=== PATIENT | female | born 1990 | race Caucasian/White ===

== ENCOUNTER 2023-01-07 08:09 | Emergency (ER) | payer OTHER ==
[2023-01-07 08:49] LABS: Absolute Lymphocytes (CBC) 0.6 K/uL (0.7-4.9); Hematocrit 43.6 % (36.0-45.0); Lymphocytes % 19.6 % (15.3-44.8); MCV 89.4 fL (80-100); MPV 10.5 fL (7.6-11.3); RBC Red Blood Cell Count 4.87 M/uL (3.86-4.86)
[2023-01-07 08:51] LABS: Specific Gravity 1.014 (1.005-1.030)
[2023-01-07] MEDS ORDERED: NA CHLORIDE 0.9% 1,000 ML ONE (08:53)
[2023-01-07 08:55] LABS: Specific Gravity 1.014 (1.005-1.030); Urine Bacteria None Seen /HPF (<20); Urine Bilirubin NEGATIVE (Negative); Urine Blood 1+ (Negative); Urine Clarity Clear (Clear); Urine Color Colorless (Yellow); Urine Glucose NEGATIVE (Negative); Urine Mucus Slight /HPF (None Seen); Urine Protein NEGATIVE (Negative); Urine Urobilinogen Normal (Normal)
--- OUTSIDE RECORDS SUMMARY | 2023-01-07 08:58 | XMS REPORT | Continuity of Care Document ---
:1990 Author Organization [facility] t Address [address] [facility] [address] [place] [address] Care Team Providers Name Role Phone JASWINDER MURILLO Primary Care Physician Unavailable [id number] Attending Clinician Unavailable Best Mcfarland MD Attending Clinician Gloria Daly MD Attending Clinician [phone] Wellington Bazan MA Attending Clinician Unavailable Shama Newton MA Attending Clinician Unavailable BROOKE HAWTHORNE Attending Clinician Unavailable Brooke Hawthorne MD Attending Clinician Riccardo Arita NP Attending Clinician [phone] Ephraim Hill MA Attending Clinician Unavailable Josh Lewis MA Attending Clinician Unavailable Radha Lerma MD Attending Clinician FLAVIO ERNST Attending Clinician Unavailable Flavio Ernst MD Attending Clinician Belinda Johnson MD Attending Clinician Neda GREENWOOD, Ronen Attending Clinician Andi Moses MD Attending Clinician Alberto Cordero MD Attending Clinician Johnathan GREENWOOD, Wes Yost Attending Clinician Shaneka GREENWOOD, Tim Coleman Attending Clinician [phone] Kota Salmon Attending Clinician Unavailable JOSHUA JASMINE III Attending Clinician Unavailable King MENDY MD, James C Attending Clinician Unknown, Attending Attending Clinician Unavailable SAM MARTINEZ Attending Clinician Unavailable Dori AHN, Raquel Attending Clinician Unavailable Almita ALCOCER, Tamra Marcelo Attending Clinician James GREENWOOD, Mackenzie Chisholm Attending Clinician [phone] Betina Walton CRNA Attending Clinician Randi LOVELLCSahra Attending Clinician Esperanza Silva MA Attending Clinician Unavailable Mahogany Jacobsen RN Attending Clinician Unavailable Gianni Mendez Attending Clinician Unavailable Izabella GREENWOOD, Not In System Attending Clinician Unavailable Provider , Not In System Attending Clinician Unavailable GISSELLE MONCADA Attending Clinician Unavailable Gisselle Ewing Attending Clinician Renee Gilliam MA Attending Clinician Unavailable Prachi Green RN Attending Clinician Unavailable Eugenie Gilliam RN Attending Clinician Unavailable Walter Lizarraga DO Attending Clinician UNKNOWN, ATTENDING Attending Clinician Unavailable Glenn Multani MD Attending Clinician [phone] John Elizabeth NP, Sonali Attending Clinician Chance King MA Attending Clinician Unavailable Cadence Bassett APRN Attending Clinician Cesilia Scott LVN Attending Clinician Izabella GREENWOOD, Jose Attending Clinician Kylee Silva MA Attending Clinician Unavailable Linda Sales MA Attending Clinician Unavailable Provider, Unknown Attending Clinician Unavailable ARLETH NERI Attending Clinician Unavailable Arleth Fajardo A Attending Clinician Doctor Unassigned, [place] Attending Clinician Unavailable KERRIE CARMONA Attending Clinician Unavailable TERESA SEWELL Attending Clinician Unavailable YUE GARNER Attending Clinician Unavailable YUE GARNER Attending Clinician Unavailable AMAIRANI THOMAS Attending Clinician Unavailable ANTOINE WEBER Attending Clinician Unavailable MD KERRIE CARMONA Attending Clinician Unavailable SAM MALDONADO Attending Clinician Unavailable BARBARA SIFUENTES Attending Clinician Unavailable Sachin Potts Attending Clinician Unavailable Sachin Potts Attending Clinician Unavailable [id number] Admitting Clinician Unavailable Physician, No Primary or Family Admitting Clinician UnavailBROOKE Baker Admitting Clinician Unavailable BELINDA JOHNSON Admitting Clinician Unavailable Belinda Johnson MD Admitting Clinician ANDI MOSES Admitting Clinician Unavailable GLORIA DALY Admitting Clinician Unavailable BEST MCFARLAND Admitting Clinician Unavailable YUE GARNER Admitting Clinician Unavailable AMAIRANI THOMAS Admitting Clinician Unavailable KERRIE CARMONA Admitting Clinician Unavailable CARLYN NEWSOME Admitting Clinician Unavailable SAM MALDONADO Admitting Clinician Unavailable Sachin Potts Admitting Clinician Unavailable Payers Payer Name Policy Type Policy Number Effective Date Expiration Date Harper weems [employer] [id number] 2022 OUT OF NETWORK 00:00:00 CIGNA II [id number] 2021 00:00:00 Problems Condition Condition Condition Status Onset Resolution Last Treating Co mments Source Name Details Category Date Date Treatment Clinician Date Weakness Weakness Disease Active Unive rs -31 ity of 00:00: [address] Stroke-lik Stroke-lik Disease Active M ethodi e symptoms e symptoms - st 00:00: Hospita 00 l Shortness Shortness Disease Active Met hodi of breath of breath 03-12 00:00: Hospita 00 l 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 2020 Planning to go for R knee arthrosco py Right knee Right knee Disease Active 2020-07 Overview : Univers pain pain 1-10 Formattin ity of 00:00: g of this [place] 00 note Medical might be Branch different from the original. Formattin g of this note might be different from the original. 2020 Planning to go for R knee arthrosco py RT KNEE RT KNEE Diagnosis Active 2020-072021-06-15 Memoria S/P S/P Active 17:17:00 l 05/04/2021 12:00: Edwin n [facility] 00 Amy TLA CA M25.561 - M25.561 - Diagnosis Active 2021-04-05 Memoria PAIN IN PAIN IN -15 11:16:00 l RIGHT KNEE RIGHT KNEE 00:01: He ann Active 00 03/29/2021 [facility] Palpitatio Palpitatio Disease Active Overview : Methodi n n 8-[address] 00:00: g of this Hospita 00 note l might be different from the original. DR Salmon Cardiolog y 2020 Evaluated in ED for fast heart rate associate d with SOB At rest and exercise Labs normal W/u negative as per pt Started on tenormin 25 mg By cardiolog y / albutrol for SOB / galv. For GERD Irritable Irritable Disease Active Overview: Methodi bowel bowel 5-[address] syndrome syndrome 00:00: g of this Hos aris with with 00 note l constipati constipati might be on on different from the original. Evaluated by Dr Sewell 2020 [address] no active disease constipat ion trt with fiber / miralex lactose free dairy product Generalize Generalize Disease Active Overview : Methodi d anxiety d anxiety 5-12 Formattin s t disorder disorder 00:00: g of this Hos aris with panic with panic 00 note l attacks attacks might be different from the original. - H/O Anxiety + Depressio n since age 21 treated with Zoloft 200 than Lexapro but felt angry-Dec lined SSRI ( did not use my prescript ions ) or any other trt due to bad prior experienc es with prescribe d med : anger feeling :Referred to psychiatr y / therapist - Mood fluctuati ng ,not intereste d in any medicatio n for anxiety , finding a therapist and doing her own antianxie ty exercise : family supports her decision DECONITION DECONITIO Diagnosis Active 2021-03-09 Memoria N Active 11-07 15:28:00 l 11/07/2020 00:00: Edwin rojo 00 [place] Arnold-Chi Disease Active Overview : Methodi kashmir kashmir 11-[address] syndrome syndrome 00:00: g of this Hos aris without without 00 note l spina spina might be bifida or bifida or different hydrocepha hydrocepha from the ganga schuler original. NAFLD NAFLD Disease Active Overview: Method i (nonalcoho (nonalcoho 2-[address] lic fatty lic fatty 00:00: g of this H ospita liver liver 00 note l disease) disease) might be different from the original. 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 Discuss benefit of weight loss ; portion control , quality of food cylinder block mechanic risk reviewed Morbid Morbid Disease Active Overview: Method i obesity obesity 2-[address] with BMI with BMI 00:00: g of this Hos aris of of 00 note l 45.0-49.9, 45.0-49.9, might be adult adult different from the original. She improved her eating habit - lost about 17 lbs as of her scale - eating better and exercisin g [place]IA INDIA Disease Active Overview: Method i (obstructi (obstructi 08-[address] ve sleep ve sleep 00:00: g of this Hos aris apnea) apnea) 00 note l might be different from the original. Evaluated By Dr Pedroza fh of [place] : father passed from NC/ CHF aware of risk of untreated [place] ; snoring , gasping for air at night Sleep study :moderate , positiona l obstructi ve sleep apnea (INDIA).Wea ring CPAP : advised to follow up Gastroesop Gastroesop Disease Active Overview : Methodi hageal hageal 08-[address] reflux reflux 00:00: g of this Hospita disease disease 00 note is l without without different esophagiti esophagiti from the s s original. Evaluated by Dr Sewell : EGD postpone until cardiac w/u is complete 08/16/2020: chronic in nature worse recently -Check H pylori Negative Plan Omeprazol e Improve eating habit 1. Gastroeso phageal reflux disease without esophagit is- worsening symptoms- eat smaller snack close to bedtime, eat dinner earlier, sleep on left side or will head elevated- Reich Capsule-e xternal- Esophagea l Manometry -external - dexlansop razole (DEXILANT ) 30 mg capsule; Take 1 capsule (30 mg total) by mouth 2 (two) times a day. Dispense: 180 capsule; Refill: 3- based on the above results will refer to dr Mcfarland for surgical managemen t of reflux. To follow up in 2 months Generalize Generalize Disease Active Overview : Methodi d d 08-[address] abdominal abdominal 00:00: g of this H ospita pain IBS + pain IBS + 00 note l constipati constipati might be on on different from the original. Evaluated by GI Dr Ulloa Bloating / gas/tende rness / heartburn / constiapt ion / spasm : chronic in nature H pylori Negative - EGD; GERD : omeprazol e CTabd pelvis no acute concerns : except ovarian cyst -Treat constipat ion with colace / fiber / miralex for now : better diet more fibers- stop all dairy product : use lactaid if needed Cyst of Cyst of Disease Active Overview: Meth domonique left ovary left ovary 08-[address] 00:00: g of this Hospita 00 note l might be different from the original. 2020 Evaluated by OBGYN H/O ovarian cyst rupture with severe abdominal pain.-abd pelvis Ct scan : .Incomple tely evaluated complex appearing left ovarian cyst, pelvic ultrasoun d may be obtained for further evaluatio n if indicated .-US vaginal and transabdo flor ordered Chronic Chronic Disease Active Overview: Meth domonique idiopathic idiopathic [address] constipati constipati 00:00: g of this Hospita on on note l might be different from the original. GI [place] Introduce more vegetable -hydrate well -start colace / fibers/ miralex Migraines Migraines Disease Active Met hodi 08-11 st 00:00: Hospita 00 l Obesity Obesity Disease Active Univers (BMI (BMI 3-20 ity of 30-39.9) 30-39.9) 00:00: [address] HEAD ACHE HEAD ACHE Diagnosis Active 2015-072016-04-18 Memoria Active 0 06:06:00 l 04/18/2016 00:00: Edwin [facility] 00 [place] LABOR LABOR Diagnosis Active 2015-11-10 Mem oria Active 10-17 14:58:00 l 10/18/2015 00:00: Edwin rojo 00 [facility] VAGINAL VAGINAL Diagnosis Active 2015-10-18 Memoria BLEEDING BLEEDING 10-17 10:34:00 l Active 00:00: Tor 10/18/2015 [facility] BACK PAIN BACK PAIN Diagnosis Active 2015-10-04 Memoria Active 10-03 22:42:00 l 10/04/2015 22:22: Edwin rojo 00 [facility] ABDOMINAL ABDOMINAL Diagnosis Active 2015-09-22 Memoria PAIN PAIN 09-21 07:19:00 l Active 00:00: Tor 09/22/2015 00 [facility] ENCOUNTER ENCOUNTER Diagnosis Active 2015-11-10 Memoria FOR FOR 14:58:00 l FULL-TERM FULL-TERM Herm kun UNCOMPLICA UNCOMPLICA VARGAS DE VARGAS DE Active [facility] Chiari Chiari Problem Resolve 2021-06-10 Me moria malformati malformati d 23:22:35 l on type I on type I Herm kun (disorder) (disorder) Resolved Problem 06/10/2021 [id number],M H [facility] Amy A [facility] Concussion Concussio Problem Resolve 2021-06-10 Memoria injury of n injury d 23:22:35 l body of body [place] structure structure (disorder) (disorder) Resolved Problem 06/10/2021 [id number],[facility] Headache Headache Problem Resolve 2021-06-10 Memoria (finding) (finding) d 23:22:35 l Resolved Tor Problem 06/10/2021 [id number],M H [facility] Amy A [facility] Morbid Morbid Problem Active 2021-06-10 Kendell rhett obesity obesity 23:22:35 l (disorder) (disorder) He rmann Active Problem 06/10/2021 [id number] 615.134,[facility] Patient Patient Problem Resolve 2021-06-10 2021-06-10 Memoria currently currently d 3-10 23:22:35 23:22:35 l 00:00: Edwin n (finding) (finding) 00 Resolved 09/22/2015 Problem 06/10/2021 ROSY Davis,2 .[id number]. [id number] 15.134,[facility], [facility] Depression Depressio Problem Resolve 2021-06-10 2021-06-10 Memoria - motion n - motion d - 23:22:35 23:22:35 l (qualifier (qualifier 00:00: He rmann value) value) 00 Resolved 07/15/2011 Problem 06/10/2021 ROSY Davis,2 .[id number]. [id number] 15.134,[facility], [facility] History of Past Illness Condition Condition Condition Status Onset Resolution Last Treating Co mments Source Name Details Category Date Date Treatment Clinician Date Discharge Discharge Problem 2015-072016-04-21 2016-04-21 Memoria Diagnosis: Diagnosis: 0-05 03:23:42 03:23:42 l Acute neck Acute neck 05:00: He rmann pain pain 00 04/18/2016 04/21/2016 [facility] Discharge Discharge Problem 2015-072016-04-21 2016-04-21 Memoria Diagnosis: Diagnosis: 0-05 03:23:42 03:23:42 l Acute Acute 05:00: [place] headache headache 00 04/18/2016 04/21/2016 [facility] Discharge Discharge Problem 2015-10-07 2015-10-07 Memoria Diagnosis: Diagnosis: 10-03 04:50:47 04:50:47 l Clear Clear 05:00: [place] vaginal vaginal 00 discharge discharge 10/04/2015 10/07/2015 [facility] Discharge Discharge Problem 2015-10-07 2015-10-07 Memoria Diagnosis: Diagnosis: 10-03 04:50:47 04:50:47 l Normal Normal 05:00: [place] 00 10/04/2015 10/07/2015 [facility] Discharge Discharge Problem 2015-09-25 2015-09-25 Memoria Diagnosis: Diagnosis: 3- 05:26:32 05:26:32 l Low back Low back 06:00: Edwin n pain pain 00 09/22/2015 09/25/2015 [facility] Discharge Discharge Problem 2015-09-25 2015-09-25 Memoria Diagnosis: Diagnosis: 3- 05:26:32 05:26:32 l Pelvic Pelvic 06:00: [place] pain pain 00 affecting affecting in third in third trimester, trimester, antepartum antepartum 09/22/2015 6 [facility] Allergies, Adverse Reactions, Alerts Allergy Allergy Status Severity Reaction(s) Onset Inactive Treating Comm ents Source Name Type Date Date Clinician NSAIDS Drug Active Unknown-Cmnt Univ ers (NON-AMOL Class 4-06 ity of ROIDAL 00:00: [place] ANTI-INF 00 Medical LAMMATOR Branch Y DRUG) Nsaids Propensi Active Unknown - Gastric Univ ers (Non-Amol ty to See comments 4-06 bypass it y of roidal adverse 00:00: doctor [place] Anti-Inf reaction 00 told her Medi jhon lammator s she can't Branc h y Drug) never have again because it'll cause bleeding Aspirin Propensi Active GI Per PT: Metho di ty to Intolerance 03-14 "I had st adverse 00:00: gastric Hospita reaction 00 bypass l s to surgery drug and was told by my surgeon I could never have aspirin or NSAID's ever again due to it thinning the lining inside my stomach and can cause bleeding. " Nsaids Propensi Active GI Per PT: Method i (Non-Amol ty to Intolerance 03-14 "I had st roidal adverse 00:00: gastric Hospita Anti-Inf reaction 00 bypass l lammator s to surgery y Drug) drug and was told by my surgeon I could never have aspirin or NSAID's ever again due to it thinning the lining inside my stomach and can cause bleeding. " Sulfa Propensi Active GI Methodi (Sulfona ty to Intolerance 02-07 st mide adverse 00:00: Hospita Antibiot reaction 00 l ics) s to drug Scopolam Propensi Active Other (See Blurry Me thodi ine ty to Comments) 10-[address] adverse 00:00: rry Hospita reaction 00 vision l s to drug SCOPOLAM DRUG Active Other-Cmnt Univ ers INE INGREDI 10-03 ity of 00:00: [place] 00 Medical Branch Scopolam Propensi Active Other - See Blurry U nivers ine ty to comments - vision ity of adverse 00:00: [place] reaction 00 Medical s Branch Valacycl Propensi Active Itching Metho di ovir ty to 09-05 st adverse 00:00: Hospita reaction 00 l s to drug VALACYCL DRUG Active High Hives Univers OVIR INGREDI 09-05 ity of 00:00: [place] 00 Medical Branch Valacycl Propensi Active Shortness of Univers ovir ty to Breath 09-05 ity of adverse 00:00: [place] reaction 00 Medical s Branch Milk Propensi Active Other (See 2020-07 Meth domonique ty to Comments) 2 st adverse 00:00: Hospita reaction 00 l s to drug LATEX DRUG Active Rash Univers INGREDI 8 ity of 00:00: [place] 00 Medical Branch Latex Propensi Active Rash Univers ty to 8-01 ity of adverse 00:00: [place] reaction 00 Medical s Branch Latex Propensi Active Rash Methodi ty to 2-24 st adverse 00:00: Hospita reaction 00 l s to drug Ciproflo Propensi Active Shortness Of Methodi xacin ty to Breath 1-27 st adverse 00:00: Hospita reaction 00 l s to drug ciproflo DA Active U [facility] xacin 3-15 Clear 00:00: [place] 00 [facility] ciproflo DA Active U UNKNOWN [facility] xacin 3-15 Clear 00:00: [place] [facility] CIPROFLO DRUG Active Other-Cmnt Univ ers XACIN 5-08 ity of (BULK) 00:00: [place] 00 Medical Branch Ciproflo Propensi Active Other - See Numbness Univers xacin ty to comments 5-08 and ity of (Bulk) adverse 00:00: tingling [place] reaction 00 in lips Medical s Branch No Known DA Active U [facility] Allergie 8-13 Clear s 00:00: [place] 00 [facility] Cipro Drug Active [facility] Cipro Drug Active [facility] Cipro Drug Active [facility] Cipro Drug Active [facility] Latex Latex Active [facility] Family History Family Member Diagnosis Comments Start Date Stop Date Source Natural father Diabetes Voodoo [facility] Natural father Heart attack Methodis t [facility] Natural father Obesity Voodoo [facility] Natural father Sleep apnea Voodoo [facility] Maternal Voodoo grandfather [facility] Maternal Miscarriages / Voodoo grandmother Stillbirths [facility] Natural mother Liver disease Methodi st [facility] Natural mother Skin cancer Voodoo [facility] Paternal Lung disease Voodoo grandfather [facility] Paternal Breast cancer [facility] Natural sister Ovarian cancer [facility] Social History Social Habit Start Date Stop Date Quantity Comments Source Gender identity 2021-10-11 Identifies as Method ist 00:14:51 female gender Hospital (finding) Sexual orientation Method ist Hospital History SDOH Social Unive rsity of Connections [facility] Branch History SDOH Social Unive rsity of Connections [facility] Branch History SDOH Social Unive rsity of Connections [place] [facility] Members[facility] Branch History SDPA Social Unive rsity of Connections [place] [facility] Meetings Branch Alcohol intake 2022-11-16 2022-11-16 Ex-drinker [facility] 00:00:00 00:00:00 (finding) Hospital History of Social 2022-11-16 2022-11-[address] function 00:00:00 00:00:00 Hospital Exposure to 2022-10-08 2022-10-18 Not sure University of SARS-CoV-2 (event) 00:00:00 19:51:00 [place] [facility] History SDOH 2022-08-14 2022-08-14 1 University o f Alcohol Frequency 00:00:00 00:00:00 [place] M edical Branch History SDOH 2022-08-14 2022-08-14 0 University o f Alcohol Std Drinks 00:00:00 00:00:00 [place] [facility] History SDOH 2022-08-14 2022-08-14 1 University o f Alcohol Binge 00:00:00 00:00:00 [place] Medic al Branch History SDPA Social 2022-08-14 2022-08-14 5 Unive rsity of Connections Phone 00:00:00 00:00:00 [place] M edical Branch History SDPA Social 2022-08-14 2022-08-14 8 Unive rsity of Connections Living 00:00:00 00:00:00 [place] [facility] History SDOH 2022-08-14 2022-08-14 0 University o f Physical Activity 00:00:00 00:00:00 [place] [facility] edical DPW Branch History SDPA 2022-08-14 2022-08-14 0 University o f Physical Activity 00:00:00 00:00:00 [place] M edical MPS Branch History SDPA 2022-08-14 2022-08-14 5 University o f Financial 00:00:00 00:00:00 [place] [facility] History SDOH Food 2022-08-14 2022-08-14 1 Univers ity of Worry 00:00:00 00:00:00 [place] [facility] History SDOH Food 2022-08-14 2022-08-14 1 Univers ity of Scarcity 00:00:00 00:00:00 [place] [facility] History SDOH 2022-08-14 2022-08-14 2 University o f Transport Med 00:00:00 00:00:00 [place] [facility] al Branch History SDOH 2022-08-14 2022-08-14 2 [place] o f Transport Non-Med 00:00:00 00:00:00 [facility] edical Branch Education 2022-08-14 2022-08-14 11 [facility] 00:00:00 00:00:00 [facility] [place] Cigarettes smoked 2021-10-03 2021-10-[address] current (pack per 00:00:00 00:00:00 Hospita l day) - Reported Cigarette 2021-10-03 2021-10-03 [facility] pack-years 00:00:00 00:00:00 Hospital Tobacco use and 2021-10-03 2021-10-03 Smokeless tobacco Me thodist exposure 00:00:00 00:00:00 non-user Hospital Alcohol Comment 2020-10-31 2020-10-31 not weekly [facility] 00:00:00 00:00:00 Hospital History of tobacco 2015-05-15 2018-09-12 Cigarette Smoker [facility] use 00:00:00 00:00:00 Hospital Social History 2015-10-05 2015-10-05 [facility] 03:41:03 03:41:03 Sex [birth year] At [birth year] F [facility] 00:00:00 00:00:00 Hospital Smoking Status Start Date Stop Date Source Unknown if ever smoked Universit y [facility] Never smoked tobacco [facility] Ex-smoker 2021-10-03 00:00:00 2021-10-03 00:00:00 [facility] Hospital Medications Ordered Filled Start Stop Current Ordering Indication Dosage Frequency Signature Comments Components Source Medication Medication Date Date Medication? Clinician (SIG) Name Name multivitami Yes 1{tbl} QD Take 1 Me thodi n tablet 5-[address] 09:30: mouth Hospita 44 daily. l calcium Yes 1{tbl} Q.5D Take 1 Method i citrate-vit 5-[address] vasquez D3 09:30: mouth 2 Hospita (CITRACAL+D 44 (two) l ) 315 mg-5 times a mcg (200 day. unit) per tablet VITAMIN A Yes Take by Metho di ORAL 5-[address] 09:30: Hospita 44 l acyclovir Yes 800mg Take 1 Metho di (ZOVIRAX) 5-[address] 800 MG 09:30: (800 mg Hospita tablet 44 total) by l mouth. omeprazole 2022- No 40mg QD Take 1 Meth domonique (PriLOSEC) 5-05 06-[address] 40 MG 00:00: 04:59 (40 mg Hospita capsule 00 :00 total) by l mouth daily for 30 days. iopamidol 2022- No [id number] 100mL 100 mL, Univers (ISOVUE 10-19 Intravenou ity o f 370-500 mL) 02:45: 02:33 s, ONCE, 1 [place] injection 00 :00 dose, On Medica l 100 mL [facility] 10/18/22 Branch at 2145, Routine metoclopram 2022- No 10mg 10 mg, Uni vers fernando HCl 10-19 Slow IV ity of (REGLAN) 02:15: 02:09 Push, [place] injection 00 :00 ONCE, 1 Medical 10 mg dose, On Branch [facility] 10/18/22 at 2115, [place] FENTanyl PF 2022- No 75ug 75 mcg, Un hannah (SUBLIMAZE 10-19 Slow IV ity o f (PF)) 02:00: 01:03 Push, [place] injection 00 :00 ONCE, 1 Medical 75 mcg dose, On Branch [facility] 10/18/22 at 2100, STAT ondansetron 2022- No 4mg 4 mg, Slow Univers (ZOFRAN 10-19 IV Push, ity of (PF)) 02:00: 01:03 ONCE, 1 [place] injection 4 00 :00 dose, On Medi jhon mg [facility] 10/18/22 Branch at 2100, [place] NaCl 0.9% 2022- No 1000mL at 999 Uni vers (NS) bolus 10-19 mL/hr, ity of infusion 02:00: 02:30 1,000 mL, [place] as 1,000 mL 00 :00 IV Medical Infusion, Branch ONCE, 1 dose, On [facility] 10/18/22 at 2100, STAT traMADoL 50 2023-0 Yes [id number] 50mg Take 1 Univ ers mg tablet -06 tablet by ity o f 00:00: mouth [place] 00 every 6 Medical (six) Branch hours as needed for Pain (scale 4-6). Indication s: acute pain omeprazole 2022- No 40mg QD Take 1 Meth domonique (PriLOSEC) 10-16 05-[address] 40 MG 00:00: 04:59 (40 mg Hospita capsule 00 :00 total) by l mouth daily for 30 days. acyclovir 2022- No 800mg Q.5D Take 2 Meth domonique (ZOVIRAX) 10-02 03-[address] 400 MG 00:00: 04:59 (800 mg Hospita tablet 00 :00 total) by l mouth 2 (two) times a day for 5 days. calcium 2022- No 1500mg QD Take 1,500 M ethodi citrate/vit 3-16 03-[address] vasquez D3 09:24: 00:00 mouth Hospita (CALCIUM 58 :00 daily. l CITRATE + ORAL) acyclovir 2022- No 800mg Q.5D Take 1 Meth domonique (ZOVIRAX) 16 03-[address] 800 MG 00:00: 04:59 (800 mg Hospita tablet 00 :00 total) by l mouth 2 (two) times a day for 5 days. acyclovir 2022- No 800mg Q.5D Take 1 Meth domonique (ZOVIRAX) 16 03-[address] 800 MG 00:00: 00:00 (800 mg Hospita tablet 00 :00 total) by l mouth 2 (two) times a day for 5 days. metFORMIN 2022- No [id number] 500mg QD Take 1 M ethodi XR 2-17 05-[address] (GLUCOPHAGE 00:00: 00:00 (500 mg Ho spita -XR) 500 mg 00 :00 total) by l 24 hr mouth tablet daily with breakfast. midodrine Yes 5mg 5 mg, Univers (PROAMATINE 2-01 Oral, TID, it y of ) tablet 5 20:00: First dose [place] mg 00 (after Medical last Branch modificati on) on 2/1/23 at 1400, Until Discontinu ed, Routine CALCIUM Yes 1500mg Take 1,500 Un hannah CITRATE 2-01 mg by ity of ORAL 15:28: mouth [place] [address] daily. [facility] Branch VITAMIN A Yes Take by Unive rs ORAL 2-01 mouth. ity of 15:28: [address] CALCIUM Yes 1500mg Take 1,500 Un h[place] CITRATE 2-01 mg by ity of ORAL 15:28: mouth [place] [address] daily. [facility] Branch VITAMIN A Yes Take by Unive rs ORAL 2-01 mouth. ity of 15:28: [address] midodrine 2022- No 2.5mg Take 2.5 Un hannah 2.5 mg 2 02- mg by ity of tablet 15:28: 00:00 mouth in [place] 43 :00 the [facility] and 2.5 mg at noon and 2.5 mg in the evening. butalbital- Yes 1{tbl} 1 tablet, Univers acetaminoph 08-15 Oral, ity of en-caff 15:23: Q4HPRN, [place] (ESGIC) 48 Starting Medical 50-325-40 on Sat mg tablet 1 08/15/22 at tablet 0923, Until Discontinu ed, Routine, Pain (scale 7-10) midodrine 5 2022- No [id number] 5mg Take 1 Univers mg tablet 08-15 03-04 tablet by ity of 00:00: 05:59 mouth in [place] 00 :00 the [facility] and 1 tablet at noon and 1 tablet in the evening. Do all this for 30 days. enoxaparin Yes 40mg 40 mg, Unive rs (LOVENOX) 08-14 Subcutaneo ity of injection 23:00: [place], DAILY, [place] 40 mg 00 First dose Medical on Sat [place] 08/14/22 at 1700, Until Discontinu ed, Routine midodrine 2022- No 2.5mg 2.5 mg, Uni vers (PROAMATINE 08-14 Oral, TID, i ty of ) tablet 14:00: 17:08 [place] 2.5 mg 00 :10 on [facility] 08/14/22 at Branch 0800, Until Discontinu ed, Routine Sliding 2022-0 Yes Subcutaneo Univ ers Scale 31 us, Q6H, ity of Insulin-Reg 12:00: First dose [place] ular + Fsbg 00 on Sat Medica l Testing 08/14/22 at Branch 0600, Until Discontinu ed, Routine NaCl 0.9% 0 Yes 1000mL at 125 Univ ers (NS) IV 1-31 mL/hr, IV ity of infusion 10:45: Infusion, [place] 1,000 mL 00 CONTINUOUS Medic al , Starting Branch on Sat08/14/22 at 0445, Until Discontinu ed, Routine glucagon Yes 1mg 1 mg, Univers (GLUCAGEN 08-14 Intramuscu ity of DIAGNOSTIC 10:39: lar, PRN, [place] KIT) 51 Starting Medical injection 1 on [facility] mg 08/14/22 at 0439, Until Discontinu ed, [place], Blood Glucose < or = 70 mg/dL and patient is NPO, unable to swallow or has mental changes. dextrose 50 0 Yes 25mL 25 mL, Univ ers % in water 08-14 Slow IV ity of (D50W) 10:39: Push, PRN, [place] injection 51 Starting Medica l 25 mL on [facility] Branch 08/14/22 at 0439, Until Discontinu ed, [place], Blood Glucose < or = 70 mg/dL and patient is NPO, unable to swallow or has mental status changes. ondansetron 0 Yes 4mg 4 mg, Slow Univers (ZOFRAN 08-14 IV Push, ity of (PF)) 10:33: Q6HPRN, [place] injection 4 38 Starting Medi jhon mg on [facility] Branch 08/14/22 at 0433, Until Discontinu ed, Routine, Nausea and Vomiting (N/V) traMADoL 2022-0 2022- No 50mg 50 mg, Univer s (ULTRAM) 08-14 02-02 Oral, ity of tablet 50 10:33: 10:32 Q8HPRN, [place] mg 32 :32 Starting Medical on [facility] Branch 08/14/22 at 0433, Until [place] 08/16/22 at 0432, Routine, Pain (scale 4-6) acetaminoph Yes 650mg 650 mg, Un hannah en 08-14 Oral, ity of (TYLENOL) 10:33: Q6HPRN, [place] tablet 650 27 Starting Medic al mg on Sat Branch 08/14/22 at 0433, Until Discontinu ed, Routine, Pain (scale 1-3) NaCl 0.9% 2022-0 2022- No 500mL at 999 Univ ers (NS) bolus 08-14 mL/hr, 500 it y of infusion 08:15: 10:13 mL, IV [place] 500 mL 00 :00 Infusion, Medical ONCE, 1 Branch dose, On Sat08/14/22 at 0215, STAT NaCl 0.9% 0 2022- No 500mL at 999 Univ ers (NS) bolus 08-14 mL/hr, 500 it y of infusion 08:15: 10:13 mL, IV [place] 500 mL 00 :00 Infusion, Medical ONCE, 1 Branch dose, On Sat08/14/22 at 0215, STAT NaCl 0.9% 2022- No 1000mL at 999 Uni vers (NS) bolus 08-14 mL/hr, ity of infusion 06:30: 08:08 1,000 mL, [place] as 1,000 mL 00 :00 IV Medical Infusion, Branch ONCE, 1 dose, On Sat08/14/22 at 0030, [place] albuterol 2022- No Inhale as Me thodi (PROAIR 20 -[address] HFA) 90 12:49: 00:00 Hospita mcg/actuati 45 :00 l on inhaler benzonatate 2021-07 Yes [id number] 100mg Take 1 Univers 100 mg 2-22 capsule by ity of capsule 00:00: mouth [place] 00 every 8 Medical (eight) Branch hours as needed for Cough. benzonatate 2021-07 Yes [id number] 100mg Take 1 Univers 100 mg 2-22 capsule by ity of capsule 00:00: mouth [place] 00 every 8 Medical (eight) Branch hours as needed for Cough. benzonatate 2021-07- No [id number] 100mg Take 1 Univers 100 mg 2-22 08-14 capsule by ity of capsule 00:00: 00:00 mouth [place] 00 :00 every 8 Medical (eight) Branch hours as needed for Cough. azithromyci 2021-07 Yes Univer s n 250 mg 2-20 ity of tablet 00:00: Medical Branch azithromyci 2021-07 Yes Univer s n 250 mg 2-20 ity of tablet 00:00: Medical Branch azithromyci 2021-07- No Unive rs n 250 mg 2-20 -31 ity of tablet 00:00: 00:00 [place] 00 :00 Medical Branch albuterol Yes Inhale as Met hodi (PROAIR [address] HFA) 90 08:48: Hospita mcg/actuati 59 l on inhaler multivitami Yes 1{tbl} QD Take 1 Me thodi n tablet [address] 08:48: mouth Hospita 59 daily. l calcium Yes 1{tbl} Q.5D Take 1 Method i citrate-vit 03-[address] vasquez D3 08:48: mouth 2 Hospita (CITRACAL+D 59 (two) l ) 315 mg-5 times a mcg (200 day. unit) per tablet VITAMIN A Yes Take by Metho di ORAL [address] 08:48: Hospita 59 l traMADoL 2021- No [id number] 50mg Q6H Take 1 Metho di (ULTRAM) 50 - 09-04 tablet (50 s t mg tablet 00:00: 04:59 mg total) Ho spita 00 :00 by mouth l every 6 (six) hours as needed for moderate pain for up to 3 days .acute pain. traMADoL 2021- No [id number] 50mg Q6H Take 1 Metho di (ULTRAM) 50 8- 09-04 tablet (50 s t mg tablet 00:00: 04:59 mg total) Ho spita 00 :00 by mouth l every 6 (six) hours as needed for moderate pain for up to 3 days .acute pain. norethindro Yes Method i ne 8-12 st (MICRONOR) 00:00: Hospita 0.35 mg 00 l tablet norethindro 2022- No Metho di ne 8-12 01-20 st (MICRONOR) 00:00: 00:00 Hospit a 0.35 mg 00 :00 l tablet omeprazole 2022- No 40mg QD Take 1 Meth domonique (PriLOSEC) 02-21- capsule st 40 MG 00:00: 04:59 (40 mg Hospita capsule 00 :00 total) by l mouth daily. omeprazole 2022- No 40mg QD Take 1 Meth domonique (PriLOSEC) 02-[address] 40 MG 00:00: 00:00 (40 mg Hospita capsule 00 :00 total) by l mouth daily. flash Yes [id number] 1{devic Q14D 1 Device Methodi glucose 7-15 e} every 14 st sensor 00:00: (fourteen) Hospi ta (FreeStyle 00 days. l Jonathan 2 Sensor) kit flash 2022- No [id number] 1{devic Q14D 1 Device Methodi glucose 7-15 02-17 e} every 14 st sensor 00:00: 00:00 (fourteen) Hosp kevon (FreeStyle 00 :00 days. l Jonathan 2 Sensor) kit mupirocin 2 Yes [id number] Apply to Univers % ointment 12-21 area(s) 3 ity of 00:00: (three) [place] 00 times Medical daily. Branch mupirocin 2 Yes [id number] Apply to Univers % ointment 12-21 area(s) 3 ity of 00:00: (three) [place] 00 times Medical daily. Branch mupirocin 2 Yes [id number] Apply to Univers % ointment 12-21 area(s) 3 ity of 00:00: (three) [place] 00 times Medical daily. Branch mupirocin 2 2022- No [id number] Apply to Univers % ointment 12-21 area(s) 3 ity of 00:00: 00:00 (three) [place] 00 :00 times Medical daily. Branch sulfamethox 2021- No [id number] 1{tbl} Take 1 Univers azole-trime 12-21 tablet by it y of thoprim 00:00: 04:59 mouth 2 [place] (BACTRIM 00 :00 (two) Medical DS) 800-160 times Branch mg per daily for tablet 10 days. norethindro 2021-0 2021- No .35mg QD Take 1 Me fernandoodi ne 6-03 08-[address] (MICRONOR) 00:00: 00:00 (0.35 mg Ho spita 0.35 mg 00 :00 total) by l tablet mouth daily. norethindro 2021-0 2021- No .35mg QD Take 1 Me fernandoodi ne 6-03 08-[address] (MICRONOR) 00:00: 00:00 (0.35 mg Ho spita 0.35 mg 00 :00 total) by l tablet mouth daily. ondansetron 2021-2021- No 4mg Q8H Take 1 Met hodi (Zofran) 4 5-18 08-10 tablet (4 st MG tablet 00:00: 00:00 mg total) Ho spita 00 :00 by mouth l every 8 (eight) hours as needed for nausea or vomiting. ondansetron 2021-0 2021- No 4mg Q8H Take 1 Met hodi (Zofran) 4 5-18 08-10 tablet (4 st MG tablet 00:00: 00:00 mg total) Ho spita 00 :00 by mouth l every 8 (eight) hours as needed for nausea or vomiting. aluminum-ma 2021- No 5mL Q6H Take 5 mL Methodi gnesium 11-17 06-[address] hydroxide 00:00: 04:59 every 6 Hosp kevon (MAALOX) 00 :00 (six) l 200-200 hours as mg/5 mL needed for suspension heartburn for up to 30 days. amoxicillin 2021- No 800mg Q.5D Take 16 mL Methodi -pot 11-14-14 ([address] clavulanate 00:00: 04:59 total) by Hospita (Augmentin) 00 :00 mouth 2 l 250-62.5 (two) mg/5 mL times a suspension day for 10 days. neomycin-ba 2021-2021- No QD Apply Meth domonique citracin-po 11-14-[address] lymyxin B 00:00: 04:59 daily for Ho spita (Triple 00 :00 10 days. l Antibiotic) ointment promethazin 2021- No [id number] 25mg Q6H Take 1 Methodi e 5-03 05-09 tablet (25 st (PHENERGAN) 00:00: 04:59 mg total) Hospita 25 MG 00 :00 by mouth l tablet every 6 (six) hours as needed for nausea or vomiting for up to 5 days. lidocaine/m 2021- No 30mL Q6H Take 30 mL Methodi aalox/taina 11-[address] gurdeep (GI 00:00: 04:59 every 6 Hospit a COCKTAIL) 00 :00 (six) l 1:1:1 hours as suspension needed suspension (epigastri c pain from possible marginal ulcers) for up to 7 days. omeprazole 2021- No [id number] 40mg Q.5D Take 1 Methodi (PriLOSEC) 11-[address] 40 MG 00:00: 04:59 (40 mg Hospita capsule 00 :00 total) by l mouth 2 (two) times a day for 30 days. Take one (1) capsule the night before surgery. Continue daily for (6) six months sucralfate 2021- No [id number] 1g Q.25D Take 10 mL Methodi (CARAFATE) 11-09 ([address] 100 mg/mL 00:00: 04:59 total) by Ho spita suspension 00 :00 mouth 4 l (four) times a day before meals and nightly for 30 days. cyclobenzap 2021- No 5mg Q8H Take 1 Met hodi rine 11-09- tablet (5 st (FLEXERIL) 00:00: 04:59 mg total) H ospita 5 mg tablet 00 :00 by mouth l every 8 (eight) hours for 30 days. metoclopram 2021- No 5mg Q.25D Take 1 Me thodi fernando 11-09- tablet (5 st (Reglan) 5 00:00: 04:59 mg total) H ospita MG tablet 00 :00 by mouth 4 l (four) times a day before meals and nightly for 30 days. lidocaine/m 2021- No 35mL Q6H Take 35 mL Methodi aalox (GI 11-09 05-[address] COCKTAIL) 00:00: 04:59 every 6 Hosp kevon 35 mL 00 :00 (six) l suspension hours as suspension needed (abdominal pain with swallowing ) for up to 14 days. HYDROcodone 2021- No [id number] 20mL Q6H Take 20 mL Methodi -acetaminop 11-09-[address] hen (HYCET) 00:00: 04:59 every 6 Ho spita 2.5-108.3 00 :00 (six) l mg/5 mL hours as solution needed for moderate pain for up to 5 days .acute pain. Max Daily Amount: 80 mL lidocaine/m 2021- No 30mL Q6H Take 30 mL Methodi aalox/taina 11-[address] gurdeep (GI 00:00: 00:00 every 6 Hospit a COCKTAIL) 00 :00 (six) l 1:1:1 hours as suspension needed suspension (epigastri c pain from possible marginal ulcers) for up to 7 days. lidocaine/m 2021- No 30mL Q6H Take 30 mL Methodi aalox/taina 11-07- by mouth st gurdeep (GI 00:00: 00:00 every 6 Hospit a COCKTAIL) 00 :00 (six) l 1:1:1 hours as suspension needed suspension (epigastri c pain from possible marginal ulcers) for up to 4 days. sucralfate 2021- No TAKE 1 Meth domonique (CARAFATE) 11-02-28 TABLET(1 st 1 gram 00:00: 00:00 GRAM) BY Hospit a tablet 00 :00 MOUTH FOUR l TIMES DAILY fluconazole 2021- No 339mg QD Take 33.9 Methodi (Diflucan) 11-01-28 mL ([address] 10 mg/mL 00:00: 00:00 total) by Hos aris suspension 00 :00 mouth l daily for 7 days. sucralfate 2021- No 1g Q.25D Take 1 Met hodi (Carafate) 11-01- tablet (1 st 1 gram 00:00: 00:00 g total) Hospit a tablet 00 :00 by mouth 4 l (four) times a day for 30 days. HYDROcodone No 15mL Q6H Take 15 mL Methodi -acetaminop 4-18 -[address] hen (HYCET) 00:00: 04:59 every 6 Ho spita 2.5-108.3 00 :00 (six) l mg/5 mL hours as solution needed for severe pain for up to 3 days .acute pain. Max Daily Amount: 60 mL HYDROcodone No 15mL Q6H Take 15 mL Methodi -acetaminop 4-18 -[address] hen (HYCET) 00:00: 00:00 every 6 Ho spita 2.5-108.3 00 :00 (six) l mg/5 mL hours as solution needed for severe pain for up to 3 days .acute pain. Max Daily Amount: 60 mL acetaminoph 2021- No 2{tbl} Take 2 M ethodi en (TYLENOL 16 -15 tablets by s t ARTHRITIS 10:59: 00:00 mouth as Hos aris ORAL) 04 :00 needed. l diphenhydra 2021- No 1{tbl} Take 1 M ethodi mine HCl 10-28-15 tablet by (BENADRYL 10:59: 00:00 mouth as Hos aris ALLERGY 04 :00 needed. l ORAL) multivitami 2021- No 1{tbl} QD Take 1 M ethodi n tablet 10-[address] 10:59: 00:00 mouth Hospita 25 :00 daily. l calcium 2021- No 1{tbl} QD Take 1 Metho di citrate-vit -15 -15 tablet by vasquez D3 500 10:59: 00:00 mouth Hosp kevon mg-12.5 mcg 25 :00 daily. l /5 gram powder acidophilus 2021- No 1{capsu QD Take 1 Methodi -pectin, 4-15 -15 le} capsule by st citrus 100 10:59: 00:00 mouth Hospi ta million 25 :00 daily. l cell-10 mg capsule lidocaine 4 2021- No Place 1 Me thodi % adhesive 10-26-[address] patch,medic 00:00: 00:00 the skin H ospita ated 00 :00 daily. l Remove and discard patch within 12 hours or as directed by physician. lidocaine 4 2021- No Place 1 Me thodi % adhesive 10-26-[address] patch,medic 00:00: 00:00 the skin H ospita ated 00 :00 daily. l Remove and discard patch within 12 hours or as directed by physician. HYDROcodone 2021- No [id number] 15mL Q6H Take 15 mL Methodi -acetaminop 4-14 -[address] hen (HYCET) 00:00: 00:00 every 6 Ho spita 2.5-108.3 00 :00 (six) l mg/5 mL hours as solution needed for moderate pain for up to 3 days .acute pain. Max Daily Amount: 60 [place] [id number] 15mL Q6H Take 15 mL Methodi -acetaminop 4-26 10-[address] hen (HYCET) 00:00: 04:59 every 6 Ho spita 2.5-108.3 00 :00 (six) l mg/5 mL hours as solution needed for moderate pain for up to 3 days .acute pain. Max Daily Amount: 60 mL ursodioL 2021- No [id number] 300mg Q.5D Take 1 Methodi (ActigalL) 10-18-[address] 300 mg 00:00: 00:00 (300 mg Hospita capsule 00 :00 total) by l mouth 2 (two) times a day for 180 days. ondansetron 2021- No [id number] 4mg Q8H Take 1 Methodi ODT 10-18 08-10 tablet (4 st (ZOFRAN-ODT 00:00: 00:00 mg total) Hospita ) 4 MG 00 :00 by mouth l disintegrat every 8 ing tablet (eight) hours as needed for nausea or vomiting. ursodioL 2021- No [id number] 300mg Q.5D Take 1 Methodi (ActigalL) 4-06 08-[address] 300 mg 00:00: 00:00 (300 mg Hospita capsule 00 :00 total) by l mouth 2 (two) times a day for 180 days. ondansetron 2021- No [id number] 4mg Q8H Take 1 Methodi ODT 10-1810 tablet (4 st (ZOFRAN-ODT 00:00: 00:00 mg total) Hospita ) 4 MG 00 :00 by mouth l disintegrat every 8 ing tablet (eight) hours as needed for nausea or vomiting. gabapentin 2021- No 300mg Q.[id number] Take 1 Methodi (NEURONTIN) 10-[id number] 300 mg 00:00: 00:00 3D (300 mg Hospita capsule 00 :00 total) by l mouth 3 (three) times a day. gabapentin 2021-2021- No 300mg Q.[id number] Take 1 Methodi (NEURONTIN) 10-[id number] 300 mg 00:00: 00:00 3D (300 mg Hospita capsule 00 :00 total) by l mouth 3 (three) times a day. methocarbam 2021- No 500mg Q.25D Take 1 M ethodi oL 10-[address] (Robaxin) 00:00: 04:59 (500 mg Hosp kevon 500 MG 00 :00 total) by l tablet mouth 4 (four) times a day for 30 days. promethazin 2021- No [id number] 25mg Q6H Take 1 Methodi e 10-18 tablet (25 st (PHENERGAN) 00:00: 00:00 mg total) Hospita 25 MG 00 :00 by mouth l tablet every 6 (six) hours as needed for nausea or vomiting for up to 30 days. omeprazole 2021- No [id number] 40mg QD Take 1 Methodi (PriLOSEC) 10-[address] 40 MG 00:00: 00:00 (40 mg Hospita capsule 00 :00 total) by l mouth daily for 30 days. Take one (1) capsule the night before surgery. Continue daily for (6) six months enoxaparin 2021- [place] [id number] 40mg QD Inject 0.4 Methodi (Lovenox) 10-18-21 mL ([address] 40 mg/0.4 00:00: 04:59 total) Hospi ta mL syringe 00 :00 under the l skin daily for 14 days .deep vein thrombosis prevention in abdominal surgery. Please start at home after surgery traMADoL 2021- [place] [id number] 50mg Q6H Take 1 Metho di (Ultram) 50 10-18 04-10 tablet (50 s t mg tablet 00:00: 04:59 mg total) Ho spita 00 :00 by mouth l every 6 (six) hours as needed for moderate pain for up to 3 days .acute pain. acyclovir 2021- No 400mg Q.[id number] Take 1 Methodi (ZOVIRAX) 09-08 [id number] tablet s t 400 MG 00:00: 05:59 3D (400 mg Hospita tablet 00 :00 total) by l mouth 3 (three) times a day for 5 days. amoxicillin No 500mg Take 500 Methodi (AMOXIL) 09-06 04-[address] 500 MG 00:00: 00:00 mouth. Hospita capsule 00 :00 Ordered [address], to take 1 hour prior to surgery valACYclovi No 1000mg QD Take 2 M ethodi r (Valtrex) 09-[address] 500 MG 00:00: 00:00 (1,000 mg Hospi ta tablet 00 :00 total) by l mouth daily for 5 days. ketorolac 2021- No [id number] 30mg Univ ers (TORADOL) 08-27 ity of injection 02:15: 01:12 [place] 30 mg 00 :00 Medical Branch ketorolac 2021- No [id number] 30mg 30 mg, Un hannah (TORADOL) 08-27 Intramuscu ity of injection 02:15: 01:12 lar, ONCE, [place] 30 mg 00 :00 1 dose, On Medical Sat Branch 08/26/21 at 2015, Routine acetaminoph 2021- No 2{tbl} Take 2 U nivers en-codeine 08-26 tablets by it y of (TYLENOL-CO 19:10: 00:00 mouth [place] DEINE #3) 38 :00 every 6 Medical 300-30 mg (six) Branch tablet hours as needed. acetaminoph 2021- No [id number] 1{tbl} Take 1 U nivers en-codeine 08-26- tablet by ity of (TYLENOL-CO 00:00: 05:59 mouth [place] DEINE #3) 00 :00 every 4 Medical 300-30 mg (four) Branch tablet hours as needed for Pain (scale 7-10) for up to 7 days. Indication s: acute pain nebivoloL 5 Yes Univer s mg tablet -10 ity of 00:00: [place] 00 Medical Branch nebivoloL 2021- No 5mg QD Take 5 mg Me thodi (BYSTOLIC) 08-24-[address] 5 MG tablet 00:00: 00:00 daily. In Hospita 00 :00 the l morning nebivoloL 2021- No 5mg QD Take 5 mg Me thodi (BYSTOLIC) 08-24-[address] 5 MG tablet 00:00: 00:00 daily. In Hospita 00 :00 the l morning nebivoloL 5 2021- No Unive rs mg tablet 08-24- ity of 00:00: 00:00 [place] 00 :00 Medical Branch nebivoloL Yes 5mg QD Take 5 mg Met hodi (BYSTOLIC) 08-[address] 2.5 MG 00:00: nightly. Hospita tablet 00 l nebivoloL 2022- No 5mg QD Take 5 mg Me thodi (BYSTOLIC) 08-23- by mouth st 2.5 MG 00:00: 00:00 nightly. Hospit a tablet 00 :00 l albuterol Yes 2{puff} Take 2 Met hodi (PROAIR 1-[address] HFA) 90 00:00: mouth. Hospita mcg/actuati 00 l on inhaler albuterol Yes INHALE 2 Univ ers 90 1-24 PUFFS BY ity of mcg/actuati 00:00: MOUTH [place] on inhaler 00 EVERY 6 Medica l HOURS Branch albuterol 0 Yes INHALE 2 Univ ers 90 1-24 PUFFS BY ity of mcg/actuati 00:00: MOUTH [place] on inhaler 00 EVERY 6 Medica l HOURS Branch albuterol 0 Yes INHALE 2 Univ ers 90 1-24 PUFFS BY ity of mcg/actuati 00:00: MOUTH [place] on inhaler 00 EVERY 6 Medica l HOURS Branch albuterol 0 Yes INHALE 2 Univ ers 90 1-24 PUFFS BY ity of mcg/actuati 00:00: MOUTH [place] on inhaler 00 EVERY 6 Medica l HOURS Branch albuterol 0 Yes INHALE 2 Univ ers 90 1-24 PUFFS BY ity of mcg/actuati 00:00: MOUTH [place] on inhaler 00 EVERY 6 Medica l HOURS Branch albuterol 0 Yes INHALE 2 Univ ers 90 1-24 PUFFS BY ity of mcg/actuati 00:00: MOUTH on inhaler 00 EVERY 6 Medica l HOURS Branch atenoloL 25 2020-07 Yes 25mg Take 25 mg Univers mg tablet 08-25 by mouth ity of 00:00: daily. [place] [facility] atenoloL 25 2020-07- No 25mg Take 25 mg Univers mg tablet 08-25 by mouth ity o f 00:00: 00:00 daily. [place] 00 :00 [facility] pantoprazol 2020-07- No [id number] 40mg Q.5D Take 1 Methodi e 08-20 04-15 tablet (40 st (PROTONIX) 00:00: 00:00 mg total) H ospita 40 MG EC 00 :00 by mouth 2 l tablet (two) times a day. ondansetron 2020-07- No 4mg 4 mg, Slow Univers (ZOFRAN 07-26 IV Push, ity of (PF)) 07:15: 06:15 ONCE, 1 [place] injection 4 00 :00 dose, On Medi jhon mg Fri Branch 05/26/21 at 0115, [place] pantoprazol 2020-07- No 40mg 40 mg, Uni vers e 07-26 Oral, ity of (PROTONIX) 07:15: 06:15 ONCE, 1 [place] as EC tablet 00 :00 dose, On Medica l 40 mg Fri Branch 05/26/21 at 0115, [place] ketorolac 2020-07- No 15mg 15 mg, Unive rs (TORADOL) 07-26 Slow IV ity of injection 07:15: 06:16 Push, [place] 15 mg 00 :00 ONCE, 1 Medical dose, On Branch 05/26/21 at 0115, [place]
Fa culty member approving Restricted medication : GARNER, YUE sodium 2020-07 Yes 5mL 5 mL, Univers chloride 07-26 Intravenou ity o f (NS) 05:20: s, PRN, [place] injection 5 07 Starting Medi jhon mL on Tori Branch 05/25/21 at 2320, Until Discontinu ed, Routine, IV line flushing famotidine 2020-07- No [id number] 40mg QD Take 1 Methodi (PEPCID) 40 0-07 04-15 tablet (40 s t MG tablet 00:00: 00:00 mg total) Ho spita 00 :00 by mouth l nightly as needed for indigestio n or heartburn. atenoloL 2021- No 25mg QD Take 25 mg Me thodi (TENORMIN) 04-[address] 25 MG 00:00: 00:00 daily. Hospita tablet 00 :00 l methocarbam 2021- No 500mg Q8H Take 1 Me thodi oL 01-[address] (ROBAXIN) 00:00: 00:00 (500 mg Hosp kevon 500 MG 00 :00 total) by l tablet mouth every 8 (eight) hours as needed for muscle spasms. doxycycline 2019-07 Yes [id number] 100mg Take 1 Univers hyclate 100 08-11 [id number] capsule by ity of mg capsule 00:00: mouth 2 [place] 00 (two) Medical times Branch daily. naproxen 2019-07 Yes [id number] 500mg Take 1 [facility] 500 mg - [id number] tablet by [facility] tablet 00:00: mouth 2 [place] 00 (two) [facility] times [facility] daily with meals as needed for Pain (scale 4-6). doxycycline 2019-07 Yes [id number] 100mg Take 1 [facility] 100 - [id number] capsule by [facility] capsule 00:00: mouth 2 [place] (two[place] [facility] times [facility] daily. naproxen 2019-07 Yes [id number] 500mg Take 1 [facility] 500 mg - [id number] tablet by [facility] of tablet 00:00: mouth 2 [place] 00 (two) [facility] times [facility] daily with meals as needed for Pain (scale 4-6). doxycycline 2019-07 Yes [id number] 100mg Take 1 [facility] 100 - [id number] capsule by [facility] mg capsule 00:00: mouth [place] (two) [facility] times [facility] daily. naproxen 2019-07 Yes [id number] 500mg Take 1 [facility] 500 mg - [id number] tablet by [facility] of tablet 00:00: mouth 2 [place] 00 (two) Medical times [facility] daily with meals as needed for Pain (scale 4-6). doxycycline 2019-07- No [id number] 100mg Take 1 Univers hyclate 100 -09 01-09 [id number] capsule by ity of mg capsule 00:00: 00:00 mouth 2 [place] as 00 :00 (two) Medical times Branch daily. naproxen 2019-07- No [id number] 500mg Take 1 Univers 500 mg -28 06-09 [id number] tablet by ity o f tablet 00:00: 00:00 mouth 2 [place] 00 :00 (two) Medical times Branch daily with meals as needed for Pain (scale 4-6). acetaminoph Yes 2{tbl} Take 2 Un hannah en-codeine 5-08 tablets by ity of (TYLENOL-CO 22:53: mouth [place] DEINE #3) 07 every 6 Medical 300-30 mg (six) Branch tablet hours as needed. acetaminoph Yes 2{tbl} Take 2 Un hannah en-codeine 5-08 tablets by ity of (TYLENOL-CO 22:53: mouth [place] DEINE #3) 07 every 6 Medical 300-30 mg (six) Branch tablet hours as needed. Acetaminoph 2015-07 No 1 - 2 tab, Memoria en 300 MG / 0-05 PO, Q4H, l Codeine 12:42: PRN Pain, Carol nn Phosphate 00 X 2 day, # 15 MG Oral 20 tab, 0 Tablet Refill(s) Sodium 2015-07 No 1,000 mL, Memori a Chloride 0-05 1,000 l 0.154 10:00: ml/hr, Orient MEQ/ML 00 Infuse Injectable Over: 1 Solution hr, Route: IV, 1,000, Drug form: INJ, ONCE, Priority: STAT, Dosing Weight 97.273 kg, Start date: 04/18/16 5:00:00 CDT, Duration: 1 doses or times, Stop date: 04/18/16 5:00:00 CDT Saline 2015-07 No Notes: Memoria Flush 0.9% 0-05 (Same as: l 10:00: BD Posiflush) Ketorolac 2015-07 No 4 days Memor ia 0-05 l 10:00: MEDICATION WASTE Product Size: 30 mg Product Wasted: ___ mg Benadryl 2015-07 No Notes: Memoria 0-05 (Same as: l 10:00: Benadryl) Reglan 2015-07 No 10 mg, Memoria 0-05 Route: l 10:00: IVP, Drug form: INJ, ONCE, Dosing Weight 97.273, kg, Priority: STAT, Start date: 04/18/16 5:00:00 CDT, Stop date: 04/18/16 5:00:00 CDT Haldol 2015-07 No 2 mg, Memoria 0-05 Route: IV, l 10:00: ONCE, Dosing Weight 97.273, kg, Priority: STAT, Start date: 04/18/16 5:00:00 CDT, Stop date: 04/18/16 5:00:00 CDT ibuprofen Yes 600 mg = 1 Me moria 600 mg oral 4-07 tab, PO, l tablet 16:58: Q6H, PRN Pain Score 4-6, # 30 tab, 0 Refill(s) No 1 tab, Memoria Multivitami 06 Route: PO, l ns oral 14:00: Drug Form: Herm kun tablet 00 TAB, Dosing Weight 95.091, kg, Daily, Start date: 10/19/15 9:00:00, Duration: 30 day, Stop date: 11/17/15 9:00:00 Ibuprofen No Notes: Memori a 10-18 (Same as: l 03:22: Motrin) Tor "Do Not Crush" Take with food. Acetaminoph No Notes: Kendell rhett en 325 MG / 10-18 (Same as: l Hydrocodone 03:22: [place] Carol nn Bitartrate 00 325/5) Do 5 MG Oral not exceed Tablet 4gm/day of acetaminop hen. Acetaminoph No Notes: Do M emoria en - not exceed l 03:22: 4 gm/day. Orient (Same as: Tylenol) Bisacodyl No Notes: Memori a 10-18 (Same As: l 03:22: Dulcolax, Tor 00 Correctol) (Do Not Crush) "Do Not Crush" zolpidem No Notes: Memoria 10-18 (Same As: l 03:22: Ambien) Orient Benzocaine No Notes: Memor ia 200 MG/ML 10-18 (Same As: l Topical 03:22: Dermoplast Herm kun [place] ) WASTE: [Dermoplast Aerosol - ] Return to Pharmacy FOR EXTERNAL USE ONLY lanolin No 1 appl, Memoria topical 10-18 Route: l 03:22: TOP, PRN, Tor Drug form: CRM, PRN Other -See Comment, Start date: 10/18/15 22:22:00, Duration: 30 day, Stop date: 11/17/15 22:21:00 Docusate No Notes: Memoria 10-18 (Same as: l 03:22: Colace) Orient (Do Not Crush) Oxytocin No Notes: Memoria 0.06 UNT/ML 10-18 (Same as: l Injectable 03:22: OXYTOCIN-D H ermann Solution 00 5LR) Lactated No 1,000 mL, Kendell rhett Ringers IV 10-18 Rate: 100 l 1,000 mL 03:22: ml/hr, Orient 00 Infuse over: 10 hr, Route: IV, Dosing Weight 95.091 kg, Total Volume: 1,000, Start date: 10/18/15 22:22:00, Duration: 30 day, Stop date: 11/17/15 22:21:00 Methylergon No Notes: Kendell rhett ovine 4-06 (Same l 03:22: as:Metherg Tor 00 ine) Ondansetron No Notes: Kendell rhett 4-06 (Same as: l 03:22: Zofran) Tor 00 MEDICATION WASTE Product Size: 4 mg Product Wasted: ___ mg Oxytocin No Notes: Memoria 0.06 UNT/ML 4-05 (Same as: l Injectable 17:48: OXYTOCIN-D H ermann Solution 00 5LR) Famotidine No Notes: Memor ia 4-05 (Same as: l 17:00: Pepcid) Orient 00 Can be dilute in 5-10cc NS IVP: Slow IV push over at least 2 minutes. Misoprostol No Notes: Kendell rhett 4-05 (Same l 17:00: as:Cytotec Tor 00 ) Take with food Methylergon No Notes: Kendell rhett ovine 4-05 (Same l 17:00: as:Metherg Tor 00 ine) Carboprost No Notes: Memor ia 4-05 (Same As: l 17:00: Hemabate) Tor 00 Citric Acid No Notes: Kendell rhett / sodium 4-05 (Same As: l citrate 17:00: Bicitra) Edwin n 00 Lidocaine No Notes: Memori a Hydrochlori 4-05 (Same as: l de 10 MG/ML 16:07: Xylocaine) Tor Injectable 00 Solution Ondansetron No Notes: Kendell rhett 4-05 (Same as: l 16:07: Zofran) Tor 00 MEDICATION WASTE Product Size: 4 mg Product Wasted: ___ mg Terbutaline No Notes: Kendell rhett 4-05 DO NOT l 16:07: USE IN Orient 00 STORES DESPATCH HAND AREA (Same As: Brethine) Butorphanol No Notes: Kendell rhett 4-05 (Same As: l 16:07: Stadol) Orient 00 Calcium No 1,000 mL, Memor ia Chloride -05 1,000 l 0.0014 16:07: ml/hr, [place] MEQ/ML / 00 Infuse Potassium Over: 1 Chloride hr, Route: 0.004 IV, 1,000, MEQ/ML / Drug form: Sodium INJ, ONCE, Chloride Dosing 0.103 Weight MEQ/ML / 95.091 kg, Sodium Start Lactate date: 0.028 10/18/15 MEQ/ML 11:07:00, Injectable Stop date: Solution 10/18/15 11:07:00, Bolus for regional anesthesia per unit protocol Lactated No 1,000 mL, Kendell rhett Ringers IV 10-17 Rate: 125 l 1,000 mL 16:07: ml/hr, Tor 00 Infuse over: 8 hr, Route: IV, Dosing Weight 95.091 kg, Total Volume: 1,000, Start date: 10/18/15 11:07:00, Duration: 30 day, Stop date: 11/17/15 11:06:00 Oxytocin No Notes: Memoria 0.06 UNT/ML 10-17 (Same as: l Injectable 16:07: OXYTOCIN-D H ermann Solution 00 5LR) Tums Yes 500 mg, Memoria 3-10 CHEW, TID, l 13:11: 0 Orient 00 Refill(s) PNV-Total Yes 1 cap, PO, Me moria oral 3-10 Daily, 0 l capsule 13:11: Refill(s) Carol nn 00 Nitrofurant Yes 100 mg = 1 Memoria oin 100 MG 3-10 cap, PO, l Oral 13:09: BID, # 14 [place] Capsule 00 cap, 0 [Macrobid] Refill(s) Immunizations Ordered Immunization Filled Immunization Date Status Commen ts Source Name Name measles/mumps/rubell 2015-10-20 Completed Kendell Lnetz a virus vaccine 16:11:00 diphtheria/pertussis 2015-10-20 Completed Kendell Lentz , acel/tetanus adult 16:11:00 Tdap 2015-10-20 Completed [facility] 00:[facility]:00 Hospital MMR 2015-10-20 Completed [facility] 00:00:00 Hospital Tdap 2015-10-20 Completed [facility] 00:00:00 Hospital MMR 2015-10-20 Completed [facility] 00:00:00 Hospital Vital Signs Vital Name Observation Time Observation Value Comments Source Systolic blood 2022-10-19 03:00:00 98 mm[Hg] Univer sity of pressure [place] [facility] Diastolic blood 2022-10-19 03:00:00 65 mm[Hg] Unive rsity of pressure [facility] [place] Heart rate 2022-10-19 03:00:00 61 /min [facility] [place] [facility] Respiratory rate 2022-10-19 03:00:00 14 /min Univ ersity of [place] [facility] Oxygen saturation in 2022-10-19 03:00:00 96 /min University of Arterial blood by [place] [employer] Pulse oximetry Branch Body temperature 2022-10-19 00:42:00 36.78 Abby Univ ers[facility] [place] [facility] [place] Body height 2022-10-19 00:42:00 160 cm [facility] [place] [facility] Body weight 2022-10-19 00:42:00 73.483 kg [facility] [place] [facility] BMI 2022-10-19 00:42:00 28.70 kg/m2 [facility] [place] [facility] Systolic blood 2022-08-15 17:16:00 99 mm[Hg] Univer sity of pressure [facility] Diastolic blood 2022-08-15 17:16:00 65 mm[Hg] Unive [facility]ity of pressure [place] [facility] [place] Heart rate 2022-08-15 17:16:00 72 /min [facility] [place] [facility] Body temperature 2022-08-15 17:16:00 36.67 Abby Univ ers[facility] [place] [facility] Respiratory rate 2022-08-15 17:16:00 16 /min Univ ers[facility] [place] [facility] Oxygen saturation in 2022-08-15 17:16:00 99 /min University of Arterial blood by [employer] Pulse oximetry Branch Body height 2022-08-14 11:40:00 160 cm [facility] [place] [facility] Body weight 2022-08-14 11:40:00 73.71 kg [facility] [place] [facility] BMI 2022-08-14 11:40:00 28.79 kg/m2 [facility] [place] [facility] Systolic blood 2022-07-05 17:02:00 107 mm[Hg] Univer sity of pressure [facility] Diastolic blood 2022-07-05 17:02:00 75 mm[Hg] Unive rsity of pressure [facility] Heart rate 2022-07-05 17:02:00 83 /min [facility] [place] [facility] Body temperature 2022-07-05 17:02:00 36.67 Abby Univ ers[facility] [place] [facility] Respiratory rate 2022-07-05 17:02:00 18 /min Univ ers[facility] [place] [facility] Body height 2022-07-05 17:02:00 160 cm [facility] [place] [facility] Oxygen saturation in 2022-07-05 17:02:00 96 /min University of Arterial blood by [place] [employer] Pulse oximetry Branch Systolic blood 2021-12-22 00:40:00 127 mm[Hg] Univer sity of pressure [place] [facility] Diastolic blood 2021-12-22 00:40:00 85 mm[Hg] Unive rsity of pressure [facility] Heart rate 2021-12-22 00:40:00 75 /min [facility] [place] [facility] Body temperature 2021-12-22 00:40:00 36.22 Abby Univ [facility] [place] [facility] Respiratory rate 2021-12-22 00:40:00 17 /min Univ [facility] [place] [facility] Body height 2021-12-22 00:40:00 160 cm [facility] [place] [facility] Body weight 2021-12-22 00:40:00 101.878 kg [facility] [place] [facility] BMI 2021-12-22 00:40:00 39.79 kg/m2 [facility] [place] [facility] Oxygen saturation in 2021-12-22 00:40:00 99 /min University of Arterial blood by [place] [employer] Pulse oximetry Branch Systolic blood 2021-08-27 00:50:00 100 mm[Hg] Univer sity of pressure [facility] Diastolic blood 2021-08-27 00:50:00 68 mm[Hg] Unive rsity of pressure [place] [facility] Heart rate 2021-08-27 00:50:00 68 /min [facility] [place] [facility] Body temperature 2021-08-27 00:50:00 36.61 Abby Univ [facility] [place] [facility] Respiratory rate 2021-08-27 00:50:00 18 /min Univ [facility] [place] [facility] Body height 2021-08-27 00:50:00 160 cm Universi ty [facility] Body weight 2021-08-27 00:50:00 117.436 kg Universi ty [facility] BMI 2021-08-27 00:50:00 45.86 kg/m2 [facility] Oxygen saturation in 2021-08-27 00:50:00 98 /min University of Arterial blood by [facility] Pulse oximetry Branch Systolic blood 2021-05-26 09:00:00 115 mm[Hg] Univer sity of pressure [facility] [place] Diastolic blood 2021-05-26 09:00:00 80 mm[Hg] Unive rsity of pressure [facility] [place] Heart rate 2021-05-26 09:00:00 77 /min [facility] Body temperature 2021-05-26 09:00:00 36.56 [facility]by [facility] 2021-05-26 09:00:00 18 /min [facility] Oxygen saturation in 2021-05-26 09:00:00 98 /min University of Arterial blood by [facility] Pulse oximetry Branch Body height 2021-05-26 05:01:00 160 cm Universi ty [facility] Body weight 2021-05-26 05:01:00 110.224 kg [facility] BMI 2021-05-26 05:01:00 43.05 kg/m2 [facility] Systolic blood 2022-11-16 14:26:00 106 mm[Hg] Method ist [facility] pressure Diastolic blood 2022-11-16 14:26:00 70 mm[Hg] [facility] pressure Heart rate 2022-11-16 14:26:00 60 /min [facility] Body height 2022-11-16 14:26:00 160 [facility] Body weight 2022-11-16 14:26:00 66.679 kg [facility] BMI 2022-11-16 14:26:00 26.04 kg/m2 [facility] Oxygen saturation in 2022-09-28 16:49:00 100 /min [facility] Arterial blood by Pulse oximetry Body temperature 2022-08-03 14:10:[address] [facility] Respiratory rate 2022-08-03 14:10:42 18 /min [facility] Systolic blood 2022-03-22 13:45:00 99 mm[Hg] [facility] pressure Diastolic blood 2022-03-22 13:45:00 74 mm[Hg] [facility] pressure Heart rate 2022-03-22 13:45:00 69 /min [facility] Body height 2022-03-22 13:45:00 160 cm [facility] Body weight 2022-03-22 13:45:00 87.998 kg [facility] BMI 2022-03-22 13:45:00 34.37 kg/m2 [facility] Respiratory rate 2022-03-09 20:00:00 19 /min [facility] Oxygen saturation in 2022-03-09 20:00:00 98 /min [facility] Arterial blood by Pulse oximetry Body temperature 2022-03-09 17:55:[address] [facility] Respitory Rate 2016-04-18 12:45:00 Memori al [place] Systolic (mm Hg) 2016-04-18 12:45:00 Kendell rial [place] Diastolic (mm Hg) 2016-04-18 12:45:00 Mem orial [place] Temperature Oral (F) 2016-04-18 12:45:00 97.8 F [facility] Respitory Rate 2016-04-18 12:25:00 Memori al [place] Temperature Oral (F) 2016-04-18 11:34:00 [facility] 2016-04-18 11:34:00 Memori al Tor Systolic (mm Hg) 2016-04-18 11:34:00 Kendell rial Tor Diastolic (mm Hg) 2016-04-18 11:34:00 Mem orial [place] BMI Calculated 2016-04-18 09:31:00 Memori al Tor Height 2016-04-18 09:31:00 160.02 cm [facility] Weight 2016-04-18 09:31:00 [facility] [place] Heart Rate 2016-04-18 09:31:00 [facility] Systolic (mm Hg) 2016-04-18 09:31:00 Kendell rial [place] Diastolic (mm Hg) 2016-04-18 09:31:00 Mem orial [place] Temperature Oral (F) 2016-04-18 09:31:00 97.6 F [facility] Respitory Rate 2015-10-20 12:53:00 Memori al [place] Heart Rate 2015-10-20 12:53:00 [facility] [place] Temperature Oral (F) 2015-10-20 12:53:00 98.0 F [facility] Systolic (mm Hg) 2015-10-20 12:53:00 Kendell rial Tor Diastolic (mm Hg) 2015-10-20 12:53:00 Mem orial Tor Systolic (mm Hg) 2015-10-20 09:47:00 Kendell rial [place] Diastolic (mm Hg) 2015-10-20 09:47:00 Mem orial Tor Respitory Rate 2015-10-20 09:47:00 Memori al Tor Heart Rate 2015-10-20 09:47:00 [facility] Temperature Oral (F) 2015-10-20 09:47:00 97.4 F [facility] Respitory Rate 2015-10-20 04:00:00 Memori al Tor Systolic (mm Hg) 2015-10-20 04:00:00 Kendell rial [place] Diastolic (mm Hg) 2015-10-20 04:00:00 Mem orial [place] Heart Rate 2015-10-20 04:00:00 [facility] [place] Temperature Oral (F) 2015-10-20 04:00:00 98.1 F [facility] [place] Height 2015-10-18 15:47:00 160.02 cm [facility] BMI Calculated 2015-10-18 15:47:00 Memori al Tor Weight 2015-10-18 15:47:00 [facility] Weight 2015-10-05 03:34:00 [facility] Height 2015-10-05 03:34:00 160.02 cm [facility] BMI Calculated 2015-10-05 03:34:00 Memori al Tor Heart Rate 2015-10-05 03:34:00 [facility] Respitory Rate 2015-10-05 03:34:00 Memori al Tor Temperature Oral (F) 2015-10-05 03:34:00 97.7 F [facility] Systolic (mm Hg) 2015-10-05 03:34:00 Kendell rial Tor Diastolic (mm Hg) 2015-10-05 03:34:00 Mem orial Tor Respitory Rate 2015-09-22 14:05:00 Memori al [place] Systolic (mm Hg) 2015-09-22 14:05:00 Kendell rial [place] Diastolic (mm Hg) 2015-09-22 14:05:00 Mem orial [place] Systolic (mm Hg) 2015-09-22 13:35:00 Kendell rial Tor Diastolic (mm Hg) 2015-09-22 13:35:00 Mem orial [place] Weight 2015-09-22 12:44:00 [facility] [place] Systolic (mm Hg) 2015-09-22 12:44:00 Kendell rial [place] Diastolic (mm Hg) 2015-09-22 12:44:00 Mem orial [place] Temperature Oral (F) 2015-09-22 12:44:00 97.8 F [facility] [place] Respitory Rate 2015-09-22 12:44:00 Memori al [place] Heart Rate 2015-09-22 12:44:00 [facility] Tor BMI Calculated 2015-09-22 12:44:00 Memori al [place] Height 2015-09-22 12:44:00 160.02 cm [facility] Procedures Procedure Date / Time Performing Clinician Source Performed US TRANSVAGINAL 2022-11-[address] [facility] 14:17:59 Earlene US OVARY TORSION 2022-10-19 Brooke Hawthorne of 04:07:00 [facility] [place] CT ABDOMEN PELVIS W CONTRAST 2022-10-19 Brooke Hawthorne [facility] versity of 01:46:13 [facility] [place] LACTIC ACID WHOLE BLOOD 2022-10-19 Brooke Hawthorne ty of 01:02:00 [facility] [place] LIPASE 2022-10-19 Brooke Hawthorne of 01:01:00 [facility] [place] COMP. METABOLIC PANEL 2022-10-19 Brooke Hawthorne of ([id number]) 01:01:00 [facility] [place] CBC WITH DIFF 2022-10-19 Brooke Hawthorne of 01:01:00 [facility] [place] URINALYSIS 2022-10-19 Brooke Hawthorne of 01:01:00 [facility] [place] POCT TEST 2022-10-19 Brooke Hawthorne o f 01:00:00 [facility] [place] NOTICE OF PRIVACY PRACTICES 2022-10-19 Doctor Unassigned, N o University of 00:24:58 Name [facility] [place] CONSENT/REFUSAL FOR 2022-10-19 Doctor Unassigned, No Univer sity of DIAGNOSIS AND TREATMENT 00:24:14 Name [facility] T3 2022-10-03 Guin [facility] ospital 14:28:00 ZINC LEVEL, SERUM 2022-10-03 [facility] 14:28:00 VITAMIN B1 (THIAMINE) 2022-10-03 [facility] 14:28:00 FERRITIN LEVEL 2022-10-03 [facility] ospital 14:28:00 FOLATE LEVEL 2022-10-03 [facility] ospital 14:28:00 COPPER LEVEL, SERUM 2022-10-[address] [facility] 14:28:00 VITAMIN D 25 HYDROXY LEVEL 2022-10-03 [facility] 14:28:00 VITAMIN B12 LEVEL 2022-10-03 [facility] 14:28:00 VITAMIN A LEVEL, PLASMA OR 2022-10-03 [facility] SERUM 14:28:00 CBC WITH PLATELET AND 2022-10-03 [facility] DIFFERENTIAL 14:28:00 PARATHYROID HORMONE 2022-10-[address] [facility] 14:28:00 HEMOGLOBIN A1C 2022-10-03 [facility] ospital 14:28:00 THYROID STIMULATING HORMONE 2022-10-03 [facility] 14:28:00 T4, FREE 2022-10-03 [facility] ospital 14:28:00 TOTAL IRON BINDING CAPACITY 2022-10-03 [facility] 14:28:00 ALBUMIN LEVEL 2022-10-03 [facility] ospital 14:28:00 LIPID PANEL 2022-10-03 Mcfarland, Best Josh [facility] 14:28:00 COMPREHENSIVE METABOLIC 2022-10-03 Best Mcfarland [facility] PANEL 13:57:00 ESTIMATED GFR 2022-10-03 Best Mcfarland [facility] 13:57:00 SURESWAB(R), HSV TYPE 1/2 2022-09-[address] [facility] DNA, REAL TIME PCR 15:17:00 Earlene PAP W/AGE BASED SCREENING 2022-09-[address] [facility] PROTOCOLS 14:46:00 Earlene POCT GLUCOSE (AUTOMATED) 2022-08-15 Flavio Ernst ity of 18:18:00 [facility] [place] MAGNESIUM 2022-08-15 [facility] 10:04:00 [facility] BASIC METABOLIC PANEL (NA, 2022-08-15 [facility] rsity of K, CL, CO2, GLUCOSE, BUN, 10:04:00 [facility] CREATININE, CA) Branch CBC WITH DIFF 2022-08-15 [facility] of 10:04:00 [facility] POCT GLUCOSE (AUTOMATED) 2022-08-15 Flavio jennings [facility] ity of 06:07:00 [facility] [place] URINE DRUG (IMMUNOASSAY) - 2022-08-14 [facility] rsity of COMPREHENSIVE DRUG SCREEN 22:47:00 [facility] [place] VITAMIN B12, LEVEL 2022-08-14 [facility]Aniceto [facility] of 22:46:00 [facility] LIPID PANEL ([id number])(TOTAL 2022-08-14 [facility] ersity of CHOLESTEROL, TRIGLYCERIDES, 22:45:00 [facility] HDL) Branch D-DIMER 2022-08-14 [facility] of 22:45:00 [facility] VITAMIN D, 25-OH 2022-08-14 [facility] of 22:45:00 [facility] POCT GLUCOSE (AUTOMATED) 2022-08-14 Flavio Ernst ity of 22:44:00 [facility] MR BRAIN WO CONTRAST 2022-08-14 Og Davison [facility] 20:13:35 [facility] POCT GLUCOSE (AUTOMATED) 2022-08-14 Flavio jennings [facility] ity of 18:06:00 [facility] XR KUB 2022-08-14 [facility] of 15:36:52 [facility] CORTISOL AM 2022-08-14 [facility] of 12:17:00 [facility] POCT GLUCOSE (AUTOMATED) 2022-08-14 BobbyFlavio jennings [facility] ity of 11:58:[address] [facility] [place] [address] HEAD WO CONTRAST 2022-08-14 Brooke Hawthorne [place] o f 08:39:09 [facility] [place] POCT TEST 2022-08-14 Brooke Hawthorne [place] o f 06:14:00 [facility] URINALYSIS 2022-08-14 Brooke Hawthorne [place] of 06:11:00 [facility] [place] URINE DRUG (IMMUNOASSAY) - 2022-08-14 Brooke Hawthorne [facility] rsity of COMPREHENSIVE DRUG SCREEN 06:11:00 [facility] W/O REFLEX [place] TROPONIN I 2022-08-14 Brooke Hawthorne [place] of 05:57:00 [facility] [place] THYROID STIMULATING HORMONE 2022-08-14 [facility] ersity of 05:57:00 [facility] COMP. METABOLIC PANEL 2022-08-14 Brooke Hawthorne [place] of ([id number]) 05:57:00 [facility] ETHANOL 2022-08-14 Brooke Hawthorne [place] of 05:57:00 [facility] CBC WITH DIFF 2022-08-14 Brooke Hawthorne [place] of 05:57:00 [facility] N-TERMINAL PRO-BNP 2022-08-14 [facility] 05:57:00 [facility] HB ECG ROUTINE & RHYTHM 2022-08-14 Brooke Hawthorne [facility] ty of STRIP 05:41:21 [facility] COMPREHENSIVE METABOLIC 2022-08-08 Best Mcfarland Met [facility] [place] PANEL 14:34:00 ESTIMATED GFR 2022-08-08 Best Mcfarland [facility] 14:34:00 EEG AWAKE/ASLEEP LESS THAN 2022-08-02 Andrew Jones Met [facility] [place] 41 MIN 14:36:28 Sb TTE COMPLETE, WO CONTRAST, W 2022-08-02 [facility] AGIT[facility] SALINE ([id number]) 12:30:00 Imarelanwe MRI LUMBAR SPINE WO CONTRAST 2022-08-02 [facility] 08:08:00 MRI THORACIC SPINE WO 2022-08-02 [facility] CONTRAST 07:38:00 MRI CERVICAL SPINE WO 2022-08-02 [facility] CONTRAST 07:28:00 TROPONIN T 2022-08-02 Ronen Red [facility] 05:59:00 URINE CULTURE 2022-08-02 [facility] 02:59:00 COVID-19 QUALITATIVE RT-PCR 2022-08-02 [facility] 02:27:00 Ololade URINE DRUGS OF ABUSE SCREEN 2022-08-02 [facility] 02:27:00 Sb URINALYSIS SCREEN AND 2022-08-02 [facility] MICROSCOPY, WITH REFLEX TO 02:27:00 Sb CULTURE TROPONIN T 2022-08-02 [facility]eda [facility] 02:27:00 ECG 12-LEAD 2022-08-02 [facility] 02:[facility]10 POC GLUCOSE 2022-08-02 [facility] 01[facility]58:00 [place] [facility]LL/INJURED 2022-08-02 [facility] PATIENT INIT 30-74 MIN 01:46:01 Ololade ECG ED PRELIMINARY 2022-08-02 [facility] Hos pital INTERPRETATION 01:46:01 Ololade MRI IAC W WO CONTRAST 2022-08-02 [facility] ANGIOGRAM NECK W WO 2022-08-01 [facility] 21:33:53 Sb CBC WITH PLATELET AND 2022-08-01 [facility] DIFFERENTIAL 21:33:00 PARTIAL THROMBOPLASTIN TIME 2022-08-01 [facility] (PTT) 21:33:00 PROTHROMBIN TIME WITH INR 2022-08-01 Neda, [facility] 21:33:00 COMPREHENSIVE METABOLIC 2022-08-01 Red, [facility] PANEL 21:33:00 TROPONIN T 2022-08-01 Red, [facility] Hospit al 21:33:00 HCG QUALITATIVE, SERUM 2022-08-01 [facility] 21:33:00 HEMOGLOBIN A1C 2022-08-01 Karen, [facility] Hosp ital 21:33:00 Sb LIPID PANEL 2022-08-01 Elizani, [facility]osp ital 21:33:00 Sb HOMOCYSTINE, PLASMA 2022-08-01 Grayani, [facility] [place] 21:33:00 Sb FOLATE LEVEL 2022-08-01 Elizani, [facility] Hosp ital 21:33:00 Sb VITAMIN B12 LEVEL 2022-08-01 Karen, [facility] spital 21:33:00 Sb THYROID STIMULATING HORMONE 2022-08-01 Karen, [facility] 21:33:00 Sb T4, FREE 2022-08-01 Karen, [facility] Hosp ital 21:33:00 Sb SEDIMENTATION RATE 2022-08-01 Karen, [facility] ospital 21:33:00 Sb C-REACTIVE PROTEIN 2022-08-01 Elizani, [facility] ospital 21:33:00 Sb HIV 1/2 ANTIGEN/ANTIBODY, 2022-08-01 Karen, [facility] FOURTH GENERATION, WITH 21:33:00 Sb REFLEXES SYPHILIS TREPONEMA SCREEN 2022-08-01 Karen, [facility] WITH RPR CONFIRMATION 21:33:00 Sb (REVERSE ALGORITHM) ESTIMATED GFR 2022-08-01 Red, [facility] Hospit al 21:33:00 CT ANGIOGRAM HEAD W WO 2022-08-01 Karen, [facility] CONTRAST 21:30:[address] STROKE BRAIN WO CONTRAST 2022-08-01 [facility] 21:23:12 POCT MOLECULAR FLU 2022-07-05 Unknown, Attending University 17:12:00 [facility] CT ANGIOGRAM CHEST ABDOMEN 2022-03-15 [facility] PELVIS W AND OR WITHOUT 16:17:00 CONTRAST SURGICAL PATHOLOGY REQUEST 2022-03-09 [facility] 17:42:00 [place] AN ELECTIVE SUPRAGLOTTIC 2022-03-[address] [facility] AIRWAY 17:22:00 Kathrine LEEP CONIZATION, CERVIX 2022-03-09 [facility] 17:17:00 Earlene HCG QUALITATIVE, URINE 2022-03-09 [facility] SCREEN 15:51:00 Earlene HEMOGLOBIN A1C 2022-02-13 [facility] ospital 13:55:00 Kyle PARTIAL THROMBOPLASTIN TIME 2022-02-13 [facility] (PTT) 13:55:00 Kyle PROTHROMBIN TIME WITH INR 2022-02-13 [facility] 13:55:00 Kyle CBC WITH PLATELET AND 2022-02-13 [facility] DIFFERENTIAL 13:55:00 HCG QUALITATIVE, URINE 2022-02-13 Kassandra Gilman [facility] SCREEN 13:55:00 SMEAR REVIEW 2022-02-13 [facility] 13:55:00 FERRITIN LEVEL 2022-02-10 [facility] ospital 13:05:00 COMPREHENSIVE METABOLIC 2022-02-10 [facility] PANEL 13:05:00 LIPID PANEL 2022-02-10 [facility] ospital 13:05:00 HCG QUALITATIVE, SERUM 2022-02-10 [facility] SCREEN 13:05:00 TOTAL IRON BINDING CAPACITY 2022-02-10 [facility] 13:05:00 T4, FREE 2022-02-10 [facility] ospital 13:05:00 THYROID STIMULATING HORMONE 2022-02-10 [facility] 13:05:00 HEMOGLOBIN A1C 2022-02-10 [facility] ospital 13:05:00 PARATHYROID HORMONE 2022-02-[address] [facility] 13:05:00 CBC WITH PLATELET AND 2022-02-10 [facility] DIFFERENTIAL 13:05:00 PROTHROMBIN TIME WITH INR 2022-02-10 [facility] 13:05:00 PARTIAL THROMBOPLASTIN TIME 2022-02-10 [facility] (PTT) 13:05:00 VITAMIN A LEVEL, PLASMA OR 2022-02-10 [facility] SERUM 13:05:00 VITAMIN B12 LEVEL 2022-02-10 [facility] 13:05:00 VITAMIN D 25 HYDROXY LEVEL 2022-02-10 [facility] 13:05:00 COPPER LEVEL, SERUM 2022-02-[address] [facility] 13:05:00 FOLATE LEVEL 2022-02-10 [facility] ospital 13:05:00 VITAMIN B1 LEVEL, WHOLE 2022-02-10 [facility] BLOOD 13:05:00 ZINC LEVEL, SERUM 2022-02-10 [facility] 13:05:00 T3 2022-02-10 [facility] ospital 13:05:00 INSULIN, RANDOM 2022-02-10 [facility] ospital 13:05:00 C-REACTIVE PROTEIN 2022-02-10 [facility] 13:05:00 CORTISOL LEVEL, AM 2022-02-10 [facility] 13:01:00 THYROID STIMULATING HORMONE 2022-02-09 [facility] 14:28:00 T4, FREE 2022-02-09 [facility] 14:28:00 ADRENOCORTICOTROPIC HORMONE 2022-02-09 [facility] 14:28:00 COMPREHENSIVE METABOLIC 2022-02-09 [facility] PANEL 14:28:00 BETA HYDROXYBUTYRATE 2022-02-09 [facility] 14:28:00 C-PEPTIDE 2022-02-09 [facility] 14:28:00 PROINSULIN LEVEL 2022-02-09 [facility] 14:28:00 INSULIN, RANDOM 2022-02-09 [facility] 14:28:00 INSULIN-LIKE GROWTH FACTOR I 2022-02-09 [facility] L[facility] (IGF-1) 14:28:00 INSULIN-LIKE GROWTH FACTOR 2022-02-09 [facility] Olsen [facility] II LEVEL (IGF-2) 14:28:00 HYPOGLYCEMIC PANEL, 2022-02-09 [facility] SERUM/PLASMA 14:28:00 IP CONSULT TO CARDIOLOGY 2022-01-19 Provider, Not In [facility] 00:00:00 System SURGICAL PATHOLOGY REQUEST 2022-01-18 [facility] 16:53:00 Earlene POC , URINE 2022-01-18 [facility] 16:49:00 Earlene POC , URINE 2021-12-15 [facility] 14:57:00 Earlene PAP W/AGE BASED SCREENING 2021-12-[address] [facility] PLUS CT/NG 14:40:00 Earlene IP CONSULT TO CARDIOLOGY 2021-12-04 Provider, Not In [facility] 00:00:00 System FL UGI W OR WO KUB 2021-11-09 Preet Yoon [facility] 16:21:14 CBC HEMOGRAM 2021-11-09 [facility]rianaco [facility] 13:12:00 Mayers BASIC METABOLIC PANEL 2021-11-09 [facility] 13:12:00 Mayers MAGNESIUM LEVEL 2021-11-09 [facility] 13:12:00 Mayers PHOSPHORUS LEVEL 2021-11-09 Reji Soto [facility] 13:12:00 Mayers ESTIMATED GFR 2021-11-09 Best Mcfarland Josh [facility] ospital 13:12:00 ECG ED PRELIMINARY 2021-11-09 [facility] INTERPRETATION 04:21:46 CT ABDOMEN PELVIS W CONTRAST 2021-11-09 Josh Noble [facility] 03:16:55 ECG 12-LEAD 2021-11-09 [facility] 01:12:02 Jeferson URINE CULTURE 2021-11-09 [facility] gurdeep 01:03:00 Jeferson URINALYSIS SCREEN AND 2021-11-09 [facility] MICROSCOPY, WITH REFLEX TO 01:03:00 Jeferson CULTURE HCG QUALITATIVE, URINE 2021-11-09 [facility] SCREEN 01:03:00 Jeferson LIPASE LEVEL 2021-11-08 [facility] spital 23:57:00 LACTIC ACID LEVEL 2021-11-08 [facility] 23:57:00 CBC WITH PLATELET AND 2021-11-08 [facility] DIFFERENTIAL 21:18:00 Jeferson COMPREHENSIVE METABOLIC 2021-11-08 [facility] PANEL 21:18:00 Jeferson ESTIMATED GFR 2021-11-08 [facility] 21:18:00 Jeferson US DUPLEX VENOUS UPPER 2021-10-26 J Carlos Burr [facility] EXTREMITY LEFT 23:00:00 Quitlong URINE CULTURE 2021-10-26 Mcfarland, [facility] ospital 11:21:00 ZZCOVID-19 ANTI-SPIKE IGG 2021-10-26 [facility] ANTIBODY TITER 09:20:00 Ap URINALYSIS SCREEN AND 2021-10-26 Bset Mcfarland [facility] MICROSCOPY, WITH REFLEX TO 09:20:00 CULTURE ZZCOVID-19 SEROLOGY PATIENT 2021-10-26 [facility] SURVEILLANCE 09:20:00 Ap CBC WITH PLATELET AND 2021-10-25 James [facility] DIFFERENTIAL 09:23:00 BASIC METABOLIC PANEL 2021-10-[address] [facility] 09:23:00 ESTIMATED GFR 2021-10-25 Mcfarland, [facility] ospital 09:23:00 CBC WITH PLATELET AND [facility]-10-[facility] 19:42:00 BASIC METABOLIC PANEL 2021-10-24 [facility] 19:42:00 ESTIMATED GFR 2021-10-24 Mcfarland, [facility] ospital 19:42:00 MANUAL DIFFERENTIAL 2021-10-[address] [facility] 19:42:00 ANESTHESIA INTUBATION 2021-10-24 [facility] 16:35:00 GASTROENTEROSTOMY, 2021-10-24 [facility] SHANTA-EN-Y, LAPAROSCOPIC, 16:25:00 WITH INTRAOPERATIVE ENDOSCOPY HC NERVE BLOCK TAP BLOCK 2021-10-24 [facility] BILAT INJECTION 16:17:53 HC NERVE BLOCK QUADRATUS 2021-10-24 [facility] LUMBORUM 16:16:27 COVID-19 QUALITATIVE RT-PCR 2021-10-19 [facility] 19:46:00 URINALYSIS, AUTOMATED WITH 2021-10-04 [facility] MICROSCOPY 17:37:00 TYPE AND SCREEN 2021-10-04 [facility] ospital 17:23:00 HCG QUALITATIVE, SERUM 2021-10-04 [facility] SCREEN 17:23:00 C-REACTIVE PROTEIN 2021-10-04 [facility] 17:23:00 INSULIN, RANDOM 2021-10-04 [facility] ospital 17:23:00 T3 2021-10-04 [facility] ospital 17:23:00 ZINC LEVEL, SERUM 2021-10-04 [facility] 17:23:00 VITAMIN B1 LEVEL, WHOLE 2021-10-04 [facility] BLOOD 17:23:00 FOLATE LEVEL 2021-10-04 [facility] ospital 17:23:00 COPPER LEVEL, SERUM 2021-10-[address] [facility] 17:23:00 VITAMIN D 25 HYDROXY LEVEL 2021-10-04 [facility] 17:23:00 VITAMIN B12 LEVEL 2021-10-04 [facility] 17:23:00 VITAMIN A LEVEL, PLASMA OR 2021-10-04 [facility] SERUM 17:23:00 PARTIAL THROMBOPLASTIN TIME 2021-10-04 [facility] (PTT) 17:23:00 PROTHROMBIN TIME WITH INR 2021-10-04 [facility] 17:23:00 CBC WITH PLATELET AND 2021-10-04 [facility] DIFFERENTIAL 17:23:00 PARATHYROID HORMONE 2021-10-[address] [facility] 17:23:00 HEMOGLOBIN A1C 2021-10-04 [facility] ospital 17:23:00 THYROID STIMULATING HORMONE 2021-10-04 [facility] 17:23:00 T4, FREE 2021-10-04 [facility] ospital 17:23:00 TOTAL IRON BINDING CAPACITY 2021-10-04 [facility] 17:23:00 LIPID PANEL 2021-10-04 [facility] ospital 17:23:00 COMPREHENSIVE METABOLIC 2021-10-04 [facility] PANEL 17:23:00 FERRITIN LEVEL 2021-10-04 [facility] ospital 17:23:00 ESTIMATED GFR 2021-10-04 Best Mcfarland ospital 17:23:00 ECG PRE/POST OP 2021-10-04 Sonali Kelly Ho spital 16:22:26 IP CONSULT TO CARDIOLOGY 2021-09-07 Provider, [facility] 00:00:00 ASSIGNMENT OF BENEFITS 2021-08-27 Doctor Unassigned, No Uni versity of 00:39:30 Name [facility] CONSENT/REFUSAL FOR 2021-08-27 Doctor Unassigned, No Univer sity of DIAGNOSIS AND TREATMENT 00:39:19 Name [facility] MRI BRAIN WO CONTRAST 2021-08-25 [facility] 18:05:00 MRI CERVICAL SPINE WO 2021-08-25 [facility] CONTRAST 17:45:00 IP CONSULT TO CARDIOLOGY 2021-08-17 Provider, [facility] 00:00:00 CT ABDOMEN PELVIS WO 2021-05-26 [facility] CONTRAST 06:11:00 [facility] LIPASE 2021-05-26 [facility] 05:38:00 [facility] COMP. METABOLIC PANEL 2021-05-26 [facility] of ([id number]) 05:38:00 [facility] CBC WITH DIFF 2021-05-26 [facility] 05:38:00 [facility] URINALYSIS 2021-05-26 [facility] 05:38:00 [facility] POCT TEST 2021-05-26 [facility] f 05:38:00 [facility] CONSENT/REFUSAL FOR 2021-05-26 Doctor Unassigned, No Univer sity of DIAGNOSIS AND TREATMENT 04:45:09 Name [facility] Adenoidectomy 2003-07-15 [facility] 00:00:00 Ankle joint operations 2003-07-15 [facility] 00:00:00 Tonsillectomy 2003-07-15 [facility] 00:00:00 Eustachian tuboplasty 2001-07-15 [facility] 00:00:00 Plan of Care Planned Activity Planned Date Details Comments Source Future Scheduled 2022-12-28 HEPATITIS B Julianna Smith ospital Test 19:47:06 VACCINES (1 of 3 - 3-dose series) [code = HEPATITIS B VACCINES (1 of 3 - 3-dose series)] Future Scheduled 2022-12-28 [facility] 19:47:06 (#1) [code = COVID-19 VACCINE (#1)] Future Scheduled 2022-12-28 INFLUENZA VACCINE Method [facility] Hospital Test 19:47:06 [code = INFLUENZA VACCINE] Future Scheduled 2022-12-28 [facility] Test 19:47:06 malignant neoplasm of cervix (procedure) [code = 072141975] Future Scheduled 2022-07-29 [facility] B [facility] 16:17:57 VACCINES (1 of 3 - 3-dose series) [code = HEPATITIS B VACCINES (1 of 3 - 3-dose series)] Future Scheduled 2022-07-29 [facility] 16:17:57 (#1) [code = COVID-19 VACCINE (#1)] Future Scheduled 2022-07-29 INFLUENZA VACCINE Method [facility] Test 16:17:57 [code = INFLUENZA VACCINE] Future Scheduled 2022-07-29 [facility] Test 16:17:57 malignant neoplasm of cervix (procedure) [code = 748661850] Encounters Start End Encounter Admission Attending Care Care Encounter Source Date/Time Date/Time Type Type Clinicians Facility Department ID 2021-08-10 Outpatient 3 [id number] [facility] RE[facility] [id number] [facility] 12:01:52 [facility] [place] [facility] 2021-08-10 Outpatient 3 [id number] [facility] REF [id number] [facility] 12:01:37 04[facility] [place] 2019-09-27 Inpatient HCACL CORNELL [id number] [facility] 16:02:00 60 [facility] 2022-11-21 2022-11-21 Refill Bruna, 1.2.840.1 [id number] Methodi 00:00:00 00:00:00 Best 43473.1.1 358 [facility] 3.430.2.7 Hospit a .3.652221 l .8 2022-11-16 2022-11-16 Office Giorgi, 1.2.840.1 [id number] Methodi 09:45:00 10:09:09 Visit Gloria 58322.1.[address] Earlene 3.430.2.7 Hospit a .3.048489 l .8 2022-11-16 2022-11-16 Ancillary Giorgi, 1.2.840.1 [id number] Methodi 09:00:00 09:31:35 Procedure Gloria 53952.1.[address] Earlene 3.430.2.7 Hospit a .3.627945 l .8 2022-11-16 2022-11-16 Orders Beni, 1.2.840.1 [id number] Methodi 00:00:00 00:00:00 Only [place] [address]76.1.[address] 3.430.2.7 Hospit a .3.921024 l .8 2022-11-16 2022-11-16 Travel 1.2.840.1 1.2.958.473 3646 [id number] Methodi 00:00:00 00:00:[address] 3.430.2.7 0.2.7.3.698 Ho spita .3.973037 084.8 l .8 2022-11-16 2022-11-16 Outpatient [facility] [id number] [place] 00:00:00 00:00:00 GLORIA [address] 2022-11-16 2022-11-16 Outpatient [facility] 2100 [id number] [place] 00:00:00 00:00:00 GLORIA [address] 2022-10-29 2022-10-29 Orders Newton, 1.2.840.1 [id number] 8211 Methodi 00:00:00 00:00:00 Only Shama 73918.1.[address] 3.430.2.7 Hospit a .3.945234 l .8 2022-10-18 2022-10-18 Emergency X SHANIQUA, [facility] ERT [id number] Univers 19:30:00 23:59:00 BROOKE grijalva [facility] 2022-10-18 2022-10-18 Emergency Clare, [facility] 1.2.381.516 [id number] Univers 19:30:00 23:59:00 Brooke SILVA 350.1.13.10 i ty of [facility] 4.2.7.2.686 [facility] [id number] [facility] 084 [place] 2022-10-18 2022-10-18 Refill Arita, 1.2.840.6 [id number] Methodi 00:00:00 00:00:[address] Lee 3.430.2.7 Hospit a .3.907538 l .8 2022-10-16 2022-10-16 Orders Arita, 1.2.840.1 [id number] Methodi 00:00:00 00:00:00 Only Orthodox 54186.1.[address] Lee 3.430.2.7 Hospit a .3.950206 l .8 2022-10-04 2022-10-04 Telephone Aman, 1.2.840.1 [id number] [id number] Methodi 00:00:00 00:00:[address] 3.430.2.7 Hospit a .3.250018 l .8 2022-10-03 2022-10-03 Lab Bruna, 1.2.840.1 [id number] 7451 Methodi 09:00:00 09:05:[address] Josh 3.430.2.7 Hospit a .3.617664 l .8 2022-10-03 2022-10-03 Telephone Sergio, 1.2.840.1 [id number] 2099 [id number] Methodi 00:00:00 00:00:[address] 3.430.2.7 Hospit a .3.993919 l .8 2022-10-03 2022-10-03 Orders Joshua, 1.2.840.1 [id number] Methodi 00:00:00 00:00:00 Only Josh 74457.1.[address] 3.430.2.7 Hospit a .3.283728 l .8 2022-10-03 2022-10-03 Outpatient BRUNA [facility] [id number] 595 [place] 00:00:00 00:00:[address] BEST [address] 2022-09-28 2022-09-28 Office Bruna, 1.2.840.1 [id number] 8743 Methodi 11:45:00 14:26:56 Visit Best 02413.1.[address] Josh 3.430.2.7 Hospit a .3.278964 l .8 2022-09-28 2022-09-28 Outpatient MCFARLAND, [facility] [id number] 177 [place] 00:00:00 00:00:00 BEST [address] 2022-09-27 2022-09-27 [facility] 1.[facility].1 [id number] Methodi 09:00:00 11:44:49 Visit Gloria 36177.1.[address] Earlene 3.430.2.7 Hospit a .3.351618 l .8 2022-09-27 2022-09-27 Travel 1.2.840.1 1.2.118.308 8203 [id number] Methodi 00:00:00 00:00:[address] 3.430.2.7 0.2.7.3.698 spita .3.647902 084.8 l .8 2022-09-27 2022-09-27 Outpatient [facility] [id number] [place] 00:00:00 00:00:[address] GLORIA [address] 2022-08-31 2022-08-31 Orders Saint 1.2.840.1 [id number] 1065 Methodi 00:00:00 00:00:00 Only Gaurav 03234.1.[address] Radha B. 3.430.2.7 Hospi ta .3.145569 l .8 2022-08-13 2022-08-15 Outpatient [facility] [id number] [address] [place] [address] 23:33:00 15:25:00 FLAVIO itshanae of [facility] 2022-08-13 2022-08-15 Emergency Brooke Hawthorne [facility] 1.2.840. 114 [id number] Univers 23:33:00 15:25:00 Flavio Ernst 350.1.13.10 [facility] Belinda Johnson 4.2.7.2.686 [facility] [id number] [place] [id number] [place] 2022-08-08 2022-08-08 Lab Mcfarland, 1.2.840.1 [id number] 8826 Methodi 08:35:00 08:40:[address] Josh 3.430.2.7 Hospit a .3.890789 l .8 2022-08-08 2022-08-08 Transcribe Bruna, 1.2.840.1 [id number] Methodi 00:00:00 00:00:00 Orders Best 77825.1.[address] Josh 3.430.2.7 Hospit a .3.163034 l .8 2022-08-08 2022-08-08 [facility] [id number] [address] [place] [address] 00:00:00 00:00:[address] BEST [address] 2022-08-06 2022-08-06 Telemedici Bruna, 1.2.840.8 [id number] 21 [id number] Methodi 11:30:00 11:46:45 ne Best 16087.1.[address] Josh 3.430.2.7 Hospit a .3.746164 l .8 2022-08-06 2022-08-06 Orders Beni, 1.2.840.1 [id number] 69835 Methodi 00:00:00 00:00:00 Only [place] 92061.1.[address] 3.430.2.7 Hospit a .3.232375 l .8 2022-08-06 2022-08-06 [facility] [id number] [place] 00:00:00 00:00:00 BEST [address] 2022-08-01 2022-08-03 Emergency Ronen Red 1.2.840.1 [id number] Methodi 14:58:00 12:49:00 Andi Moses 54420.1.[address] Alberto Cordero 3.430.2.7 Hospita .3.373827 l .8 2022-08-03 2022-08-03 Telephone Joshua, 1.2.840.5 [id number] Methodi 00:00:00 00:00:[address] 3.430.2.7 Hospit a .3.204826 l .8 2022-08-01 2022-08-03 [facility] [id number] 980 [place] 00:00:00 00:00:00 ALBERTO [address] 2022-08-01 2022-08-01 Office Wes Benton 1.2.840.1 [id number] Methodi 13:00:00 14:14:12 Visit Ritika 17980.1.[address] 3.430.2.7 Hospit a .3.735706 l .8 2022-08-01 2022-08-01 Travel 1.2.840.1 1.2.164.864 2982 [id number] Methodi 00:00:00 00:00:[address] 3.430.2.7 0.2.7.3.698 Ho spita .3.160387 084.8 l .8 2022-08-01 2022-08-01 Transcribe hSaneka, 1.2.840.1 [id number] Methodi 00:00:00 00:00:00 Orders Tim 22572.1.[address] Jared 3.430.2.7 Hospi ta .3.948947 l .8 2022-08-01 2022-08-01 Outpatient WES BENTON [facility] [id number] [place] 00:00:00 00:00:[address] 2022-07-29 2022-07-29 Emergency EM Kota Salmon [facility] AERS [id number] [facility] 15:27:00 18:34:00 78 [facility] 2022-07-05 2022-07-05 Outpatient R KING MENDY [facility] [id number] Univers 10:00:00 11:24:58 JOSHUA [facility] 2022-07-05 2022-07-05 Urgent Joshua Jasmine [facility] 1.2.840.114 [id number] Univers 10:00:00 11:24:58 Care Unknown, Attending HEALTH 350.1.13.10 ity [facility] 4.2.7.2.686 Tommie as OSWALDO?BLEA [phone] [address] MEDICAL OFFICE BUILDING 2022-07-05 2022-07-05 Letter Joshua Jasmine [facility] 1.2.840.114 [id number] Univers 00:00:00 00:00:00 (Out) [facility] 350.1.13.10 it y of [place] 4.2.7.2.686 Tommie as OSWALDO?BLEA [id number] [address] MEDICAL OFFICE BUILDING 2022-07-04 2022-07-04 Outpatient R MICHELLE [facility] [id number] Univers 14:00:00 14:00:00 SAM [facility] 2022-04-02 2022-04-02 Orders Dolphus, 1.2.840.1 [id number] Methodi 00:00:00 00:00:00 Only Raquel 72844.1.[address] 3.430.2.7 Hospit a .3.584960 l .8 2022-04-02 2022-04-02 Orders Dolphus, 1.2.840.1 [id number] 52952 Methodi 00:00:00 00:00:00 Only Raquel 24275.1.[address] 3.430.2.7 Hospit a .3.062532 l .8 2022-03-22 2022-03-22 Office Gloria Daly 1.2.840.1 [id number] Methodi 08:45:00 10:20:24 Visit Tamra Recio 36070.1.[address] 3.430.2.7 Hospit a .3.109306 l .8 2022-03-22 2022-03-22 Office Glroia Daly 1.2.840.1 [id number] Methodi 08:45:00 10:20:24 Visit Tamra Recio 99665.1.[address] 3.430.2.7 Hospit a .3.007007 l .8 2022-03-22 2022-03-22 Travel 1.2.840.1 1.2.786.000 7769 [id number] Methodi 00:00:00 00:00:[address] 3.430.2.7 0.2.7.3.698 Ho spita .3.846119 084.8 l .8 2022-03-22 2022-03-22 Travel 1.2.840.1 1.2.543.435 6689 [id number] Methodi 00:00:00 00:00:[address] 3.430.2.7 0.2.7.3.698 Ho spita .3.949414 084.8 l .8 2022-03-15 2022-03-15 [facility] [id number] [address] [place] 00:00:00 00:00:00 BEST [address] 2022-03-14 2022-03-14 Orders Langharperjoen, 1.2.840.1 [id number] Methodi 00:00:00 00:00:00 Only Gloria 88052.1.[address] [place] 3.430.2.7 Hospit a .3.096824 l .8 2022-03-14 2022-03-14 Orders Giorgi, 1.2.840.1 [id number] 858 [id number] Methodi 00:00:00 00:00:00 Only Gloria 52638.1.[address] [place] 3.430.2.7 Hospit a .3.607338 l .8 2022-03-12 2022-03-12 Telemedici Guin, 1.2.840.2 [id number] 21 [id number] Methodi 08:30:00 08:47:45 ne Best 50747.1.[address] Josh 3.430.2.7 Hospit a .3.022688 l .8 2022-03-12 2022-03-12 Telemedici Mcfarland, 1.2.840.4 [id number] 21 [id number] Methodi 08:30:00 08:47:45 ne Best 15236.1.[address] [place] 3.430.2.7 Hospit a .3.704616 l .8 2022-03-09 2022-03-09 [facility], 1.2.840.1 [id number] 21 [id number] Methodi 10:37:00 15:28:00 Encounter Gloria 52267.1.[address] [place] 3.430.2.7 Hospit a .3.044273 l .8 2022-03-09 2022-03-09 [facility], 1.2.840.1 [id number] 21 [id number] Methodi 10:37:00 15:28:00 Encounter Gloria [address]104.1.[address] [place] 3.430.2.7 Hospit a .3.563386 l .8 2022-03-09 2022-03-09 [place], 1.2.840.1 [id number] 736 [id number] Methodi 12:15:00 13:26:[address] [place] 3.430.2.7 Hospit a .3.934550 l .8 2022-03-09 2022-03-09 [place], 1.2.840.1 [id number] 879 [id number] Methodi 12:15:00 13:26:[address] [place] 3.430.2.7 Hospit a .3.688678 l .8 2022-03-092022-03-09 Anesthesia Mackenzie Ramirez 1.2.84 0.1 [id number] Methodi 12:19:00 12:55:00 Event Betina Walton 32723.1.[address] 3.430.2.7 Hospit a .3.419642 l .8 2022-03-09 2022-03-09 Anesthesia Mackenzie Ramirez 1.2.84 0.1 [id number] Methodi 12:19:00 12:55:00 Event Betina Walton 09005.1.[address] 3.430.2.7 Hospit a .3.980029 l .8 2022-03-09 2022-03-09 Travel 1.2.840.1 1.2.735.007 0699 908745 Methodi 00:00:00 00:00:[address] 3.430.2.7 0.2.7.3.698 Ho spita .3.015142 084.8 l .8 2022-03-09 2022-03-09 Travel 1.2.840.1 1.2.676.888 1743 190110 Methodi 00:00:00 00:00:[address] 3.430.2.7 0.2.7.3.698 Ho spita .3.935790 084.8 l .8 2022-03-05 2022-03-05 Anna Bazan, 1.2.840.0 [id number] Methodi 00:00:00 00:00:00 Only [place] 18551.1.[address] 3.430.2.7 Hospit a .3.996744 l .8 2022-03-05 2022-03-05 Anna Bazan, 1.2.840.8 [id number] Methodi 00:00:00 00:00:00 Only [place] [address]121.1.[address] 3.430.2.7 Hospit a .3.329425 l .8 2022-02-21 2022-02-21 Aurora Mcfarland 1.2.840.4 [id number] 88892 75126 Methodi 10:45:00 11:24:30 Visit Best 60188.1.[address] Josh 3.430.2.7 Hospit a .3.463391 l .8 2022-02-21 2022-02-21 Office Bruna, 1.2.840.3 [id number] 46036 13105 Methodi 10:45:00 11:24:30 Visit Best 20603.1.[address] Josh 3.430.2.7 Hospit a .3.745693 l .8 2022-02-19 2022-02-19 Telemedici Saint 1.2.840.1 [id number] 414 [id number] Methodi 11:40:00 11:54:03 ne Gaurav, 56061.1.[address] Radha B. 3.430.2.7 Hospi ta .3.719961 l .8 2022-02-19 2022-02-19 Telemedici Saint 1.2.840.1 [id number] 961 7833047 Methodi 11:40:00 11:54:03 ne Gaurav, 61313.1.[address] Radha B. 3.430.2.7 Hospi ta .3.365681 l .8 2022-02-14 2022-02-14 Sahra Da Silva 1.2.840.1 [id number] 21 [id number] Methodi 00:00:00 00:00:[address] 3.430.2.7 Hospit a .3.434876 l .8 2022-02-14 2022-02-14 Sahra Da Silva 1.2.840.1 [id number] 21 [id number] Methodi 00:00:00 00:00:[address] 3.430.2.7 Hospit a .3.741761 l .8 2022-02-13 2022-02-13 Pre-Admiss Giorgi, 1.2.840.1 403599714 [id number] Methodi 09:00:00 09:06:33 ion Gloria 46749.1.[address] Testing Earlene 3.430.2.7 Hospit a .3.663651 l .8 2022-02-13 2022-02-13 Pre-Admiss Giorgi, 1.2.840.1 [id number] Methodi 09:00:00 09:06:33 joaquin Galvin 12980.1.[address] Testing Earlene 3.430.2.7 Hospit a .3.947910 l .8 2022-02-09 2022-02-09 Telephone Ricardo, 1.2.840.1 [id number] 2099 196722 Methodi 00:00:00 00:00:00 Esperanza Gant 59689.1.1 681 s t 3.430.2.7 Hospit a .3.644742 l .8 2022-02-09 2022-02-09 Travel 1.2.840.1 1.2.257.868 9503 238540 Methodi 00:00:00 00:00:[address] 3.430.2.7 0.2.7.3.698 Ho spita .3.493294 084.8 l .8 2022-02-09 2022-02-09 Telephone Ricardo, 1.2.840.1 [id number] 2099 116941 Methodi 00:00:00 00:00:00 Esperanza Y 49481.1.1 681 s t 3.430.2.7 Hospit a .3.519064 l .8 2022-02-09 2022-02-09 Travel 1.2.840.1 1.2.774.455 1591 763077 Methodi 00:00:00 00:00:[address] 3.430.2.7 0.2.7.3.698 Ho spita .3.250266 084.8 l .8 2022-02-07 2022-02-07 Travel 1.2.840.1 1.2.687.562 8481 462094 Methodi 00:00:00 00:00:[address] 3.430.2.7 0.2.7.3.698 Ho spita .3.299812 084.8 l .8 2022-02-07 2022-02-07 Travel 1.2.840.1 1.2.332.918 9397 748799 Methodi 00:00:00 00:00:[address] 3.430.2.7 0.2.7.3.698 Ho spita .3.033232 084.8 l .8 2022-02-06 2022-02-06 Prep for Marullo, 1.2.840.1 [id number] 2099 723289 Methodi 00:00:00 00:00:00 Surgery Tamra 28193.1.[address] Fozia 3.430.2.7 Hospit a .3.335298 l .8 2022-02-06 2022-02-06 Prep for Marullo, 1.2.840.1 [id number] 2099 818911 Methodi 00:00:00 00:00:00 Surgery Tamra 60707.1.[address] Fozia 3.430.2.7 Hospit a .3.060335 l .8 2022-02-02 2022-02-02 Telephone Saint 1.2.840.1 [id number] 2099 303459 Methodi 00:00:00 00:00:00 Gaurav, 31183.1.[address] Radha B. 3.430.2.7 Hospi ta .3.575836 l .8 2022-02-02 2022-02-02 Telephone Saint 1.2.840.1 [id number] 2099 266973 Methodi 00:00:00 00:00:00 Gaurav, 80690.1.[address] Radha B. 3.430.2.7 Hospi ta .3.062519 l .8 2022-01-31 2022-01-31 Telephone Langsjoen, 1.2.840.1 [id number] 2 [id number] Methodi 00:00:00 00:00:[address] Earlene 3.430.2.7 Hospit a .3.665969 l .8 2022-01-31 2022-01-31 Telephone Giorgi, 1.2.840.1 [id number] 2 [id number] Methodi 00:00:00 00:00:[address] Earlene 3.430.2.7 Hospit a .3.616060 l .8 2022-01-30 2022-01-30 Telephone Giorgi, 1.2.840.1 [id number] 2 [id number] Methodi 00:00:00 00:00:[address] Earlene 3.430.2.7 Hospit a .3.782367 l .8 2022-01-30 2022-01-30 Telephone Giorgi, 1.2.840.1 945338509 2 [id number] Methodi 00:00:00 00:00:[address] Earlene 3.430.2.7 Hospit a .3.433597 l .8 2022-01-28 2022-01-28 Orders Delmar, 1.2.840.1 084180704 753744 6066 Methodi 00:00:00 00:00:00 Only Mahogany 05743.1.[address] 3.430.2.7 Hospit a .3.260514 l .8 2022-01-28 2022-01-28 Orders Delmar, 1.2.840.1 834044572 315112 1965 Methodi 00:00:00 00:00:00 Only [place]og[place] 53328.1.[address] 3.430.2.7 Hospit a .3.847433 l .8 2022-01-26 2022-01-26 Telemedici Saint 1.2.840.1 [id number] 463 [id number] Methodi 11:40:00 11:45:34 ne Gaurav, 31730.1.[address] Radha B. 3.430.2.7 Hospi ta .3.362683 l .8 2022-01-26 2022-01-26 Telemedici Saint 1.2.840.1 [id number] 829 7533164 Methodi 11:40:00 11:45:34 ne Gaurav, 28151.1.[address] Radha B. 3.430.2.7 Hospi ta .3.605123 l .8 2022-01-25 2022-01-25 Telephone Mcfarland, 1.2.840.1 [id number] 2099 969183 Methodi 00:00:00 00:00:[address] Josh 3.430.2.7 Hospit a .3.500597 l .8 2022-01-25 2022-01-25 Telephone Mcfarland, 1.2.840.1 [id number] 2099 413338 Methodi 00:00:00 00:00:[address] Josh 3.430.2.7 Hospit a .3.256475 l .8 2022-01-25 2022-01-25 Telephone Mcfarland, 1.2.840.1 [id number] 2099 088813 Methodi 00:00:00 00:00:[address] Josh 3.430.2.7 Hospit a .3.095900 l .8 2022-01-25 2022-01-25 Telephone Mcfarland, 1.2.840.1 [id number] 2099 865977 Methodi 00:00:00 00:00:[address] Josh 3.430.2.7 Hospit a .3.913899 l .8 2022-01-19 2022-01-20 Emergency EM Oyebadejo, HCACL AERS [id number] [id number] [facility] 22:21:00 00:50:00 Oluwadolapo 50 Cl [facility] 2022-01-19 2022-01-20 Emergency EM Oyebadejo, HCACL HCACL G5850 74-20 [facility] 22:21:00 00:50:00 Oluwadolapo 973059 Cl [facility] 2022-01-19 2022-01-19 Orders Provider, 1.2.840.1 [id number] 2100 316162 Methodi 00:00:00 00:00:00 Only [place] [address]99.1.[address] System 3.430.2.7 Hospit a .3.559315 l .8 2022-01-19 2022-01-19 Orders Provider, 1.2.840.1 802091079 2100 815700 Methodi 00:00:00 00:00:00 Only [place] 46251.1.[address] System 3.430.2.7 Hospit a .3.875509 l .8 2022-01-18 2022-01-18 Procedure Langsefraín, 1.2.840.1 069738397 2 [id number] Methodi 11:00:00 11:49:39 visit Gloria 08871.1.[address] Earlene 3.430.2.7 Hospit a .3.557098 l .8 2022-01-18 2022-01-18 Procedure Giorgi, 1.2.840.1 699426793 2 [id number] Methodi 11:00:00 11:49:39 visit Gloria 31017.1.[address] Earlene 3.430.2.7 Hospit a .3.730723 l .8 2021-12-25 2021-12-25 Telephone Lamineefraín, 1.2.840.1 [id number] 2 [id number] Methodi 00:00:00 00:00:[address] Earlene 3.430.2.7 Hospit a .3.633422 l .8 2021-12-21 2021-12-21 Outpatient Guadalupe MONCADA [facility] [id number] 535 Univers 20:00:00 20:35:01 GISSELLE grijalva of [facility] 2021-12-21 2021-12-21 Urgent Gisselle Moncada 1.2.840.11 4 [id number] Univers 20:00:00 20:15:00 Care Unknown, Attending PEDIATRIC 350.1.13. 10 [place] [phone] [address] 2021-12-15 2021-12-15 Office Giorgi, 1.2.840.1 [id number] 892 6340532 Methodi 09:30:00 11:07:51 Visit Gloria 93919.1.[address] Earlene 3.430.2.7 Hospit a .3.283367 l .8 2021-12-05 2021-12-05 Orders Mane, 1.2.840.1 [id number] 194 2505597 Methodi 00:00:00 00:00:00 Only Renee 05417.1.1 163 s t 3.430.2.7 Hospit a .3.965016 l .8 2021-12-04 2021-12-04 Orders Provider, 1.2.840.1 [id number] 2099 704681 Methodi 00:00:00 00:00:00 Only [place] 81645.1.[address] System 3.430.2.7 Hospit a .3.516913 l .8 2021-11-29 2021-11-29 Office Bruna, 1.2.840.5 8171423517 56076 59401 Methodi 10:45:00 16:17:40 Visit Best 50152.1.[address] Josh 3.430.2.7 Hospit a .3.766882 l .8 2021-11-29 2021-11-29 Travel 1.2.840.1 1.2.648.317 3359 828990 Methodi 00:00:00 00:00:[address] 3.430.2.7 0.2.7.3.698 Ho spita .3.940713 084.8 l .8 2021-11-17 2021-11-17 Telephone Bruna, 1.2.840.1 [id number] 2099 268120 Methodi 00:00:00 00:00:[address] Josh 3.430.2.7 Hospit a .3.803598 l .8 2021-11-17 2021-11-17 Telephone Bruna, 1.2.840.1 908009735 2099 889845 Methodi 00:00:00 00:00:[address] Josh 3.430.2.7 Hospit a .3.890935 l .8 2021-11-14 2021-11-14 Telephone Bruna, 1.2.840.6 6934192813 236 5424786 Methodi 00:00:00 00:00:[address] Josh 3.430.2.7 Hospit a .3.144002 l .8 2021-11-13 2021-11-13 Refill Mcfarland, 1.2.840.2 6571245479 52552 55037 Methodi 00:00:00 00:00:[address] Josh 3.430.2.7 Hospit a .3.565189 l .8 2021-11-11 2021-11-11 Patient West, 1.2.840.1 [id number] 662911 7556 Methodi 00:00:00 00:00:00 Outreach Prachi 54036.1.[address] 3.430.2.7 Hospit a .3.799665 l .8 2021-11-10 2021-11-10 Patient Mane, 1.2.840.1 [id number] 355 3192104 Methodi 00:00:00 00:00:00 Outreach Eugeine 79999.1.[address] 3.430.2.7 Hospit a .3.147610 l .8 2021-11-10 2021-11-10 Telephone Mcfarland, 1.2.840.2 [id number] 125 3447810 Methodi 00:00:00 00:00:[address] Josh 3.430.2.7 Hospit a .3.575008 l .8 2021-11-10 2021-11-10 Telephone Bruna, 1.2.840.5 [id number] 197 0533695 Methodi 00:00:00 00:00:[address] Josh 3.430.2.7 Hospit a .3.069092 l .8 2021-11-082021-11-09 Emergency Rehrer, Walter Hendrix 1.2.840.1 10 5026645 5669266424 Methodi 15:30:00 16:55:00 Bruna, Best Moreno 70250.1.[address] 3.430.2.7 Hospit a .3.087080 l .8 2021-11-08 2021-11-08 Travel 1.2.840.1 1.2.292.888 4007 836748 Methodi 00:00:00 00:00:[address] 3.430.2.7 0.2.7.3.698 Ho spita .3.927590 084.8 l .8 2021-11-08 2021-11-08 Telephone Delmar, 1.2.840.1 [id number] Methodi 00:00:00 00:00:[address] 3.430.2.7 Hospit a .3.875852 l .8 2021-11-08 2021-11-08 Telephone Mcfarland, 1.2.840.5 [id number] 742 1445868 Methodi 00:00:00 00:00:[address] Josh 3.430.2.7 Hospit a .3.759939 l .8 2021-11-07 2021-11-07 Telephone Mcfarland, 1.2.840.1 [id number] 2100 431049 Methodi 00:00:00 00:00:[address] Josh 3.430.2.7 Hospit a .3.821796 l .8 2021-11-04 2021-11-04 Telephone Mcfarland, 1.2.840.1 9491430072099724 Methodi 00:00:00 00:00:[address] Josh 3.430.2.7 Hospit a .3.872873 l .8 2021-11-02 2021-11-02 Refill Mcfarland, 1.2.840.2 [id number] 51 Methodi 00:00:00 00:00:[address] Josh 3.430.2.7 Hospit a .3.979180 l .8 2021-11-01 2021-11-01 Office Mcfarland, 1.2.840.0 [id number] 91158 85932 Methodi 10:45:00 13:32:15 Visit Best 21666.1.[address] Josh 3.430.2.7 Hospit a .3.238316 l .8 2021-10-31 2021-10-31 Outpatient R UNKNOWN, [facility] 103003 5937 Univers 20:30:00 20:30:00 ATTENDING ity [facility] 2021-10-30 2021-10-30 Telephone Bruna, 1.2.840.1 [id number] 2100 393239 Methodi 00:00:00 00:00:[address] Josh 3.430.2.7 Hospit a .3.664290 l .8 2021-10-30 2021-10-30 Telephone Delmar, 1.2.840.4 [id number] 451 0351952 Methodi 00:00:00 00:00:[address] 3.430.2.7 Hospit a .3.060524 l .8 2021-10-30 2021-10-30 Telephone Mcfarland, 1.2.840.1 [id number] 637 4821618 Methodi 00:00:00 00:00:[address] Josh 3.430.2.7 Hospit a .3.537752 l .8 2021-10-24 2021-10-27 Hospital Mcfarland, 1.2.840.1 [id number] 73443 94024 Methodi 09:05:00 10:59:00 Encounter Best 75319.1.[address] Josh 3.430.2.7 Hospit a .3.229650 l .8 2021-10-24 2021-10-24 Surgery Mcfarland, 1.2.840.1 [id number] 071151 1328 Methodi 11:00:00 14:35:[address] Josh 3.430.2.7 Hospit a .3.174102 l .8 2021-10-24 2021-10-24 Anesthesia Glenn Multani L. 1.2.840 .1 [id number] Methodi 11:25:00 14:29:00 Event John GlennSonali 12920.1.[address] 3.430.2.7 Hospit a .3.451040 l .8 2021-10-23 2021-10-23 Telephone King, 1.2.840.2 [id number] Methodi 00:00:00 00:00:[address] 3.430.2.7 Hospit a .3.851531 l .8 2021-10-23 2021-10-23 Telephone Bruna, 1.2.840.2 [id number] 518 [id number] Methodi 00:00:00 00:00:[address] Josh 3.430.2.7 Hospit a .3.618865 l .8 2021-10-19 2021-10-19 Outpatient BRUNA [facility] [id number] [address] [place] [address] 00:00:00 00:00:00 BEST [address] 2021-10-19 2021-10-19 Travel 1.2.840.1 1.2.557.495 2018 846939 Methodi 00:00:00 00:00:[address] 3.430.2.7 0.2.7.3.698 spita .3.805975 084.8 l .8 2021-10-19 2021-10-19 Telephone Mcfarland, 1.2.840.3 [id number] 919 0045282 Methodi 00:00:00 00:00:[address] Josh 3.430.2.7 Hospit a .3.795384 l .8 2021-10-182021-10-18 Office Bruna, 1.2.840.4 [id number] 68822 50351 Methodi 11:00:00 14:30:04 Visit Best 23243.1.[address] Josh 3.430.2.7 Hospit a .3.306688 l .8 2021-10-18 2021-10-18 Pre-Admiss Best Mcfarland 1.2.840.1 [id number] Methodi 13:00:00 14:00:00 joaquin Bassett Amsabrina Farias 75601.1.[address] Testing 3.430.2.7 Hospit a .3.476936 l .8 2021-10-18 2021-10-18 Travel 1.2.840.1 1.2.318.643 8010 987771 Methodi 00:00:00 00:00:[address] 3.430.2.7 0.2.7.3.698 Ho spita .3.146966 084.8 l .8 2021-10-18 2021-10-18 Cesilia Pack 1.2.840.1 [id number] 2 [id number] Methodi 00:00:00 00:00:[address] 3.430.2.7 Hospit a .3.202775 l .8 2021-10-04 2021-10-04 Lab Bruna, 1.2.840.1 [id number] 400082 1941 Methodi 12:20:00 12:25:[address] Josh 3.430.2.7 Hospit a .3.595210 l .8 2021-10-04 2021-10-04 Pre-Admiss Best Mcfarland 1.2.840.1 073155716 [id number] Methodi 11:20:00 12:20:00 Sonali Onofre 64426.1.[address] Testing 3.430.2.7 Hospit a .3.585568 l .8 2021-10-04 2021-10-04 Orders Sonia Cesilia 1.2.840.5 [id number] 2 [id number] Methodi 00:00:00 00:00:[address] 3.430.2.7 Hospit a .3.322443 l .8 2021-10-04 2021-10-04 Orders King, 1.2.840.6 5472937874 2 655483638 Methodi 00:00:00 00:00:00 Only Chimira 14195.1.[address] 3.430.2.7 Hospit a .3.783128 l .8 2021-10-04 2021-10-04 Travel 1.2.840.1 1.2.216.393 2860 485447 Methodi 00:00:00 00:00:[address] 3.430.2.7 0.2.7.3.698 Ho spita .3.203777 084.8 l .8 2021-09-08 2021-09-08 Office Laminemary, 1.2.840.1 [id number] 456 1035339 Methodi 08:45:00 12:10:45 Visit Gloria 55801.1.[address] Earlene 3.430.2.7 Hospit a .3.561348 l .8 2021-09-07 2021-09-07 Orders Provider, 1.2.840.1 [id number] 2099 454415 Methodi 00:00:00 00:00:00 Only Historical 64941.1.1 819 s t 3.430.2.7 Hospit a .3.844845 l .8 2021-09-05 2021-09-05 Telephone Ricardo, 1.2.840.1 [id number] 2099 142120 Methodi 00:00:00 00:00:[address] 3.430.2.7 Hospit a .3.952420 l .8 2021-08-30 2021-08-30 Telephone Henrry, 1.2.840.1 [id number] 2099 401721 Methodi 00:00:00 00:00:[address] 3.430.2.7 Hospit a .3.165769 l .8 2021-08-29 2021-08-29 Documentat Provider, 1.2.840.1 [id number] 2 [id number] Methodi 00:00:00 00:00:00 ion Unknown 14401.1.[address] 3.430.2.7 Hospit a .3.599448 l .8 2021-08-29 2021-08-29 Travel 1.2.840.1 1.2.655.000 1279 896559 Methodi 00:00:00 00:00:[address] 3.430.2.7 0.2.7.3.698 Ho spita .3.132136 084.8 l .8 2021-08-26 2021-08-26 Outpatient Guadalupe NERI [facility] [id number] 691 Univers 19:15:00 19:35:16 ARLETH ity of [facility] 2021-08-26 2021-08-26 Urgent Arleth Neri 1.2.840.114 [id number] Univers 19:15:00 19:35:16 Care Unknown, Attending PEDIATRIC 350.1.13. 10 [id number] [address] [facility] 2021-08-26 2021-08-26 Orders Doctor ELENI 1.2.840.114 [id number] [facility] 00:00:00 00:00:00 Only Unassigned, HIGINIO 350.1.13.10 ity of [place] [facility] 4.2.7.2.686 Tommie as [phone] [place] [address] [place] 2021-08-25 2021-08-25 Outpatient MATHEW KERRIE [facility] 48011 40541 [place] 00:00:00 00:00:[address] 2021-08-25 2021-08-25 Outpatient KERRIE CARMONA [facility] 84 [place] 00:00:00 00:00:[address] 2021-08-17 2021-08-17 Orders Provider, 1.2.840.1 [id number] 2100 912651 Methodi 00:00:00 00:00:00 Only Historical 38010.1.1 107 s t 3.430.2.7 Hospit a .3.431455 l .8 2021-08-16 2021-08-16 Orders Sahra Ospina 1.2.840.1 [id number] 21 [id number] Methodi 00:00:00 00:00:[address] 3.430.2.7 Hospit a .3.548309 l .8 2021-08-03 2021-08-03 Telephone Mcfarland, 1.2.840.0 [id number] 594 [id number] Methodi 00:00:00 00:00:[address] Josh 3.430.2.7 Hospit a .3.789045 l .8 2021-07-10 2021-07-10 Outpatient [facility] [id number] 066 [place] 00:00:00 00:00:00 472 Method i 2021-07-05 2021-07-05 Outpatient MCFARLAND, [facility] [id number] 066 [place] 00:00:00 00:00:00 BEST 372 Method i 2021-06-29 2021-06-29 Outpatient LANGSJOEN, [facility] 2100 [id number] [place] 00:00:00 00:00:00 GLORIA 973 Method i 2021-06-29 2021-06-29 Outpatient LANGSJOEN, [facility] 2100 221513 [place] 00:00:00 00:00:00 GLORIA 975 Method i 2021-06-21 2021-06-21 Outpatient MCFARLAND, [facility] [id number] 365 [place] 00:00:00 00:00:00 BEST 310 Method i 2021-06-19 2021-06-19 Outpatient [place], [facility] 00852 52435 [place] 00:00:00 00:00:00 NEEHARIKA 700 Meth domonique 2021-06-14 2021-06-14 Outpatient MCFARLAND, [facility] [id number] 755 [place] 00:00:00 00:00:00 BEST [address] 2021-05-10 2021-06-09 OP Therapy nullFlavo SMR Amy 739 [id number] Memoria 17:39:00 05:59:00 Patients r [facility] [place] 2021-05-29 2021-05-29 Outpatient MELODIE, [facility] 81784 81506 [place] 00:00:00 00:00:00 NEEHARIKA 795 Meth domonique 2021-05-25 2021-05-26 Emergency X YUE GARNER AKMB ERT 1 [id number] Univers 23:02:00 03:20:00 YUE GARNER shanae [facility] 2021-05-25 2021-05-26 Emergency Papo [facility] 1.2.335.863 3635 7090 Univers 23:02:00 03:20:00 Yue [facility] 350.1.13.10 it y of [place] 4.2.7.2.686 [facility] [phone] [address] ([facility]) 2021-05-23 2021-05-23 Outpatient ERGUN, [facility] [id number] 804 [place] 00:00:00 00:00:00 GULCHIN 100 Method i 2021-05-22 2021-05-22 Outpatient TIA [facility] [id number] 4457 [place] 00:00:00 00:00:00 ANTOINE 349 Method i 2021-04-27 2021-04-27 Outpatient MELODIE [facility] 62209 78208 [place] 00:00:00 00:00:00 NEEHARIKA 556 Meth domonique 2021-04-19 2021-04-19 Outpatient MELODIE, [facility] 80964 26360 [place] 00:00:00 00:00:00 NEEHARIKA 706 Meth domonique 2021-04-04 2021-04-05 Outpt Diag nullFlavo [facility] 70731 90843 Memoria 14:15:00 04:59:00 Services r Outpatient 00 l Imaging Tor Parsons 2021-02-21 2021-02-21 Outpatient TIA [facility] [id number] 3441 [place] 00:00:00 00:00:00 ANTOINE [address] 2021-02-21 2021-02-21 Outpatient TIA [facility] [id number] [place] 00:00:00 00:00:00 ANTOINE [address] 2021-02-12 2021-02-12 Emergency X [facility] ERT [id number] Univers 20:19:00 20:19:00 ity [facility] 2020-12-29 2020-12-29 Outpatient KERRIE CARMONA [facility] [id number] [place] 00:00:00 00:00:[address] 2020-12-08 2020-12-08 Outpatient SAHRA OSPINA [facility] [id number] [place] 00:00:00 00:00:[address] 2020-12-08 2020-12-08 Outpatient KERRIE CARMONA [facility] [id number] [place] 00:00:00 00:00:[address] 2020-11-23 2020-11-23 Outpatient TIA [facility] [id number] [place] 00:00:00 00:00:00 ANTOINE [address] 2020-11-03 2020-11-09 Inpatient KERRIE CARMONA [facility] [id number] [place] 00:00:00 00:00:[address] 2020-10-31 2020-10-31 Outpatient KERRIE CARMONA [facility] [id number] [place] 00:00:00 00:00:[address] 2020-10-31 2020-10-31 Outpatient KERRIE CARMONA [facility] [id number] [place] 00:00:00 00:00:[address] 2020-10-05 2020-10-05 Outpatient LANGSJOEN [facility] [id number] [place] 00:00:00 00:00:00 GLORIA [address] 2020-09-19 2020-09-19 Outpatient TIA [facility] [id number] [place] 00:00:00 00:00:00 ANTOINE [address] 2020-09-19 2020-09-19 Outpatient [facility] [id number] [place] 00:00:00 00:00:[address] 2020-09-14 2020-09-14 Outpatient KERRIE CARMONA [facility] [id number] [place] 00:00:00 00:00:[address] 2020-09-07 2020-09-07 Outpatient TIA [facility] [id number] [place] 00:00:00 00:00:00 ANTOINE [address] 2020-08-16 2020-08-16 Outpatient TIA [facility] [id number] [place] 00:00:00 00:00:00 ANTOINE [address] 2020-08-16 2020-08-16 Outpatient TIA [facility] [id number] [place] 00:00:00 00:00:00 ANTOINE [address] 2020-08-10 2020-08-11 Outpatient ERICA, [facility] 064 [id number] [place] 00:00:00 00:00:00 SAM [address] 2020-06-11 2020-06-11 Emergency X SIFUENTES, [facility] ERT [id number] Univers 16:28:00 16:28:00 BARBARA grijalva [facility] 2020-03-20 2020-03-20 Emergency 1 Sachin Potts [facility] [id number] 12:19:00 20:22:00 Sachin Potts [facility] 2016-11-13 2016-11-13 Outpatient MHIE MHIE [id number] [place] 10:00:00 10:00:00 01 luis Lentz 2016-10-19 2016-10-19 Outpatient MHIE MHIE [id number] [place] 10:30:00 10:30:00 00 luis RachelOrient 2016-04-18 2016-04-18 Emergency nullFlavo [facility] [id number] [place] 09:23:00 13:02:00 r Tor 03 [facility] 2015-10-18 2015-10-20 Inpatient nullFlavo [facility] [id number] [place] 15:30:00 19:44:00 r Tor 02 [facility] 2015-10-05 2015-10-05 EC nullFlavo [facility] [id number] [place] 03:22:00 03:50:00 Emergency r Tor 01 [facility] 2015-09-22 2015-09-22 EC nullFlavo [facility] [id number] [place] 12:31:00 15:15:00 Emergency r Orient 00 l [facility] Results Test Description Test Time Test Comments Results Result Comments Source POCT TEST 2022-10-19 01:00:00 Test Item Value Reference Range Interpretation Comme nts POCT PREG (test code = 1605) negative On board controls acceptable with C Line (test code = 3574) present POCT PREG LOT # (test code = 3575) [id number] POCT PREG TEST DATE (test code = 3576) Lab Interpretation (test code = 72421-6) [facility] TYPE 1/2 DNA, REAL TIME PCR 2022-10-04 11:32:00 Test Item Value Reference Range Interpretation Comments HSV 1 DNA (test code = NOT DETECTED NOT DETECTED 19560-9) HSV 2 DNA (test code = DETECTED NOT DETECTED A 65152-1) RAC (test code = RAC) Performing Organization Information: Site ID: [facility] Address: [address] [place] [id number] Director: Dr. Humberto Bautista Lab Interpretation (test Abnormal code = 36488-6) [facility] W/AGE BASED SCREEN[facility] [id number] 21:02:00 Test Item Value Reference Interpretation Comments Range Comment (test code This orde r for age-based = 8251-1) cervical cancer and STI screening follo ws ACOG guidelines(PB 1 68, 140,WIH159). Se e individual assa for performing site location. Clinical S/P LEEP 2 information (test code = 11040-6) Date of last NONE GIVEN menstrual period (test code = 8665-2) Prev. pap: (test ASCUS,HPV+ code = 99971-2) Prev. bx: (test CIN2 code = 52309-7) Source (test code = ECVX ) Statement of Satisfactory fo r adequacy (test code evaluati on.Endocervical/tr = 06569-4) ansformation zo ne componentpresen t.Age and/or menstrua l status not provided General A EPITHELIAL CELL categorization ABNORMALITY (test code = 53053-0) Interpretation/resu A Atypical Squamous Cells of lt: (test code = Undetermine dSignificance 63438-3) (ASC-US)Rare at ypical squamous cells Comment (test code This Pap test has been = ) evaluated with [employer] d technology.Sugg est clinical correl ation and follow-up ascli nically appropriate Postmaster YL, CT(ASCP )CT screening (test code = location: [facility] ) [facility] [place], [place] Pathologist (test Josefina Currie M.D. code = ) Board Certif ied in Anatomic Pathology,Clini jhon Pathology and Hematopathology (electronic sig nature) Comment (test code EXPLANATO RY NOTE: The Pap = 5340797) is a screening test for cervical cancer . It is not a diagnostic te st and is subject to fals e negative and false posit jarred results. It is most reliable when a satisfactory sa mple, regularly obtai devin, is submitted with relevant clinical findin gs and history, and wh en the Pap result is evalu ated along with historic a nd current clinical inform ation. HPV mRNA e6/e7 Not Detected Not Methodology: (test code = Detected General Lot Attendant-M ediated 54436-0) Amplification T his assay detects E6/E7 v iral messenger RNA ( mRNA) from 14high-risk HPV types (16,18,31,33,35 ,39,45,51,5 2,56,58,59,66,6 8). Cervical source s are required for HP V testing.If a va ginal source from a p atient who has had atotal hysterectomy wi th removal of cervix was s ubmitted, please contact the testing laboratoryfor a lternative testing options . For additional info rmation, please refer [email or web address] (This link if p rovided for information/edu cational purposes only.) RAC (test code = Performing RAC) Organization Information: Site ID: [id number] Name: [facility] Address: [address] [place] [id number] Director: Dr. Humberto Bautista Site ID: [id number] Name: [facility] Address: [address] [place] [address], [address] [place] [address] Director: Damian Ahuja Lab Interpretation Abnormal (test code = 05228-0) [facility] GLUCOSE (AUTOMATED)2022-08-15 18:21:41 Test Item Value Reference Range Interpretation Comments POCT GLU (test code = 1829496251) 112 mg/dL 70-110 H Lab Interpretation (test code = Abnormal 25860-2) [facility], [id number] 09:11:07 Test Item Value Reference Range Interpretation Comments VIT D 25OH (test code = 34 ng/mL 25-80 36564-7) ZACKARY (test code = ZACKARY) Deficiency: <20 ng/mLInsufficiency : 20-24 ng/mLOptimal: 25-80 ng/mL Lab Interpretation (test Normal code = 26450-9) [facility] GLUCOSE (AUTOMATED)2022-08-15 06:09:51 Test Item Value Reference Range Interpretation Comments POCT GLU (test code = 4858984348) 95 mg/dL 70-110 Lab Interpretation (test code = Normal 40846-5) [facility] GLUCOSE (AUTOMATED)2022-08-14 22:49:30 Test Item Value Reference Range Interpretation Comments POCT GLU (test code = 4444143181) 79 mg/dL 70-110 Lab Interpretation (test code = Normal 72910-2) [facility] GLUCOSE (AUTOMATED)2022-08-14 18:08:19 Test Item Value Reference Range Interpretation Comments POCT GLU (test code = 5037869847) 87 mg/dL 70-110 Lab Interpretation (test code = Normal 00480-6) [facility] HospitalTHYROID STIMULATING [id number] 13:45:51 Test Item Value Reference Range Interpretation Comments TSH (test code = 3.34 See_Comment [Automated message] 1689777206) The system [employer] generated this result transmitted ref erence range: 0.45 - 4 .70 mIU/L. The refe rence range was not u sed to interpret this result as normal/abnor mal. Lab Interpretation (test Normal code = 73394-0) [facility] GLUCOSE (AUTOMATED)2022-08-14 12:00:53 Test Item Value Reference Range Interpretation Comments POCT GLU (test code = 3568490465) 89 mg/dL 70-110 Lab Interpretation (test code = Normal 65897-5) [facility] HospitalTROPONIN [id number] 07:04:18 Test Item Value Reference Interpretation Comments Range TROPONIN I (test 0.003 ng/mL See_Comment [Automated code = 8196536523) message] The system which generated this result transmitted reference range : <=0.034. The reference range was not used to interpret this result as normal/abnormal . ZACKARY (test code = Reference (Normal) ZACKAYR) Range (defined by the 99th percentile reference limit): <= 0.034 ng/mL Note: Cardiac troponin begins to rise 3-4 hours after the onset of ischemia. Repeat in 4-6 hours if the sample was drawn within 3-4 hours of the onset of the symptom and found normal. Diagnosis of myocardial injury is made with acute changes in cTn concentrations with at least one serial sample above the 99th percentile upper reference limit (URL), taken together with the patient's clinical presentation. Biotin has been reported to cause a negative bias, interpret results relative to patient's use of biotin. Lab Interpretation Normal (test code = 84652-3) [facility] HospitalN-TERMINAL [id number] 07:01:16 Test Item Value Reference Range Interpretation Comments NT-proBNP (test code 101 pg/mL See_Comment [Autom ated = 6416618360) message] The system which generated this result transmitted reference range : <=125. The reference range was not used to interpret this result as normal/abnormal . ZACKARY (test code = ZACKARY) Biotin has been reported to cause a negative bias, interpret results relative to patient's use of biotin. Lab Interpretation Normal (test code = 71225-0) [facility] HospitalETHANOL2023-01-31 06:53:54 ALCOHOL<10mg/dL08/14/2022 12:53 AM [facility]<10 Qxkrolvv79-520 Toxic>100 Depression of LEASE ADMINISTRATION SUPERVISOR>400 Fatalities ReportedUnThe [facility] CampusCOMP. METABOLIC PANEL (44328) 2022-08-14 06:52:18 Test Item Value Reference Range Interpretation Comments NA (test code = 138 mmol/L 135-145 3838961423) K (test code = 4.0 mmol/L 3.5-5.0 5421553486) CL (test code = 105 mmol/L 98-108 2265771887) CO2 TOTAL (test code 27 mmol/L 23-31 = 3175093712) AGAP (test code = 6 2-16 9334774622) BUN (test code = 14 mg/dL 7-23 6625800654) GLUCOSE (test code = 97 mg/dL 70-110 2055866757) CREATININE (test code 0.75 mg/dL 0.50-1.04 = 4901036030) TOTAL BILI (test code 0.4 mg/dL 0.1-1.1 = 1839623162) CALCIUM (test code = 8.6 mg/dL 8.6-10.6 7814284830) T PROTEIN (test code 6.8 g/dL 6.3-8.2 = 1896597749) ALBUMIN (test code = 4.0 g/dL 3.5-5.0 8644099647) ALK PHOS (test code = 71 U/L 34-122 8471251790) ALTv (test code = 22 U/L 5-35 1742-6) AST(SGOT) (test code 28 U/L 13-40 = 1513801079) eGFR (test code = 88.5 mL/min/1.73m2 3023339655) ZACKARY (test code = ZACKARY) Association of Glomerular Filtration Rate (GFR) and Staging of Kidney Disease* + + +- +| GFR (mL/min/1.73 m2) ?| With Kidney Damage ?| ?Without Kidney Damage+ ------+ ----+ ------+| ?>90 ?| ?Stage one ?| ? Normal ?+ -+ + -+| ?60-89 ?| ?Stage two ?| ? Decreased GFR ? + + +- +| ?30-59 ?| ?Stage three ?| ? Stage three ? + + +- +| ?15-29 ?| ?Stage four ? | ? Stage four ?+ -+ + -+| ?<15 (or dialysis) ? ?| ?Stage five ? | ? Stage five ?+ -+ + -+ *Each stage assumes the associated GFR level has been in effect for at least three months. ?Stages 1 to 5, with or without kidney disease, indicate chronic kidney disease. Notes: Determination of stages one and two (with eGFR >59mL/min/1.73 m2) requires estimation of kidney damage for at least three months as defined by structural or functional abnormalities of the kidney, manifested by either:Pathological abnormalities or Markers of kidney damage (including abnormalities in the composition of the blood or urine or abnormalities in imaging tests). [facility] WITH [id number] 06:21:34 Test Item Value Reference Range Interpretation Comments WBC (test code = 9.89 See_Comment [Automated 6594-2) message] The sy stem which generated this result transmitted reference range : 4.30 - 11.10 10*3/?L. The reference range was not used to interpret this result as normal/abnormal . RBC (test code = 4.97 See_Comment [Automated 755-8) message] The sy stem which generated this result transmitted reference range : 3.93 - 5.25 10*6/?L. The reference range was not used to interpret this result as normal/abnormal . HGB (test code = 14.2 g/dL 11.6-15.0 718-7) HCT (test code = 43.4 % 35.7-45.2 4544-3) MCV (test code = 87.3 fL 80.6-95.5 787-2) MCH (test code = 28.6 pg 25.9-32.8 785-6) MCHC (test code = 32.7 g/dL 31.6-35.1 786-4) RDW-SD (test code = 47.4 fL 39.0-49.9 28633-0) RDW-CV (test code = 14.7 % 12.0-15.5 788-0) PLT (test code = 253 See_Comment [Automated 747-3) message] The sy stem which generated this result transmitted reference range : 166 - 358 10*3/ ?L. The reference r jaya was not used to interpret this result as normal/abnormal . MPV (test code = 12.9 fL 9.5-12.9 99232-6) NRBC/100 WBC (test 0.0 See_Comment [Automat ed code = 7440518210) message] The system which generated this result transmitted reference range : 0.0 - 10.0 /100 WBCs. The refer ence range was not u sed to interpret th is result as normal/abnormal . NRBC x10^3 (test code See_Comment [Auto mated = 5385654296) message] The s ystem which generated this result transmitted reference range : 10*3/?L. The reference range was not used to interpret this result as normal/abnormal . GRAN MAT (NEUT) % 57.0 % (test code = 770-8) IMM GRAN % (test code 0.30 % = 3576010679) LYMPH % (test code = 32.5 % 736-9) MONO % (test code = 8.3 % 5905-5) EOS % (test code = 1.1 % 713-8) BASO % (test code = 0.8 % 706-2) GRAN MAT x10^3(ANC) 5.64 10*3/uL 1.88-7.09 (test code = 4332102702) IMM GRAN x10^3 (test 0.03 10*3/uL 0.00-0.06 code = 7381762617) LYMPH x10^3 (test code 3.21 10*3/uL 1.32-3.29 = 731-0) MONO x10^3 (test code 0.82 10*3/uL 0.33-0.92 = 742-7) EOS x10^3 (test code = 0.11 10*3/uL 0.03-0.39 711-2) BASO x10^3 (test code 0.08 10*3/uL 0.01-0.07 H = 704-7) Lab Interpretation Abnormal (test code = 40978-9) [facility] [id number] 06:14:00 Test Item Value Reference Range Interpretation Comments POCT PREG (test code = 1605) Negative On board controls acceptable with Positive C Line (test code = 3574) POCT PREG LOT # (test code = 3575) [id number] POCT PREG TEST DATE (test 10/13/2023 code = 3576) Lab Interpretation (test code = Normal 54243-3) [facility] HospitalUrine [id number] 11:16:00 Test Item Value Reference Interpretation Comments Range Urine culture Lactobacillus A Specimen isolate (test Susana Ortiz [facility] code = 78570-9) performance Source: Urin eSpecimen characteristics of Site: Giovani an catch this assay on this isolatewere validated by the Microbiology Laboratory at [facility]. This source has not been approved by the U.S. Food and Drug Administration. The results are not intended to be used as the sole means for clinical diagnosis or patient management. The Microbiology Laboratory is authorized under the clinical Laboratory Improvement Amendments of 1988 (CLIA-88) to perform high complexity testing. Lab Abnormal Interpretation (test code = 84046-6) [facility] 12 [id number] 04:18:57 Test Item Value Reference Range Interpretation Comments Ventricular rate (test 82 code = 253) Atrial rate (test code 82 = 255) [place] interval (test code 116 = 266) QRSD interval (test 74 code = 260) QT interval (test code 368 = 264) QTC interval (test code 429 = 265) P axis 1 (test code = 30 267) QRS axis 1 (test code = 45 268) T wave axis (test code 34 = 270) EKG impression (test Normal sinus code = 273) rhythm-Normal ECG-In automated comparison with ECG of 08-NOV-2021 20:12,-Nonspecific T wave abnormality has replaced inverted T waves in Anterior leads- [facility] [id number] 01:59:00 Test Item Value Reference Range Interpretation Comments POC glucose (test 95 mg/dL 65-99 Medical Receptionist N andreina: Feliberto code = 41873-9) Damaris ce ID: [id number] able: [facility] Notified RN Voodoo QtisyufjIHUT-MlZ-5 (COVID-19) RNA [Presence] in Respiratory specimen by RADHA with probe [id number] 00:11:33 Test Item Value Reference Range Interpretation Comments SARS-CoV-2 (COVID-19) RNA Not detected [Presence] in Respiratory specimen by RADHA with probe detection (test code = 92652-0) Whether patient is employed in a Unknown healthcare setting (test code = 76701-3) Whether the patient has symptoms Unknown related to condition of interest (test code = 38965-7) Whether the patient was Unknown hospitalized for condition of interest (test code = 30486-2) Whether the patient was admitted Unknown to intensive care unit (ICU) for condition of interest (test code = 65974-9) Whether patient resides in a Unknown congregate care setting (test code = 23148-8) status (test code = Unknown 01290-3) Date and time of symptom onset Unknown (test code = 20213-6) [facility] HCG TRIAGE (ER ONLY)2022-07-30 05:54:00 Test Item Value Reference Range Interpretation Comments URINE HCG TRIAGE (ER ONLY) (test NEGATIVE Negative code = HCGTRIAGE) Urine Test Result: NEGATIVEAre internal controls (presence of a control line & clear background) OK? YesLot # of HCG Test Kit: [id number] Date of Kit: 09/12/23Test Performed by:CADENCE Pond Perfomed on: 07/29/22COMMENTS: NEGATIVE TESTCBC W/AUTO DIFF 2022-07-29 22:28:00 Test Item Value Reference Range Interpretation Comments WHITE BLOOD CELL (test code = WBC) 7.4 K/uL 3.5-11.0 N RED BLOOD CELL (test code = RBC) 4.87 M/uL 3.54-5.02 N HEMOGLOBIN (test code = HGB) 14.3 GM/DL 11.0-15.0 N HEMATOCRIT (test code = HCT) 41.7 % 37.0-47.0 N MEAN CELL VOLUME (test code = MCV) 85.6 fL 81.0-99.0 N MEAN CELL HGB (test code = MCH) 29.4 pg 27.0-31.0 N MEAN CELL HGB CONCETRATION (test 34.3 GM/DL 33.0-37.0 N code = MCHC) RED CELL DISTRIBUTION WIDTH CV 16.0 % 11.5-14.5 H (test code = RDW) PLATELET COUNT (test code = PLT) 209 K/mm3 150-400 N MEAN PLATELET VOLUME (test code = 14.1 FL 8.8-13.1 H MPV) NEUTROPHIL % (test code = NT%) 66.7 % 40.0-76.0 N LYMPHOCYTE % (test code = LY%) 28.2 % 15.0-40.0 N MIXED % (test code = MX%) 5.1 % 3.0-15.0 N NEUTROPHIL # (test code = NT#) 4.9 K/uL 1.8-7.6 N LYMPHOCYTE # (test code = LY#) 2.1 K/uL 1.0-3.8 N MIXED # (test code = MX#) 0.4 k/mm3 0.1-0.8 N UA DIPSTICK [id number] 16:30:00 Test Item Value Reference Range Interpretation Comments UA GLUCOSE DIPSTIC POC NEGATIVE NEGATIVE (test code = GLUUP) UA BILIRUBIN DIPSTICK NEGATIVE NEGATIVE (test code = BILU) UA KETONE DIPSTICK POC 2+ NEGATIVE A (test code = KETUP) UA SPECIFIC GRAVITY (test 1.015 1.005-1.030 N code = SGU) UA BLOOD DIPSTIC POC NEGATIVE NEGATIVE Perform ed by (test code = BLUP) certified service station operator at [facility] UA PH DIPSTIC POC (test 7 5.0-7.0 N code = PHUP) UA PROTEIN DIPSTICK POC NEGATIVE NEGATIVE (test code = DPROUP) UA UROBILINIOGEN QUAL NORMAL 0.2-1.0 (test code = UROQL) UA NITRITE DIPSTICK POC NEGATIVE Negative (test code = NITUP) UA LEUKOCYTE ESTERASE W Negative NEGATIVE REFLEX (test code = LEUUR) BASIC METABOLIC [id number] 16:25:00 Test Item Value Reference Range Interpretation Comments SODIUM (test code = NA/ABG) 139 mmol/L 134-147 N POTASSIUM (test code = K/ABG) 4.1 mmol/L 3.4-5.0 N CHLORIDE (test code = CL/ABG) 103 mmol/L 100-108 N CREATININE ABG (test code = 0.6 mg/dL 0.6-1.0 N CREAABG) POC IONIZED CALCIUM (test code = 1.17 MMOL/L 1.12-1.32 N POCCA) POC GLUCOSE (test code = POCGLU) 86 MG/DL 70-110 N - CT C-SPINE [id number] 00:00:00 [facility] : 1990 Sex: F Name: ISMA KELSEY FSED : 1990 Age/S: 31 / F [address] [facility] Unit #: [id number] Loc: [place] [address] Phys: Kota Salmon MD Acct: [id number] Dis Date: Status: REG ER PHONE #: Exam Date: 07/29/2022 1659 FAX #: Reason: thoracolumbar pain, bilateral leg weak/numb, hx EXAMS: CPT CODE: [id number] CT C- SPINE W/CONTRAST [address]109 PROCEDURE INFORMATION: Exam: CT Cervical Spine With Contrast Exam date and time: 07/29/2022 4:26 PM Age: 31 years old Clinical indication: Weakness and other: Thoracolumbar pain, bilateral leg weak/numb, HX [id number] TECHNIQUE: Imaging protocol: Computed tomography of the cervical spine with contrast. 3D rendering (Not supervised by radiologist): MIP and/or 3D reconstructed images were created by the technologist. Radiation optimization: All CT scans at this facility use at least one of these dose optimization techniques: automated exposure control; mA and/or kV adjustment per patient size (includes targeted exams where dose is matched to clinical indication); or iter ative reconstruction. Contrast material: 300; Contrast volume: 100 ml; Contrast route: INTRAVENOUS (IV); COMPARISON: CT C-SPINE W/O CONT 04/05/2016 7:12 PM FINDINGS: Bones/joints: Previous suboccipital craniectomy. Previous resection of posterior arch of C1. No acute fracture. Alignment is preserved. No significant spinal canal stenosis at any cervical level. Lungs: Lung apices are normal. Soft tissues: Unremarkable. PROCEDURE INFORMATION: Exam: CT Thoracic Spine With Contrast Exam date and time: 07/29/2022 4:26 PM Age: 31 years old Clinical indication: Weakness and other: Thoracolumbar pain, bilateral leg weak/numb, HX [id number] TECHNIQUE: Imaging protocol: Computed tomography of the thoracic spine with contrast. 3D rendering (Not supervised by radiologist): MIP and/or 3D reconstructed images were created by the technologist. Radiation optimization: All CT scans at [facility] use at least one of these dose optimization techniques: automated exposure control; mA and/or kV adjustment per patient size (includes targeted exams where dose is matched to clinical indication); or iterative reconstruction. Contrast material: 300; Contrast volume: 100 ml; Contrast route: INTRAVENOUS (IV); PAGE 1 Signed Report (CONTINUED) Name: ISMA KELSEY FSED : 1990 Age/S: 31 / F [address] [facility] Unit #: [id number] Loc: [place] [address] Phys: Kota Salmon MD Acct: [id number] Dis Date: Status: REG ER PHONE #: Exam Date: 07/29/2022 1650 FAX #: Reason: thoracolumbar pain, bilateral leg weak/numb, hx EXAMS: CPT CODE: [id number] CT C-SPINE W/CONTRAST 30879 (Continued) COMPARISON: CT C-SPINE W/O CONT 04/05/2016 7:12 PM FINDINGS: Bones/joints: No acute fracture. Normal ali gnment. No significant disc protrusion. No significant spinal canal stenosis. Soft tissues: Unremarkable. No abnormal enhancement. PROCEDURE INFORMATION: Exam: CT Lumbar SpineWith Contrast Exam date and time: 07/29/2022 4:26 PM Age: 31 years old Clinical indication: Weakness and other: Thoracolumbar pain, bilateral leg weak/numb, HX [id number] TECHNIQUE: Imaging protocol: Computed tomography of the lumbar spine with contrast. 3D rendering (Not supervised by radiologist): MIPand/or 3D reconstructed images were created by the technologist. Radiation optimization: All CT scans at this facility use at least one of these dose optimization techniques: automated exposure control; mA and/or kV adjustment per patient size (includes targeted exams where dose is matched to clinicalindication); or iterative reconstruction. Contrast material: 300; Contrast volume: 100 ml; Contrastroute: INTRAVENOUS (IV); COMPARISON: No relevant prior studies available. FINDINGS: Bones/joints: Noacute fracture. Normal alignment. No significant disc protrusion. No significant spinal canal stenosis. Soft tissues: Unremarkable. IMPRESSION: CT Cervical Spine With Contrast1. Previous suboccipital craniectomy and C1 posterior arch resection. 2. No fracture or malalignmentinvolving cervical spine. 3. No abnormal enhancement. CT Thoracic Spine With Contrast 1. No spinal canal stenosis or neural foraminal narrowing at any thoracic level. 2. No fracture or malalignment. 3.No abnormal enhancement. CT Lumbar Spine With Contrast PAGE 2 Signed Report (CONTINUED) Name: ISMA KELSEY FSED : 1990 Age/S: 31 / F [address] [facility] Unit #: [id number] Loc: Am[place] [address] Phys: Kota Salmon MD Acct: [id number] Dis Date: Status: REG ER PHONE #: Exam Date: 07/29/2022 1650 FAX #: Reason: thoracolumbar pain, bilateral leg weak/numb, hx EXAMS: CPT CODE: [id number] CT C-SPINE W/CONTRAST 31938 (Continued) 1. No acute fracture or malalignment. 2. No abnormal enhancement. 3. No spinal canal stenosis or neural foraminal narrowing at any lumbar level. ElectronicallySigned by Vladimir Beth on 07/29/2022 at 8556 Reported and signed by: Kota Beth M.D. CC: Kota Salmon MD Technologist:Romy Morris, RT(R)(CT) CTDI: DLP: Trnscb Date/Time: 07/29/2022 (174) [email or web address] Orig Print D/T: S: 07/29/2022 (174) PAGE 3 Signed Report- CT T-SPINE [id number] 00:00:00 [facility] [place] : 1990 Sex: F Name: ISMA KELSEY FSED : 1990 Age/S: 31 / F [address] [facility] Unit #: [id number] Loc: Am[place] [address] Phys: Kota Salmon MD Acct: [id number] Dis Date: Status: REG ER PHONE #: Exam Date:07/29/2022 1640 FAX #: Reason: thoracolumbar pain, bilateral leg weak/numb, hx EXAMS: CPT CODE: [id number] CT T- SPINE W/CONTRAST 08773 PROCEDURE INFORMATION: Exam: CT Cervical Spine With Contrast Examdate and time: 07/29/2022 4:26 PM Age: 31 years old Clinical indication: Weakness and other: Thoracolumbar pain, bilateral leg weak/numb, HX [id number] TECHNIQUE: Imaging protocol: Computed tomography ofthe cervical spine with contrast. 3D rendering (Not supervised by radiologist): MIP and/or 3D reconstructed images were created by the technologist. Radiation optimization: All CT scans at this facility use at least one of these dose optimization techniques: automated exposure control; mA and/or kV adjustment per patient size (includes targeted exams where dose is matched to clinical indication); or i terative reconstruction. Contrast material: 300; Contrast volume: 100 ml; Contrast route: INTRAVENOUS (IV); COMPARISON: CT C-SPINE W/O CONT 04/05/2016 7:12 PM FINDINGS: Bones/joints: Previous suboccipital craniectomy. Previous resection of posterior arch of C1. No acute fracture. Alignment is preserved. No significant spinal canal stenosis at any cervical level. Lungs: Lung apices are normal. Soft tissues: Unremarkable. PROCEDURE INFORMATION: Exam: CT Thoracic Spine With Contrast Exam date and time: 07/29/2022 4:26 PM Age: 31 years old Clinical indication: Weakness and other: Thoracolumbar pain, bilateral leg weak/numb, HX [id number] TECHNIQUE: Imaging protocol: Computed tomography of the thoracic spine with contrast. 3D rendering (Not supervised by radiologist): MIP and/or 3D reconstructed images were created by the technologist. Radiation optimization: All CT scans at this facility use at least one of these dose optimization techniques: automated exposure control; mA and/or kV adjustment per patient size (includes targeted exams where dose is matched to clinical indication); or iterative reconstruction. Contrast material: 300; Contrast volume: 100 ml; Contrast route: INTRAVENOUS (IV); PAGE 1 Signed Report (CONTINUED) Name: ISMA KELSEY FSED : 1990 Age/S: 31 / F [address] [facility] Unit #: [id number] Loc: Am[place] [address] Phys: Kota Salmon MD Acct: [id number] Dis Date: Status: REG ER PHONE #: Exam Date: 07/29/2022 1640 FAX #: Reason: thoracolumbar pain, bilateral leg weak/numb, hx EXAMS: CPT CODE: [id number] CT T-SPINE W/CONTRAST 40845 (Continued) COMPARISON: CT C-SPINE W/O CONT 04/05/2016 7:12 PM FINDINGS: Bones/joints: No acute fracture. Normalalignment. No significant disc protrusion. No significant spinal canal stenosis. Soft tissues: Unremarkable. No abnormal enhancement. PROCEDURE INFORMATION: Exam: CT Lumbar Spine With Contrast Exam date and time: 07/29/2022 4:26 PM Age: 31 years old Clinical indication: Weakness and other: Thoracolumbar pain, bilateral leg weak/numb, HX [id number] TECHNIQUE: Imaging protocol: Computed tomography of the lumbar spine with contrast. 3D rendering (Not supervised by radiologist): MIP and/or 3D reconstructed images were created by the technologist. Radiation optimization: All CT scans at this facility use at least one of these dose optimization techniques: automated exposure control; mA and/or kV adjustment per patient size (includes targeted exams where dose is matched to clinical indication); or iterative reconstruction. Contrast material: 300; Contrast volume: 100 ml; Contrast route: INTRAVENOUS (IV); COMPARISON: No relevant prior studies available. FINDINGS: Bones/joints: No acute fracture. Normal alignment. No significant disc protrusion. No significant spinal canal stenosis. Soft tissues: Unremarkable. IMPRESSION: CT Cervical Spine With Contrast 1. Previous suboccipital craniectomy and C1 posterior arch resection. 2. No fracture or malalignment involving cervical spine. 3. No abnormal enhancement. CT Thoracic Spine With Contrast 1. No spinal canal stenosis or neural foraminal narrowing at any thoracic level. 2. No fracture or malalignment. 3. No abnormal enhancement. CT Lumbar Spine With Contrast PAGE 2 Signed Report (CONTINUED) Name: ISMA KELSEY FSED : 1990 Age/S: 31 / F [address] [facility] Unit #: [id number] Loc:Amaris [place]aw[place] [address] Phys: Kota Salmon MD Acct: [id number] Dis Date: Status: REG ER PHONE #: Exam Date: 1640 FAX #: Reason: thoracolumbar pain, bilateral leg weak/numb, hx EXAMS: CPT CODE: [id number] CT T-SPINE W/CONTRAST 01101 (Continued) 1. No acute fracture or malalignment. 2. No abnormal enhancement. 3. No spinal canal stenosis or neural foraminal narrowing at any lumbar level. at 1746 Reported and signed by: Kota Beth M.D. CC: Kota Salmon MD Technologist:Romy Morris RT(R)(CT) CTDI: DLP: Trnscb Date/Time: 07/29/2022 (174) [email or web address] Orig Print D/T: S: 07/29/2022 (7557) PAGE 3 Signed Report- CT L-SPINE W/[id number] 00:00:00[facility]: IS[facility] : 1990 Sex: F Name: ISMA KELSEY FSED : 1990 Age/S: 31 / F [address] [facility] Unit #: [id number] Loc: Amaris [place]ward [address] Phys: Kota Salmon MD Acct: [id number] Dis Date: Status: REG ER PHONE #: Exam Date:07/29/2022 0962 FAX #: Reason: thoracolumbar pain, bilateral leg weak/numb, hx EXAMS: CPT CODE: [id number] CT L-SPINE W/CONTRAST 37549 PROCEDURE INFORMATION: Exam: CT Cervical Spine With Contrast Exam date and time: 07/29/2022 4:26 PM Age: 31 years old Clinical indication: Weakness and other: Thoracolumbar pain, bilateral leg weak/numb, HX [id number] TECHNIQUE: Imaging protocol: Computed tomography ofthe cervical spine with contrast. 3D rendering (Not supervised by radiologist): MIP and/or 3D reconstructed images were created by the technologist. Radiation optimization: All CT scans at this facility use at least one of these dose optimization techniques: automated exposure control; mA and/or kV adjustment per patient size (includes targeted exams where dose is matched to clinical indication); or iterative reconstruction. Contrast material: 300; Contrast volume: 100 ml; Contrast route: INTRAVENOUS (IV); COMPARISON: CT C-SPINE W/O CONT 04/05/2016 7:12 PM FINDINGS: Bones/joints: Previous suboccipital craniectomy. Previous resection of posterior arch of C1. No acute fracture. Alignment is preserved. No significant spinal canal stenosis at any cervical level. Lungs: Lung apices are normal. Soft tissues: Unremarkable. PROCEDURE INFORMATION: Exam: CT Thoracic Spine With Contrast Exam date and time: 07/29/2022 4:26 PM Age: 31 years old Clinical indication: Weakness and other: Thoracolumbar pain, bilateral leg weak/numb, HX [id number] TECHNIQUE: Imaging protocol: Computed tomography of the thoracic spine with contrast. 3D rendering (Not supervised by radiologist): MIP and/or 3D reconstructed images were created by the technologist. Radiation optimization: All CT scans at this facility use at least one of these dose optimization techniques: automated exposure control; mAand/or kV adjustment per patient size (includes targeted exams where dose is matched to clinical indication); or iterative reconstruction. Contrast material: 300; Contrast volume: 100 ml; Contrast route: INTRAVENOUS (IV); PAGE 1 Signed Report (CONTINUED) Name: ISMA KELSEY FSED : 1990Age/S: 31 / [address] [facility] Unit #: [id number] Loc: Amaris Hyaward [address] Phys: Kota Salmon MD Acct:[id number] Dis Date: Status: REG ER PHONE #: Exam Date: 07/29/2022 1645 FAX #: Reason: thoracolumbar pain, bilateral leg weak/numb, hx EXAMS: CPT CODE: [id number] CT L-SPINE W/CONTRAST 28114 (Continued) COMPARISON: CT C-SPINE W/O CONT 04/05/2016 7:12 PM FINDINGS: Bones/joints: No acute fracture. Normal alignment. No significant disc protrusion. No significant spinal canal stenosis. Soft tissues: Unremarkable. No abnormal enhancement. PROCEDURE INFORMATION: Exam: CT LumbarSpine With Contrast Exam date and time: 07/29/2022 4:26 PM Age: 31 years old Clinical indication: Weakness and other: Thoracolumbar pain, bilateral leg weak/numb, HX [id number] TECHNIQUE: Imaging protocol: Computed tomography of the lumbar spine with contrast. 3D rendering (Not supervised by radiologist): MIP and/or 3D reconstructed images were created by the technologist. Radiation optimization: All CT scans at this facility use at least one of these dose optimization techniques: automated exposure control; mA and/or kV adjustment per patient size (includes targeted exams where dose is matched to clinical indication); or iterative reconstruction. Contrast material: 300; Contrast volume: 100 ml; Contrast route: INTRAVENOUS (IV); COMPARISON: No relevant prior studies available. FINDINGS: Bones/joints: No acute fracture. Normal alignment. No significant disc protrusion. No significant spinal canal s tenosis. Soft tissues: Unremarkable. IMPRESSION: CT Cervical Spine With Contrast 1. Previous suboccipital craniectomy and C1 posterior arch resection. 2. No fracture or malalignment involving cervical spine. 3. No abnormal enhancement. CT Thoracic Spine With Contrast 1. No spinal canal stenosis or neural foraminal narrowing at any thoracic level. 2. No fracture or malalignment. 3. No abnormal enhancement. CT Lumbar Spine With Contrast PAGE 2 Signed Report (CONTINUED) Name: ISMA KELSEY FSED : 1990 Age/S: 31 / F [address] [facility] Unit #: [id number] Loc: Amaris [place]ward [address] Phys: Kota Salmon MD Acct: [id number] Dis Date: Status: REG ER PHONE #: Exam Date: 07/29/2022 1645 FAX #: Reason: thoracolumbar pain, bilateral leg weak/numb, hx EXAMS: CPT CODE: [id number] CT L-SPINE W/CONTRAST 06147 (Continued) 1. No acute fracture or malalignment. 2. No abnormal enhancement. 3. No spinal canal stenosis or neural foraminal narrowing at any lumbar level. Electronica lly Signed by Vladimir Beth on 07/29/2022 at 1746 Reported and signed by: Kota Beth M.D. CC: Kota Salmon MD Technologist:Romy Morris, RT(R)(CT) CTDI: DLP: Trnscb Date/Time: 07/29/2022 (174) [email or web address] Orig Print D/T: S: 07/29/2022 (174) PAGE 3 Signed ReportPOCT MOLECULAR [id number] 17:16:29 Test Item Value Reference Range Interpretation Comments POCT Molecular FluA (test code = Positive Negative A 64651-4) Lab Interpretation (test code = Abnormal 94759-0) [facility] [id number] 21:36:15 Test Item Value Reference Range Interpretation Comments Case number (test code = [id number]) Surgical pathology See link below for report (test code = PDF Lab Report 2255) Result status (test code This is Final Report = [id number]) for [id number] [facility] [id number] 21:36:15 Test Item Value Reference Range Interpretation Comments Case number (test code = [id number]) Surgical pathology See link below for report (test code = PDF Lab Report 2255) Result status (test code This is Final Report = [id number]) for [id number] [facility] [id number] 18:42:00 Test Item Value Reference Interpretation Comments Range Adrenocorticotropic 25 pg/mL 6-50 Referen ce range hormone (test code = applies only to the 2141-0) specimens collectedbetwee n 7am-10am. ZACKARY (test code = ZACKARY) FASTING:YESCOLLE CTION REQUIREMENTS NOT MET. PATIENT ADVISED TO RETURN. FASTING: YES RAC (test code = RAC) Performing Organization Information: Site ID: EZ Name: [facility], Address: [address] [place] [address] Director: Nicky Heck MD,PhD,JAI [facility] HendersonRertqaliZ-iretewg3722-86-10 18:42:00 Test Item Value Reference Range Interpretation Comments C-peptide (test 1.38 ng/mL 0.80-3.85 code = 1985-) ZACKARY (test code = FASTING:YESCOLLECTION ZACKARY) REQUIREMENTS NOT MET. PATIENT ADVISED TO RETURN. FASTING: YES RAC (test code = Performing Organization RAC) Information: Site ID: RGA [facility] Address: [address] [place] [address] Director: Humberto Bautista [facility] HospitalProinsulin [id number] 18:42:00 Test Item Value Reference Interpretation Comments Range Proinsulin 4.6 pmol/L See_Comment This test was performed (test code = using a laborat ory developed 64604-3) ELISAmethod. Va lues obtained from different assay methods cannotbe used interchangeably . Proinsulin levels, regardl ess ofvalue, should not be i nterpreted as absolute eviden ce of thepresence or absence of disease. This t est was developed and i ts analytical performancechar acteristics have been deter mined by [facility]. It has not beencleared or approved by FDA. This as say has been validatedpursua nt to the CLIA regulations and is used for clinicalpurpose s. [Automated message] The sy stem which generated this result transmitted ref erence range: < OR = 18.8. Th e reference range was not u sed to interpret this result as normal/abnormal . ZACKARY (test code FASTING:YESCOLL = ZACKARY) ECTION REQUIREMENTS NOT MET. PATIENT ADVISED TO RETURN. FASTING: YES RAC (test code Performing = RAC) Organization Information: Site ID: EZ Name: [employer], Address: [address] [place], [place] [address] Director: Nicky Heck MD,PhD,JAI [facility] HospitalBeta [id number] 18:42:00 Test Item Value Reference Range Interpretation Comments Beta hydroxybutyrate 1.49 mmol/L H Refere nce (test code = 6873-4) Range: ADULT: 0.28 OR LESS ZACKARY (test code = ZACKARY) FASTING:YESCOLLECT ION REQUIREMENTS NOT MET. PATIENT ADVISED TO RETURN. FASTING: YES RAC (test code = RAC) Performing Organization Information: Site ID: EZ Name: [employer], Address: [address] [place] [address] Director: Nicky Heck MD,PhD,JAI Lab Interpretation Abnormal (test code = 95982-5) [facility] HospitalInsulin-like growth factor I level (IGF-1)2022-02-21 18:42:00 Test Item Value Reference Interpretation Comments Range IGF-1 72 ng/mL 53-331 (test code = 2484-4) Z score See_Comment This test was developed and (female) its analytical (test code performancechar acteristics = 04567-3) have been deter mined by [facility]. It has not beencleared or approved by FDA. This assay has been validatedpursua nt to the CLIA regulations and is used for clinicalpurpose s. [Automated message] The sy stem which generated this result transmitted ref erence range: -2.0 - 2.0 SD. The reference range was not u sed to interpret this result as normal/abnormal . ZACKARY (test FASTING:YESCOLLEC code = TION REQUIREMENTS ZACKARY) NOT MET. PATIENT ADVISED TO RETURN. FASTING: YES RAC (test Performing code = Organization RAC) Information: Site ID: EZ Name: [employer], Address: [address] [place] [address] Director: Nicky Heck MD,PhD,JAISur[facility] Specialty Hospitals Of AmericaInsulin-like growth factor II level (IGF-2)2022-02-21 18:42:00 Test Item Value Reference Interpretation Comments Range IGF-2 546 ng/mL 267-616 This test was developed and (test its analytical code = performancechar acteristics 2485-1) have been deter mined by [facility]. It has not beencleared or approved by FDA. This assay has been validatedpursua nt to the CLIA regulations and is used for clinicalpurpose s. ZACKARY (test FASTING:YESCOLLEC code = TION REQUIREMENTS ZACKARY) NOT MET. PATIENT ADVISED TO RETURN. FASTING: YES RAC (test Performing code = Organization RAC) Information: Site ID: EZ Name: [facility], Address: [address] [place] [address] Director: Nicky Heck MD,PhD,JAISurgery Specialty Hospitals Of AmericaHypoglycemic Panel, Serum/[id number] 18:42:00 Test Item Value Reference Interpretation Comments Range Rosiglitazone (test None Detected ng/mL Reporti ng Limit: 40 code = 3910) ng/mL Synonym(s ): Avandia(R); Avandaryl(R); Avandamet(R)Pea k plasma concentr ations of approximatel y 70-430 ng/mL an d 240-830 ng/mL w ere achieved1 hour after administration of 4 mg and 8 mgdaily d oses, respectively.An alysis by High Perform ance Liquid Chromato graphy/ Tandem Mass Spectrometry (LC-MS/MS) Chlorpropamide None Detected mcg/mL Reporting Li amelie: 0.10 (test code = mcg/mL Synonym( s): 3474-4) Diabinese(R)Pea k plasma concentr ations of approximatel y75-360 mcg/mL were ach ieved 2 hours following chronic daily doses of 250-1000 mg.The blood to plasma ratio of Chlorpropamidei s not known.Analysis by High Performance Liq uid Chromatography/ Tandem Mass Spectromet ry (LC-MS/MS) Tolbutamide (test None Detected mcg/mL Reporting Limit: 0.10 code = 4061-8) mcg/mL Synony m(s): Orinase(R)Peak plasma concentrations of wahsuelgnpxhn90 -100 mcg/mL were ach ieved 35 hours follow ing chronic daily doses.Analysis by High Performance Liq uid Chromatography/ Tandem Mass Spectromet ry (LC-MS/MS) Tolazamide (test None Detected mcg/mL Reporting Limit: 0.10 code = 9629-7) mcg/mL Synony m(s): Tolinase(R)No p lasma concentrations have beenreported in the literatureAnaly sis by High Performanc e Liquid Chromato graphy/ Tandem Mass Spectrometry (LC-MS/MS) Glipizide (test None Detected ng/mL Reporting L imit: 40 code = 02110-6) ng/mL Synony m(s): Glynase; Glucot rol(R); GlibenesePeak p lasma concentrations of wzypcxomkntsf85 0-610 ng/mL were achi eved after administr ation of a single 5 m g dose of both immedia te and extendedrelease formulations. M aximum concentrations werereached in approximately 1 .5-4.5 and 3.5-7 hours after immediate and e xtended release dosing,respecti vely.Th e blood to plas ma ratio of Glipiz fernando is not known.Mirna sis by High Performanc e Liquid Chromato graphy/ Tandem Mass Spectrometry (LC-MS/MS) Pioglitazone (test None Detected ng/mL Reportin g Limit: 40 code = 3911) ng/mL Synonym(s ): Duetact(R); Act oPlus Met(R); Actos(R ); Oseni(R)Peak pl asma concentrations of ahipnclooilqt23 0-2600 ng/mL were achi eved 1-4 hour after administration of 45 mg of pioglitazone.An alysis by High Perform ance Liquid Chromato graphy/ Tandem Mass Spectrometry (LC-MS/MS) Glyburide (test None Detected ng/mL Reporting L imit: 40 code = 14332-3) ng/mL Synony m(s): PresTab(R); Micronase(R); Glibenclamide; Glynase(R)Peak plasma concentrations of wmfxmbbeecgta23 0-200 ng/mL following a single 5 mg dos e have been reported. A group of ten diabetic patients givend aily oral 2.5 mg dos es for 6 weeks attaine d peak plasma glyburid e concentrations averaging 140 n g/mL at 3 hours after t he first dose and 240 ng/mL at 2.4 ho urs after the last dose.Analysis b y High Performance Liq uid Chromatography/ Tandem Mass Spectromet ry (LC-MS/MS) Glimepiride (test None Detected ng/mL Reporting Limit: 25 code = 20270-0) ng/mL Synony m(s): Duetact(R); Avandaryl(R); Amaryl(R)Peak p lasma concentrations of acxyoodkixwds76 -340 ng/mL were achi eved 2-3 hoursafter administration of 4 mg of glimepiride. The blood to plasma ratio of Glimepiridei s not known.Analysis by High Performance Liq uid Chromatography/ Tandem Mass Spectromet ry (LC-MS/MS) Nateglinide (test None Detected mcg/mL Reporting Limit: 0.10 code = 35936-7) mcg/mL Synon ym(s): Starlix(R)Peak plasma concentrations of approximately1. 3-7.5 mcg/mL were ach ieved 0.5 hours follo wing a single 60 mg dose.Analysis b y High Performance DiscGenicsq uid Chromatography/ Tandem Mass Spectromet ry (LC-MS/MS) Repaglinide (test None Detected ng/mL Reporting Limit: 10 code = 86438-6) ng/mL Synony m(s): Prandin(R); PrandiMet(R)Pea k plasma concentr ations of approximatel y <10-180 ng/mL w ere achieved 1 hour after administration of 4 mg of repaglinide.Yohana lysis by High Perform ance Liquid Chromato graphy/ Tandem Mass Spectrometry (LC-MS/MS)This test was developed a nd its performance characteristics determined by [facility]. It has no t been cleared or appr stiven by the [place] Food and Drug Administration. ZACKARY (test code = FASTING:YESCOLLE ZACKARY) CTION REQUIREMENTS NOT MET. PATIENT ADVISED TO RETURN. FASTING: YES RAC (test code = Performing RAC) Organization Information: Site ID: [id number] Name: [facility] Address: [address] [place] [address] KIARA Mora [address] Director: Humberto Art PH.D, [facility] HospitalAdrenocorticotropic [id number] 18:42:00 Test Item Value Reference Interpretation Comments Range Adrenocorticotropic 25 pg/mL 6-50 Referen ce range hormone (test code = applies only to the 2141-0) specimens collectedbetwee n 7am-10am. ZACKARY (test code = ZACKARY) FASTING:YESCOLLE CTION REQUIREMENTS NOT MET. PATIENT ADVISED TO RETURN. FASTING: YES RAC (test code = RAC) Performing Organization Information: Site ID: EZ Name: [employer], Address: [address] [place] [address] Director: Nicky Heck MD,PhD,JAI [facility] HendersonTrrhtqtqH-rwatdyn4362-77-10 18:42:00 Test Item Value Reference Range Interpretation Comments C-peptide (test 1.38 ng/mL 0.80-3.85 code = 1985-) ZACKARY (test code = FASTING:YESCOLLECTION ZACKARY) REQUIREMENTS NOT MET. PATIENT ADVISED TO RETURN. FASTING: YES RAC (test code = Performing Organization RAC) Information: Site ID: RGA [facility]: [facility] Address: [address] [place] [address] Director: Humberto Bautista [facility] HospitalProinsulin [id number] 18:42:00 Test Item Value Reference Interpretation Comments Range Proinsulin 4.6 pmol/L See_Comment This test was performed (test code = using a laborat ory developed 10769-9) ELISAmethod. Va lues obtained from different assay methods cannotbe used interchangeably . Proinsulin levels, regardl ess ofvalue, should not be i nterpreted as absolute eviden ce of thepresence or absence of disease. This t est was developed and i ts analytical performancechar acteristics have been deter mined by [facility]. It has not beencleared or approved by FDA. This as say has been validatedpursua nt to the CLIA regulations and is used for clinicalpurpose s. [Automated message] The sy stem which generated this result transmitted ref erence range: < OR = 18.8. Th e reference range was not u sed to interpret this result as normal/abnormal . ZACKARY (test code FASTING:YESCOLL = ZACKARY) ECTION REQUIREMENTS NOT MET. PATIENT ADVISED TO RETURN. FASTING: YES RAC (test code Performing = RAC) Organization Information: Site ID: EZ Name: [facility], Address: [address] [place] [address] Director: Nicky Heck MD,PhD,JAI [facility] HospitalBeta [id number] 18:42:00 Test Item Value Reference Range Interpretation Comments Beta hydroxybutyrate 1.49 mmol/L H Refere nce (test code = 6873-4) Range: ADULT: 0.28 OR LESS ZACKARY (test code = ZACKARY) FASTING:YESCOLLECT ION REQUIREMENTS NOT MET. PATIENT ADVISED TO RETURN. FASTING: YES RAC (test code = RAC) Performing Organization Information: Site ID: EZ Name: [facility], Address: [address] [place] [address] Director: Nicky Heck MD,PhD,JAI Lab Interpretation Abnormal (test code = 30661-1) [facility] HospitalInsulin-like growth factor I level (IGF-1)2022-02-21 18:42:00 Test Item Value Reference Interpretation Comments Range IGF-1 72 ng/mL 53-331 (test code = 2484-4) Z score -1.4 See_Comment This test was developed and (female) its analytical (test code performancechar acteristics = 93713-1) have been deter mined by [facility]. It has not beencleared or approved by FDA. This assay has been validatedpursua nt to the CLIA regulations and is used for clinicalpurpose s. [Automated message] The sy stem which generated this result transmitted ref erence range: -2.0 - 2.0 SD. The reference range was not u sed to interpret this result as normal/abnormal . ZACKARY (test FASTING:YESCOLLEC code = TION REQUIREMENTS ZACKARY) NOT MET. PATIENT ADVISED TO RETURN. FASTING: YES RAC (test Performing code = Organization RAC) Information: Site ID: EZ Name: [facility], Address: [address] [place] [address] Director: Nicky Heck MD,PhD,JAI [facility] HospitalInsulin-like growth factor II level (IGF-2)2022-02-21 18:42:00 Test Item Value Reference Interpretation Comments Range IGF-2 546 ng/mL 267-616 This test was developed and (test its analytical code = performancechar acteristics 2485-1) have been deter mined by [facility]. It has not beencleared or approved by FDA. This assay has been validatedpursua nt to the CLIA regulations and is used for clinicalpurpose s. ZACKARY (test FASTING:YESCOLLEC code = TION REQUIREMENTS ZACKARY) NOT MET. PATIENT ADVISED TO RETURN. FASTING: YES RAC (test Performing code = Organization RAC) Information: Site ID: EZ Name: [facility], Address: [address] [place] [address] Director: Nicky Heck MD,PhD,JAI [facility] [place] [facility]glycemic [facility], Serum/[id number] 18:42:00 Test Item Value Reference Interpretation Comments Range Rosiglitazone (test None Detected ng/mL Reporti ng Limit: 40 code = 3910) ng/mL Synonym(s ): Avandia(R); Avandaryl(R); Avandamet(R)Pea k plasma concentr ations of approximatel y 70-430 ng/mL an d 240-830 ng/mL w ere achieved1 hour after administration of 4 mg and 8 mgdaily d oses, respectively.An alysis by High Perform ance Liquid Chromato graphy/ Tandem Mass Spectrometry (LC-MS/MS) Chlorpropamide None Detected mcg/mL Reporting Li amelie: 0.10 (test code = mcg/mL Synonym( s): 3474-4) Diabinese(R)Pea k plasma concentr ations of approximatel y75-360 mcg/mL were ach ieved 2 hours following chronic daily doses of 250-1000 mg.The blood to plasma ratio of Chlorpropamidei s not known.Analysis by High Performance Liq uid Chromatography/ Tandem Mass Spectromet ry (LC-MS/MS) Tolbutamide (test None Detected mcg/mL Reporting Limit: 0.10 code = 4061-8) mcg/mL Synony m(s): Orinase(R)Peak plasma concentrations of gvydwgochvbjw20 -100 mcg/mL were ach ieved 35 hours follow ing chronic daily doses.Analysis by High Performance Liq uid Chromatography/ Tandem Mass Spectromet ry (LC-MS/MS) Tolazamide (test None Detected mcg/mL Reporting Limit: 0.10 code = 9629-7) mcg/mL Synony m(s): Tolinase(R)No p lasma concentrations have beenreported in the literatureAnaly sis by High Performanc e Liquid Chromato graphy/ Tandem Mass Spectrometry (LC-MS/MS) Glipizide (test None Detected ng/mL Reporting L imit: 40 code = 06699-9) ng/mL Synony m(s): Glynase; Glucot rol(R); GlibenesePeak p lasma concentrations of pqrxvjganmlnn11 0-610 ng/mL were achi eved after administr ation of a single 5 m g dose of both immedia te and extendedrelease formulations. M aximum concentrations werereached in approximately 1 .5-4.5 and 3.5-7 hours after immediate and e xtended release dosing,respecti vely.Th e blood to plas ma ratio of Glipiz fernando is not known.Mirna sis by High Performanc e Liquid Chromato graphy/ Tandem Mass Spectrometry (LC-MS/MS) Pioglitazone (test None Detected ng/mL Reportin g Limit: 40 code = 3911) ng/mL Synonym(s ): Duetact(R); Act oPlus Met(R); Actos(R ); Oseni(R)Peak pl asma concentrations of vqjgmcfstknpi76 0-2600 ng/mL were achi eved 1-4 hour after administration of 45 mg of pioglitazone.An alysis by High Perform ance Liquid Chromato graphy/ Tandem Mass Spectrometry (LC-MS/MS) Glyburide (test None Detected ng/mL Reporting L imit: 40 code = 80648-6) ng/mL Synony m(s): PresTab(R); Micronase(R); Glibenclamide; Glynase(R)Peak plasma concentrations of dymcequfuvhmp74 0-200 ng/mL following a single 5 mg dos e have been reported. A group of ten diabetic patients givend aily oral 2.5 mg dos es for 6 weeks attaine d peak plasma glyburid e concentrations averaging 140 n g/mL at 3 hours after t he first dose and 240 ng/mL at 2.4 ho urs after the last dose.Analysis b y High Performance Liq uid Chromatography/ Tandem Mass Spectromet ry (LC-MS/MS) Glimepiride (test None Detected ng/mL Reporting Limit: 25 code = 88849-6) ng/mL Synony m(s): Duetact(R); Avandaryl(R); Amaryl(R)Peak p lasma concentrations of ismzbsrgebcik78 -340 ng/mL were achi eved 2-3 hoursafter administration of 4 mg of glimepiride. The blood to plasma ratio of Glimepiridei s not known.Analysis by High Performance Liq uid Chromatography/ Tandem Mass Spectromet ry (LC-MS/MS) Nateglinide (test None Detected mcg/mL Reporting Limit: 0.10 code = 45860-2) mcg/mL Synon ym(s): Starlix(R)Peak plasma concentrations of approximately1. 3-7.5 mcg/mL were ach ieved 0.5 hours follo wing a single 60 mg dose.Analysis b y High Performance DiscGenicsq uid Chromatography/ Tandem Mass Spectromet ry (LC-MS/MS) Repaglinide (test None Detected ng/mL Reporting Limit: 10 code = 73292-9) ng/mL Synony m(s): Prandin(R); PrandiMet(R)Pea k plasma concentr ations of approximatel y <10-180 ng/mL w ere achieved 1 hour after administration of 4 mg of repaglinide.Yohana lysis by High Perform ance Liquid Chromato graphy/ Tandem Mass Spectrometry (LC-MS/MS)This test was developed a nd its performance characteristics determined by [facility]. It has no t been cleared or appr stiven by the [place] Food and Drug Administration. ZACKARY (test code = FASTING:YESCOLLE ZACKARY) CTION REQUIREMENTS NOT MET. PATIENT ADVISED TO RETURN. FASTING: YES RAC (test code = Performing RAC) Organization Information: Site ID: [id number] Name: [facility] Address: [address] [place] [address] [place] [address] Director: Humberto Art PH.D, [facility] HospitalCortisol level, [id number] 11:42:00 Test Item Value Reference Range Interpretation Comments Cortisol, AM mcg/dL Reference Range 8 (test code = a.m. (7-9 a.m.) 9813-7) Specimen: 4.0-2 2.0 ZACKARY (test code SPLIT 02/09/2022 FROM = ZACKARY) [id number] RAC (test code Performing = RAC) Organization Information: Site ID: RGA [facility] Address: [address] [place] [address] Director: Humberto FitzgeraldJersey Shore University Medical CenterCortisol level, [id number] 11:42:00 Test Item Value Reference Range Interpretation Comments Cortisol, AM 13.7 mcg/dL Reference Range 8 (test code = a.m. (7-9 a.m.) 9813-7) Specimen: 4.0-2 2.0 ZACKARY (test code SPLIT 02/09/2022 FROM = ZACKARY) [id number] RAC (test code Performing = RAC) Organization Information: Site ID: PARISH Name[facility] Address: [address] [place] [address] Director: Humberto Bautista [facility] W/AUTO [id number] 00:08:00 Test Item Value Reference Range Interpretation Comments WHITE BLOOD CELL (test code = WBC) 10.9 K/uL 3.5-11.0 N RED BLOOD CELL (test code = RBC) 5.30 M/uL 3.54-5.02 H HEMOGLOBIN (test code = HGB) 15.1 GM/DL 11.0-15.0 H HEMATOCRIT (test code = HCT) 43.7 % 37.0-47.0 N MEAN CELL VOLUME (test code = MCV) 82.5 fL 81.0-99.0 N MEAN CELL HGB (test code = MCH) 28.5 pg 27.0-31.0 N MEAN CELL HGB CONCETRATION (test 34.6 GM/DL 33.0-37.0 N code = MCHC) RED CELL DISTRIBUTION WIDTH CV 17.0 % 11.5-14.5 H (test code = RDW) PLATELET COUNT (test code = PLT) 233 K/mm3 150-400 N MEAN PLATELET VOLUME (test code = 13.8 FL 8.8-13.1 H MPV) NEUTROPHIL % (test code = NT%) 62.6 % 40.0-76.0 N LYMPHOCYTE % (test code = LY%) 30.2 % 15.0-40.0 N MIXED % (test code = MX%) 7.2 % 3.0-15.0 N NEUTROPHIL # (test code = NT#) 6.8 K/uL 1.8-7.6 N LYMPHOCYTE # (test code = LY#) 3.3 K/uL 1.0-3.8 N MIXED # (test code = MX#) 0.8 k/mm3 0.1-0.8 N BASIC METABOLIC [id number] 22:41:00 Test Item Value Reference Range Interpretation Comments SODIUM (test code = NA/ABG) 139 MEQ/L 134-147 N POTASSIUM (test code = K/ABG) 3.9 MEQ/L 3.4-5.0 N CHLORIDE (test code = CL/ABG) 104 MEQ/L 100-108 N CREATININE ABG (test code = 0.7 mg/dL 0.6-1.0 N CREAABG) POC IONIZED CALCIUM (test code = 1.17 MMOL/L 1.12-1.32 N POCCA) POC GLUCOSE (test code = POCGLU) 109 MG/DL 70-110 N POC , [id number] 16:49:00 Test Item Value Reference Range Interpretation Comments test urine, POC (test Negative code = 5849962) Internal QC (test code = 257) QC acceptable [facility] , [id number] 16:49:00 Test Item Value Reference Range Interpretation Comments test urine, POC (test Negative code = 0659225) Internal QC (test code = 257) QC acceptable [facility] PLUS [id number] 21:58:00 Test Item Value Reference Interpretation Comments Range Comment (test code This orde r for age-based = 8251-1) cervical cancer and STI screening follo ws ACOG guidelines(PB 1 68, 140,KXZ536). Se e individual assa kwasi for performing site location. Clinical None given information (test code = 37033-6) Date of last NONE GIVEN menstrual period (test code = 8665-2) Prev. pap: (test NONE GIVEN code = 93999-5) Prev. bx: (test NONE GIVEN code = 79472-9) Source (test code = None giv en ) Statement of Satisfactory fo r adequacy (test code evaluati on.Endocervical/tr = ) ansformation zo ne componentpresen t.Age and/or menstrua l status not provided General A EPITHELIAL CELL categorization ABNORMALITY (test code = ) Interpretation/resu A Atypical Squamous Cells of lt: (test code = Undetermine dSignificance 95238-5) (ASC-US) Comment (test code This Pap test has been = ) evaluated with Greent[employer] Mediaassiste d technology.Sugg est clinical correl ation and follow-up ascli nically appropriate Postmaster DJL, CT ( CP)CT screening (test code = location: [facility] ) [address], [facility] [address] Pathologist (test Mady graves MD, Board code = 43657-4) Certified in Clinical andAnatomic Pat ramon. [phone](electroni c signature) Comment (test code EXPLANATO RY NOTE: The Pap = 6966388) is a screening test for cervical cancer . It is not a diagnostic te st and is subject to fals e negative and false posit jarred results. It is most reliable when a satisfactory sa mple, regularly obtai devin, is submitted with relevant clinical findin gs and history, and wh en the Pap result is evalu ated along with historic a nd current clinical inform ation. HPV mRNA e6/e7 Detected Not A Methodology: (test code = Detected General Lot Attendant-M ediated 19445-7) Amplification T his assay detects E6/E7 v iral messenger RNA ( mRNA) from 14high-risk HPV types (16,18,31,33,35 ,39,45,51,5 2,56,58,59,66,6 8). Cervical source s are required for HP V testing.If a va ginal source from a p atient who has had atotal hysterectomy wi th removal of cervix was s ubmitted, please contact the testing laboratoryfor a lternative testing options . For additional info rmation, please refer [email or web address] [email or web address]/f aq/NBC645s8 (This link if p rovided for information/edu cational purposes only.) Chlamydia NOT DETECTED NOT trachomatis, TMA DETECTED result (test code = 43598-2) Neisseria NOT DETECTED NOT gonorrhoeae, TMA DETECTED result (test code = 81648-4) (Always message) The analyti jhon performance (test code = 2647) character istics of thisassay, when used to test SurePath(T M) specimens have beendetermined by [facility]. Th e modifications h avenot been cleared or appr stiven by the FDA. This assay hasbeen validated pursu ant to the CLIA regulation s and isused for clin ical purposes. For a dditional information, pl ease refer tohttps://educa tion.[employer]/ faq/LFM126( This link is be ing provided for information/edu cational purposes only.) RAC (test code = Performing RAC) Organization Information: Site ID: IG Name: [facility] Address: [address] [place] [address] Director: Dr. Humberto Bautista Site ID: RGA Name: [facility] Address: [address] [place] [address] Director: Humberto Bautista Lab Interpretation Abnormal (test code = 11727-5) [facility] 12 [id number] 11:35:15 Test Item Value Reference Range Interpretation Comments Ventricular rate (test code = 253) Atrial rate (test code = 255) [place] interval (test code = 266) QRSD interval (test code = 260) QT interval (test code = 264) QTC interval (test code = 265) P axis 1 (test code = 267) QRS axis 1 (test code = 268) T wave axis (test code = 270) EKG impression (test Normal sinus rhythm-T code = 273) wave abnormality, consider anterior ischemia-Electronical ly Signed By Cristian Bravo MD ([id number]) on 11/09/2021 6:35:11 AM [facility] RNA [Presence] in Respiratory specimen by RADHA with probe [id number] 01:33:17 Test Item Value Reference Range Interpretation Comments SARS-CoV-2 (COVID-19) RNA Not detected [Presence] in Respiratory specimen by RADHA with probe detection (test code = 82004-3) Whether patient is employed in a Unknown healthcare setting (test code = 59557-9) Whether the patient has symptoms Unknown related to condition of interest (test code = 11273-4) Whether the patient was Unknown hospitalized for condition of interest (test code = 11174-8) Whether the patient was admitted Unknown to intensive care unit (ICU) for condition of interest (test code = 80091-8) Whether patient resides in a Unknown congregate care setting (test code = 71323-8) status (test code = Unknown 48988-6) Date and time of symptom onset Unknown (test code = 39553-2) [facility] [id number] 03:21:33 Test Item Value Reference Range Interpretation Comments Ventricular rate (test code = 253) Atrial rate (test code = 255) [place] interval (test code = 266) QRSD interval (test code = 260) QT interval (test code = 264) QTC interval (test code = 265) P axis 1 (test code = 267) QRS axis 1 (test code = 268) T wave axis (test code = 270) EKG impression (test Normal sinus code = 273) rhythm-Normal ECG-In automated comparison with ECG of 08-NOV-2020 07:33,-No significant change was found- [facility]inal[facility], automated with [id number] 18:57:00 Test Item Value Reference Range Interpretation Comments Color, UA (test code = Straw 5778-6) Appearance, UA (test Hazy code = 5767-9) Specific gravity, UA 1.001-1.035 (test code = 5811-5) pH, UA (test code = 5.0-8.5 5803-2) Protein, UA (test code Negative Negative = 78019-1) Glucose, UA (test code Negative Negative = 96771-1) Ketones, UA (test code Negative Negative = 2514-8) Bilirubin, UA (test Negative Negative code = 5770-3) Blood, UA (test code = Negative Negative 5794-3) Nitrite, UA (test code Negative Negative = 5802-4) Urobilinogen, UA (test <2.0 See_Comment [Aut omated message] code = 19185-0) The system [facility] generated this result transmitted ref erence range: <=2.0. T he reference range was not used to int erpret this result as normal/abnormal . Leukocyte esterase, UA Negative Negative (test code = 5799-2) Epithelial cells, UA See_Comment [Autom ated message] (test code = 5787-7) The f [facility] tem which generated this result transmitted ref erence range: /HPF. Th e reference range was not used to int erpret this result as normal/abnormal . WBC, UA (test code = See_Comment [Autom ated message] 5821-4) The system [employer] generated this result transmitted ref erence range: 0 - 4 /H PF. The reference range was not used to int erpret this result as normal/abnormal . RBC, UA (test code = See_Comment [Autom ated message] 19728-5) The system [employer] generated this result transmitted ref erence range: 0 - 5 /H PF. The reference range was not used to int erpret this result as normal/abnormal . Bacteria, UA (test None seen None seen code = 65181-8) Yeast, UA (test code = None seen 99027-0) Yeast with None seen pseudohyphae, UA (test code = 88360-3) [facility] Metabolic [id number] 06:06:44 Test Item Value Reference Range Interpretation Comments NA (test code = 137 mmol/L 135-145 6199602485) K (test code = 4.0 mmol/L 3.5-5.0 8489907885) CL (test code = 107 mmol/L 98-108 5856688269) CO2 TOTAL (test code = 22 mmol/L 23-31 L 5735308002) AGAP (test code = 2-16 8203442233) BUN (test code = 13 mg/dL 7-23 6080096742) GLUCOSE (test code = 111 mg/dL 70-110 H 9404584023) CREATININE (test code = 0.62 mg/dL 0.50-1.04 7017780196) TOTAL BILI (test code = 0.3 mg/dL 0.1-1.8 9498349941) CALCIUM (test code = 8.9 mg/dL 8.6-10.6 1789545087) T PROTEIN (test code = 7.2 g/dL 6.3-8.2 6010639280) ALBUMIN (test code = 3.7 g/dL 3.5-5.0 9229888234) ALK PHOS (test code = 78 U/L 34-122 5852269237) ALTv (test code = 18 U/L 5-35 1742-6) AST(SGOT) (test code = 26 U/L 13-40 2356507805) eGFR (test code = mL/min/1.73m2 6616745804) ZACKARY (test code = ZACKARY) Association of Glomerular Filtration Rate (GFR) and Staging of Kidney Disease* + --+ --+ ------+| GFR (mL/min/1.73 m2) ?| With Kidney Damage ?| ?Without Kidney Damage+ --------+ --------+ +| ?>90 ?| ?Stage one ?| ? Normal ?+ ---+ ---+ -------+| ?60-89 ?| ?Stage two ?| ? Decreased GFR ? + --+ --+ ------+| ?30-59 ?| ?Stage three ?| ? Stage three ? + --+ --+ ------+| ?15-29 ?| ?Stage four ? | ? Stage four ?+ ---+ ---+ -------+| ?<15 (or dialysis) ? ?| ?Stage five ? | ? Stage five ?+ ---+ ---+ -------+ *Each stage assumes the associated GFR level has been in effect for at least three months. ?Stages 1 to 5, with or without kidney disease, indicate chronic kidney disease. Notes: Determination of stages one and two (with eGFR >59mL/min/1.73 m2) requires estimation of kidney damage for at least three months as defined by structural or functional abnormalities of the kidney, manifested by either:Pathological abnormalities or Markers of kidney damage (including abnormalities in the composition of the blood or urine or abnormalities in imaging tests). Lab Interpretation Abnormal (test code = 38938-6) [facility] Hospital[facility], [id number] 06:06:44 Test Item Value Reference Range Interpretation Comments LIPASE (test code = 2282757174) 62 U/L 0-220 Lab Interpretation (test code = Normal 72707-2) [facility] HospitalCB with Xaavmvkcdxjm1988 05:46:03 Test Item Value Reference Range Interpretation Comments WBC (test code = See_Comment H [Automated 0839-2) message] The sy stem which generated this result transmitted reference range : 4.30 - 11.10 10*3/?L. The reference range was not used to interpret this result as normal/abnormal . RBC (test code = See_Comment [Automated 949-8) message] The sy stem which generated this result transmitted reference range : 3.93 - 5.25 10*6/?L. The reference range was not used to interpret this result as normal/abnormal . HGB (test code = 12.5 g/dL 11.6-15.0 718-7) HCT (test code = 39.1 % 35.7-45.2 4544-3) MCV (test code = 83.4 fL 80.6-95.5 787-2) MCH (test code = 26.7 pg 25.9-32.8 785-6) MCHC (test code = 32.0 g/dL 31.6-35.1 786-4) RDW-SD (test code = 45.8 fL 39.0-49.9 67014-2) RDW-CV (test code = 15.1 % 12.0-15.5 788-0) PLT (test code = See_Comment [Automated 777-3) message] The sy stem which generated this result transmitted reference range : 166 - 358 10*3/ ?L. The reference r jaya was not used to interpret this result as normal/abnormal . MPV (test code = 11.9 fL 9.5-12.9 80257-4) NRBC/100 WBC (test See_Comment [Automat ed code = 0195967759) message] The system which generated this result transmitted reference range : 0.0 - 10.0 /100 WBCs. The refer ence range was not u sed to interpret th is result as normal/abnormal . NRBC x10^3 (test code <0.01 See_Comment [Auto mated = 6312681513) message] The s ystem which generated this result transmitted reference range : 10*3/?L. The reference range was not used to interpret this result as normal/abnormal . GRAN MAT (NEUT) % 58.7 % (test code = 770-8) IMM GRAN % (test code 0.10 % = 0193659820) LYMPH % (test code = 32.7 % 736-9) MONO % (test code = 6.6 % 5905-5) EOS % (test code = 1.3 % 713-8) BASO % (test code = 0.6 % 706-2) GRAN MAT x10^3(ANC) 6.73 10*3/uL 1.88-7.09 (test code = 3290485631) IMM GRAN x10^3 (test <0.03 0.00-0.06 code = 0347282671) LYMPH x10^3 (test code 3.74 10*3/uL 1.32-3.29 H = 731-0) MONO x10^3 (test code 0.75 10*3/uL 0.33-0.92 = 742-7) EOS x10^3 (test code = 0.15 10*3/uL 0.03-0.39 711-2) BASO x10^3 (test code 0.07 10*3/uL 0.01-0.07 = 704-7) Lab Interpretation Abnormal (test code = 78564-1) [facility] HospitalPOKY [id number] 05:38:00 Test Item Value Reference Range Interpretation Comments POCT PREG (test code = 1605) neg On board controls acceptable with pos C Line (test code = 3574) POCT PREG LOT # (test code = 3575) [id number] POCT PREG TEST DATE (test 08/14/2022 code = 3576) Lab Interpretation (test code = Normal 74291-8) [facility] HospitalS[facility] ([facility]OVID-19) RNA [Presence] in Respiratory specimen by RADHA with probe [id number] 19:14:58 Test Item Value Reference Range Interpretation Comments SARS-CoV-2 (COVID-19) RNA Not detected Not-Detected [Presence] in Respiratory specimen by RADHA with probe detection (test code = 47220-1) [facility] Spine Cervical w/o [id number] 15:51:34Patient: ISMA KELSEY Date/Time03/20/2020 15:11 CDTReason for ExamRadiculopathyReportExam: CT of the Cervical spine without contrastLocation code: D30XBTKPHJ: , Radiculopathy,COMPARISON: None availableTECHNIQUE: Axial images of the cervical spine were obtained without contrast. Images were reformatted to create coronal and sagittal reconstructions. One or more of the following dose reduction techniques were used: Automated exposure control, adjustment of the mA and/or kV according to patient size, and/or utilization of iterative reconstruction technique.FINDINGS:There is straightening of normal cervical lordosis.There is no acute fracture or dislocation.Vertebral body hei ghts are maintained. Intervertebral disc spaces are preserved. Facet joints are aligned normally. The cerebellar tonsils protrude is measures 9 mm below the foramen magnum, better characterized on CT of the head, to the level of the posterior C1 arch with crowding of structures at the craniovertebral junction. Paraspinal soft tissues and visualized fascial planes of the neck are within normal limits.Occiput-C1: IntactC1-C2: Atlantoaxial joint is maintained. There is no canal stenosis.C2-C3 through T1-T2: The discs are normal in configuration. There is no significant canal or foraminal stenosis.IMPRESSION:1. No acute osseous abnormality.2. Mild straightening of normal cervical lordosis which may beresult of patient's positioning or may indicate underlying muscle spasm..3. Cerebellar tonsils protruding as much as 9 mm low the foramen magnum extending to the posterior C1 arch with crowding of structures at the craniovertebral junction. Final Dictated by: MD Grover Alan FDictated DT/TM: 0 03/20/2020 3:49 pmSigned by: MD Grover Alan FSigned (Electronic Signature): 03/20/2020 3:51 pmCT Brain/Head w/o [id number] 15:49:10Patient: ISMA KELSEY Date/Time03/20/2020 15:11 CDTReason for Examhx chiari malformation w/ SALAS;Other (please specify)ReportEXAM: CT Head without contrastLocation code: C69PKIDRPE: Other (please specify);hx chiari malformation w/ HACOMPARISON: None available.TECHNIQUE: Multiple transaxial images of the brain were obtained without intravenous contrast using 5mm slices.One or more of the following dose reduction techniques were used: Automated exposure control, adjustment of the mA and/or kV according to patient size, and/or utilization of iterative reconstruction technique.DLP: 1266 mGy-cmFINDINGS:There is no acute intracranial hemorrhage.Cerebellar tonsils protruding as much as 9 mm below the foramen magnum with crowding of structures and cranial vertebral junction. There is no ventriculomegaly. There is dural based ossification overlying the left frontal convexity. Nofurther mass is seen. There is no mass effect, midline shift or extra-axial fluid collection.Ventricular caliber is normal.The escobar- white differentiation is normal. There is no major vessel infarct.Paranasal sinuses, mastoid air cells and visualized intraorbital contents are within normal limits. Theosseous structures are normal.IMPRESSION:1. No acute intracranial abnormality. No acute hemorrhage, mass lesion or infarct.2. Cerebellar tonsils protruding is measures 9 mm below the foramen magnum with crowding of structures at the craniovertebral junction. No hydrocephalus. Final Dictated by: MD Grover Alan FDictated DT/TM: 03/20/2020 3:47 pmSigned by: MD Grover Alan FSigned (Electronic Signature): 03/20/2020 3:49 pmUrinalysis [id number] 15:04:44 Test Item Value Reference Range Interpretation Comments UA WBC (test code = UA WBC) 0-5 0-5 UA RBC (test code = UA RBC) None Seen 0-5 UA Bacteria (test code = UA None Seen Bacteria) UA Squam Epithelial (test code = UA 0-5 Squam Epithelial) Urinalysis with Culture, if [id number] 14:50:09 Test Item Value Reference Range Interpretation Comments UA Color (test code = UA Color) YELLO Yellow UA Appear (test code = UA Appear) CLEAR Clear UA pH (test code = UA pH) 5.5 N UA Spec Grav (test code = UA Spec 1.025 1.001-1.035 Grav) UA Glucose (test code = UA Glucose) NEG Negative UA Bili (test code = UA Bili) NEG Negative UA Ketones (test code = UA Ketones) NEG Negative UA Blood (test code = UA Blood) TR Negative A UA Protein (test code = UA Protein) NEG Negative UA Urobilinogen (test code = UA .2 mg/dL >0.2 Urobilinogen) UA Nitrite (test code = UA Nitrite) NEG Negative UA Leuk Est (test code = UA Leuk NEG Negative Est) UA Micro Ind? (test code = UA Micro Indicated Not Indicated A Ind?) Comprehensive Metabolic [id number] 14:16:53 Test Item Value Reference Range Interpretation Comments Sodium Level (test code = Sodium 142.0 mmol/L 136.0-145.0 Level) Potassium Level (test code = 4.40 mmol/L 3.50-5.10 Potassium Level) Chloride Level (test code = 110.0 mmol/L 98.0-107.0 H Chloride Level) CO2 (test code = CO2) 26 mmol/L 20-31 Anion Gap (test code = Anion 6.2 mmol/L 5.0-15.0 Gap) BUN (test code = BUN) 12 mg/dL 9-23 Creatinine Level (test code = 0.67 mg/dL 0.55-1.02 Creatinine Level) BUN/Creat Ratio (test code = 17.9 ratio 10.0-20.0 BUN/Creat Ratio) Glucose Level (test code = 100 mg/dL 74-106 Glucose Level) Calcium Level (test code = 8.9 mg/dL 8.3-10.6 Calcium Level) Alk Phos (test code = Alk Phos) 72 U/L 46-116 Bilirubin Total (test code = 0.2 mg/dL 0.2-1.1 Bilirubin Total) Albumin Level (test code = 4.6 g/dL 3.2-4.8 Albumin Level) Protein Total (test code = 7.4 g/dL 5.7-8.2 Protein Total) ALT (test code = ALT) 23 U/L 10-49 AST (test code = AST) 25 U/L <=34 Globulin (test code = Globulin) 2.8 g/dL 2.3-3.5 A/G Ratio (test code = A/G 1.6 g/dL 0.8-2.0 Ratio) Hemolysis (test code = 0 g/dL 1-2 Hemolysis) Icterus (test code = Icterus) 0 g/dL 1-2 Lipemia (test code = Lipemia) 0 g/dL 1-2 Comprehensive Metabolic [id number] 14:16:53 Test Item Value Reference Range Interpretation Comments Sodium Level (test 142.0 mmol/L 136.0-145.0 code = Sodium Level) Potassium Level 4.40 mmol/L 3.50-5.10 (test code = Potassium Level) Chloride Level (test 110.0 mmol/L 98.0-107.0 H code = Chloride Level) CO2 (test code = 26 mmol/L 20-31 CO2) Anion Gap (test code 6.2 mmol/L 5.0-15.0 = Anion Gap) BUN (test code = 12 mg/dL 9-23 BUN) Creatinine Level 0.67 mg/dL 0.55-1.02 (test code = Creatinine Level) BUN/Creat Ratio 17.9 ratio 10.0-20.0 (test code = BUN/Creat Ratio) Glucose Level (test 100 mg/dL 74-106 code = Glucose Level) Calcium Level (test 8.9 mg/dL 8.3-10.6 code = Calcium Level) Alk Phos (test code 72 U/L 46-116 = Alk Phos) Bilirubin Total 0.2 mg/dL 0.2-1.1 (test code = Bilirubin Total) Albumin Level (test 4.6 g/dL 3.2-4.8 code = Albumin Level) Protein Total (test 7.4 g/dL 5.7-8.2 code = Protein Total) ALT (test code = 23 U/L 10-49 ALT) AST (test code = 25 U/L <=34 AST) Globulin (test code 2.8 g/dL 2.3-3.5 = Globulin) A/G Ratio (test code 1.6 g/dL 0.8-2.0 = A/G Ratio) eGFR AA (test code = >60 >=60 eGFR (e stimated eGFR AA) mL/min/1.73 m2 Glomerular Filtration Rate ) is an estimated va lue, calculated from the patient's serum creatinine usin g the MDRD equation. It is NOT the patient 's actual GFR. The eGFR provides a more clinically usef ul measure of kidn ey disease than se rum creatinine alone.This calculation amari es sex and race in to account, if the information is provided. If th e race is not provided, and t he patient is -Sandra n, multiply by 1.2 12. If sex is not provided, and t he patient is fema le, multiply by 0.7 42. Results for pat ients <18 years of ag e have not been validated by th e MDRD study and should be interpreted wit h caution. eGFR R esult Interpretation: eGFR > or = 60 is in the Normal RangeeGF R < 60 may mean kid cheryl diseaseeGFR < 1 5 may mean kidney failure Rang es recommended by the National Kidney Foundation, http://nkdep.ni h.gov Hemolysis (test code 0 g/dL 1-2 = Hemolysis) Icterus (test code = 0 g/dL 1-2 Icterus) Lipemia (test code = 0 g/dL 1-2 Lipemia) HCG Qualitative [id number] 14:16:53 Test Item Value Reference Range Interpretation Comments HCG, Serum Qual (test code = HCG, Negative Negative Serum Qual) Comprehensive Metabolic [id number] 14:16:53 Test Item Value Reference Range Interpretation Comments Sodium Level (test 142.0 mmol/L 136.0-145.0 code = Sodium Level) Potassium Level 4.40 mmol/L 3.50-5.10 (test code = Potassium Level) Chloride Level (test 110.0 mmol/L 98.0-107.0 H code = Chloride Level) CO2 (test code = 26 mmol/L 20-31 CO2) Anion Gap (test code 6.2 mmol/L 5.0-15.0 = Anion Gap) BUN (test code = 12 mg/dL 9-23 BUN) Creatinine Level 0.67 mg/dL 0.55-1.02 (test code = Creatinine Level) BUN/Creat Ratio 17.9 ratio 10.0-20.0 (test code = BUN/Creat Ratio) Glucose Level (test 100 mg/dL 74-106 code = Glucose Level) Calcium Level (test 8.9 mg/dL 8.3-10.6 code = Calcium Level) Alk Phos (test code 72 U/L 46-116 = Alk Phos) Bilirubin Total 0.2 mg/dL 0.2-1.1 (test code = Bilirubin Total) Albumin Level (test 4.6 g/dL 3.2-4.8 code = Albumin Level) Protein Total (test 7.4 g/dL 5.7-8.2 code = Protein Total) ALT (test code = 23 U/L 10-49 ALT) AST (test code = 25 U/L <=34 AST) Globulin (test code 2.8 g/dL 2.3-3.5 = Globulin) A/G Ratio (test code 1.6 g/dL 0.8-2.0 = A/G Ratio) eGFR AA (test code = >60 >=60 eGFR (e stimated eGFR AA) mL/min/1.73 m2 Glomerular Filtration Rate ) is an estimated va lue, calculated from the patient's serum creatinine usin g the MDRD equation. It is NOT the patient 's actual GFR. The eGFR provides a more clinically usef ul measure of kidn ey disease than se rum creatinine alone.This calculation amari es sex and race in to account, if the information is provided. If th e race is not provided, and t he patient is -Sandra n, multiply by 1.2 12. If sex is not provided, and t he patient is fema le, multiply by 0.7 42. Results for pat ients <18 years of ag e have not been validated by [facility] MDRD study and should be interpreted wit h caution. eGFR R esult Interpretation: eGFR > or = 60 is in the Normal RangeeGF R < 60 may mean kid cheryl diseaseeGFR < 1 5 may mean kidney failure Rang es recommended by the National Kidney Foundation, http://nkdep.ni h.gov eGFR Non-AA (test >60.00 >=60.00 eGFR (edith mated code = eGFR Non-AA) mL/min/1.73 m2 Glomer ular Filtration Rate ) is an estimated va lue, calculated from the patient's serum creatinine usin g the MDRD equation. It is NOT the patient 's actual GFR. The eGFR provides a more clinically usef ul measure of kidn ey disease than se rum creatinine alone.This calculation amari es sex and race in to account, if the information is provided. If th e race is not provided, and t he patient is -Sandra n, multiply by 1.2 12. If sex is not provided, and t he patient is fema le, multiply by 0.7 42. Results for pat ients <18 years of ag e have not been validated by [facility] MDRD study and should be interpreted wit h caution. eGFR R esult Interpretation: eGFR > or = 60 is in the Normal RangeeGF R < 60 may mean kid cheryl diseaseeGFR < 1 5 may mean kidney failure Rang es recommended by the National Kidney Foundation, http://nkdep.ni h.gov Hemolysis (test code 0 g/dL 1-2 = Hemolysis) Icterus (test code = 0 g/dL 1-2 Icterus) Lipemia (test code = 0 g/dL 1-2 Lipemia) Complete Blood Count with [id number] 13:42:33 Test Item Value Reference Range Interpretation Comments WBC (test code = WBC) 7.8 x10 4.4-10.5 RBC (test code = RBC) 4.93 x10 3.75-5.20 Hgb (test code = Hgb) 14.8 g/dL 12.2-14.8 MCV (test code = MCV) 91.70 fL 80.00-100.00 Hct (test code = Hct) 45.2 % 36.5-44.4 H MCHC (test code = 32.70 g/dL 32.00-37.50 MCHC) RDW CV (test code = 14.4 % 11.5-14.5 RDW CV) MCH (test code = MCH) 30.0 pg 27.0-32.5 Platelets (test code = 239.0 x10 140.0-440.0 Platelets) MPV (test code = MPV) 12.4 fL N Slide Review (test Auto Auto Result cr eated by code = Slide Review) GL_SJM_ SLIDE_REV_AUTO nRBC (test code = 0 N nRBC) NRBC Abs (test code = 0.00 x10 N NRBC Abs) Automated [id number] 13:42:33 Test Item Value Reference Range Interpretation Comments Neutro Auto (test code = Neutro 72.2 % 36.0-70.0 H Auto) Lymph Auto (test code = Lymph Auto) 21.2 % 12.0-44.0 [place] Auto (test code = [place] Auto) 4.9 % 0.0-11.0 Eos, Auto (test code = Eos, Auto) 0.8 % 0.0-7.0 Basophil Auto (test code = Basophil 0.6 % 0.0-2.0 Auto) Neutro Absolute (test code = Neutro 5.6 x10 1.6-7.4 Absolute) Lymph Absolute (test code = Lymph 1.65 x10 .50-4.60 Absolute) [place] Absolute (test code = [place] .38 x10 .00-1.20 Absolute) Eos Absolute (test code = Eos 0.06 x10 0.00-0.74 Absolute) Baso Absolute (test code = Baso 0.05 x10 0.00-0.21 Absolute) IG [id number] 13:42:33 Test Item Value Reference Range Interpretation Comments IG (test code = IG) 0.3 % 0.0-5.0 IG Abs (test code = IG Abs) 0 x10 N BASIC METABOLIC [id number] 18:05:00 Test Item Value Reference Range Interpretation Comments SODIUM (test code = NA) 140 mEq/L 134-147 N POTASSIUM (test code = 3.8 mEq/L 3.4-5.0 N K) CHLORIDE (test code = 109 mEq/L 100-108 H CL) CARBON DIOXIDE (test 28 mEq/L 21-33 N code = CO2) ANION GAP (test code = 7 0-20 N GAP) GLUCOSE (test code = 98 mg/dL 70-110 N GLU) BLOOD UREA NITROGEN 11 mg/dL 7-18 N (test code = BUN) GLOMERULAR FILTRATION 97.6 105-110 L Units of measure = RATE (test code = GFR) ml/mi n/1.73 m2 CREATININE (test code = 0.7 mg/dL 0.6-1.3 N CREAT) CALCIUM (test code = 7.9 mg/dL 8.0-10.5 L CA) HEPATIC FUNCTION [id number] 18:05:00 Test Item Value Reference Range Interpretation Comments TOTAL PROTEIN (test code = PROT) 6.5 g/dL 6.4-8.2 N ALBUMIN (test code = ALB) 3.00 g/dL 3.4-5.0 L BILIRUBIN TOTAL (test code = BILT) 0.3 MG/DL <1.5 N BILIRUBIN DIRECT (test code = 0.10 MG/DL 0.0-0.30 N BILD) BILIRUBIN INDIRECT (test code = 0.20 MG/DL BILIND) SGOT/AST (test code = AST) 18 IUnit/L 15-37 N SGPT/ALT (test code = ALT) 24 IUnit/L 15-65 N ALKALINE PHOSPHATASE TOTAL (test 59 IUnit/L 20-125 N code = ALKP) [id number] 18:05:00 Test Item Value Reference Range Interpretation Comments LIPASE (test code = LIP) 49 IUnit/L 73-393 L HCG SERUM [id number] 18:05:00 Test Item Value Reference Range Interpretation Comments HCG SERUM QUAL (test code = SERUM NEGATIVE NEGATIVE HCGQL) BASIC METABOLIC [id number] 18:04:00 Test Item Value Reference Range Interpretation Comments SODIUM (test code = NA) 140 mEq/L 134-147 N POTASSIUM (test code = 3.8 mEq/L 3.4-5.0 N K) CHLORIDE (test code = 109 mEq/L 100-108 H CL) CARBON DIOXIDE (test 28 mEq/L 21-33 N code = CO2) ANION GAP (test code = 7 0-20 N GAP) GLUCOSE (test code = 98 mg/dL 70-110 N GLU) BLOOD UREA NITROGEN 11 mg/dL 7-18 N (test code = BUN) GLOMERULAR FILTRATION 97.6 105-110 L Units of measure = RATE (test code = GFR) ml/mi n/1.73 m2 CREATININE (test code = 0.7 mg/dL 0.6-1.3 N CREAT) CALCIUM (test code = 7.9 mg/dL 8.0-10.5 L CA) HEPATIC FUNCTION [id number] 18:04:00 Test Item Value Reference Range Interpretation Comments TOTAL PROTEIN (test code = PROT) 6.5 g/dL 6.4-8.2 N ALBUMIN (test code = ALB) 3.00 g/dL 3.4-5.0 L BILIRUBIN TOTAL (test code = BILT) 0.3 MG/DL <1.5 N BILIRUBIN DIRECT (test code = 0.10 MG/DL 0.0-0.30 N BILD) BILIRUBIN INDIRECT (test code = 0.20 MG/DL BILIND) SGOT/AST (test code = AST) 18 IUnit/L 15-37 N SGPT/ALT (test code = ALT) 24 IUnit/L 15-65 N ALKALINE PHOSPHATASE TOTAL (test 59 IUnit/L 20-125 N code = ALKP) [id number] 18:04:00 Test Item Value Reference Range Interpretation Comments LIPASE (test code = LIP) 49 IUnit/L 73-393 L HCG SERUM [id number] 18:04:00 Test Item Value Reference Range Interpretation Comments HCG SERUM QUAL (test code = HCGQL) NEGATIVE CBC W/AUTO [id number] 18:00:00 Test Item Value Reference Range Interpretation Comments WHITE BLOOD CELL (test code = 8.72 x10 3/uL 4.5-11.0 N WBC) RED BLOOD CELL (test code = 4.36 x10 6/uL 3.54-5.02 N RBC) HEMOGLOBIN (test code = HGB) 12.7 g/dL 11.0-15.0 N HEMATOCRIT (test code = HCT) 39.8 % 33.0-45.0 N MEAN CELL VOLUME (test code = 91.3 fL 81.0-99.0 N MCV) MEAN CELL HGB (test code = MCH) 29.1 pg 27.0-33.0 N MEAN CELL HGB CONCETRATION 31.9 g/dL 33.0-37.0 L (test code = MCHC) RED CELL DISTRIBUTION WIDTH CV 14.4 % 11.5-14.5 N (test code = RDW) RED CELL DISTRIBUTION WIDTH SD 48.3 fL 37.0-54.0 N (test code = RDW-SD) PLATELET COUNT (test code = 213 x10 3/uL 150-400 N PLT) MEAN PLATELET VOLUME (test code 11.9 fL 7.0-9.0 H = MPV) NEUTROPHIL % (test code = NT%) 68.1 % 56.0-77.0 N IMMATURE GRANULOCYTE % (test 0.2 % 0.0-2.0 N code = IG%) LYMPHOCYTE % (test code = LY%) 21.6 % 14.0-32.0 N MONOCYTE % (test code = MO%) 8.0 % 4.8-9.0 N EOSINOPHIL % (test code = EO%) 1.6 % 0.3-3.7 N BASOPHIL % (test code = BA%) 0.5 % 0.0-2.0 N NUCLEATED RBC % (test code = 0.0 % 0-0 N NRBC%) NEUTROPHIL # (test code = NT#) 5.94 x10 3/uL 2.0-7.6 N IMMATURE GRANULOCYTE # (test 0.02 x10 3/uL 0.00-0.03 N code = IG#) LYMPHOCYTE # (test code = LY#) 1.88 x10 3/uL 1.0-3.8 N MONOCYTE # (test code = MO#) 0.70 x10 3/uL 0.1-0.8 N EOSINOPHIL # (test code = EO#) 0.14 x10 3/uL 0.0-0.2 N BASOPHIL # (test code = BA#) 0.04 x10 3/uL 0.0-0.2 N NUCLEATED RBC # (test code = 0.00 x10 3/uL 0.0-0.1 N NRBC#) MANUAL DIFF REQUIRED (test code NO = MDIFF) BASIC METABOLIC [id number] 17:59:00 Test Item Value Reference Range Interpretation Comments SODIUM (test code = NA) 140 mEq/L 134-147 N POTASSIUM (test code = K) 3.8 mEq/L 3.4-5.0 N CHLORIDE (test code = CL) 109 mEq/L 100-108 H CARBON DIOXIDE (test code = CO2) 28 mEq/L 21-33 N ANION GAP (test code = GAP) 7 0-20 N GLUCOSE (test code = GLU) 98 mg/dL 70-110 N BLOOD UREA NITROGEN (test code = 11 mg/dL 7-18 N BUN) GLOMERULAR FILTRATION RATE (test 105-110 code = GFR) CREATININE (test code = CREAT) mg/dL 0.6-1.3 CALCIUM (test code = CA) 7.9 mg/dL 8.0-10.5 L HEPATIC FUNCTION [id number] 17:59:00 Test Item Value Reference Range Interpretation Comments TOTAL PROTEIN (test code = PROT) g/dL 6.4-8.2 ALBUMIN (test code = ALB) g/dL 3.4-5.0 BILIRUBIN TOTAL (test code = BILT) MG/DL <1.5 BILIRUBIN DIRECT (test code = BILD) MG/DL 0.0-0.30 SGOT/AST (test code = AST) IUnit/L 15-37 SGPT/ALT (test code = ALT) IUnit/L 15-65 ALKALINE PHOSPHATASE TOTAL (test IUnit/L 20-125 code = ALKP) [id number] 17:59:00 Test Item Value Reference Range Interpretation Comments LIPASE (test code = LIP) IUnit/L 73-393 HCG SERUM [id number] 17:59:00 Test Item Value Reference Range Interpretation Comments HCG SERUM QUAL (test code = HCGQL) NEGATIVE - CT ABD PELVIS [id number] 17:45:00 Name: ISMA KELSEY [facility] [place] : 1990 Age/S: 29 / F [address] [place] [address] Bl Unit #: [id number] Loc: [place] [address] Phys: Parish Magana MD Acct: [id number] Dis Date: Status: REG ER PHONE #: [phone] Exam Date: 09/27/2019 1722 FAX #: [phone] Reason: RLQ pain EXAMS: CPT CODE: [id number] CT ABD PELVIS W/CONT 34873 CT abdomen and pelvis with contrast dated 09/27/2019 INDICATION: Acute right lower quadrant abdominal pain. COMPARISON: Pelvic ultrasound dated 09/27/2019. TECHNIQUE: A CT of the abdomen pelvis was performed using helical images from the thoracic outlet through the pubic symphysis with subsequent sagittal and coronal reconstruction. IV CONTRAST: 100 cc of Isovue-300 GI CONTRAST: 500 mL of dilute Omnipaque [address] imaging performed at this location utilizes radiation dose optimization techniques which include one or more of the followin) Automated exposure control; 2) Adjustment of mA and/or kV; 3) Use of iterative reconstructive technique. CT radiation dose DLP (mGy-cm): 834. FINDINGS: SOLID ORGANS: No acute CT abnormalities of the liver, spleen,pancreas, adrenal glands or kidneys are detected. There is no CT evidence of acute renal collecting system obstruction or calcified renal collecting system stone. BILIARY: The gallbladder is normally distended. No significant biliary ductal dilatation is identified. BOWEL: No abnormalities of the stomach or duodenum are identified. No small bowel dilatation is present to suggest obstruction. The appendix is identified and is not acutely inflamed. There is no evidence of diverticular disease or inflammatory colonic wall thickening. PERITONEUM: There is no evidence of free intraperitoneal air. Radiodense fluid, likely representing hemorrhage, is identified in the pelvis. RETROPERITONEUM: The abdominal aorta is normal in caliber. There is no evidence of retroperitoneal mass or adenopathy. PELVIS: The right ovary appears to contain a partially collapsed cystic structure with a diameter of 3 cm. No abnormalities of the left ovary/adnexa are identified. The bladder has an unremarkable PAGE 1 Signed Re port (CONTINUED) Name: ISMA KELSEY : 1990 Age/S: 29 / F [address] [facility] Unit #: [id number] Loc: [place] [address] Phys: Parish Magana MD Acct: [id number] Dis Date:Status: REG ER PHONE #: [phone] Exam Date: 09/27/2019 1722 FAX #: [phone] Reason: RLQ pain EXAMS: CPT CODE: [id number] CT ABD PELVIS W/CONT 07709 (Continued) appearance. LOWER CHEST: The lungbases appear clear of acute disease. ADDITIONAL FINDINGS: None. IMPRESSION: 1. No CT evidence of acute appendicitis. 2. Radiodense fluid, likely representing hemorrhage, is identified in the pelvis. Given no history of trauma and assuming a negative test, the most likely origin is recent rupture of the partially collapsed right ovarian cyst. No contrast extravasation is identified to indicate active bleeding at the time of CT image acquisition. SL: 131 at 1745 Reported and signed by: Rashel Buchanan M.D. CC: Parish Magana MD Technologist:Mahogany Valentino, RT(R)(CT) CTDI: DLP: Trnscb Date/Time: 09/27/2019 (174) Tena Orig Print D/T: S: 09/27/2019 (1748) PAGE 2 Signed Report- DUP AB/PEL/SC/[id number] 17:24:00 Name: ISMA KELSEY : 1990 Age/S: 29 / F [address] [facility] Unit #: [id number] Loc: [place] [address] Phys: Parish Magana MD Acct: [id number] Dis Date: Status: REG ER PHONE #: [phone] Exam Date: 09/27/2019 1700 FAX #: [phone] Reason: see US Pelvic Non OB Complete EXAMS: CPT CODE: [id number] DUP AB/PEL/SC/LTD 44736 Procedure: Pelvic Ultrasound. Clinical Indication: Pelvic pain for one day. Comparison: None. PROCEDURE: PELVIC ULTRASOUND TRANSABDOMINAL SCAN: The uterus measures 9.9 x 4.3 x 4.7. The visualized adnexa are maintained. TRANSVAGINAL SCAN: An endovaginal ultrasound was performed to try to better visualize the endometrial stripe and adnexal regions. There is an 8 mm endometrial stripe. The right ovary measures 3.6 x 2.7 x 3.5 cm and demonstrates a 2.9 cm simple appearing cyst. The left ovary measures 2.3 x 1.7 x 1.5 cm and is unremarkable. Blood flow is observed within the ovaries. There is minimal free fluid in the cul-de-sac. IMPRESSION: 1.Right ovarian simple cyst. 2. Minimal free fluid in the cul-de-sac. SL: OCO-H at 1724 Reported and signed by: Nino Tee M.D. CC: Parish Magana MD Technologist: Alicia Yost RDMS(AB)(OB) Trnscb Date/Time: 09/27/2019 (172) [email or web address] Orig Print D/T: S: 09/27/2019 (4578) Probe: PAGE 1 Signed Report- US TRANSVAGINAL NON [id number] 17:24:00 Name: ISMA KELSEY [facility] : 1990 Age/S: 29 / F [address] [place] [address] Unit #: [id number] Loc: [place] [address] Phys: Parish Magana MD Acct: [id number] Dis Date: Status: REG ERPHONE #: [phone] Exam Date: 09/27/2019 1700 FAX #: [phone] Reason: see US Pelvic Non OB Complete EXAMS: CPT CODE: [id number] [place] [address] Procedure: Pelvic Ultrasound. ClinicalIndication: Pelvic pain for one day. Comparison: None. PROCEDURE: PELVIC ULTRASOUND TRANSABDOMINAL SCAN: The uterus measures 9.9 x 4.3 x 4.7. The visualized adnexa are maintained. TRANSVAGINAL SCAN: An endovaginal ultrasound was performed to try to better visualize the endometrial stripe and adnexal regions. There is an 8 mm endometrial stripe. The right ovary measures 3.6 x 2.7 x 3.5 cm and demonstrates a 2.9 cm simple appearing cyst. The left ovary measures 2.3 x 1.7 x 1.5 cm and is unremarkable. Blood flow is observed within the ovaries. There is minimal free fluid in the cul-de-sac. IMPRESSION: 1. Right ovarian simple cyst. 2. Minimal free fluid in the cul-de-sac. SL: OCO-H ElectronicallySigned by Vladimir Tee on 09/27/2019 at 1724 Reported and signed by: Nino Tee M.D. CC: Parish Magana MD Technologist: Alicia Yost RDMS(AB)(OB) Trnscb Date/Time: 09/27/2019(172) [email or web address] Orig Print D/T: S: 09/27/2019 (1727) Probe: [id number] PAGE 1 Signed Report- US PELVIS [id number] 17:24:00 Name: ISMA KELSEY [facility] : 1990 Age/S: 29 / F [address] [place] [address] Unit #: [id number] Loc: [place] [address] Phys: Parish Magana MD Acct: [id number] Dis Date: Status: REG ERPHONE #: [phone] Exam Date: 09/27/2019 1700 FAX #: [phone] Reason: Pelvic Pain EXAMS: CPT CODE: [id number] US PELVIS COMPLETE 31656 Procedure: Pelvic Ultrasound. Clinical Indication: Pelvic pain for one day. Comparison: None. PROCEDURE: PELVIC ULTRASOUND TRANSABDOMINAL SCAN: The uterus measures 9.9 x 4.3 x 4.7. The visualized adnexa are maintained. TRANSVAGINAL SCAN: An endovaginal ultrasound was performed to try to better visualize the endometrial stripe and adnexal regions. There is an 8 mm endometrial stripe. The right ovary measures 3.6 x 2.7 x 3.5 cm and demonstrates a 2.9 cm simple appearing cyst. The left ovary measures 2.3 x 1.7 x 1.5 cm and is unremarkable. Blood flow is observedwithin the ovaries. There is minimal free fluid in the cul-de-sac. IMPRESSION: 1. Right ovarian simple cyst. 2. Minimal free fluid in the cul-de-sac. SL: OCO-H at 1724 Reported and signed by: Nino Tee M.D. CC: Parish Magana MD Technologist: Alicia Yost RDMS(AB)(OB) Trnscb Date/Time: 09/27/2019 (1723) [email or web address] Orig Print D/T: S: 09/27/2019 (1727) Probe: PAGE 1 Signed ReportUA RFLX MICR CULT IF [id number] 16:48:00 Test Item Value Reference Range Interpretation Comments UA COLOR (test code = COLU) YELLOW YEL/STRAW UA APPEARANCE (test code = CLEAR CLEAR APPU) UA GLUCOSE DIPSTICK (test code NEGATIVE NEGATIVE = DGLUU) UA BILIRUBIN DIPSTICK (test NEGATIVE NEGATIVE code = BILU) UA KETONE DIPSTICK (test code NEGATIVE NEGATIVE = KETU) UA SPECIFIC GRAVITY (test code 1.016 1.005-1.030 N = SGU) UA BLOOD DIPSTICK (test code = NEGATIVE NEGATIVE JOE) UA PH DIPSTICK (test code = 8.0 5.0-7.0 H ESTEFANIA) UA PROTEIN DIPSTICK (test code NEGATIVE NEGATIVE = PROU) UA UROBILINIOGEN DIPSTICK 0.2 mg/dL 0.2-1.0 (test code = URO) UA NITRITE DIPSTICK (test code NEGATIVE NEGATIVE = ALEXANDRO) UA LEUKOCYTE ESTERASE DIPSTICK NEGATIVE NEGATIVE (test code = LEUU) UA WBC (test code = WBCU) 0-3 WBC/HPF 0-3 UA RBC (test code = RBCU) 4-10 RBC/HPF 0-3 UA WBC NO REFLEX (test code = 0-3 WBC/HPF 0-3 WBCUCL) UA BACTERIA (test code = BACU) NONE SEEN /HPF NONE SEEN UA SQUAMOUS CELLS (test code = 6-10 /HPF NONE SEEN A SQU) UA MUCUS (test code = MUCU) TRACE /LPF NONE SEEN Indication for culture: Flank PainSpecimen Description: CLEAN CATCHURINE AND [id number] 10:28:00 Test Item Value Reference Range Interpretation Comments UA RBC (test None Seen See_Comment [Automated mes perry] code = UA RBC) (04/18/16 5:28 The system w hich AM) generated this result transmitted ref erence range: <=2. The reference range was not used to int erpret this result as normal/abnormal . [facility] AND [id number] 10:28:00 Test Item Value Reference Range Interpretation Comments UA Urobilinogen (test code = UA 0.2 0.1-1.0 Urobilinogen) [facility] [id number] 10:28:00 Test Item Value Reference Range Interpretation Comments UA Bacteria (test code = UA Few /HPF Bacteria) [facility] [id number] 10:28:00 Test Item Value Reference Range Interpretation Comments UA WBC (test code = UA WBC) 3-5 /HPF [facility] [id number] 10:28:00 Test Item Value Reference Range Interpretation Comments UA Mucus (test code = UA Mucus) Few /LPF [facility] [id number] 10:28:00 Test Item Value Reference Range Interpretation Comments UA Sq Epi (test code = UA Sq Epi) Few /LPF [facility] [id number] 10:28:00 Test Item Value Reference Range Interpretation Comments UA Nitrite (test code Negative (04/18/16 5:28 = UA Nitrite) AM) [facility] AND [id number] 10:28:00 Test Item Value Reference Range Interpretation Comments UA Blood (test code = Negative (04/18/16 5:28 UA Blood) AM) [facility] AND [id number] 10:28:00 Test Item Value Reference Range Interpretation Comments UA Leuk Est (test Negative (04/18/16 5:28 code = UA Leuk Est) AM) [facility] AND [id number] 10:28:00 Test Item Value Reference Range Interpretation Comments UA Ketones (test code Negative *NA*(04/18/16 = UA Ketones) 5:28 AM) [facility] [id number] 10:28:00 Test Item Value Reference Range Interpretation Comments UA Protein (test code Negative (04/18/16 5:28 = UA Protein) AM) [facility] AND [id number] 10:28:00 Test Item Value Reference Range Interpretation Comments UA Bili (test code = Negative *NA*(04/18/16 UA Bili) 5:28 AM) [facility] AND [id number] 10:28:00 Test Item Value Reference Range Interpretation Comments UA Glucose (test code Negative (04/18/16 5:28 = UA Glucose) AM) [facility] AND [id number] 10:28:00 Test Item Value Reference Range Interpretation Comments UA pH (test code = UA pH) 6.0 1 5.0-8.0 [facility] AND [id number] 10:28:00 Test Item Value Reference Range Interpretation Comments UA Spec Grav (test >=1.030 *ABN*(04/18/16 code = UA Spec Grav) 5:28 AM) [facility] AND [id number] 10:28:00 Test Item Value Reference Range Interpretation Comments UA Color (test code = Yellow *NA*(04/18/16 UA Color) 5:28 AM) [facility] AND [id number] 10:28:00 Test Item Value Reference Range Interpretation Comments UA Turbidity (test code = Clear (04/18/16 5:28 UA Turbidity) AM) [facility]2016-10-05 10:09:00 Test Item Value Reference Range Interpretation Comments Glucose Lvl (test code = Glucose Lvl) 91 70-99 [facility]2016-10-05 10:09:00 Test Item Value Reference Range Interpretation Comments Alk Phos (test code = Alk Phos) 111 39-136 [facility]2016-10-05 10:09:00 Test Item Value Reference Range Interpretation Comments Creatinine Lvl (test code = Creatinine 0.71 0.50-1.40 Lvl) [facility]2016-10-05 10:09:00 Test Item Value Reference Range Interpretation Comments BUN (test code = BUN) 18 7-22 [facility]2016-10-05 10:09:00 Test Item Value Reference Range Interpretation Comments A/G Ratio (test code = A/G Ratio) 0.8 0.7-1.6 [facility]2016-10-05 10:09:00 Test Item Value Reference Range Interpretation Comments B/C Ratio (test code = B/C Ratio) 25 6-25 [facility]2016-10-05 10:09:00 Test Item Value Reference Range Interpretation Comments Globulin (test code = Globulin) 4.2 2.7-4.2 [facility]2016-10-05 10:09:00 Test Item Value Reference Range Interpretation Comments AGAP (test code = AGAP) 9.2 10.0-20.0 [facility]lineD[id number] 10:09:00 Test Item Value Reference Range Interpretation Comments S Preg (test code = S Negative *NA*(04/18/16 Preg) 5:09 AM) [id number] 10:09:00 Test Item Value Reference Range Interpretation Comments WBC X 10x3 (test code = WBC X 10x3) 9.9 3.7-10.4 [facility] CampusJklfsmaHIDLPZKCST8366-77-53 10:09:00 Test Item Value Reference Range Interpretation Comments RBC X 10x6 (test code = RBC X 10x6) 4.97 4.20-5.40 [facility] CampusRnerxsbSSJZQHQCSW4950-66-71 10:09:00 Test Item Value Reference Range Interpretation Comments Hgb (test code = Hgb) 14.2 12.0-16.0 [facility] CampusEybzihiUDFZBJKVJQ9820-97-81 10:09:00 Test Item Value Reference Range Interpretation Comments Hct (test code = Hct) 42.1 36.0-48.0 [facility] CampusWxekjhrSXTLDGFVAX1346-12-17 10:09:00 Test Item Value Reference Range Interpretation Comments MCV (test code = MCV) 84.7 80.0-98.0 [facility] CampusFnrqpjqRYLONDHSOC2992-04-80 10:09:00 Test Item Value Reference Range Interpretation Comments MCH (test code = MCH) 28.6 pg 27.0-31.0 [facility] CampusInmxfbyODWNRPRSWX2532-64-09 10:09:00 Test Item Value Reference Range Interpretation Comments MCHC (test code = MCHC) 33.8 32.0-36.0 [facility] CampusFwkoyeoHMQBSDSWEU9638-77-91 10:09:00 Test Item Value Reference Range Interpretation Comments RDW (test code = RDW) 13.2 11.5-14.5 [facility] CampusWwpeuyuXXAABIPIBA9622-07-47 10:09:00 Test Item Value Reference Range Interpretation Comments Platelet (test code = Platelet) 213 133-450 [facility] CampusGeszvcuGDPNIMFVJB3061-24-42 10:09:00 Test Item Value Reference Range Interpretation Comments MPV (test code = MPV) 10.3 7.4-10.4 [facility] CampusFczulbwDYKTJHFPAC9096-01-87 10:09:00 Test Item Value Reference Range Interpretation Comments Segs-Bands # (test code = Segs-Bands #) 5.7 1.5-8.1 [facility] CampusRypmecyCYYCJVAYED2930-03-89 10:09:00 Test Item Value Reference Range Interpretation Comments Lymphocytes # (test code = Lymphocytes 3.2 1.0-5.5 #) [facility] CampusEquygckZORFYCNNJD0776-06-32 10:09:00 Test Item Value Reference Range Interpretation Comments Monocytes # (test code 0.8 See_Comment [Aut omated message] The = Monocytes #) system which generated this result tra nsmitted reference range : <=0.8. The reference r jaya was not used to int erpret this result as normal/abnormal . [facility] CampusIysjpvgRTAYYACGXB8002-67-76 10:09:00 Test Item Value Reference Range Interpretation Comments Basophils (test code = 0.7 See_Comment [Aut omated message] The Basophils) system which ge nerated this result tra nsmitted reference range : <=1.0. The reference r jaya was not used to int erpret this result as normal/abnormal . [facility] CampusVmpnimqONYGPAXNYJ3269-73-29 10:09:00 Test Item Value Reference Range Interpretation Comments Eosinophils # (test code 0.2 See_Comment [A utomated message] The = Eosinophils #) system whic h generated this result tra nsmitted reference range : <=0.5. The reference r jaya was not used to int erpret this result as normal/abnormal . [facility] CampusGmsxdoyVBEXQETSLH2942-62-28 10:09:00 Test Item Value Reference Range Interpretation Comments Basophils # (test code 0.1 See_Comment [Aut omated message] The = Basophils #) system which generated this result tra nsmitted reference range : <=0.2. The reference r jaya was not used to int erpret this result as normal/abnormal . [facility] CampusVqoskyhDRDHWPIYCB8813-04-65 10:09:00 Test Item Value Reference Range Interpretation Comments Segs (test code = Segs) 57.3 45.0-75.0 [facility] CampusGpxwcksGGXUSQJXON8678-94-40 10:09:00 Test Item Value Reference Range Interpretation Comments Eosinophils (test code = 1.7 See_Comment [A utomated message] The Eosinophils) system which ge nerated this result tra nsmitted reference range : <=4.0. The reference r jaya was not used to int erpret this result as normal/abnormal . [facility] CampusUogvqzuDLPRIGTBHQ4742-64-26 10:09:00 Test Item Value Reference Range Interpretation Comments Lymphocytes (test code = Lymphocytes) 32.5 20.0-40.0 [facility] CampusRlaogfiWPZJUACGRI1034-20-88 10:09:00 Test Item Value Reference Range Interpretation Comments Monocytes (test code = Monocytes) 7.8 2.0-12.0 [facility]2016-10-05 10:09:00 Test Item Value Reference Range Interpretation Comments eGFR (test code = eGFR) 116 [facility]2016-10-05 10:09:00 Test Item Value Reference Range Interpretation Comments ALANINE AMINOTRANSFERASE 28 See_Comment [A utomated message] (test code = ALANINE The sys tem which AMINOTRANSFERASE) generated this result transmitted ref erence range: <=65. Th e reference range was not used to int erpret this result as normal/abnormal . [facility]2016-10-05 10:09:00 Test Item Value Reference Range Interpretation Comments Albumin Lvl (test code = Albumin Lvl) 3.3 3.5-5.0 [facility]2016-10-05 10:09:00 Test Item Value Reference Range Interpretation Comments ASPARTATE TRANSAMINASE 18 See_Comment [Aut omated message] (test code = ASPARTATE The s ystem which TRANSAMINASE) generated this result transmitted ref erence range: <=37. Th e reference range was not used to interpr et this result as normal/abnormal . [facility]2016-10-05 10:09:00 Test Item Value Reference Range Interpretation Comments Total Protein (test code = Total 7.5 6.4-8.4 Protein) [facility]2016-10-05 10:09:00 Test Item Value Reference Range Interpretation Comments CO2 (test code = CO2) 29 24-32 [facility]2016-10-05 10:09:00 Test Item Value Reference Range Interpretation Comments Chloride Lvl (test code = Chloride Lvl) 107 95-109 [facility]2016-10-05 10:09:00 Test Item Value Reference Range Interpretation Comments Bili Total (test code = Bili Total) 0.2 0.2-1.3 [facility]2016-10-05 10:09:00 Test Item Value Reference Range Interpretation Comments Calcium Lvl (test code = Calcium Lvl) 8.9 8.5-10.5 [facility]2016-10-05 10:09:00 Test Item Value Reference Range Interpretation Comments Potassium Lvl (test code = Potassium 4.2 3.5-5.1 Lvl) [facility]2016-10-05 10:09:00 Test Item Value Reference Range Interpretation Comments Sodium Lvl (test code = Sodium Lvl) 141 135-145 [facility] CampusFmqdeqkELUBIAVMTU7862-85-23 09:15:00 Test Item Value Reference Range Interpretation Comments Hct (test code = Hct) 36.9 36.0-48.0 [facility] CampusMhmdcdeMMLRSABPCZ8706-68-26 09:15:00 Test Item Value Reference Range Interpretation Comments Hgb (test code = Hgb) 11.9 12.0-16.0 [facility] [place] [id number] 16:18:00 Test Item Value Reference Range Interpretation Comments Rhig Reqd (test code = See Note 1(10/18/15 11:18 Rhig Reqd) AM) [facility] [place] [id number] 16:18:00 Test Item Value Reference Range Interpretation Comments ABO/Rh (test code = ABO/Rh) [facility] [employer] [place] [id number] 16:18:00 Test Item Value Reference Range Interpretation Comments Antibody Scrn (test Negative (10/18/15 11:18 code = Antibody Scrn) AM) [facility] CampusMtzrbpkZRHYETGWPB9153-66-17 16:18:00 Test Item Value Reference Range Interpretation Comments Segs-Bands # (test code = Segs-Bands #) 9.5 1.5-8.1 [facility] Camp[id number] 16:18:00 Test Item Value Reference Range Interpretation Comments Basophils (test code = 0.5 See_Comment [Aut omated message] The Basophils) system which ge nerated this result tra nsmitted reference range : <=1.0. The reference r jaya was not used to int erpret this result as normal/abnormal . [facility] CampusDucglshWJGDXETTCW7947-28-37 16:18:00 Test Item Value Reference Range Interpretation Comments Eosinophils (test code = 0.8 See_Comment [A utomated message] The Eosinophils) system which ge nerated this result tra nsmitted reference range : <=4.0. The reference r jaya was not used to int erpret this result as normal/abnormal . [facility] CampusQtjvxbqHCJCPQIKSB1236-86-84 16:18:00 Test Item Value Reference Range Interpretation Comments Monocytes (test code = Monocytes) 5.5 2.0-12.0 [facility] CampusAgnfpcbAFMOJGJWPZ0557-44-42 16:18:00 Test Item Value Reference Range Interpretation Comments Lymphocytes (test code = Lymphocytes) 13.4 20.0-40.0 [facility] CampusZmgfrrkVKZWDAQYYN3944-36-68 16:18:00 Test Item Value Reference Range Interpretation Comments Segs (test code = Segs) 79.8 45.0-75.0 [facility] CampusRmaksyeFXKHYLWCLG2058-40-37 16:18:00 Test Item Value Reference Range Interpretation Comments Eosinophils # (test code 0.1 See_Comment [A utomated message] The = Eosinophils #) system [facility] generated this result tra nsmitted reference range : <=0.5. The reference r jaya was not used to int erpret this result as normal/abnormal . [facility] CampusVireaznOTBHHNIFQO6079-52-50 16:18:00 Test Item Value Reference Range Interpretation Comments Basophils # (test code 0.1 See_Comment [Aut omated message] The = Basophils #) system which generated this result tra nsmitted reference range : <=0.2. The reference r jaya was not used to int erpret this result as normal/abnormal . [facility] CampusUivrbspNQCGCLFFSU9517-81-44 16:18:00 Test Item Value Reference Range Interpretation Comments Lymphocytes # (test code = Lymphocytes 1.6 1.0-5.5 #) [facility] CampusQjpdqusKHFIAFGNPC3335-92-69 16:18:00 Test Item Value Reference Range Interpretation Comments Monocytes # (test code 0.7 See_Comment [Aut omated message] The = Monocytes #) system which generated this result tra nsmitted reference range : <=0.8. The reference r jaya was not used to int erpret this result as normal/abnormal . [facility] CampusZzmwgmwQQQYGCAEAS1684-50-94 16:18:00 Test Item Value Reference Range Interpretation Comments Platelet (test code = Platelet) 155 133-450 [facility] CampusZvwbbxhGTUZXGYALQ0949-19-45 16:18:00 Test Item Value Reference Range Interpretation Comments RDW (test code = RDW) 14.8 11.5-14.5 [facility] CampusSdazfyuYJVYZWAHJM5632-47-71 16:18:00 Test Item Value Reference Range Interpretation Comments MPV (test code = MPV) 10.5 7.4-10.4 [facility] CampusOnmzqpxYKGUBAUGAF4742-22-94 16:18:00 Test Item Value Reference Range Interpretation Comments Hgb (test code = Hgb) 13.3 12.0-16.0 [facility] CampusVwteqwwABMBSDPDVE7648-10-46 16:18:00 Test Item Value Reference Range Interpretation Comments MCV (test code = MCV) 87.8 80.0-98.0 [facility] CampusFakyfeaESXFANXRNZ3553-56-03 16:18:00 Test Item Value Reference Range Interpretation Comments Hct (test code = Hct) 40.7 36.0-48.0 [facility] CampusDpmkjlgPAXJSCROZS6728-10-54 16:18:00 Test Item Value Reference Range Interpretation Comments MCH (test code = MCH) 28.7 pg 27.0-31.0 [facility] CampusVekpqjhKJFBVDULRW3741-38-65 16:18:00 Test Item Value Reference Range Interpretation Comments MCHC (test code = MCHC) 32.7 32.0-36.0 [facility] CampusGionsinKEAIOENKSR9066-27-96 16:18:00 Test Item Value Reference Range Interpretation Comments RBC (test code = RBC) 4.64 4.20-5.40 [facility] CampusSqodtksCUHUOFFVBT5227-96-43 16:18:00 Test Item Value Reference Range Interpretation Comments WBC (test code = WBC) 11.8 3.7-10.4 [facility]villeFfxmohhQPLXQHCAOV5534-34-61 16:18:00 Test Item Value Reference Range Interpretation Comments Hep Bs Ag (test code Negative *NA*(10/18/15 = Hep Bs Ag) 11:18 AM) [facility] [id number] 16:18:00 Test Item Value Reference Range Interpretation Comments HIV. (test code = Negative *NA*(10/18/15 HIV.) 11:18 AM) [facility] UhpedbpXQPCDLAERZ4879-94-50 16:18:00 Test Item Value Reference Range Interpretation Comments Treponemal Scr (test Non Reactive code = Treponemal Scr) *NA*(10/18/15 11:18 AM) [facility] [id number] 03:44:00 Test Item Value Reference Range Interpretation Comments Amnisure ROM (test code Negative 1(10/04/15 = Amnisure ROM) 10:44 PM) [facility] [id number] 13:22:00 Test Item Value Reference Range Interpretation Comments UA Urobilinogen (test code = UA <=1.0 mg/dL 0.1-1.0 Urobilinogen) [facility] [id number] 13:22:00 Test Item Value Reference Range Interpretation Comments UA Color (test code = UA Color) Ltyellow [facility] [id number] 13:22:00 Test Item Value Reference Range Interpretation Comments UA Blood (test code = Negative (09/22/15 7:22 UA Blood) AM) [facility] [id number] 13:22:00 Test Item Value Reference Range Interpretation Comments UA Bili (test code = Negative *NA*(09/22/15 UA Bili) 7:22 AM) [facility] [id number] 13:22:00 Test Item Value Reference Range Interpretation Comments UA Nitrite (test code Negative (09/22/15 7:22 = UA Nitrite) AM) [facility] [id number] 13:22:00 Test Item Value Reference Range Interpretation Comments UA Leuk Est (test code Large *ABN*(09/22/15 = UA Leuk Est) 7:22 AM) [facility] [id number] 13:22:00 Test Item Value Reference Range Interpretation Comments UA Ketones (test code = UA Negative mg/dL Ketones) [facility] AND [id number] 13:22:00 Test Item Value Reference Range Interpretation Comments UA Protein (test code = UA Negative mg/dL Protein) [facility] AND [id number] 13:22:00 Test Item Value Reference Range Interpretation Comments UA Glucose (test code = UA Negative mg/dL Glucose) [facility] AND [id number] 13:22:00 Test Item Value Reference Range Interpretation Comments UA pH (test code = UA pH) 6.0 5.0-8.0 [facility] AND [id number] 13:22:00 Test Item Value Reference Range Interpretation Comments UA Turbidity (test code Slight *ABN*(09/22/15 = UA Turbidity) 7:22 AM) [facility] AND [id number] 13:22:00 Test Item Value Reference Range Interpretation Comments UA Spec Grav (test code = UA Spec Grav) 1.011 [facility] AND [id number] 13:22:00 Test Item Value Reference Range Interpretation Comments UA RBC (test code = 1 See_Comment [Automa vargas message] The UA RBC) system which ge nerated this result transmit vargas reference range : <=2. The reference range was not used to interpr et this result as charlotte l/abnormal. [facility] AND [id number] 13:22:00 Test Item Value Reference Range Interpretation Comments UA Sq Epi (test code = UA Sq Epi) Many /LPF [facility] AND [id number] 13:22:00 Test Item Value Reference Range Interpretation Comments UA WBC (test code = 18 See_Comment [Automa vargas message] The UA WBC) system which ge nerated this result transmit vargas reference range : <=5. The reference range was not used to interpr et this result as charlotte l/abnormal. [facility] AND [id number] 13:22:00 Test Item Value Reference Range Interpretation Comments UA Mucus (test code = UA Mucus) Few /LPF [facility] AND [id number] 13:22:00 Test Item Value Reference Range Interpretation Comments UA Bacteria (test code = UA Occasional /HPF Bacteria) [facility] Notes Date/Time Note Provider Source 2022-07-29 18:12:00-00:00 [facility] EMERGENCY PROVIDER REPORT REPORT#:[id number] REPORT STATUS: Signed DATE:07/29/22 TIME: 1811 PATIENT: ISMA KELSEY UNIT #: [id number] ROOM/BED: AGE: 31 SEX: F PCP PHYS: No Primary or Family P hysician SERVICE AUTHOR: Kota Salmon MD * ALL edits or amendments must be made on the [employer]/computer document * HPI-General Illness Free Text HPI Notes Free Text HPI Notes Patient is 31 years old with past medical history of asthma, HTN, gastric bypass , prior craniectomy for Raj ri malformation presenting to the emergency room for 1 week of thoracolumbar back pain with associate d sensation of bilateral leg weakness and numbness during pain flares. Patien t notes she has also experienced numbness to the tip of the nose and the bilateral arms which have improved. 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 She de nies any bowel or bladder incontinence or retention or additional genitourinary complai nts. General Initial Greet Date/Time 07/29/22 1529 Presentation Chief Complaint __ (low back pain ) Review of Systems ROS Statements All systems rev neg except as marked. Free Text ROS Notes Free Text ROS Notes as per hpi Past Medical History - Adult Stated Complaint DIZZY, SHAKING, PRESSURE IN HEA D AND SPINE Allergies Coded Allergies: ciprofloxacin (From CIPRO) (UNKNOWN 09/27/19) Calculated Suicide Risk (nurs) No risk Past Medical History: Reports: Hypertension. Denies: Kidney disease/st ones. Additional Medical History Recurrent UTIs, chiari 1 malformation Past Surgical History: Reports: Tonsillectomy. Denies: Appendectomy, Ch olecystectomy, Hysterectomy. Additional Surgical History right ankle ORIF Additional Family History Twin sister w/ ovarian CA Smoking status for patients 13 years old or olde r: Former Smoker Other Social History Physical Exam Vital Signs Vital Signs First Documented: Result Date Time B/P 114/71 07/29 1530 B/P Mean 85 07/29 1530 O2 Delivery Room air 07/29 1530 Temp 36.4 07/29 1530 Pulse 86 07/29 1530 Resp 19 07/29 1530 Pulse Ox 98 07/29 1635 Last Documented: Result Date Time Pulse Ox 98 07/29 1635 O2 Delivery Room air 07/29 1635 B/P 114/71 07/29 1529 B/P Mean 85 07/29 1529 Temp 36.4 07/29 1529 Pulse 86 07/29 153 Resp 19 07/29 153 Review of Vital Signs Reviewed Basic Physical Exam Basic PE GEN: Well appearing /NAD, HEAD: Atraumatic/NC, EYES: PERRL, conj clear, ENT: Membranes moist, NECK: Supple, SKIN: No miles hes, warm/dry, NEURO: alert oriented, NEURO: gross movement NL, PSYCH: NL th ought content Free Text PE Notes Free Text PE Notes MSK exam reveals no cervical thoracic or lumbar spine tenderness or step-offs. Inspection of the back is normal. Neurologic exam reveals 5 ou t of 5 bilateral upper and lower extremity strength and preserved sensation, alt montse patient notes the sensation to the right lower leg feels diminished. Abdominal exam is soft and nontender Interpretation Diagnostics Lab Results Interpretation Results Laboratory Tests: 07/29 1622 Blood Gas Sodium (134 - 147 mmol/L) 139 Potassium (3.4 - 5.0 mmol/L) 4.1 Chloride (100 - 108 mmol/L) 103 Ionized Calcium (1.12 - 1.32 MMOL/L) 1.17 Chemistry POC Creatinine (0.6 - 1.0 mg/dL) 0.6 POC Glucose (mg/dL) (70 - 110 MG/DL) 86 Urines POC Urine pH (5.0 - 7.0) 7 Ur Specific Carmi (1.005 - 1.030) 1.015 POC Urine Protein (NEGATIVE) NEGATIVE POC Ur Glucose (UA) (NEGATIVE) NEGATIVE POC Urine Ketones (NEGATIVE) 2+ H POC Urine Blood (NEGATIVE) NEGATIVE POC Urine Nitrite (Negative) NEGATIVE Urine Bilirubin (NEGATIVE) NEGATIVE POC Urine Urobilinogen (0.2 - 1.0) NORMAL POC U Leukocyte Esteras (NEGATIVE) Negative Recent Impressions: CAT SCAN - CT C-SPINE W/CONTRAST 07/29 1624 Report Impression - Status: SIGNED Entered: 07/29/2022 4882 IMPRESSION: CT Cervical Spine With Contrast 1. Previous suboccipital craniectomy and C1 post erior arch resection. 2. No fracture or malalignment involving cervica l spine. 3. No abnormal enhancement. CT Thoracic Spine With Contrast 1. No spinal canal stenosis or neural foraminal narrowing at any thoracic level. 2. No fracture or malalignment. 3. No abnormal enhancement. CT Lumbar Spine With Contrast 1. No acute fracture or malalignment. 2. No abnormal enhancement. 3. No spinal canal stenosis or neural foraminal narrowing at any lumbar level. Impression By: Mikaela Nolasco CAT SCAN - CT L-SPINE W/CONTRAST 07/29 1624 Report Impression - Status: SIGNED Entered: 07/29/20221746 IMPRESSION: CT Cervical Spine With Contrast 1. Previous suboccipital craniectomy and C1 post erior arch resection. 2. No fracture or malalignment involving cervica l spine. 3. No abnormal enhancement. CT Thoracic Spine With Contrast 1. No spinal canal stenosis or neural foraminal narrowing at any thoracic level. 2. No fracture or malalignment. 3. No abnormal enhancement. CT Lumbar Spine With Contrast 1. No acute fracture or malalignment. 2. No abnormal enhancement. 3. No spinal canal stenosis or neural foraminal narrowing at any lumbar level. Impression By: Mikaela Nolasco CAT SCAN - CT T-SPINE W/CONTRAST 07/29 1624 Report Impression - Status: SIGNED Entered: 07/29/20221746 IMPRESSION: CT Cervical Spine With Contrast 1. Previous suboccipital craniectomy and C1 post erior arch resection. 2. No fracture or malalignment involving cervica l spine. 3. No abnormal enhancement. CT Thoracic Spine With Contrast 1. No spinal canal stenosis or neural foraminal narrowing at any thoracic level. 2. No fracture or malalignment. 3. No abnormal enhancement. CT Lumbar Spine With Contrast 1. No acute fracture or malalignment. 2. No abnormal enhancement. 3. No spinal canal stenosis or neural foraminal narrowing at any lumbar level. Impression By: Mikaela Nolasco Lab Imaging Statement Laboratory radiographic studies reviewed and con sidered in the medical decision-making. Point of Care Testing Pulse Oximetry Interpretation Interpreted by me, Pulse oximetr y normal Re-Evaluation MDM Free Text MDM Notes Free Text MDM Notes Differential diagnosis inclu mckay soft tissue injury, spinal fracture dislocation, acute cord compromise, pyelo nephritis, urolithiasis, abdominal aortic aneurysm, complication of gastric bypass surgery. Abdomina l CT considered, patient without any examination find ings to warrant abdominal CT at this time. CT scans of the cervical thoracic and lumbar spines were performed showing no acute findings. Advised patient that given her present ation we can transport her to the main hospital for MRI ev aluation of her spine. Patient declined stating she must return home to take care of her daughter, willem dougherty she has been in communication with her neurosurgery clin ic, and that she will return to the ER if her symptoms worsen. She appears clinically sober and decisional in choosing to decline further medical screening exam kal sorenson Patient has been precautioned to return anytime for further evalu ation for worsening pain, weakness, numbness, incontinence or any other co ncerns. ED Course Medication(s) Ordered Medication(s) Ordered: Central Nervous System Agents Sig/Jenni Start time Last Medication Dose Route Stop Time Status Admin Morphine Sulfate 4 MG X1ED STA 07/29 1542 DC IV 07/29 1543 1555 Diagnostic Agents Sig/Jenni Start time Last Medication Dose Route Stop Time Status Admin Iopamidol 100 ML .STK-MED ONE 07/29 1658 DC IV 07/29 1659 1658 Electrolytic, Caloric, And Jeffry Sig/Jenni Start time Last Medication Dose Route Stop Time Status Admin Sodium Chloride 1,000 ML X1ED STA 07/29 1541 DC 07/29 IV 07/29 1640 1555 Gastrointestinal Drugs Sig/Jenni Start time Last Medication Dose Route Stop Time Status Admin Ondansetron HCl 4 MG X1ED STA 07/29 1542 DC IV 07/29 1543 1554 Patient Discharge Departure Vital Signs/Condition Vital Signs First Documented: Result Date Time B/P 114/71 07/29 1530 B/P Mean 85 07/29 1530 O2 Delivery Room air 07/29 1530 Temp 36.4 07/29 1530 Pulse 86 07/29 1530 Resp 19 07/29 1530 Pulse Ox 98 07/29 1635 Last Documented: Result Date Time Pulse Ox 98 07/29 1635 O2 Delivery Room air 07/29 1635 B/P 114/71 07/29 1530 B/P Mean 85 07/29 1530 Temp 36.4 07/29 1530 Pulse 86 07/29 1530 Resp 19 07/29 1530 All vital signs available at the time of this en try have been reviewed. Clinical Impression Clinical Impression Primary Impression: Thoracolumbar back pain Disposition Decision Discharge )( Discharged to Home Yes )( Time 1821 )( Date 07/29/22 Discharge/Care Plan (Auto) Prescriptions Current Visit Scripts ACETAMINOPHEN ER (TYLENOL ARTHRITIS PAIN) 650 MG PO Q6H PRN PRN PAIN ACETAMINOPHEN ER (TYLENOL ARTHRITIS PAIN) 650 M G PO Q6H PRN PRN PAIN #50 TABS predniSONE 20 MG PO DAILY 5 Days #5 TABS Patient Instructions ED Back Pain (Acute or Recenterer cassius) Additional Instructions Please follow-up with your neurosurgery clinic w zaheer 24 hours. Return to ER immediately for worsening pain, weakness, numbne ss, incontinence or any other concerns. Referrals Provider Referral: Paulo Maloney MD Address: [address] [place] [address] [address] [place] [id number] Provider Referral: Areli Newby DO Address: [address] [place] [address] [address] [place] [address] Provider Referral: Irene Henao DO Address: [address] [place] [address] [facility] [address] [place] [address] Provider Referral: Hong Ayers MD Address: [address] [facility] [address] [place] [address] Departure Forms [facility] AM[facility] PCP LIST Discharge Note I have spoken with the patie nt and/or caregivers. I have explained the patient's condition, diagnoses and owen atment plan based on the information available to me at this time. I have answered the patient's and/ or caregiver's questions and addressed any concerns. The patient and/or careg hannah have as good an understanding of the patient 's diagnosis, condition and treatment plan as can be expected at this point. The vital signs have bee n stable. The patient's condition is stable and appr opriate for discharge from the emergency department. The patient will pursue further outpatient evalu ation with the primary care physician or other designated or consulting phys ician as outlined in the discharge instructions. The patient and/or caregivers are agreeable to this plan of care and follow-up instructions have been exp lained in detail. The patient and/or caregivers have received these instructio ns in written format and have expressed an understanding of the discharge inst ructions. The patient and/or caregivers are aware that any significant change in condition or worsening of symptoms should prompt an immediate return to [facility] or the closest emergency department or a call to 911. at 1823 RPT #:[id number] END OF REPORT 2022-01-19 23:26:00-00:00 [facility] ([facility]) EMERGENCY PROVIDER REPORT REPORT#:[id number] REPORT STATUS: Signed DATE:01/19/22 TIME: 2325 PATIENT: ISMA KELSEY UNIT #: [id number] ROOM/BED: AGE: 31 SEX: F PCP PHYS: No Primary or Family Ph ysician SERVICE AUTHOR: Analia Mendez MD * ALL edits or amendments must be made on the [employer]/computer document * HPI-Palpit/Arrhyth Free Text HPI Notes Free Text HPI Notes 31-year-old female history of asthma, HTN, gastr ic bypass presents with palpitations. Patient reports at 2129 she starte d feeling palpitations. She reports 20 minutes prior she took her bl ood pressure medication nebivolol. She also reports some associated lightheaded ness and shortness of breath, seems to inhaler without relief. She reports with some im provement in palpitations at this time. Of note patient reports she i nitially had to be taken off her blood pressure medication because of thought t hat it was dropping her blood pressure too low, but was restarted on the medication at a lower dose 3 days ago. Patient reports she is under going outpatient work-up for palpitations, including Holter monitor and negative stress test. She rep orts she starting a new medication for palpitations tomorrow. General Initial Greet Date/Time 01/19/222223 Presentation Chief Complaint Palpitations Risk-Palpit/Arrhyth Risk Stratification HEART for MACE HEART for MACE Response Value History Low index of suspicion 0 ECG Interpretation Normal ECG 0 Age Age under 45 0 Risk Factors for CAD 1-2 CAD risk factors 1 Troponin < or = to NL troponin 0 Total 1 HEART Score for MACE 0-3 (low risk 0.9%-1.7%) Review of Systems Focused Review of Systems Constitutional Denies: Fever. Respiratory Reports: Shortness of breath. Cardiovascular Reports: Chest pain. GI Denies: Nausea, Vomiting. Neurologic Reports: Lightheaded. Past Medical History - Adult Stated Complaint PALPITATIONS AFTER HTN MED VASQUEZ G Allergies Coded Allergies: ciprofloxacin (From CIPRO) (UNKNOWN 09/27/19) Calculated Suicide Risk (nurs) No risk Past Medical History: Reports: Hypertension. Denies: Kidney disease/st ones. Additional Medical History Recurrent UTIs, chiari 1 malformation Past Surgical History: Reports: Tonsillectomy. Denies: Appendectomy, Ch olecystectomy, Hysterectomy. Additional Surgical History right ankle ORIF Additional Family History Twin sister w/ ovarian CA Smoking status for patients 13 years old or olde r: Never Smoker Other Social History Physical Exam Vital Signs Vital Signs First Documented: Result Date Time Pulse Ox 99 01/19 2225 B/P 130/75 01/19 222 B/P Mean 93 01/19 2225 O2 Delivery Room air 01/19 2225 Temp 36.2 01/19 2225 Pulse 69 01/19 2225 Resp 18 01/19 2225 Last Documented: Result Date Time Pulse Ox 98 / 0050 B/P 111/60 / 0050 B/P Mean 77 / 0050 Temp 36.4 07/ 0050 Pulse 72 07/ 0050 Resp 16 / 0050 O2 Delivery Room air 01/19 2225 Review of Vital Signs Reviewed Focused PE General/Const General/Const Awake, Alert, No acute distress MS Head Head Atraumatic Eyes Eyes PERRL, EOMI Ears/Nose/Throat Ears/Nose/Throat Airway patent, Mucous membrane s moist, Pharynx NL Resp/Chest Respiratory/Chest Breath sounds NL, Breath soun ds = bilat, No respiratory distress Cardiovascular Cardiovascular Heart rate NL, Regular rhythm Abdomen/GI Abdomen/GI Soft, Non-tender, No guarding, No re bound MS Lower Extrem Lower Ext/Pelvis/MS No edema Neurologic Neurologic Oriented X3, Speech NL, No m otor deficits, No sensory deficits, CN II - XII intact, Cerebellar NL, Memory NL Text/Dict Notes Upon standing for ambulation, patient feels ligh theaded and unsteady. Interpretation Diagnostics Lab Results Interpretation Results Laboratory Tests 07/08/22 2225: [Embedded Image Not Available] Laboratory Tests: 01/19 2225 Blood Gas Sodium (134 - 147 MEQ/L) 139 Potassium (3.4 - 5.0 MEQ/L) 3.9 Chloride (100 - 108 MEQ/L) 104 Ionized Calcium (1.12 - 1.32 MMOL/L) 1.17 Chemistry POC Creatinine (0.6 - 1.0 mg/dL) 0.7 POC Glucose (mg/dL) (70 - 110 MG/DL) 109 Hematology WBC (3.5 - 11.0 K/uL) 10.9 RBC (3.54 - 5.02 M/uL) 5.30 H Hgb (11.0 - 15.0 GM/DL) 15.1 H Hct (37.0 - 47.0 %) 43.7 MCV (81.0 - 99.0 fL) 82.5 MCH (27.0 - 31.0 pg) 28.5 MCHC (33.0 - 37.0 GM/DL) 34.6 RDW (11.5 - 14.5 %) 17.0 H Plt Count (150 - 400 K/mm3) 233 MPV (8.8 - 13.1 FL) 13.8 H Neut % (Auto) (40.0 - 76.0 %) 62.6 Lymph % (Auto) (15.0 - 40.0 %) 30.2 Mixed Cells % (Auto) (3.0 - 15.0 %) 7.2 Neut # (Auto) (1.8 - 7.6 K/uL) 6.8 Lymph # (Auto) (1.0 - 3.8 K/uL) 3.3 Mixed Cells # (0.1 - 0.8 k/mm3) 0.8 ECG #1 Interpretation Date 01/19/22 Time 2218 Interpreted by and reviewed by me NL ECG Interpretation Normal rate, Normal sinus rhythm, No acute ischemic changes, No STEMI Rate 63 ECG Q-T-ST - NC Non-specific ST changes Re-Evaluation MDM Free Text MDM Notes Free Text MDM Notes 31-year-old female history of asthma, HTN, gastr ic bypass presents with palpitations. Consider arrhythmia, electrolyte a bnormality. Also consider secondary to blood pressure medication, such as orthostatic response. Lower suspicion for ACS. Will obtain EKG, troponin, ch est x-ray. We will also provide 1 L IV fluid. Re-Evaluation/Progress #1 Text/Dict Note Work-up unremarkable. Patient reports feeling be tter after IV fluids, repeat ambulation assessment, with steady gait unassisted. Discharged home with return precautions, PCP follow-up, recommendati on to call public health service officer the morning to discuss possible adjustment of blood pressure me dication. Re-Eval Status Improved ED Course Medication(s) Ordered Medication(s) Ordered: Electrolytic, Caloric, And Jeffry Sig/Jenni Start time Last Medication Dose Route Stop Time Status Admin Sodium Chloride 1,000 ML X1ED STA 01/19 2319 DC 01/19 IV 01/20 0018 2326 Patient Discharge Departure Vital Signs/Condition Vital Signs First Documented: Result Date Time Pulse Ox 99 01/19 2225 B/P 130/75 01/19 2225 B/P Mean 93 01/19 2225 O2 Delivery Room air 01/19 222 Temp 36.2 01/19 222 Pulse 69 / 2225 Resp 18 01/19 2225 Last Documented: Result Date Time Pulse Ox 98 07/ 0050 B/P 111/60 07/ 0050 B/P Mean 77 / 0050 Temp 36.4 07/09 0050 Pulse 72 07/ 0050 Resp 16 / 0050 O2 Delivery Room air 01/19 2225 All vital signs available at the time of this en try have been reviewed. Clinical Impression Clinical Impression Primary Impression: Palpitations Disposition Decision Discharge )( Discharged to Home Yes )( Time 0048 )( Date 01/20/22 Discharge/Care Plan Counseled Regarding Diagnosis, Lab resul ts, Need for follow-up, When to return to ED Patient Instructions ED Hypotension, Orthostatic , ED Palpitations Additional Instructions Please call your public health service officer in the morning to discuss your blood pressure medication. Referrals Provider Group: PRIMARY CARE Follow-Up: 2-3 Days Discharge Note I have spoken with the patie nt and/or caregivers. I have explained the patient's condition, diagnoses and owen atment plan based on the information available to me at this time. I have answered the patient's and/ or caregiver's questions and addressed any concerns. The patient and/or careg hannah have as good an understanding of the patient 's diagnosis, condition and treatment plan as can be expected at this point. The vital signs have bee n stable. The patient's condition is stable and appr opriate for discharge from the emergency department. The patient will pursue further outpatient evalu ation with the primary care physician or other designated or consulting phys rashaad as outlined in the discharge instructions. The patient and/or caregivers are agreeable to this plan of care and follow-up instructions have been exp lained in detail. The patient and/or caregivers have received these instructio ns in written format and have expressed an understanding of the discharge inst ructions. The patient and/or caregivers are aware that any significant change in condition or worsening of symptoms should prompt an immediate return to [facility] or the closest emergency department or a call to 911. at 0613 RPT #:[id number] END OF REPORT 2019-09-27 16:14:00-00:00 [facility] EMERGENCY PROVIDER REPORT REPORT#:[id number] REPORT STATUS: Signed DATE:09/27/19 TIME: 161 PATIENT: ISMA KELSEY UNIT #: [id number] ROOM/BED: AGE: 29 SEX: F PCP PHYS: No Primary or Family Ph ysician SERVICE AUTHOR: Parish Magana MD * ALL edits or amendments must be made on the [employer]/computer document * HPI-Abd Pain F Under 40 General Confirmed Patient Yes Initial Greet Date/Time 09/27/19 1607 PCP PCP - none Presentation Chief Complaint Abdominal pain (R) Hx Obtained From Patient Sudden in Onset? Yes Onset Occurred Yesterday (last night) Symptom Duration Since onset Free Text HPI Notes Free Text HPI Notes 29 y/o F w/ PMHx of recurrent UTIs prese nts to the ED w/ c/o sudden R abd pain onset last night. Pt reports decreased urination, constipation, and nausea. She denies dysuria, hematuria, abnl vaginal bleeding, vaginal discharge, F/C, V/D, or any other assoc sxs. Portions of this section were scribed by Beth Ospina on 09/27/19 at 1848 Risk-Abd Pain F Under 40 )( Ectopic Risk factors reviewed Portions of this section were scribed by Beth Ospina on 09/27/19 at 1640 Review of Systems ROS Statements All systems rev neg except as marked. Focused Review of Systems Constitutional Denies: Chills, Fever. GI Reports: Abdominal pain (R), Constipatio n, Nausea. Denies: Diarrhea, Vomiting. Female Reports: Urination decreased. Denies: Dysuria, H ematuria, Vaginal bleeding - abnl, Vaginal discharge. Portions of this section were scribed by Beth Ospina on 09/27/19 at 1640 Past Medical History - Adult Stated Complaint RLQ ABD PAIN Allergies Coded Allergies: ciprofloxacin (From CIPRO) (UNKNOWN 09/27/19) Past Medical History: Denies: Kidney disease/stones. Additional Medical History Recurrent UTIs, chiari 1 malformation Past Surgical History: Reports: Tonsillectomy. Denies: Appendectomy, Ch olecystectomy, Hysterectomy. Additional Surgical History right ankle ORIF Additional Family History Twin sister w/ ovarian CA Other Social History Portions of this section were scribed by Beth Ospina on 09/27/19 at 1837 Physical Exam Vital Signs Vital Signs First Documented: Result Date Time Pulse Ox 97 09/26 161 B/P 146/68 09/26 161 B/P Mean 94 09/26 1615 O2 Delivery Room air 09/26 161 Temp 37.3 09/26 161 Pulse 84 09/26 1615 Resp 16 09/26 1615 Last Documented: Result Date Time Pulse Ox 98 09/26 185 B/P 133/86 09/26 185 B/P Mean 101 09/26 185 O2 Delivery Room air 09/26 185 Temp 36.7 09/26 185 Pulse 77 09/26 185 Resp 17 09/26 185 Review of Vital Signs Reviewed Focused PE General/Const General/Const Awake, Alert, Well developed, Solderer Torch perative MS Head Head Atraumatic, Normocephalic Eyes Eyes EOMI, Conjunctiva NL Ears/Nose/Throat Ears/Nose/Throat Airway patent, Mucous membrane s moist Resp/Chest Respiratory/Chest Breath sounds NL, No respirat ory distress, No rales, No rhonchi, No wheezing Cardiovascular Cardiovascular Heart rate NL, Regular rhythm, H eart sounds NL Abdomen/GI Abdomen/GI Soft, No guarding, No rebound, No di stention Tenderness/Guarding/Rebound Tender RLQ. MS Back Back Inspection NL, No CVA tenderness Text/Dict Notes R flank tenderness Skin Skin No rash, Warm, Dry, Intact Neurologic Neurologic Oriented X3, Speech NL Text/Dict Notes CN II-XII grossly normal, 5/ 5 strength, moves all extremities, sensation grossly normal Additional PE MS Neck Neck Supple, Full range of motion MS Lower Extrem Lower Ext/Pelvis/MS No swelling, Non-tender Psychiatric Psychiatric Affect NL, Mood NL Portions of this section were scribed by Beth Ospina on 09/27/19 at 1848 Interpretation Diagnostics Lab Results Interpretation Results Laboratory Tests 09/27/191734: [Embedded Image Not Available] Laboratory Tests: 09/26 1625 Chemistry Sodium (134 - 147 mEq/L) 140 Potassium (3.4 - 5.0 mEq/L) 3.8 Chloride (100 - 108 mEq/L) 109 H Carbon Dioxide (21 - 33 mEq/L) 28 Anion Gap (0 - 20) 7 BUN (7 - 18 mg/dL) 11 Creatinine (0.6 - 1.3 mg/dL) 0.7 Glomerular Filtr Rate (105 - 110) 97.6 L Glucose (70 - 110 mg/dL) 98 Calcium (8.0 - 10.5 mg/dL) 7.9 L Total Bilirubin (<1.5 MG/DL) 0.3 Direct Bilirubin (0.0 - 0.30 MG/DL) 0.10 Indirect Bilirubin (MG/DL) 0.20 AST (15 - 37 IUnit/L) 18 ALT (15 - 65 IUnit/L) 24 Total Alk Phosphatase (20 - 125 IUnit/L) 59 Total Protein (6.4 - 8.2 g/dL) 6.5 Albumin (3.4 - 5.0 g/dL) 3.00 L Lipase (73 - 393 IUnit/L) 49 L Serum , Qual (NEGATIVE) SERUM NEGATIVE Hematology WBC (4.5 - 11.0 x10 3/uL) 8.72 RBC (3.54 - 5.02 x10 6/uL) 4.36 Hgb (11.0 - 15.0 g/dL) 12.7 Hct (33.0 - 45.0 %) 39.8 MCV (81.0 - 99.0 fL) 91.3 MCH (27.0 - 33.0 pg) 29.1 MCHC (33.0 - 37.0 g/dL) 31.9 L RDW (11.5 - 14.5 %) 14.4 Plt Count (150 - 400 x10 3/uL) 213 MPV (7.0 - 9.0 fL) 11.9 H Neut % (Auto) (56.0 - 77.0 %) 68.1 Lymph % (Auto) (14.0 - 32.0 %) 21.6 [place] % (Auto) (4.8 - 9.0 %) 8.0 Eos % (Auto) (0.3 - 3.7 %) 1.6 Baso % (Auto) (0.0 - 2.0 %) 0.5 Neut # (Auto) (2.0 - 7.6 x10 3/uL) 5.94 Lymph # (Auto) (1.0 - 3.8 x10 3/uL) 1.88 [place] # (Auto) (0.1 - 0.8 x10 3/uL) 0.70 Eos # (Auto) (0.0 - 0.2 x10 3/uL) 0.14 Baso # (Auto) (0.0 - 0.2 x10 3/uL) 0.04 Abs Immat Gran (auto) (0.00 - 0.03 x10 3/uL) 0 .02 Add Manual Diff NO Immature Gran % (0.0 - 2.0 %) 0.2 Nucleated RBC % (0 - 0 %) 0.0 Nucleated RBCs # (Man) (0.0 - 0.1 x10 3/uL) 0.0 0 Urines Urine Color (YEL/STRAW) YELLOW Urine Appearance (CLEAR) CLEAR Urine pH (5.0 - 7.0) 8.0 H Ur Specific Carmi (1.005 - 1.030) 1.016 Urine Protein (NEGATIVE) NEGATIVE Urine Glucose (UA) (NEGATIVE) NEGATIVE Urine Ketones (NEGATIVE) NEGATIVE Urine Blood (NEGATIVE) NEGATIVE Urine Nitrite (NEGATIVE) NEGATIVE Urine Bilirubin (NEGATIVE) NEGATIVE Urine Urobilinogen (0.2 - 1.0 mg/dL) 0.2 Ur Leukocyte Esterase (NEGATIVE) NEGATIVE Urine RBC (0 - 3 RBC/HPF) 4-10 Urine WBC (0 - 3 WBC/HPF) 0-3 Ur Squamous Epith Cells (NONE SEEN /HPF) 6-10 H Urine Bacteria (NONE SEEN /HPF) NONE SEEN Urine Mucus (NONE SEEN /LPF) TRACE Recent Impressions: ULTRASOUND - DUP AB/PEL/SC/LTD 09/27 1619 Report Impression - Status: SIGNED Entered: 09/27/20191727 IMPRESSION: 1. Right ovarian simple cyst. 2. Minimal free fluid in the cul-de-sac. SL: OCO-H Impression By: Yuly Banks ULTRASOUND - US TRANSVAGINAL NON OB 09/27 1619 Report Impression - Status: SIGNED Entered: 09/27/2019 172 IMPRESSION: 1. Right ovarian simple cyst. 2. Minimal free fluid in the cul-de-sac. SL: OCO-H Impression By: Yuly Banks ULTRASOUND - US PELVIS COMPLETE 09/27 1619 Report Impression - Status: SIGNED Entered: 09/27/2019 1728 IMPRESSION: 1. Right ovarian simple cyst. 2. Minimal free fluid in the cul-de-sac. SL: OCO-H Impression By: Yuly Banks CAT SCAN - CT ABD PELVIS W/CONT 09/26 1722 Report Impression - Status: SIGNED Entered: 09/27/2019 1748 IMPRESSION: 1. No CT evidence of acute appendicitis. 2. Radiodense fluid, likely representing hemorrh age, is identified in the pelvis. Given no history of trauma and assum ing a negative test, the most likely origin is recent rupture of the partially collapsed right ovarian cyst. No contr ast extravasation is identified to indicate active bleeding at the ti me of CT image acquisition. SL: 131 Impression By: Tena Buchanan M.D. Lab Imaging Statement Laboratory radiographic studies reviewed and con sidered in the medical decision-making. Point of Care Testing Pulse Oximetry Pulse Ox % 97 On: Room air Interpretation Interpreted by me, Pulse oximetr y normal Time 1617 ECG #1 Interpretation Text/Dict Note no T wave inversions, no ST elevations Date 09/27/19 Time 1608 Interpreted by ED physician NL ECG Interpretation Normal rate, Charlotte l sinus rhythm, No STEMI, Normal axis, Normal intervals Rate 85 Free Text I D Notes Free Text I D Notes ULTRASOUND - DUP AB/PEL/SC/LTD 09/27 1619 Interpreted by radiologist Reviewed by ED physician IMPRESSION: 1. Right ovarian simple cyst. 2. Minimal free fluid in the cul-de-sac. ULTRASOUND - US TRANSVAGINAL NON OB 09/27 1619 Interpreted by radiologist Reviewed by ED physician IMPRESSION: 1. Right ovarian simple cyst. 2. Minimal free fluid in the cul-de-sac. ULTRASOUND - US PELVIS COMPLETE 09/27 1619 Interpreted by radiologist Reviewed by ED physician IMPRESSION: 1. Right ovarian simple cyst. 2. Minimal free fluid in the cul-de-sac. CAT SCAN - CT ABD PELVIS W/CONT 09/26 1721 Interpreted by radiologist Reviewed by ED physician IMPRESSION: 1. No CT evidence of acute appendicitis. 2. Radiodense fluid, likely representing hemorrh age, is identified in the pelvis. Given no history of trauma and assum ing a negative test, the most likely origin is recent rupture of the partially collapsed right ovarian cyst. No contr ast extravasation is identified to indicate active bleeding at the ti me of CT image acquisition. Portions of this section were scribed by Beth Ospina on 09/27/19 at 1848 Re-Evaluation MDM Free Text MDM Notes Free Text MDM Notes VSS, NAD, afebrile. Labs, imaging, and EKG resul ts are unactionable. D/c home and instructed to f/u w/ PCP. Advised pt to take OTC meds. ED Course Medication(s) Ordered Medication(s) Ordered: Central Nervous System Agents Sig/Jenni Start time Last Medication Dose Route Stop Time Status Admin Morphine Sulfate 4 MG X1ED STA 09/26 1614 DC IV 09/26 1615 1740 Diagnostic Agents Sig/Jenni Start time Last Medication Dose Route Stop Time Status Admin Iohexol 500 ML .STK-MED ONE 09/26 1723 DC 09/12 5 PO 09/26 1724 1723 Iopamidol 100 ML .STK-MED ONE 09/26 1723 DC IV 09/26 1724 1723 Electrolytic, Caloric, And Jeffry Sig/Jenni Start time Last Medication Dose Route Stop Time Status Admin Sodium Chloride 0 ASDIR PRN 09/26 1615 AC IV 09/27 1514 Sodium Chloride 1,000 ML X1ED STA 09/26 1614 DC 09/26 IV 09/26 1713 1741 Gastrointestinal Drugs Sig/Jenni Start time Last Medication Dose Route Stop Time Status Admin Ondansetron HCl 4 MG ONCE PRN 09/26 1615 AC IV 10/26 1614 1741 Portions of this section were scribed by Beth Ospina on 09/27/19 at 1837 Patient Discharge Departure Vital Signs/Condition Vital Signs First Documented: Result Date Time Pulse Ox 97 09/26 1615 B/P 146/68 09/26 161 B/P Mean 94 09/26 161 O2 Delivery Room air 09/26 161 Temp 37.3 09/26 161 Pulse 84 09/26 161 Resp 16 09/26 1615 Last Documented: Result Date Time Pulse Ox 98 09/26 1853 B/P 133/86 09/26 1853 B/P Mean 101 09/26 1853 O2 Delivery Room air 09/26 185 Temp 36.7 09/26 185 Pulse 77 09/26 1853 Resp 17 09/26 1853 All vital signs available at the time of this en try have been reviewed. Condition Stable Clinical Impression Clinical Impression Primary Impression: Ruptured ovarian cyst Disposition Decision Discharge )( Discharged to Home Yes )( Time 1840 )( Date 09/27/19 Discharge/Care Plan Counseled Regarding Diagnosi s, Lab results, Imaging studies, Need for follow-up, When to return to ED Quality Measures Preg Test for Women w/Abd Pa in Female age 14-50, Complaint of abdominal pn, Any preg test ordered Supervising Physician Note Scribe Statement Beth Ospina, 09/27/19 1614, scribing f or and in the presence of Dr. Parish Magana. Signed By: Beth Ospina, 09/27/19 1614 Provider Scribed Statement I personally performed the s ervices described in this documentation and reviewed the documentation that was dictated to the scrib e(s) in my presence, and it accurately records my words and actions. Harper Magana, 09/30/19 Portions of this section were scribed by Beth Ospina on 09/27/19 at 1848 Electronically Signed by Parish Magana MD on at 0940 [facility] #:[id number] END OF REPORT
[2023-01-07 09:18] LABS: Albumin 3.6 g/dL (3.4-5.0); Bilirubin Total 0.2 mg/dL (0.2-1.0); Potassium 4.8 mEq/L (3.5-5.1); Protein, Total 7.6 g/dL (6.4-8.2)
[2023-01-07] MEDS ORDERED: NA CHLORIDE 0.9% 2,000 ML ONE (10:19)
--- NOTE | 2023-01-07 11:57 | RAD REPORT ---
EXAM DESCRIPTION: US - Extrem Venous W Compress Mehrdad - 01/07/2023 11:10 am CLINICAL HISTORY: Pain COMPARISON: None. TECHNIQUE: Real-time sonographic evaluation of the bilateral lower extremity deep venous systems was performed. FINDINGS: Normal compressibility, flow augmentation, phasic flow and spontaneous flow is identified in both the left and right lower extremity deep venous systems. No intraluminal filling defects seen. IMPRESSION: No evidence of DVT in either lower extremity.
--- NOTE | 2023-01-07 12:33 | ER ---
Nurse's Notes [facility] Name: Kelly Nava Age: 32 yrs Sex: Female : 1990 Arrival Date: 01/07/2023 Time: 08:09 Bed 7 Private MD: Diagnosis: Rhabdomyolysis Presentation: 01/07 08:21 Chief complaint: Patient states: Seen at urgent care yesterday for "asthma ss exacerbation." Pt was called this morning by physician who told her to come to a near ER because her CK levels were 10,000. Pt c/o bilateral leg weakness and pain. Coronavirus screen: Client denies travel out of the [place] in the last 14 days. Ebola Screen: Patient denies exposure to infectious person. Patient denies travel to an Ebola-affected area in the 21 days before illness onset. Initial Sepsis Screen: Does the patient meet any 2 criteria? No. Patient's initial sepsis screen is negative. Does the patient have a suspected source of infection? No. Patient's initial sepsis screen is negative. Risk Assessment: Do you want to hurt yourself or someone else? Patient reports no desire to harm self or others. Onset of symptoms was January 06, 2023. 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 - Social history:: Smoking status: Patient denies any tobacco usage or history of. Screenin:50 [facility] ED Fall Risk Assessment (Adult) History of falling in the last 3 months, ph including since admission No falls in past 3 months (0 pts) Confusion or Disorientation No (0 pts) Intoxicated or Sedated No (0 pts) Impaired Gait No (0 pts) Mobility Assist Device Used No (0 pt) Altered Elimination No (0 pt) Score/Fall Risk Level 0 - 2 = Low Risk Oriented to surroundings, Maintained a safe environment, Hourly rounding (assess needs \\T\\ fall precautionary measures) done. Abuse screen: Denies threats or abuse. Denies injuries from another. Nutritional screening: No deficits noted. Tuberculosis screening: No symptoms or risk factors identified. Assessment: 08:51 General: Appears in no apparent distress. comfortable, well groomed, Behavior is calm, ph cooperative, appropriate for age. Pain: Complains of pain in right leg and left leg. Neuro: Level of Consciousness is awake, alert, obeys commands, Oriented to person, place, time, situation. Cardiovascular: Capillary refill < 3 seconds in bilateral fingers Patient's skin is warm and dry. Respiratory: Airway is patent Respiratory effort is even, unlabored. GI: Patient currently denies abdominal pain, diarrhea, nausea, vomiting. Derm: Skin is pink, warm \\T\\ dry. Musculoskeletal: Circulation, motion, and sensation intact. Range of motion: intact in all extremities, Reports pain in right leg and left leg. 10:17 Reassessment: Patient appears in no apparent distress at this time. Patient and/or ph family updated on plan of care and expected duration. Pain level reassessed. Patient is alert, oriented x 3, equal unlabored respirations, skin warm/dry/pink. Vital Signs: 08:21 Resp 16; Weight 62.6 kg; Height 5 ft. 3 in. ; Pain 7/10; ss 08:48 BP 107 / 77; Pulse 49; Resp 18; Temp 97.8; Pulse Ox 100% on R/A; ph 10:17 BP 105 / 74; Pulse 53; Resp 18; Pulse Ox 98% on R/A; ph 11:57 BP 105 / 58; Pulse 83; Resp 15; Pulse Ox 100% ; jl7 12:46 BP 106 / 70; Pulse 54; Resp 18; Temp 98; Pulse Ox 99% on R/A; ph 08:21 Body Mass Index 24.45 (62.60 kg, 160.02 cm) ss 08:21 Pain Scale: Adult ss ED Course: 08:13 Patient arrived in ED. rg4 08:17 J Carlos Hill PA is PHCP. jmm 08:17 Simon Painter MD is Attending Physician. jmm 08:19 Richa Tellez, MG is Primary Nurse. ph 08:22 Triage completed. ss 08:22 Arm band placed on right wrist. ss 08:49 Patient has correct armband on for positive identification. Bed in low position. Call ph light in reach. Side rails up X 1. Pulse ox on. NIBP on. Door closed. Noise minimized. Warm blanket given. 08:50 Initial lab(s) drawn, by me, sent to lab. Inserted saline lock: 20 gauge in right ph antecubital area, using aseptic technique. Blood collected. 11:12 US Extremity Venous W Compression Mehrdad In Process Unspecified. EDMS 12:46 No provider procedures requiring assistance completed. IV discontinued, intact, ph bleeding controlled, No redness/swelling at site. Pressure dressing applied. Administered Medications: 08:53 Drug: NS 0.9% IV 1000 ml Route: IV; Rate: 1 bolus; Site: right antecubital; ph 10:16 Follow up: Response: No adverse reaction; IV Status: Completed infusion; IV Intake: ph 1000ml 10:16 Drug: NS 0.9% IV 1000 ml Route: IV; Rate: 1 bolus; Site: right antecubital; ph 11:15 Follow up: Response: No adverse reaction; IV Status: Completed infusion ph 11:15 Drug: NS 0.9% IV 1000 ml Route: IV; Rate: 1000 ml; Site: right antecubital; ph 12:30 Follow up: Response: No adverse reaction; IV Status: Completed infusion; IV Intake: ph 1000ml Medication: 08:49 VIS not applicable for this client. ph Intake: 10:16 IV: 1000ml; Total: 1000ml. ph 12:30 IV: 1000ml; Total: 2000ml. ph Outcome: 12:33 Discharge ordered by . [facility] 12:47 Discharged to home ambulatory, with significant other. ph 12:47 Condition: good 12:47 Discharge instructions given to patient, Instructed on discharge instructions, follow up and referral plans. Demonstrated understanding of instructions, follow-up care. 12:47 Patient left the ED. ph Signatures: Dispatcher [employer] EDMS J Carlos Hill PA PA jmm Blanchard, Shelby, RN RN Richa Tellez RN RN ph Garcia, Rubi rg4 Rd Cooper RN RN jl7
--- NOTE | 2023-01-07 12:33 | EDPHYS ---
Physician Documentation [facility] Name: Kelly Nava Age: 32 yrs Sex: Female : 1990 Arrival Date: 01/07/2023 Time: 08:09 Bed 7 Private MD: ED Physician Simon Painter HPI: 01/07 08:22 This 32 yrs old Female presents to ER via Ambulatory with complaints of Abnormal Lab jmm Results. 08:22 The patient presents with pain, that is acute. Onset: The symptoms/episode jmm began/occurred gradually, 1 week(s) ago. This is a 32 year old female with a history of asthma that presents to the ED with complaints of lower extremity pain, cramping beginning approx a week ago. 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 Was seen at urgent care in [place] whom notified her, that her CPK levels were elevated. CT of abd and chest were normal. Patient had also had some complaints of abdominal pain and shortness of breath yesterday. States those symptoms have improved but was advised to go to the ER for further evaluation. . 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 - Social history:: Smoking status: Patient denies any tobacco usage or history of. ROS: 10:22 Cardiovascular: Negative for chest pain, palpitations, and edema. jmm 10:22 Constitutional: Positive for body aches. 10:22 Respiratory: Positive for shortness of breath. 10:22 MS/extremity: Positive for pain. 10:22 All other systems are negative. Exam: 10:22 Constitutional: This is a well developed, well nourished patient who is awake, alert, jmm and in no acute distress. Head/Face: atraumatic. Eyes: EOMI, no conjunctival erythema appreciated ENT: Moist Mucus Membranes Neck: Trachea midline, Supple Chest/axilla: Normal chest wall appearance and motion. Cardiovascular: Regular rate and rhythm. No edema appreciated Respiratory: Normal respirations, no respiratory distress appreciated Abdomen/GI: Non distended Back: Normal ROM Skin: General appearance color normal MS/ Extremity: Moves all extremities, no obvious deformities appreciated, no edema noted to the lower extremities Neuro: Awake and alert Psych: Behavior is normal, Mood is normal, Patient is cooperative and pleasant Vital Signs: 08:21 Resp 16; Weight 62.6 kg; Height 5 ft. 3 in. ; Pain 7/10; ss 08:48 BP 107 / 77; Pulse 49; Resp 18; Temp 97.8; Pulse Ox 100% on R/A; ph 10:17 BP 105 / 74; Pulse 53; Resp 18; Pulse Ox 98% on R/A; ph 11:57 BP 105 / 58; Pulse 83; Resp 15; Pulse Ox 100% ; jl7 12:46 BP 106 / 70; Pulse 54; Resp 18; Temp 98; Pulse Ox 99% on R/A; ph 08:21 Body Mass Index 24.45 (62.60 kg, 160.02 cm) ss 08:21 Pain Scale: Adult ss MDM: 08:22 Patient medically screened. [facility] 15:00 Differential diagnosis: rhabdomyolosis. Data reviewed: vital signs, nurses notes, lab [facility] test result(s), radiologic studies, ultrasound. Consideration of Admission/Observation Escalation of care including admission/observation considered. Counseling: I had a detailed discussion with the patient and/or guardian regarding: the historical points, exam findings, and any diagnostic results supporting the discharge/admit diagnosis, lab results, radiology results, the need for further work-up and treatment in the hospital, to return to the emergency department if symptoms worsen or persist or if there are any questions or concerns that arise at home. Refusal of service: The patient/guardian displays adequate decision making capability and despite a detailed discussion of alternatives, benefits, risks, and consequences refuses: Admission to the hospital for further work-up and treatment. 01/07 08:24 Order name: CBC with Diff; Complete Time: 09: [facility] 01/07 08:24 Order name: CPK; Complete Time: : [facility] 01/07 08:24 Order name: CMP; Complete Time: : [facility] 01/07 08:24 Order name: Urinalysis w/ reflexes; Complete Time: : [facility] 01/07 08:24 Order name: PREGU; Complete Time: 09: [facility] 01/07 10:22 Order name: US Extremity Venous W Compression Mehrdad; Complete Time: 11:57 [facility] 01/07 08:24 Order name: Saline Lock; Complete Time: 08:53 [facility] Administered Medications: 08:53 Drug: NS 0.9% IV 1000 ml Route: IV; Rate: 1 bolus; Site: right antecubital; ph 10:16 Follow up: Response: No adverse reaction; IV Status: Completed infusion; IV Intake: ph 1000ml 10:16 Drug: NS 0.9% IV 1000 ml Route: IV; Rate: 1 bolus; Site: right antecubital; ph 11:15 Follow up: Response: No adverse reaction; IV Status: Completed infusion ph 11:15 Drug: NS 0.9% IV 1000 ml Route: IV; Rate: 1000 ml; Site: right antecubital; ph 12:30 Follow up: Response: No adverse reaction; IV Status: Completed infusion; IV Intake: ph 1000ml Disposition Summary: 01/07/23 12:33 Discharge Ordered Location: Home [facility] Condition: Stable [facility] Diagnosis - Rhabdomyolysis [facility] Followup: [facility] - With: Private Physician - When: 2 - 3 days - Reason: Recheck today's complaints, Continuance of care, Re-evaluation by your physician Discharge Instructions: - Discharge Summary Sheet [facility] - Rhabdomyolysis [facility] Forms: - Medication Reconciliation Form [facility] - Thank You Letter [facility] - Antibiotic Education [facility] - Prescription Opioid Use [facility] - [email or web address] [facility] Signatures: Dispatcher [employer] EDMS J Carlos Hill PA PA [facility] Lyndsey Hernandez, MG RN Richa Tellez RN RN ph Corrections: (The following items were deleted from the chart) 10: 08:22 This is a 32 year old female with a history of asthma that presents to the ED [facility] with complaints of lower extremity pain, cramping beginning. . [facility]
[2023-01-07 12:58] VITALS: BP 106/70; TEMP 98; O2SAT 99
== END 2023-01-07 12:47 | disposition home or self-care (01) ==
LOC: ER 08:09
DX: M62.82 Rhabdomyolysis (principal); Z88.3 Allergy status to other anti-infective agents
CPT/HCPCS: 85025; 81001; 36415; 82550; 81025; 80053; 93970; J7030 ×2

== ENCOUNTER 2023-01-11 20:04 | Emergency (ER) | payer OTHER ==
--- OUTSIDE RECORDS SUMMARY | 2023-01-11 20:22 | XMS REPORT | Continuity of Care Document ---
:1990 Author Organization [facility] t Address [address] [facility] [place] [address] Care Team Providers Name Role Phone JASWINDER MURILLO Primary Care Physician Unavailable [id number] Attending Clinician Unavailable Best Mcfarland MD Attending Clinician Gloria Daly MD Attending Clinician [phone] Wellington Bazan MA Attending Clinician Unavailable Shama Newton MA Attending Clinician Unavailable BROOKE HAWTHORNE Attending Clinician Unavailable Brooke Hawthorne MD Attending Clinician Juan J ALCOCER, Riccardo Lee Attending Clinician [phone] Ephraim Hill MA Attending Clinician Unavailable Josh Lewis MA Attending Clinician Unavailable Radha Lerma MD Attending Clinician FLAVIO ERNST Attending Clinician Unavailable Flavio Ernst MD Attending Clinician Belinda Johnson MD Attending Clinician Neda GREENWOOD, Ronen Attending Clinician Tl GREENWOOD, Andi Attending Clinician Consuelo GREENWOOD, Erica Attending Clinician Landry Mann MD Attending Clinician Shaneka GREENWOOD, Tim Coleman Attending Clinician [phone] Kota Salmon Attending Clinician Unavailable JOSHUA JASMINE III Attending Clinician Unavailable King MENDY MD, James C Attending Clinician Unknown, Attending Attending Clinician Unavailable SAM MARTINEZ Attending Clinician Unavailable Dori AHN, Raquel Attending Clinician Unavailable Almita ALCOCER, Tamra Marcelo Attending Clinician James GREENWOOD, Mackenzie Chisholm Attending Clinician [phone] Betina Walton CRNA Attending Clinician Randi ALCOCER-C, Sahra Attending Clinician Esperanza Silva MA Attending Clinician Unavailable Delmar HOLLIDAY, [place] Attending Clinician Unavailable Gianni Mendez Attending Clinician Unavailable Izabella GREENWOOD, Not In System Attending Clinician Unavailable GISSELLE MONCADA Attending Clinician Unavailable Coral CARPIO, Gisselle Attending Clinician Renee Gilliam MA Attending Clinician Unavailable Provider , Not In System Attending Clinician Unavailable Peter HOLLIDAY, Prachi Attending Clinician Unavailable Eugenie Gilliam RN Attending Clinician Unavailable Jaycereguadalupe QUINONES, Walter Hendrix Attending Clinician UNKNOWN, ATTENDING Attending Clinician Unavailable Glenn Multani MD Attending Clinician [phone] John Elizabeth NP, Sonali Attending Clinician Chance King MA Attending Clinician Unavailable Cadence Bassett APRN Attending Clinician Sonia RAINEYNCesilai Attending Clinician Jose Parekh MD Attending Clinician Kylee Silva MA Attending Clinician Unavailable Linda Sales MA Attending Clinician Unavailable Provider, Unknown Attending Clinician Unavailable ARLETH NERI A Attending Clinician Unavailable Arleth Fajardo A Attending Clinician Doctor Unassigned, [place] Attending Clinician Unavailable KERRIE CARMONA Attending Clinician Unavailable TERESA SEWELL Attending Clinician Unavailable YUE GARNER Attending Clinician Unavailable YUE GARNER Attending Clinician Unavailable AMAIRANI THOMAS Attending Clinician Unavailable ANTOINE WEBER Attending Clinician Unavailable MD KERRIE CARMONA Attending Clinician Unavailable SAM MALDONADO Attending Clinician Unavailable BARBARA SIFUENTES Attending Clinician Unavailable Sachin Potts Attending Clinician Unavailable Sachin Potts Attending Clinician Unavailable [id number] Admitting Clinician Unavailable Physician, No Primary or [...] Type Policy Number Effective Date Expiration Date Breezy weems [employer] [id number] 2022 OUT OF NETWORK 00:00:00 [employer] II [id number] 2021 00:00:00 Problems Condition Condition Condition Status Onset Resolution Last Treating Co mments Source Name Details Category Date Date Treatment Clinician Date Weakness Weakness Disease Active Unive rs 08-14 ity of 00:00: [address] Stroke-lik Stroke-lik Disease Active M ethodi e symptoms e symptoms 1- st 00:00: Hospita 00 l Shortness Shortness [...] S/P S/P Disease Active Methodi gastric gastric 4 st bypass bypass 00:00: Hospita 00 l [...] Formattin ity of 00:00: g of this [place] 00 note Medical might be Branch different from the original. Formattin g of this note might be different from the original. 2020 Planning to go for R knee arthrosco py RT KNEE RT KNEE Diagnosis Active 2020-072021-06-15 Memoria S/P S/P Active 17:17:00 l 05/04/2021 12:00: Edwin n [facility] 00 Amy TLA CA M25.561 - M25.561 - Diagnosis Active 2021-04-05 Memoria PAIN IN PAIN IN 9-15 11:16:00 l RIGHT KNEE RIGHT KNEE 00:01: [facility] Active 03/29/2021 [facility] Palpitatio Palpitatio Disease Active Overview : Methodi [...] product Generalize Generalize Disease Active Overview : Methodkar mena anxiety d anxiety 5-12 Formattin s t [...] her decision DECONITION DECONITIO Diagnosis Active 2021-03-09 Cat N Active 11-07 15:28:00 l 11/07/2020 00:00: Edwin rojo 00 [place] [facility] Arnold-Chi Disease Active Overview : Methodi kashmir kashmir - Formattin st syndrome syndrome 00:00: g of this Hos aris without without 00 note l spina spina might be bifida or bifida or different hydrocepha hydrocepha from the ganga ganga original. NAFLD NAFLD Disease Active Overview: Method i (nonalcoho (nonalcoho 2-[address] lic fatty lic fatty 00:00: g of this H ospita liver liver 00 note l disease) disease) might be different from the original. 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-11-10 Me moria Active 10-17 14:58:00 l 10/18/2015 00:00: Edwin rojo 00 [facility] VAGINAL VAGINAL Diagnosis Active 2015-10-18 Memoria BLEEDING BLEEDING 10-17 10:34:00 l Active 00:00: Tor 10/18/2015 00 [facility] BACK PAIN BACK PAIN Diagnosis Active 2015-10-04 Memoria Active 10-03 22:42:00 l 10/04/2015 22:22: Edwin rojo 00 [facility] ABDOMINAL ABDOMINAL Diagnosis Active 2015-09-22 Memoria PAIN PAIN 09-21 07:19:00 l Active 00:00: [place] 09/22/2015 00 [facility] ENCOUNTER ENCOUNTER Diagnosis Active 2015-11-10 Memoria FOR FOR 14:58:00 l FULL-TERM FULL-TERM Herm kun UNCOMPLICA UNCOMPLICA VARGAS DE VARGAS DE Active [facility] Chiari Chiari Problem Resolve 2021-06-10 Mem oria malformati malformati d 23:22:35 l on type I on type I Herm kun (disorder) (disorder) Resolved Problem 06/10/2021 [id number] [id number],[facility] Amy TLA [facility] Concussion Concussio Problem Resolve 2021-06-10 Memoria injury of n injury d 23:22:35 l body of body Tor structure structure (disorder) (disorder) Resolved Problem 06/10/2021 [id number] [id number] Headache Headache Problem Resolve 2021-06-10 Memoria (finding) (finding) d 23:22:35 l Resolved Tor Problem 06/10/2021 [id number],[facility] Morbid Morbid Problem Active 2021-06-10 Kendell rhett obesity obesity 23:22:35 l (disorder) (disorder) He rmann Active Problem 06/10/2021 [id number],[facility] Amy A [facility] Patient Patient Problem Resolve 2021-06-10 2021-06-10 Memoria currently currently d 3-10 23:22:35 23:22:35 l 00:00: Edwin n (finding) (finding) 00 Resolved 09/22/2015 Problem 06/10/2021 ROSY Davis,2 .[id number]. [id number] 15.134,[facility], [facility] Amy A [facility] Depression Depressio Problem Resolve 2021-06-10 2021-06-10 Memoria - motion n - motion d - 23:22:35 23:22:35 l (qualifier (qualifier 00:00: He rmann value) value) 00 Resolved 07/15/2011 Problem 06/10/2021 Susan,2 [id number]. [id number] 15.134,[facility], [facility] Amy TLA [facility] History of Past Illness Condition Condition Condition Status Onset Resolution Last Treating Co mments Source Name Details Category Date Date Treatment Clinician Date Discharge Problem 2015-072016-04-212016-042016-04-21 Memoria Diagnosis: Discharge 0-05 03:23:42 03:23:42 l Acute neck Diagnosis: 05:00: He rmann pain Acute neck 00 pain 04/18/2016 04/21/2016 [facility] Discharge Discharge Problem 2015-072016-04-21 2016-04-21 Memoria Diagnosis: Diagnosis: 0-05 03:23:42 03:23:42 l Acute Acute 05:00: [place] headache headache 00 04/18/2016 04/21/2016 [facility] Discharge Discharge Problem 2015-10-07 2015-10-07 Memoria Diagnosis: Diagnosis: 10-03 04:50:47 04:50:47 l Clear Clear 05:00: [place] vaginal vaginal 00 discharge discharge 10/04/2015 6 [facility] Discharge Discharge Problem 2015-10-07 2015-10-07 Memoria Diagnosis: Diagnosis: 10-03 04:50:47 04:50:47 l Normal Normal 05:00: [place] 00 10/04/2015 6 [facility] Discharge Discharge Problem 2015-09-25 2015-09-25 Memoria Diagnosis: Diagnosis: 3 05:26:32 05:26:32 l Low back Low back 06:00: Edwin n pain pain 00 09/22/2015 6 [facility] Discharge Discharge Problem 2015-09-25 2015-09-25 Memoria Diagnosis: Diagnosis: 3 05:26:32 05:26:32 l Pelvic Pelvic 06:00: [place] pain pain 00 affecting affecting in third in third trimester, trimester, antepartum antepartum 09/22/2015 09/25/2015 [facility] Allergies, Adverse Reactions, Alerts Allergy Allergy Status Severity Reaction(s) Onset Inactive Treating Comm ents Source Name Type Date Date Clinician NSAIDS Drug Active Unknown-Cmnt Univ ers (NON-AMOL Class 4-06 ity of ROIDAL 00:00: [place] ANTI-INF 00 Medical LAMMATOR Branch Y DRUG) Nsaids Propensi Active Unknown - Gastric Univ ers (Non-Amol ty to See comments 4-06 bypass it y of roidal adverse 00:00: doctor Girma Anti-Inf reaction 00 told her Medi jhon [...] Blurry U nivers ine ty to comments 10-03 vision ity of adverse 00:00: [place] reaction [...] [facility] xacin 3-15 Clear 00:00: [place] 00 [facility] ciproflo DA Active U UNKNOWN [facility] xacin 3-15 Clear 00:00: [place] [facility] CIPROFLO DRUG Active Other-Cmnt Univ ers XACIN 5-08 ity of (BULK) 00:00: [place] [facility] Ciproflo Propensi Active Other - See Numbness Univers xacin ty to comments 5-08 and ity of (Bulk) adverse 00:00: tingling [place] reaction 00 in lips Medical s Branch No Known DA Active U [facility] Allergie 8-13 Clear s 00:00: [place] 00 [facility] Cipro Drug Active [facility] Cipro Drug Active [facility] Cipro Drug Active [facility] Cipro Drug Active [facility] Latex Latex Active Cat Lentz Family History Family Member Diagnosis Comments Start Date Stop Date Source Natural father Diabetes [facility] Natural father [facility] Natural father Obesity [facility] Natural father Sleep apnea [facility] Maternal [facility] grandfather [facility] Maternal Miscarriages / [facility] grandmother Stillbirths [facility] Natural mother Liver disease Methodi st [facility] Natural mother Skin cancer [facility]aternal [facility] Paternal Lung [facility] Paternal Breast cancer [facility] Natural sister Ovarian cancer [facility] Social History Social Habit Start Date Stop Date Quantity Comments Source Gender identity 2021-10-11 Identifies as Method ist 00:14:51 female gender Hospital (finding) Sexual orientation [facility] History SDOH Social Unive rsity of Connections [facility] Branch History SDOH Social Unive rsity of Connections Denominational [place] [facility] History SDOH Social Unive rsity of Connections [place] [facility] Membership Branch History SDAZ Social Unive rsity of Connections [place] [facility] Meetings Branch Alcohol intake 2022-11-16 2022-11-16 Ex-drinker [facility] 00:00:00 00:00:00 (finding) Hospital History of Social [...] 00:00:00 00:00:00 [place] Medic al Branch History SDOH Social 2022-08-14 2022-08-14 5 Unive rsity of Connections Phone 00:00:00 00:00:00 [place] M edical Branch History SDOH Social 2022-08-14 2022-08-14 8 Unive rsity of Connections Living 00:00:00 00:00:00 [place] [facility] History SDOH 2022-08-14 2022-08-14 0 University o f Physical Activity 00:00:00 00:00:00 [place] M edical DPW Branch History SDOH 2022-08-14 2022-08-14 0 University o f Physical Activity 00:00:00 00:00:00 [place] M edical MPS Branch History SDOH 2022-08-14 2022-08-14 5 University o f Financial 00:00:00 00:00:00 [place] [facility] History SDOH Food 2022-08-14 2022-08-14 1 Univers ity of Worry 00:00:00 00:00:00 [place] [facility] History SDOH Food 2022-08-14 2022-08-14 1 Univers ity of Scarcity 00:00:00 00:00:00 [place] [facility] History SDOH 2022-08-14 2022-08-14 2 University o f Transport Med 00:00:00 00:00:00 [place] [facility] History SDOH 2022-08-14 2022-08-14 2 University o f Transport Non-Med 00:00:00 00:00:00 [place] M edical Branch Education 2022-08-14 2022-08-14 11 University 00:00:00 00:00:00 [facility] Tobacco use and 2021-10-03 2021-10-03 Smokeless tobacco Me thodist exposure 00:00:00 00:00:00 non-user Hospital Cigarettes smoked 2021-10-03 2021-10-[address] current (pack per 00:00:00 00:00:00 Hospita l day) - Reported Cigarette 2021-10-03 2021-10-03 [facility] pack-years 00:00:00 00:00:00 Hospital Alcohol Comment 2020-10-31 2020-10-31 not weekly [facility] 00:00:00 00:00:00 Hospital History of tobacco 2015-05-15 2018-09-12 Cigarette Smoker [facility] use 00:00:00 00:00:00 Hospital Social History 2015-10-05 2015-10-05 [facility] 03:41:03 03:41:03 Sex [birth year] At [birth year] F [facility] 00:00:00 00:00:00 Hospital Smoking Status Start Date Stop Date Source Unknown if ever smoked [facility] Never smoked tobacco [facility] Ex-smoker 2021-10-03 00:00:00 2021-10-03 00:00:00 Methodis t [...] (200 day. unit) per tablet VITAMIN A 2023-0 Yes Take by Metho di ORAL 5-[address] 09:30: Hospita 44 l acyclovir 2022-0 Yes 800mg Take 1 Metho di (ZOVIRAX) 5-[address] 800 MG 09:30: (800 mg Hospita tablet 44 total) by l mouth. multivitami 2022-0 Yes 1{tbl} QD Take 1 Me thodi n tablet 5-[address] 09:30: mouth Hospita 44 daily. l calcium 2022-0 Yes 1{tbl} Q.5D Take 1 Method i citrate-vit 5-[address] vasquez D3 09:30: mouth 2 Hospita (CITRACAL+D 44 (two) l ) 315 mg-5 times a mcg (200 day. unit) per tablet VITAMIN A Yes Take by Metho di ORAL 5-[address] 09:30: Hospita 44 l acyclovir 2022-0 Yes 800mg Take 1 Metho di (ZOVIRAX) 5-[address] 800 MG 09:30: (800 mg Hospita tablet 44 total) by l mouth. omeprazole 2022-0 2022- No 40mg QD Take 1 Meth domonique (PriLOSEC) 5-05 06-[address] 40 MG 00:00: 04:59 (40 mg Hospita capsule 00 :00 total) by l mouth daily for 30 days. omeprazole 2022-0 2022- No 40mg QD Take 1 Meth domonique (PriLOSEC) 5-05 06-[address] 40 MG 00:00: 04:59 (40 mg Hospita capsule 00 :00 total) by l mouth daily for 30 days. iopamidol 2022-2022- No [id number] 100mL 100 mL, Univers (ISOVUE 10-19 Intravenou ity o f 370-500 mL) 02:45: 02:33 s, ONCE, 1 [place] injection 00 :00 dose, On Medica l 100 mL [facility] 10/18/22 Branch at 2145, Routine metoclopram 2022-0 2022- No 10mg 10 mg, Uni vers fernando HCl 10-19 Slow IV ity of (REGLAN) 02:15: 02:09 Push, [place] injection 00 :00 ONCE, 1 Medical 10 mg dose, On Branch [facility] 10/18/22 at 2115, [place] FENTanyl PF 2022- No 75ug 75 mcg, Un hannah (SUBLIMAZE 10-19 Slow IV ity o f (PF)) 02:00: 01:03 Push, [place] injection 00 :00 ONCE, 1 Medical 75 mcg dose, On Branch Tori 10/18/22 at 2100, STAT ondansetron 2022- No 4mg 4 mg, Slow Univers (ZOFRAN 10-19 IV Push, ity of (PF)) 02:00: 01:03 ONCE, 1 [place] injection 4 00 :00 dose, On Medi jhon mg Tori 10/18/22 Branch at 2100, [place] NaCl 0.9% No 1000mL at 999 Uni vers (NS) bolus 10-19 mL/hr, ity of infusion 02:00: 02:30 1,000 mL, [place] as 1,000 mL 00 :00 IV Medical Infusion, Branch ONCE, 1 dose, On Tori 10/18/22 at 2100, STAT traMADoL 50 Yes [id number] 50mg Take 1 Univ ers mg tablet 10-18 tablet by ity o f 00:00: mouth 00 every 6 Medical (six) Branch hours as needed for Pain (scale 4-6). Indication s: acute pain omeprazole 2022-2022- No 40mg QD Take 1 Meth domonique (PriLOSEC) 10-[address] 40 MG 00:00: 04:59 (40 mg Hospita capsule 00 :00 total) by l mouth daily for 30 days. omeprazole 2022-2022- No 40mg QD Take 1 Meth domonique (PriLOSEC) 10-16-[address] 40 MG 00:00: 04:59 (40 mg Hospita capsule 00 :00 total) by l mouth daily for 30 days. acyclovir 2022-0 2022- No 800mg Q.5D Take 2 Meth odmonique (ZOVIRAX) 10-02-[address] 400 MG 00:00: 04:59 (800 mg Hospita tablet 00 :00 total) by l mouth 2 (two) times a day for 5 days. acyclovir 2022-0 2022- No 800mg Q.5D Take 2 Meth domonique (ZOVIRAX) 10-02- tablets st 400 MG 00:00: 04:59 (800 mg Hospita tablet 00 :00 total) by l mouth 2 (two) times a day for 5 days. calcium 2022-2022- No 1500mg QD Take 1,500 M ethodi citrate/vit 16 03-[address] vasquez D3 09:24: 00:00 mouth Hospita (CALCIUM 58 :00 daily. l CITRATE + ORAL) calcium 2022- No 1500mg QD Take 1,500 M ethodi citrate/vit 09-27 03-[address] vasquez D3 09:24: 00:00 mouth Hospita (CALCIUM 58 :00 daily. l CITRATE + ORAL) acyclovir 2022- No 800mg Q.5D Take 1 Meth domonique (ZOVIRAX) 09-[address] 800 MG 00:00: 04:59 (800 mg Hospita tablet 00 :00 total) by l mouth 2 (two) times a day for 5 days. acyclovir 2022- No 800mg Q.5D Take 1 Meth domonique (ZOVIRAX) 09-[address] 800 MG 00:00: 04:59 (800 mg Hospita tablet 00 :00 total) by l mouth 2 (two) times a day for 5 days. acyclovir 2022- No 800mg Q.5D Take 1 Meth domonique (ZOVIRAX) 09-[address] 800 MG 00:00: 00:00 (800 mg Hospita tablet 00 :00 total) by l mouth 2 (two) times a day for 5 days. acyclovir 2022- No 800mg Q.5D Take 1 Meth domonique (ZOVIRAX) 09-[address] 800 MG 00:00: 00:00 (800 mg Hospita tablet 00 :00 total) by l mouth 2 (two) times a day for 5 days. metFORMIN 2022- No [id number] 500mg QD Take 1 M ethodi XR 08-31 05-[address] (GLUCOPHAGE 00:00: 00:00 (500 mg Ho spita -XR) 500 mg 00 :00 total) by l 24 hr mouth tablet daily with breakfast. metFORMIN 2022- No [id number] 500mg QD Take 1 M ethodi XR 217 05-[address] (GLUCOPHAGE 00:00: 00:00 (500 mg Ho spita -XR) 500 mg 00 :00 total) by l 24 hr mouth tablet daily with breakfast. midodrine Yes 5mg 5 mg, Univers (PROAMATINE 2-01 Oral, TID, it y of ) tablet 5 20:00: First dose [place] mg 00 (after Medical last Branch modificati on) on Sat08/15/22 at 1400, Until Discontinu ed, Routine CALCIUM Yes 1500mg Take 1,500 Un hannah CITRATE 2-01 mg by ity of ORAL 15:28: mouth [place] [address] daily. Medical Branch VITAMIN A Yes Take by Seedf[employer] rs ORAL 2-01 mouth. ity of 15:28: [address] Branch CALCIUM Yes 1500mg Take 1,500 Un hannah CITRATE 2-01 mg by ity of ORAL 15:28: mouth [place] [address] daily. Medical Branch VITAMIN A Yes Take by Unive rs ORAL 2-01 mouth. ity of 15:28: [place] [address] Medical Branch midodrine 2022- No 2.5mg Take 2.5 Un hannah 2.5 mg 2 02-01 mg by ity of tablet 15:28: 00:00 mouth in [place] 43 :00 the Medical morning Branch and 2.5 mg at noon and 2.5 mg in the evening. butalbital- Yes 1{tbl} 1 tablet, Univers acetaminoph 2 Oral, ity of en-caff 15:23: Q4HPRN, [place] (ESGIC) 48 Starting Medical 50-325-40 on Sat Branch mg tablet 1 08/15/22 at tablet 0923, Until Discontinu ed, Routine, Pain (scale 7-10) midodrine 5 2022- No [id number] 5mg Take 1 Univers mg tablet 2 03-04 tablet by ity of 00:00: 05:59 mouth in [place] 00 :00 the Medical morning Branch and 1 tablet at noon and 1 tablet in the evening. Do all this for 30 days. enoxaparin Yes 40mg 40 mg, Unive rs (LOVENOX) 08-14 Subcutaneo ity of injection 23:00: [place], DAILY, [place] 40 mg 00 First dose Medical on Branch 08/14/22 at 1700, Until Discontinu ed, Routine midodrine 0 2022- No 2.5mg 2.5 mg, Uni vers (PROAMATINE 08-14 Oral, TID, i ty of ) tablet 14:00: 17:08 First dose [place] 2.5 mg 00 :10 on Medical 08/14/22 at Branch 0800, Until Discontinu ed, Routine Sliding 2022-0 Yes Subcutaneo Univ ers Scale 08-14 us, Q6H, ity of Insulin-Reg 12:00: First dose [place] ular + Fsbg 00 on Sat Medica l Testing 08/14/22 at Branch 0600, Until Discontinu ed, Routine NaCl 0.9% Yes 1000mL at 125 Univ ers (NS) IV 1-31 mL/hr, IV ity of infusion 10:45: Infusion, [place] 1,000 mL 00 CONTINUOUS Medic al , Starting Branch on Sat08/14/22 at 0445, Until Discontinu ed, Routine glucagon Yes 1mg 1 mg, Univers (GLUCAGEN 08-14 Intramuscu ity of DIAGNOSTIC 10:39: lar, PRN, [place] KIT) 51 Starting Medical injection 1 on Sat [place] mg 08/14/22 at 0439, Until Discontinu ed, [place], Blood Glucose < or = 70 mg/dL and patient is NPO, unable to swallow or has mental changes. dextrose 50 0 Yes 25mL 25 mL, Univ ers % in water 08-14 Slow IV ity of (D50W) 10:39: Push, PRN, [place] injection 51 Starting Medica l 25 mL on Sat Branch 08/14/22 at 0439, Until Discontinu ed, [place], Blood Glucose < or = 70 mg/dL and patient is NPO, unable to swallow or has mental status changes. ondansetron Yes 4mg 4 mg, Slow Univers (ZOFRAN 08-14 IV Push, ity of (PF)) 10:33: Q6HPRN, [place] injection 4 38 Starting Medi jhon mg on Sat Branch 08/14/22 at 0433, Until Discontinu ed, Routine, Nausea and Vomiting (N/V) traMADoL 2022- No 50mg 50 mg, Univer s (ULTRAM) 08-14 Oral, ity of tablet 50 10:33: 10:32 Q8HPRN, [place] mg 32 :32 Starting Medical on Sat08/14/22 at 0433, Until Tori 08/16/22 at 0432, Routine, Pain (scale 4-6) acetaminoph Yes 650mg 650 mg, Un hannah en 08-14 Oral, ity of (TYLENOL) 10:33: Q6HPRN, [place] tablet 650 27 Starting Medic al mg on Sat08/14/22 at 0433, Until Discontinu ed, Routine, Pain (scale 1-3) NaCl 0.9% 0 2022- No 500mL at 999 [facility] ers (NS) bolus 08-14 mL/hr, 500 it y of infusion 08:15: 10:13 mL, IV [place] 500 mL 00 :00 Infusion, Medical ONCE, 1 Branch dose, On Sat08/14/22 at 0215, STAT NaCl 0.9% 2022- No 500mL at 999 [facility] ers (NS) bolus 08-14 mL/hr, 500 it y of infusion 08:15: 10:13 mL, IV [place] 500 mL 00 :00 Infusion, Medical ONCE, 1 Branch dose, On Sat08/14/22 at 0215, STAT NaCl 0.9% 2022- No 1000mL at 999 [facility] vers (NS) bolus 08-14 mL/hr, ity of infusion 06:30: 08:08 1,000 mL, [place] as 1,000 mL 00 :00 IV Medical Infusion, Branch ONCE, 1 dose, On Sat08/14/22 at 0030, [place] albuterol 2022- No Inhale as Me thodi (PROAIR 08-[address] HFA) 90 12:49: 00:00 Hospita mcg/actuati 45 :00 l on inhaler albuterol 2022- No Inhale as Me thodi (PROAIR 1-20 01-20 needed. [facility]) 90 12:49: 00:00 Hospita mcg/actuati 45 :00 l on inhaler benzonatate 2021-07 Yes [id number] 100mg Take 1 [facility] 100 mg 2-22 capsule by ity of capsule 00:00: mouth [place] 00 every 8 Medical (eight) Branch hours as needed for Cough. benzonatate 2021-07 Yes [id number] 100mg Take 1 [facility] 100 mg 2-22 capsule by ity of capsule 00:00: mouth [place] 00 every 8 Medical (eight) Branch hours as needed for Cough. benzonatate 2021-07- No [id number] 100mg Take 1 [facility] 100 mg 2-22 - capsule by ity of capsule 00:00: 00:00 mouth [place] 00 :00 every 8 Medical (eight) Branch hours as needed for Cough. azithromyci 2021-07 Yes Univer s n 250 mg 2-20 ity of tablet 00:00: [place] 00 Medical Branch azithromyci 2021-07 Yes Univer s n 250 mg 2-20 ity of tablet 00:00: [place] 00 Medical Branch azithromyci 2021-07- No Unive rs n 250 mg 2-20 - ity of tablet 00:00: 00:00 [place] 00 :00 Medical Branch albuterol Yes Inhale as Met hodi (PROAIR 9-08 needed. [facility]) 90 08:48: Hospita mcg/actuati 59 l on [...] 08:48: Hospita 59 l traMADoL 2021- No [id number] 50mg Q6H Take 1 Metho di (ULTRAM) 50 8--04 tablet (50 s t mg tablet 00:00: 04:59 mg total) Ho spita 00 :00 by mouth l every 6 (six) hours as needed for moderate pain for up to 3 days .acute pain. traMADoL 2021- No [id number] 50mg Q6H Take 1 Metho di (ULTRAM) 50 03-14 tablet (50 s t mg tablet 00:00: 04:59 mg total) Ho spita 00 :00 by mouth l every 6 (six) hours as needed for moderate pain for up to 3 days .acute pain. traMADoL 2021-2021- [place] [id number] 50mg Q6H Take 1 Metho di (ULTRAM) 50 03-14 tablet (50 s t mg tablet 00:00: 04:59 mg total) Ho spita 00 :00 by mouth l every 6 (six) hours as needed for moderate pain for up to 3 days .acute pain. norethindro 2021-0 Yes Method i ne 02-23 st (MICRONOR) 00:00: Hospita 0.35 mg 00 l tablet norethindro 2021-0 2022- No Metho di ne 02-23 st (MICRONOR) 00:00: 00:00 Hospit a 0.35 mg 00 :00 l tablet norethindro 2021-0 2022- No Metho di ne 02-23 st (MICRONOR) 00:00: 00:00 Hospit a 0.35 mg 00 :00 l tablet omeprazole 2021-0 2022- No 40mg QD Take 1 Meth domonique (PriLOSEC) 02-[address] 40 MG 00:00: 04:59 (40 mg Hospita capsule 00 :00 total) by l mouth daily. omeprazole 2021-0 2022- No 40mg QD Take 1 Meth domonique (PriLOSEC) 02-[address] 40 MG 00:00: 00:00 (40 mg Hospita capsule 00 :00 total) by l mouth daily. omeprazole 2021-0 2022- No 40mg QD Take 1 Meth domonique (PriLOSEC) 02-[address] 40 MG 00:00: 00:00 (40 mg Hospita capsule 00 :00 total) by l mouth daily. flash Yes [id number] 1{devic Q14D 1 Device Methodi glucose 7-15 e} every 14 st sensor 00:00: (fourteen) Hospi ta (FreeStyle 00 days. l Jonathan 2 Sensor) kit flash 2022- No [id number] 1{devic Q14D 1 Device [facility] glucose 7-15 02-17 e} every 14 st sensor 00:00: 00:00 (fourteen) Hosp kevon (FreeStyle 00 :00 days. l Jonathan 2 Sensor) kit flash 2022- No [id number] 1{devic Q14D 1 Device Methodi glucose 7-15 02-17 e} every 14 st sensor 00:00: 00:00 (fourteen) Hosp kevon (FreeStyle 00 :00 days. l Jonathan 2 Sensor) kit mupirocin 2 Yes [id number] Apply to Univers % ointment 6-09 area(s) 3 ity of 00:00: (three) [place] 00 times Medical daily. Branch mupirocin 2 Yes [id number] Apply to Univers % ointment 6-09 area(s) 3 ity of 00:00: (three) [place] 00 times Medical daily. Branch mupirocin 2 Yes [id number] Apply to Univers % ointment 6-09 area(s) 3 ity of 00:00: (three) [place] 00 times Medical daily. Branch mupirocin 2 2022- No [id number] Apply to Univers % ointment 6-09 -31 area(s) 3 ity of 00:00: 00:00 (three) [place] 00 :00 times Medical daily. Branch sulfamethox 2021- No [id number] 1{tbl} Take 1 Univers azole-trime 12-21 06-20 tablet by it y of oprim 00:00: 04:59 mouth 2 [place] (BACTRIM 00 :00 (two) Medical DS) 800-160 times Branch mg per daily for tablet 10 days. norethindro 2021- No .35mg QD Take 1 Me thodi ne 12-15 08-[address] (MICRONOR) 00:00: 00:00 (0.35 mg Ho spita 0.35 mg 00 :00 total) by l tablet mouth daily. norethindro 2021-0 2021- No .35mg QD Take 1 Me lagos ne 6- 08-[address] (MICRONOR) 00:00: 00:00 (0.35 mg Ho spita 0.35 mg 00 :00 total) by l tablet mouth daily. norethindro 2021-0 2021- No .35mg QD Take 1 Me lagos ne 6- 08-[address] (MICRONOR) 00:00: 00:00 (0.35 [...] 800mg Q.5D Take 16 mL Methodi -pot - 05-14 ([address] clavulanate 00:00: 04:59 total) by Hospita (Augmentin) 00 :00 mouth 2 l 250-62.5 (two) mg/5 mL times a suspension day for 10 days. neomycin-ba 2021- No QD Apply Meth domonique citracin-po 11-14-[address] lymyxin B 00:00: 04:59 daily for Ho spita (Triple 00 :00 10 days. l Antibiotic) ointment promethazin 2021- No [id number] 25mg Q6H Take 1 Methodi e 11-14-09 tablet (25 st (PHENERGAN) 00:00: 04:59 mg total) Hospita 25 MG 00 :00 by mouth l tablet every 6 (six) hours as needed for nausea or vomiting for up to 5 days. lidocaine/m 2021- No 30mL Q6H Take 30 mL Methodi aalox/taina 11-[address] gurdeep (GI 00:00: 04:59 every 6 Hospit a COCKTAIL) 00 :00 (six) l 1:1:1 hours as suspension needed suspension (epigastri c pain from possible marginal ulcers) for up to 7 days. omeprazole 2021- No [id number] 40mg Q.5D Take 1 Methodi (PriLOSEC) 11-[address] 40 MG 00:00: 04:59 (40 mg Hospita capsule 00 :00 total) by l mouth 2 (two) times a day for 30 days. Take one (1) capsule the night before surgery. Continue daily for (6) six months sucralfate 2021- No [id number] 1g Q.25D Take 10 mL Methodi (CARAFATE) [...] 5mg Q.25D Take 1 Me thodi fernando 11-09 tablet (5 st (Reglan) 5 00:00: 04:59 [...] up to 14 days. [place]DROcod[place] 2021- [place] [id number] 20mL Q6H Take 20 mL Methodi -acetaminop 11-09- by mouth st hen (HYCET) 00:00: 04:59 every 6 Ho spita 2.5-108.3 00 :00 (six) l mg/5 mL hours as solution needed for moderate pain for up to 5 days .acute pain. Max Daily Amount: 80 mL lidocaine/m 2021- No 30mL Q6H Take 30 mL Methodi aalox/taina 11-[address] gurdeep (GI 00:00: 00:00 every 6 Hospit a COCKTAIL) 00 :00 (six) l 1:1:1 hours as suspension needed suspension (epigastri c pain from possible marginal ulcers) for up to 7 days. lidocaine/m 2021- No 30mL Q6H Take 30 mL Methodi aalox/taina 11-[address] gurdeep (GI 00:00: 00:00 every 6 Hospit a COCKTAIL) 00 :00 (six) l 1:1:1 hours as suspension needed suspension (epigastri c pain from possible marginal ulcers) for up to 4 days. sucralfate TAKE 1 Meth domonique (CARAFATE) 11-02 TABLET(1 st 1 gram 00:00: 00:00 GRAM) BY Hospit a tablet 00 :00 MOUTH FOUR l TIMES DAILY fluconazole 2021- 339mg QD Take 33.9 Methodi (Diflucan) 11-01-28 mL ([address] 10 mg/mL 00:00: 00:00 total) by Hos aris suspension 00 :00 mouth l daily for 7 days. sucralfate No 1g Q.25D Take 1 Met hodi (Carafate) 20 11-02 tablet (1 st 1 gram 00:00: 00:00 g total) Hospit a tablet 00 :00 by mouth 4 l (four) times a day for 30 days. HYDROcodone No 15mL Q6H Take 15 mL Methodi -acetaminop 4-[address] hen (HYCET) 00:00: 04:59 every 6 Ho spita 2.5-108.3 00 :00 (six) l mg/5 mL hours as solution needed for severe pain for up to 3 days .acute pain. Max Daily Amount: 60 mL HYDROcodone 15mL Q6H Take 15 mL Methodi -acetaminop 4-[address] hen (HYCET) 00:00: 00:00 every 6 Ho spita 2.5-108.3 00 :00 (six) l mg/5 mL hours as solution needed for severe pain for up to 3 days .acute pain. Max Daily Amount: 60 mL acetaminoph No 2{tbl} Take 2 M ethodi en (TYLENOL 16 -15 tablets by s t ARTHRITIS 10:59: 00:00 mouth as Hos aris ORAL) 04 :00 needed. l diphenhydra 2021- No 1{tbl} Take 1 M ethodi mine HCl -16 -[address] (BENADRYL 10:59: 00:00 mouth as Hos aris ALLERGY 04 :00 needed. l ORAL) multivitami 2021- No 1{tbl} QD Take 1 M ethodi n tablet 10-27-[address] 10:59: 00:00 mouth Hospita 25 :00 daily. l calcium 2021- No 1{tbl} QD Take 1 Metho di citrate-vit -15 -[address] vasquez D3 500 10:59: 00:00 mouth Hosp [...] hours or as directed by physician. HYDROcodone [id number] 15mL Q6H Take 15 mL Methodi -acetaminop 10-26-[address] hen (HYCET) 00:00: 00:00 every 6 Ho spita 2.5-108.3 00 :00 (six) l mg/5 mL hours as solution needed for moderate pain for up to 3 days .acute pain. Max Daily Amount: 60 mL HYDROcodone [id number] 15mL Q6H Take 15 mL Methodi -acetaminop 4-14 -[address] hen (HYCET) 00:00: 04:59 every 6 Ho spita 2.5-108.3 00 :00 (six) l mg/5 mL hours as solution needed for moderate pain for up to 3 days .acute pain. Max Daily Amount: 60 mL ursodioL [id number] 300mg Q.5D Take 1 Methodi (ActigalL) 10-18 08-[address] 300 mg 00:00: 00:00 (300 mg Hospita capsule 00 :00 total) by l mouth 2 (two) times a day for 180 days. ondansetron 2021-0 2021- No [id number] 4mg Q8H Take 1 Methodi ODT 10-18 08-10 tablet (4 st (ZOFRAN-ODT 00:00: 00:00 mg total) Hospita ) 4 MG 00 :00 by mouth l disintegrat every 8 ing tablet (eight) hours as needed for nausea or vomiting. ursodioL 2021-0 2021- No [id number] 300mg Q.5D Take 1 Methodi (ActigalL) 10-18-[address] 300 mg 00:00: 00:00 (300 mg Hospita capsule 00 :00 total) by l mouth 2 (two) times a day for 180 days. ondansetron 2021-2021- No [id number] 4mg Q8H Take 1 Methodi ODT 10-18-10 tablet (4 st (ZOFRAN-ODT 00:00: 00:00 mg total) Hospita ) 4 MG 00 :00 by mouth l disintegrat every 8 ing tablet (eight) hours as needed for nausea or vomiting. ursodioL 2021-2021- No [id number] 300mg Q.5D Take 1 Methodi (ActigalL) 10-18-[address] 300 mg 00:00: 00:00 (300 mg Hospita capsule 00 :00 total) by l mouth 2 (two) times a day for 180 days. ondansetron 2021-0 2- No [id number] 4mg Q8H Take 1 Methodi ODT 10-18-10 tablet (4 st (ZOFRAN-ODT 00:00: 00:00 mg total) Hospita ) 4 MG 00 :00 by mouth l disintegrat every 8 ing tablet (eight) hours as needed for nausea or vomiting. gabapentin 2021-0 2- No 300mg Q.[id number] Take 1 Methodi (NEURONTIN) 10-[id number] 300 mg 00:00: 00:00 3D (300 mg Hospita capsule 00 :00 total) by l mouth 3 (three) times a day. gabapentin 2021-0 2- No 300mg Q.[id number] Take 1 Methodi (NEURONTIN) 10-[id number] 300 mg 00:00: 00:00 3D (300 mg Hospita capsule 00 :00 total) by l mouth 3 (three) times a day. gabapentin 2021- No 300mg Q.[id number] Take 1 Methodi (NEURONTIN) 10-[id number] 300 mg 00:00: 00:00 3D (300 mg Hospita capsule 00 :00 total) by l mouth 3 (three) times a day. methocarbam 2021- No 500mg Q.25D Take 1 M ethodi oL 10-[address] (Robaxin) 00:00: 04:59 (500 mg Hosp kevon 500 MG 00 :00 total) by l tablet mouth 4 (four) times a day for 30 days. promethazin 2021- No [id number] 25mg Q6H Take 1 Methodi e 10-18 tablet (25 st (PHENERGAN) 00:00: 00:00 mg total) Hospita 25 MG 00 :00 by mouth l tablet every 6 (six) hours as needed for nausea or vomiting for up to 30 days. omeprazole [id number] 40mg QD Take 1 Methodi (PriLOSEC) 10-[address] 40 MG 00:00: 00:00 (40 mg Hospita capsule 00 :00 total) by l mouth daily for 30 days. Take one (1) capsule the night before surgery. Continue daily for (6) six months enoxaparin 2021- No [id number] 40mg QD Inject 0.4 Methodi (Lovenox) 10-18-21 mL ([address] 40 mg/0.4 00:00: 04:59 total) Hospi ta mL syringe 00 :00 under the l skin daily for 14 days .deep vein thrombosis prevention in abdominal surgery. Please start at home after surgery traMADoL 2021- No [id number] 50mg Q6H Take 1 Metho di (Ultram) 50 10-18-10 tablet (50 s t mg tablet 00:00: 04:59 mg total) Ho spita 00 :00 by mouth l every 6 (six) hours as needed for moderate pain for up to 3 days .acute pain. acyclovir 2021- No 400mg Q.[id number] Take 1 Methodi (ZOVIRAX) 09-08 03-03 [id number] tablet s t 400 MG 00:00: 05:59 3D (400 mg Hospita tablet 00 :00 total) by l mouth 3 (three) times a day for 5 days. amoxicillin 2021- No 500mg Take 500 Methodi (AMOXIL) 09-06 04-[address] 500 MG 00:00: 00:00 mouth. Hospita capsule 00 :00 Ordered by l cardiologi , to take 1 hour prior to surgery valACYclovi 2021- No 1000mg QD Take 2 M ethodi r (Valtrex) 09-[address] 500 MG 00:00: 00:00 (1,000 mg Hospi ta tablet 00 :00 total) by l mouth daily for 5 days. ketorolac 2021- No [id number] 30mg Univ ers (TORADOL) 08-27 ity of injection 02:15: 01:12 [place] 30 mg 00 :00 Medical Branch ketorolac 2021- No [id number] 30mg 30 mg, Un hannah (TORADOL) 08-27 [...] [id number] 1{tbl} Take 1 U nivers en-codeine 08-26 tablet by ity of (TYLENOL-CO 00:00: 05:59 [place] DEINE #3) 00 :00 every 4 Medical 300-30 mg (four) Branch tablet hours as needed for Pain (scale 7-10) for up to 7 days. Indication s: acute pain nebivoloL 5 2022-0 Yes Univer s mg tablet 2-10 ity of 00:00: [place] [address] Medical Branch nebivoloL 2021-0 2- No 5mg QD Take 5 mg Me thodi (BYSTOLIC) 08-24-[address] 5 MG tablet 00:00: 00:00 daily. In Hospita 00 :00 the l morning nebivoloL 2021-0 2022- No 5mg QD Take 5 mg Me thodi (BYSTOLIC) 2- by mouth st 5 MG tablet 00:00: 00:00 daily. In Hospita 00 :00 the l morning nebivoloL 2021-0 2022- No 5mg QD Take 5 mg Me thodi (BYSTOLIC) 2-[address] 5 MG tablet 00:00: 00:00 daily. In Hospita 00 :00 the l morning nebivoloL 5 2021-0 2021- No Unive rs mg tablet 08-24 ity of 00:00: 00:00 [place] 00 :00 [facility] Branch nebivoloL 2021-0 Yes 5mg QD Take 5 mg Met hodi (BYSTOLIC) 08-[address] 2.5 MG 00:00: nightly. Hospita tablet 00 l nebivoloL 2021-0 2022- No 5mg QD Take 5 mg Me thodi (BYSTOLIC) 08-23- by mouth st 2.5 MG 00:00: 00:00 nightly. Hospit a tablet 00 :00 l nebivoloL 2021-0 3- No 5mg QD Take 5 mg Me thodi (BYSTOLIC) 08-23- by mouth st 2.5 MG 00:00: 00:00 nightly. Hospit a tablet 00 :00 l albuterol 2021-0 Yes 2{puff} Take 2 Met hodi (PROAIR 1-[address] HFA) 90 00:00: mouth. Hospita mcg/actuati 00 l on inhaler albuterol 0 Yes 2{puff} Take 2 Met hodi (PROAIR 1-[address] HFA) 90 00:00: mouth. Hospita mcg/actuati 00 l on inhaler albuterol 0 Yes INHALE 2 Univ ers 90 1-24 PUFFS BY ity of mcg/actuati 00:00: MOUTH [place] on inhaler 00 EVERY 6 Medica l HOURS Branch albuterol Yes INHALE 2 Univ ers 90 [...] 08-25 by mouth ity of 00:00: daily. [place] [facility] atenoloL 25 2020-07- No 25mg Take 25 mg Univers mg tablet 08-25 by mouth ity o f 00:00: 00:00 daily. [place] 00 :00 [facility] pantoprazol 2020-07- No [id number] 40mg Q.5D Take 1 Methodi e 08-20-15 tablet (40 st (PROTONIX) 00:00: 00:00 mg [...] culty member approving Restricted medication : GARNER, UYE sodium 2020-07 Yes 5mL 5 mL, Univers chloride 07-26 Intravenou ity o f (NS) 05:20: s, PRN, [place] injection 5 07 Starting Medi jhon mL on [place] Branch 05/25/21 at 2320, Until Discontinu ed, Routine, IV line flushing famotidine 2020-07- No [id number] 40mg QD Take 1 Methodi (PEPCID) 40 [...] needed for muscle spasms. doxycycline 2019-07 Yes [id number] 100mg Take 1 Univers hyclate 100 08-11 [id number] capsule by ity of mg capsule 00:00: mouth [place] (two) Medical times Branch daily. naproxen 2019-07 Yes [id number] 500mg Take 1 Univers 500 mg 08-11 [id number] tablet by ity of tablet 00:00: mouth 2 [place] 00 (two) Medical times Branch daily with meals as needed for Pain (scale 4-6). doxycycline 2019-07 Yes [id number] 100mg Take 1 Univers hyclate 100 - [id number] capsule by ity of mg capsule 00:00: mouth 2 [place] 00 (two) Medical times Branch daily. naproxen 2019-07 Yes [id number] 500mg Take 1 Univers 500 mg - [id number] tablet by ity of tablet 00:00: mouth 2 [place] 00 (two) Medical times Branch daily with meals as needed for Pain (scale 4-6). doxycycline 2019-07 Yes [id number] 100mg Take 1 Univers hyclate 100 - [id number] capsule by ity of mg capsule 00:00: mouth 2 [place] 00 (two) Medical times Branch daily. naproxen 2019-07 Yes [id number] 500mg Take 1 Univers 500 mg - [id number] tablet by ity of tablet 00:00: mouth 2 [place] 00 (two) Medical times Branch daily with meals as needed for Pain (scale 4-6). doxycycline 2019-07- No [id number] 100mg Take 1 Univers hyclate 100 -09 01-09 [id number] capsule by ity of mg capsule 00:00: 00:00 mouth 2 [place] 00 :00 (two) Medical times Branch daily. naproxen 2019-07- No [id number] 500mg Take 1 Univers 500 mg -28 -09 [id number] tablet by ity o f tablet 00:00: [...] Chloride 0-05 1,000 l 0.154 10:00: ml/hr, [place] MEQ/ML 00 Infuse Injectable Over: 1 Solution [...] a 10-18 (Same as: l 03:22: Motrin) [place] "Do Not Crush" Take with food. Acetaminoph No Notes: Kendell rhett en 325 MG / 10-18 (Same as: l Hydrocodone 03:22: Portal Carol nn Bitartrate 00 325/5) Do 5 MG Oral not exceed Tablet 4gm/day of acetaminop hen. Acetaminoph No Notes: Do M emoria en 10-18 not exceed l 03:22: 4 gm/day. Tor (Same as: Tylenol) Bisacodyl No Notes: Memori a 10-18 (Same As: l 03:22: Dulcolax, [place] Correctol) (Do Not Crush) "Do Not Crush" zolpidem No Notes: Memoria 10-18 (Same As: l 03:22: Ambien) [place] Benzocaine No Notes: Memor ia 200 MG/ML 10-18 (Same As: l Topical 03:22: Dermoplast Herm kun [place] ) WASTE: [Dermoplast Aerosol - ] Return to Pharmacy FOR EXTERNAL USE ONLY lanolin No 1 appl, Memoria topical 10-18 Route: l 03:22: TOP, PRN, Tor Drug form: CRM, PRN Other -See Comment, Start date: 10/18/15 22:22:00, Duration: 30 day, Stop date: 11/17/15 22:21:00 Docusate No Notes: Memoria 10-18 (Same as: l 03:22: Colace) [place] (Do Not Crush) Oxytocin No Notes: Memoria 0.06 UNT/ML 10-18 (Same as: l Injectable 03:22: OXYTOCIN-D H ermann Solution 00 5LR) Lactated No 1,000 mL, Kendell rhett [place] IV 10-18 Rate: 100 l 1,000 mL 03:22: ml/hr, [place] 00 Infuse over: 10 hr, Route: IV, [...] ia 4-05 (Same as: l 17:00: Pepcid) [place] 00 Can be dilute in 5-10cc NS IVP: Slow IV push over at least 2 minutes. Misoprostol No Notes: Kendell rhett 4-05 (Same l 17:00: as:Cytotec [place] 00 ) Take with food Methylergon No Notes: Kendell rhett ovine 4-05 (Same l 17:00: as:Metherg [place] 00 ine) Carboprost No Notes: Memor ia 4-05 (Same As: l 17:00: Hemabate) [place] 00 Citric Acid No Notes: Kendell rhett / sodium 4-05 (Same As: l citrate 17:00: Bicitra) [place] n 00 Lidocaine No Notes: Memori a Hydrochlori 4-05 (Same as: l de 10 MG/ML 16:07: Xylocaine) Tor Injectable 00 Solution Ondansetron No Notes: Kendell rhett 4-05 (Same as: l 16:07: Zofran) [place] 00 MEDICATION WASTE Product Size: 4 mg Product Wasted: ___ mg Terbutaline No Notes: Kendell rhett 4-05 DO NOT l 16:07: USE IN Tor 00 CHROMIUM PLATER AREA (Same As: [place]) Butorphanol No Notes: Kendell rhett 4-05 (Same As: l 16:07: Stadol) [place] 00 Calcium No 1,000 mL, Memor ia Chloride -05 1,000 l 0.0014 16:07: ml/hr, [place] MEQ/ML / 00 Infuse Potassium Over: 1 [...] 11:06:00 Oxytocin No Notes: Memoria 0.06 UNT/ML -05 (Same as: l Injectable 16:07: OXYTOCIN-D H ermann Solution 00 5LR) Tums Yes 500 mg, Memoria 3-10 CHEW, TID, l 13:11: 0 [place] 00 Refill(s) PNV-Total Yes 1 cap, PO, Me moria oral 3-10 Daily, 0 l capsule 13:11: Refill(s) Carol nn 00 Nitrofurant Yes 100 mg = 1 Memoria oin 100 MG 3-10 cap, PO, l Oral 13:09: BID, # 14 Tor Capsule 00 cap, 0 [Macrobid] Refill(s) Immunizations Ordered Immunization Filled Immunization Date Status Commen ts Source Name Name measles/mumps/rubell 2015-10-20 Completed Kendell Lentz a virus vaccine 16:11:00 diphtheria/pertussis 2015-10-20 Completed Kendell Lentz , acel/tetanus adult 16:11:00 Tdap 2015-10-20 Completed [facility] MMR 2015-10-20 Completed [facility] Tdap 2015-10-20 Completed [facility] MMR 2015-10-20 Completed [facility] 00:[facility] Tdap 2015-10-20 Completed [facility] 00:00:00 [facility] MMR 2015-10-20 Completed [facility]:00 [facility] Vital Signs Vital Name Observation Time Observation Value Comments Source Systolic blood 2022-10-19 03:00:00 98 mm[Hg] Univer sity of pressure [place] [facility] Diastolic blood 2022-10-19 03:00:00 65 mm[Hg] Unive rsity of pressure [place] [facility] Heart rate 2022-10-19 03:00:00 61 /min [facility] [place] [facility] Respiratory rate 2022-10-19 03:00:00 14 /min Univ ersity [facility] [place] [facility] Oxygen saturation in 2022-10-19 03:00:00 96 /min University of Arterial blood by [place] [employer] Pulse oximetry Branch Body temperature 2022-10-19 00:42:00 36.78 Abby Univ ers[facility] [place] [facility] Body height 2022-10-19 00:42:00 160 cm [facility] [place] [facility] Body weight 2022-10-19 00:42:00 73.483 kg [facility] [place] [facility] BMI 2022-10-19 00:42:00 28.70 kg/m2 [facility] [place] [facility] Systolic blood 2022-08-15 17:16:00 99 mm[Hg] Univer sity of pressure [place] [facility] Diastolic blood 2022-08-15 17:16:00 65 mm[Hg] Unive rsity of pressure [place] [facility] Heart rate 2022-08-15 17:16:00 72 /min [facility] [place] [facility] Body temperature 2022-08-15 17:16:00 36.67 Abby Univ ers[facility] [place] [facility] Respiratory rate 2022-08-15 17:16:00 16 /min Univ ersity [facility] [place] [facility] Oxygen saturation in 2022-08-15 17:16:00 99 /min University of Arterial blood by [place] [employer] Pulse oximetry Branch Body height 2022-08-14 11:40:00 160 cm [facility] [place] [facility] Body weight 2022-08-14 11:40:00 73.71 kg [facility] [place] [facility] BMI 2022-08-14 11:40:00 28.79 kg/m2 [facility] [place] [facility] Systolic blood 2022-07-05 17:02:00 107 mm[Hg] Univer sity of pressure [place] [facility] Diastolic blood 2022-07-05 17:02:00 75 mm[Hg] Unive rsity of pressure [place] [facility] Heart rate 2022-07-05 17:02:00 83 /min [facility] [place] [facility] Body temperature 2022-07-05 17:02:00 36.67 Abby Univ [facility] [place] [facility] Respiratory rate 2022-07-05 17:02:00 18 /min Univ ers[facility] [place] [facility] Body height 2022-07-05 17:02:00 160 cm [facility] [place] [facility] Oxygen saturation in 2022-07-05 17:02:00 96 /min University of Arterial blood by [place] Pulse oximetry Branch Systolic blood 2021-12-22 00:40:00 127 mm[Hg] Univer sity of pressure [place] [facility] Diastolic blood 2021-12-22 00:40:00 85 mm[Hg] Unive rsity of pressure [place] [facility] Heart rate 2021-12-22 00:40:00 75 /min [facility] [place] [facility] Body temperature 2021-12-22 00:40:00 36.22 Abby [facility] [place] [facility] Respiratory rate 2021-12-22 00:40:00 17 /min [facility] ers[facility] [place] [facility] Body height 2021-12-22 00:40:00 160 cm [facility] [place] [facility] Body weight 2021-12-22 00:40:00 101.878 kg [facility] [place] [facility] BMI 2021-12-22 00:40:00 39.79 kg/m2 [facility] [place] [facility] Oxygen saturation in 2021-12-22 00:40:00 99 /min University of Arterial blood by [employer] jhon Pulse oximetry Branch Systolic blood 2021-08-27 00:50:00 100 mm[Hg] Univer sity of pressure [place] [facility] Diastolic blood 2021-08-27 00:50:00 68 mm[Hg] Unive rsity of pressure [place] [facility] Heart rate 2021-08-27 00:50:00 68 /min [facility] [place] [facility] Body temperature 2021-08-27 00:50:00 36.61 Abby [facility] ersity [facility] Respiratory rate 2021-08-27 00:50:00 18 /min Univ ersity [facility] Body height 2021-08-27 00:50:00 160 cm Universi ty [facility] Body weight 2021-08-27 00:50:00 117.436 kg Universi ty [facility] BMI 2021-08-27 00:50:00 45.86 kg/m2 Universi ty [facility] Oxygen saturation in 2021-08-27 00:50:00 98 /min University of Arterial blood by [facility] Pulse oximetry Branch Systolic blood 2021-05-26 09:00:00 115 mm[Hg] Univer sity of pressure [facility] Diastolic blood 2021-05-26 09:00:00 80 mm[Hg] Unive rsity of [facility] Heart rate 2021-05-26 09:00:00 77 /min Universi ty [facility] Body temperature 2021-05-26 09:00:00 36.56 Abby [facility] 2021-05-26 09:00:00 18 /min [facility] in 2021-05-26 09:00:00 98 /min University of Arterial blood by [facility] Pulse oximetry Branch Body height 2021-05-26 05:01:00 160 cm Universi ty [facility] Body weight 2021-05-26 05:01:00 110.224 kg Universi ty [facility] BMI 2021-05-26 05:01:00 43.05 kg/m2 [facility] Systolic blood 2022-11-16 14:26:00 106 mm[Hg] Method [facility] pressure Diastolic blood 2022-11-16 14:26:00 70 mm[Hg] [facility] pressure Heart rate 2022-11-16 14:26:00 60 /min [facility] Body height 2022-11-16 14:26:00 160 cm [facility] Body weight 2022-11-16 14:26:00 66.679 kg [facility] BMI 2022-11-16 14:26:00 26.04 kg/m2 [facility] Oxygen saturation in 2022-09-28 16:49:00 100 /min [facility] Arterial blood by Pulse oximetry Body temperature 2022-08-03 14:10:42 35.94 Abby [facility] Respiratory rate 2022-08-03 14:10:42 18 /min [facility] Systolic blood 2022-03-22 13:45:00 99 mm[Hg] [facility] pressure Diastolic blood 2022-03-22 13:45:00 74 mm[Hg] [facility] pressure Heart rate 2022-03-22 13:45:00 69 /min [facility] Body height 2022-03-22 13:45:00 160 cm [facility] Body weight 2022-03-22 13:45:00 87.998 kg [facility] BMI 2022-03-22 13:45:00 34.37 kg/m2 [facility] Respiratory rate 2022-03-09 20:00:00 19 /min [facility] Oxygen saturation in 2022-03-09 20:00:00 98 /min [facility] Arterial blood by Pulse oximetry Body temperature 2022-03-09 17:55:00 36.83 Abby [facility] Respitory Rate 2016-04-18 12:45:00 [facility] [place] Systolic (mm Hg) 2016-04-18 12:45:00 Kendell [facility] Diastolic (mm Hg) 2016-04-18 12:45:00 Mem orial [place] Temperature Oral (F) 2016-04-18 12:45:00 97.8 F [facility] Respitory Rate 2016-04-18 12:25:00 [facility] [place] Temperature Oral (F) 2016-04-18 11:34:00 97.7 F [facility] [place] Respitory Rate 2016-04-18 11:34:00 Mem[facility] Systolic (mm Hg) 2016-04-18 11:34:00 Kendell rial [place] Diastolic (mm Hg) 2016-04-18 11:34:00 Mem o[facility] [place] BMI Calculated 2016-04-18 09:31:00 [facility] [place] Height 2016-04-18 09:31:00 160.02 cm [facility] Weight 2016-04-18 09:31:00 [facility] Heart Rate 2016-04-18 09:31:00 [facility] Systolic (mm Hg) 2016-04-18 09:31:00 Kendell rial [place] Diastolic (mm Hg) 2016-04-18 09:31:00 Mem orial [facility] Temperature Oral (F) 2016-04-18 09:31:00 97.6 F [facility] [place] Respitory Rate 2015-10-20 12:53:00 [facility] [place] Heart Rate 2015-10-20 12:53:00 [facility] [place] Temperature Oral (F) 2015-10-20 12:53:00 98.0 F [facility] Systolic (mm Hg) 2015-10-20 12:53:00 Kendell [facility] Diastolic (mm Hg) 2015-10-20 12:53:00 Mem o[facility] Systolic (mm Hg) 2015-10-20 09:47:00 Kendell [facility] Diastolic (mm Hg) 2015-10-20 09:47:00 Mem orial [facility] Respitory Rate 2015-10-20 09:47:00 [facility] [place] Heart Rate 2015-10-20 09:47:00 [facility] Temperature Oral (F) 2015-10-20 09:47:00 97.4 F [facility] Respitory Rate 2015-10-20 04:00:00 [facility] [place] Systolic (mm Hg) 2015-10-20 04:00:00 Kendell [facility] Diastolic (mm Hg) 2015-10-20 04:00:00 Mem orial [place] Heart Rate 2015-10-20 04:00:00 [facility] [place] Temperature Oral (F) 2015-10-20 04:00:00 98.1 F [facility] Height 2015-10-18 15:47:00 160.02 cm [facility] BMI Calculated 2015-10-18 15:47:00 [facility] [place] Weight 2015-10-18 15:47:00 [facility] [place] Weight 2015-10-05 03:34:00 [facility] Height 2015-10-05 03:34:00 160.02 cm [facility] BMI Calculated 2015-10-05 03:34:00 Mem[facility] al [facility] Heart Rate 2015-10-05 03:34:00 [facility] [place] Respitory Rate 2015-10-05 03:34:00 Mem[facility] al [facility] Temperature Oral (F) 2015-10-05 03:34:00 97.7 F [facility] [place] Systolic (mm Hg) 2015-10-05 03:34:00 Kendell rial [place] Diastolic (mm Hg) 2015-10-05 03:34:00 Mem orial [place] Respitory Rate 2015-09-22 14:05:00 Memori al [facility] Systolic (mm Hg) 2015-09-22 14:05:00 Kendell rial [place] Diastolic (mm Hg) 2015-09-22 14:05:00 Mem orial [place] Systolic (mm Hg) 2015-09-22 13:35:00 Kendell rial [place] Diastolic (mm Hg) 2015-09-22 13:35:00 Mem orial [place] Weight 2015-09-22 12:44:00 [facility] Systolic (mm Hg) 2015-09-22 12:44:00 Kendell rial [facility] Diastolic (mm Hg) 2015-09-22 12:44:00 Mem orial [facility] Temperature Oral (F) 2015-09-22 12:44:00 97.8 F [facility] [place] Respitory Rate 2015-09-22 12:44:00 Mem[facility] Heart Rate 2015-09-22 12:44:00 [facility] BMI Calculated 2015-09-22 12:44:00 [facility] Height 2015-09-22 12:44:00 160.02 cm [facility] Procedures Procedure Date / Time Performing Clinician Source Performed US TRANSVAGINAL 2022-11-16 Gloria Daly [facility] 14:17:59 Earlene US OVARY TORSION 2022-10-19 Brooke Hawthorne of 04:07:[address] [facility] [address] ABDOMEN PELVIS W CONTRAST 2022-10-[address] [facility] versity of 01:46:13 [facility] LACTIC ACID WHOLE BLOOD 2022-10-19 Brooke Hawthornei ty of 01:02:00 [facility] LIPASE 2022-10-19 Brooke Hawthorne of 01:01:00 [facility] COMP. METABOLIC PANEL 2022-10-19 Brooke Hawthorne of ([id number]) 01:01:00 [facility] CBC WITH DIFF 2022-10-19 Brooke Hawthorne of 01:01:00 [facility] URINALYSIS 2022-10-19 Brooke Hawthorne of 01:01:00 [facility] POCT TEST 2022-10-19 Brooke Hawthorne o f 01:00:00 [facility] NOTICE OF PRIVACY PRACTICES 2022-10-19 Doctor Unassigned, N o University of 00:24:58 Name [facility] CONSENT/REFUSAL FOR 2022-10-19 Doctor Unassigned, No Univer sity of DIAGNOSIS AND TREATMENT 00:24:14 Name [facility] T3 2022-10-03 [facility] ospital 14:28:00 ZINC LEVEL, SERUM 2022-10-03 [facility] 14:28:00 VITAMIN B1 (THIAMINE) 2022-10-03 [facility] 14:28:00 FERRITIN LEVEL 2022-10-03 [facility] ospital 14:28:00 FOLATE LEVEL 2022-10-03 [facility] ospital 14:28:00 COPPER LEVEL, SERUM 2022-10-03 [facility] 14:28:00 VITAMIN D 25 HYDROXY LEVEL 2022-10-03 [facility] 14:28:00 VITAMIN B12 LEVEL 2022-10-03 [facility] 14:28:00 VITAMIN A LEVEL, PLASMA OR 2022-10-03 [facility] SERUM 14:28:00 CBC WITH PLATELET AND 2022-10-03 [facility] DIFFERENTIAL 14:28:00 PARATHYROID HORMONE 2022-10-03 [facility] 14:28:00 HEMOGLOBIN A1C 2022-10-03 [facility] ospital 14:28:00 THYROID STIMULATING HORMONE 2022-10-03 [facility] 14:28:00 T4, FREE 2022-10-03 [facility] ospital 14:28:00 TOTAL IRON BINDING CAPACITY 2022-10-03 [facility] 14:28:00 ALBUMIN LEVEL 2022-10-03 [facility] ospital 14:28:00 LIPID PANEL 2022-10-03 Bruna [facility] ospital 14:28:00 COMPREHENSIVE METABOLIC 2022-10-03 Best Mc[facility] PANEL 13:57:00 ESTIMATED GFR 2022-10-03 Bruna [facility] 13:57:00 SURESWAB(R), HSV TYPE 1/2 2022-09-27 [facility] DNA, REAL TIME PCR 15:17:00 Earlene PAP W/AGE BASED SCREENING 2022-09-27 [facility] PROTOCOLS 14:46:00 Earlene POCT GLUCOSE (AUTOMATED) 2022-08-15 Flavio Ernst [facility] ity of 18:18:00 [facility] MAGNESIUM 2022-08-15 nicolepao [facility] of 10:04:00 [facility] BASIC METABOLIC PANEL (NA, 2022-08-15 [facility] rsity of K, CL, CO2, GLUCOSE, BUN, 10:04:00 [facility] CREATININE, CA) Branch CBC WITH DIFF 2022-08-15 [facility] of 10:04:00 [facility] POCT GLUCOSE (AUTOMATED) 2022-08-15 [facility]io [facility] 06:07:00 [facility] URINE DRUG (IMMUNOASSAY) - 2022-08-14 [facility] rsity of COMPREHENSIVE DRUG SCREEN 22:47:00 [facility] VITAMIN B12, LEVEL 2022-08-14 [facility] of 22:46:00 [facility] LIPID PANEL ([id number])(TOTAL 2022-08-14 [facility] ersity of CHOLESTEROL, TRIGLYCERIDES, 22:45:00 [facility] HDL) Branch D-DIMER 2022-08-14 [facility] of 22:45:00 [facility] VITAMIN D, 25-OH 2022-08-14 [facility] of 22:45:00 [facility] POCT GLUCOSE (AUTOMATED) 2022-08-14 Flavio Ernst [facility] of 22:44:00 [facility] MR BRAIN WO CONTRAST 2022-08-14 Og Davison y of 20:13:35 [facility] POCT GLUCOSE (AUTOMATED) 2022-08-14 Flavio jennings [facility] ity of 18:06:00 [facility] XR KUB 2022-08-14 [facility] of 15:36:52 [facility] CORTISOL AM 2022-08-14 [facility] of 12:17:00 [facility] POCT GLUCOSE (AUTOMATED) 2022-08-14 Flavio Ernst [facility] ity of 11:58:[address] [facility] [address] HEAD WO CONTRAST 2022-08-14 Brooke Hawthorne [employer] o f 08:39:09 [facility] POCT TEST 2022-08-14 [facility] o f 06:14:00 [facility] URINALYSIS 2022-08-14 [facility] 06:11:00 [facility] URINE DRUG (IMMUNOASSAY) - 2022-08-14 [facility] of COMPREHENSIVE DRUG SCREEN 06:11:00 [facility] W/O REFLEX Branch TROPONIN I 2022-08-14 Brooke Hawthorne [employer] of 05:57:00 [facility] THYROID STIMULATING HORMONE 2022-08-14 [facility] ersity of 05:57:00 [facility] COMP. METABOLIC PANEL 2022-08-14 Brooke Hawthorne [employer] of ([id number]) 05:57:00 [facility] ETHANOL 2022-08-14 Brooke Hawthorne [employer] of 05:57:00 [facility] CBC WITH DIFF 2022-08-14 Brooke Hawthorne [employer] of 05:57:00 [facility] N-TERMINAL PRO-BNP 2022-08-14 [facility] of 05:57:00 [facility] HB ECG ROUTINE & RHYTHM 2022-08-14 Brooke Hawthorne [facility] ty of STRIP 05:41:21 [facility] COMPREHENSIVE METABOLIC 2022-08-08 Best [facility] Met [facility] PANEL 14:34:00 ESTIMATED GFR 2022-08-08 Bruna [facility] 14:34:00 EEG AWAKE/ASLEEP LESS THAN 2022-08-02 Gillani, Andrew [facility] 41 MIN 14:36:28 Sb TTE COMPLETE, WO CONTRAST, W 2022-08-02 [facility] AGITATED SALINE ([id number]) 12:30:00 Imarendenewe MRI LUMBAR SPINE WO CONTRAST 2022-08-02 [facility] 08:08:00 MRI THORACIC SPINE WO 2022-08-02 [facility] CONTRAST 07:38:00 MRI CERVICAL SPINE WO 2022-08-02 [facility] CONTRAST 07:28:00 TROPONIN T 2022-08-02 [facility] 05:59:00 URINE CULTURE 2022-08-02 Neema [facility] 02:59:00 COVID-19 QUALITATIVE RT-PCR 2022-08-02 [facility] 02:27:00 Ololade URINE DRUGS OF ABUSE SCREEN 2022-08-02 [facility] 02:27:00 Sb URINALYSIS SCREEN AND 2022-08-02 [facility], WITH REFLEX TO 02:27:00 Sb CULTURE TROPONIN T 2022-08-02 [facility]it [facility] 02:27:00 ECG 12-LEAD 2022-08-[address] [facility] 02:00:10 POC GLUCOSE 2022-08-[address] [facility] 01:58:00 CO CRITICAL CARE ILL/INJURED 2022-08-02 Wesly [facility] PATIENT INIT 30-74 MIN 01:46:01 Ololade ECG ED PRELIMINARY 2022-08-02 Wesly [facility]ital INTERPRETATION 01:46:01 Ololade MRI IAC W WO CONTRAST 2022-08-02 [facility] 01:01[facility] ANGIOGRAM NECK W WO 2022-08-01 Karen [facility] CONTRAST 21:33:53 Sb CBC WITH PLATELET AND 2022-08-01 [facility] DI[facility] 21:33:00 PARTIAL THROMBOPLASTIN TIME 2022-08-01 [facility] (PTT) 21:33:00 PROTHROMBIN TIME WITH INR 2022-08-[address] [facility] 21:33:00 COMPREHENSIVE METABOLIC 2022-08-01 [facility] PANEL 21:33:00 TROPONIN T 2022-08-01 [facility] 21:33:00 HCG QUALITATIVE, SERUM 2022-08-01 [facility] SCREEN 21:33:00 HEMOGLOBIN A1C 2022-08-01 Karen, [facility]osp ital 21:33:00 Sb LIPID PANEL 2022-08-01 Karen, [facility] ital 21:33:00 Sb HOMOCYSTINE, PLASMA 2022-08-01 Karen, [facility] 21:33:00 Sb FOLATE LEVEL 2022-08-01 Karen, [facility] ital 21:33:00 Sb VITAMIN B12 LEVEL 2022-08-01 Karen, [facility] 21:33:00 Sb THYROID STIMULATING HORMONE 2022-08-01 Karen, [facility] 21:33:00 Sb T4, FREE 2022-08-01 Karen, [facility] ital 21:33:00 Sb SEDIMENTATION RATE 2022-08-01 Karen, [facility] ospital 21:33:00 Sb C-REACTIVE PROTEIN 2022-08-01 Karen, [facility] ospital 21:33:00 Sb HIV 1/2 ANTIGEN/ANTIBODY, 2022-08-01 Karen, [facility] FOURTH GENERATION, WITH 21:33:00 Sb REFLEXES SYPHILIS TREPONEMA SCREEN 2022-08-01 [facility], [facility] WITH RPR CONFIRMATION 21:33:00 Sb (REVERSE ALGORITHM) ESTIMATED GFR 2022-08-[facility] 21[facility] CT ANGIOGRAM HEAD W WO 2022-08-01 Karen, [facility] CONTRAST 21:30:[address] STROKE BRAIN WO CONTRAST 2022-08-01 Red, Mudassir [facility] 21:23:12 POCT MOLECULAR FLU 2022-07-05 Unknown, Attending University of 17:12:[address] [facility] [address] ANGIOGRAM CHEST ABDOMEN 2022-03-15 [facility] PELVIS W AND OR WITHOUT 16:17:00 CONTRAST SURGICAL PATHOLOGY REQUEST 2022-03-09 [facility] 17:42:00 Earlene CO AN ELECTIVE SUPRAGLOTTIC 2022-03-09 Mackenzie Ramirez [facility] AIRWAY 17:22:00 Kathrine LEEP CONIZATION, CERVIX 2022-03-09 [facility] 17:17:00 Earlene HCG QUALITATIVE, URINE 2022-03-09 [facility] SCREEN 15:51:00 Earlene HEMOGLOBIN A1C 2022-02-13 [facility] 13:55:00 Kyle PARTIAL THROMBOPLASTIN TIME 2022-02-13 [facility] 13:55:00 Kyle PROTHROMBIN TIME WITH INR 2022-02-13 [facility] 13:55:00 Kyle CBC WITH PLATELET AND 2022-02-13 [facility] DIFFERENTIAL 13:55:00 HCG QUALITATIVE, URINE 2022-02-13 Kassandra Gilman [facility] SCREEN 13:55:00 SMEAR REVIEW 2022-02-13 [facility] 13:55:00 FERRITIN LEVEL 2022-02-10 [facility] ospital 13:05:00 COMPREHENSIVE METABOLIC 2022-02-10 [facility] PANEL 13:05:00 LIPID PANEL 2022-02-10 [facility] ospital 13:05:00 HCG QUALITATIVE, SERUM 2022-02-10 [facility] SCREEN 13:05:00 TOTAL IRON BINDING CAPACITY 2022-02-10 [facility] 13:05:00 T4, FREE 2022-02-10 [facility] ospital 13:05:00 THYROID STIMULATING HORMONE 2022-02-10 [facility] 13:05:00 HEMOGLOBIN A1C 2022-02-10 [facility] ospital 13:05:00 PARATHYROID HORMONE 2022-02-10 [facility] 13:05:00 CBC WITH PLATELET AND 2022-02-10 [facility] DIFFERENTIAL 13:05:00 PROTHROMBIN TIME WITH INR 2022-02-10 [facility] 13:05:00 PARTIAL THROMBOPLASTIN TIME 2022-02-10 [facility] (PTT) 13:05:00 VITAMIN A LEVEL, PLASMA OR 2022-02-10 [facility] SERUM 13:05:00 VITAMIN B12 LEVEL 2022-02-10 [facility] 13:05:00 VITAMIN D 25 HYDROXY LEVEL 2022-02-10 [facility] 13:05:00 COPPER LEVEL, SERUM 2022-02-10 [facility] 13:05:00 FOLATE LEVEL 2022-02-10 [facility] ospital 13:05:00 VITAMIN B1 (THIAMINE) 2022-02-10 [facility] 13:05:00 ZINC LEVEL, SERUM 2022-02-10 [facility] 13:05:00 T3 2022-02-10 [facility] ospital 13:05:00 INSULIN, RANDOM 2022-02-10 [facility] ospital 13:05:00 C-REACTIVE PROTEIN 2022-02-10 [facility] 13:05:00 CORTISOL LEVEL, AM 2022-02-10 [facility] 13:01:00 THYROID STIMULATING HORMONE 2022-02-09 [facility] 14:28:00 T4, FREE 2022-02-[address] [facility] [address] [address] [facility] 14:28:00 ADRENOCORTICOTROPIC HORMONE 2022-02-[address] [facility] [address] [facility] 14:28:00 COMPREHENSIVE METABOLIC 2022-02-09 [facility] PANEL 14:28:00 BETA HYDROXYBUTYRATE 2022-02-09 [facility] 14:28:00 C-PEPTIDE 2022-02-[address] [facility] [address] [facility] 14:28:00 PROINSULIN LEVEL 2022-02-[address] [facility] [address] [facility] 14:28:00 INSULIN, RANDOM 2022-02-09 [facility] Radha Olsen [facility] 14:28:00 INSULIN-LIKE GROWTH FACTOR I 2022-02-09 [facility] LEVEL (IGF-1) 14:28:00 INSULIN-LIKE GROWTH FACTOR 2022-02-09 [facility] Radha Olsen [facility] II LEVEL (IGF-2) 14:28:00 HYPOGLYCEMIC PANEL, 2022-02-09 [facility] SERUM/PLASMA 14:28:00 IP CONSULT TO CARDIOLOGY 2022-01-19 Provider, Not In [facility] 00:00:00 System SURGICAL PATHOLOGY REQUEST 2022-01-18 [facility] 16:53:00 Earlene POC , URINE 2022-01-18 [facility] 16:49:00 Earlene POC , URINE 2021-12-15 [facility] 14:57:00 Earlene PAP W/AGE BASED SCREENING 2021-12-15 [facility] PLUS CT/NG 14:40:00 Earlene IP CONSULT TO CARDIOLOGY 2021-12-04 Provider, Not In [facility] 00:00:00 System FL UGI W OR WO KUB 2021-11-[address] [facility] 16:21:14 CBC HEMOGRAM 2021-11-09 [facility] 13:12:00 Mayers BASIC METABOLIC PANEL 2021-11-09 [facility] 13:12:00 Mayers MAGNESIUM LEVEL 2021-11-09 [facility] Hospit al 13:12:00 Mayers PHOSPHORUS LEVEL 2021-11-[address] [facility] 13:12:00 Mayers ESTIMATED GFR 2021-11-09 [facility] ospital 13:12:00 ECG ED PRELIMINARY 2021-11-09 Alexandre [facility] INTERPRETATION 04:21:46 CT ABDOMEN PELVIS W CONTRAST 2021-11-09 Josh Noble [facility] 03:16:55 ECG 12-LEAD 2021-11-09 [facility] gurdeep 01:12:02 Jeferson URINE CULTURE 2021-11-09 [facility] gurdeep 01:03:00 Jeferson URINALYSIS SCREEN AND 2021-11-09 [facility] MICROSCOPY, WITH REFLEX TO 01:03:00 Jeferson CULTURE HCG QUALITATIVE, URINE 2021-11-09 [facility] SCREEN 01:03:00 Jeferson LIPASE LEVEL 2021-11-08 [facility] spital 23:57:00 LACTIC ACID LEVEL 2021-11-08 [facility] 23:57:00 CBC WITH PLATELET AND 2021-11-08 [facility] DIFFERENTIAL 21:18:00 Jeferson COMPREHENSIVE METABOLIC 2021-11-08 [facility] PANEL 21:18:00 Jeferson ESTIMATED GFR 2021-11-08 [facility] gurdeep 21:18:00 Jeferson US DUPLEX VENOUS UPPER 2021-10-26 J Carlos Burr [facility] EXTREMITY LEFT 23:00:00 [place] URINE CULTURE 2021-10-26 [facility] Mc[facility] ospital 11:21:00 ZZCOVID-19 ANTI-SPIKE IGG 2021-10-26 Calixto Barajas [facility] ANTIBODY TITER 09:20:00 Ap URINALYSIS SCREEN AND 2021-10-26 Best Mcfarland [facility] MICROSCOPY, WITH REFLEX TO 09:20:00 CULTURE ZZCOVID-19 SEROLOGY PATIENT 2021-10-26 Calixto Barajas [facility] SURVEILLANCE 09:20:00 Ap CBC WITH PLATELET AND 2021-10-25 [facility] DIFFERENTIAL 09:23:00 BASIC METABOLIC PANEL 2021-10-25 [facility] 09:23:00 ESTIMATED GFR 2021-10-25 [place], [facility] ospital 09:23:00 CBC WITH PLATELET AND 2021-10-24 [facility] DIFFERENTIAL 19:42:00 BASIC METABOLIC PANEL 2021-10-24 [facility] 19:42:00 ESTIMATED GFR 2021-10-24 [facility] ospital 19:42:00 MANUAL DIFFERENTIAL 2021-10-24 [facility] 19:42:00 ANESTHESIA INTUBATION 2021-10-24 Alfie [facility] 16:35:00 GASTROENTEROSTOMY, 2021-10-24 [facility] SHANTA-EN-Y, LAPAROSCOPIC, 16:25:00 WITH INTRAOPERATIVE ENDOSCOPY HC NERVE BLOCK TAP BLOCK 2021-10-24 [facility] BILAT INJECTION 16:17:53 HC NERVE BLOCK QUADRATUS 2021-10-24 [facility] LUMBORUM 16:16:27 COVID-19 QUALITATIVE RT-PCR 2021-10-19 [facility] 19:46:00 URINALYSIS, AUTOMATED WITH 2021-10-04 [facility] MICROSCOPY 17:37:00 TYPE AND SCREEN 2021-10-04 [facility] ospital 17:23:00 HCG QUALITATIVE, SERUM 2021-10-04 [facility] SCREEN 17:23:00 C-REACTIVE PROTEIN 2021-10-04 [facility] 17:23:00 INSULIN, RANDOM 2021-10-04 [facility] ospital 17:23:00 T3 2021-10-04 [facility] ospital 17:23:00 ZINC LEVEL, SERUM 2021-10-04 [facility] 17:23:00 VITAMIN B1 LEVEL, WHOLE 2021-10-04 [facility] BLOOD 17:23:00 FOLATE LEVEL 2021-10-04 [facility] ospital 17:23:00 COPPER LEVEL, SERUM 2021-10-04 [facility] 17:23:00 VITAMIN D 25 HYDROXY LEVEL 2021-10-04 [facility] 17:23:00 VITAMIN B12 LEVEL 2021-10-04 [facility] 17:23:00 VITAMIN A LEVEL, PLASMA OR 2021-10-04 [facility] SERUM 17:23:00 PARTIAL THROMBOPLASTIN TIME 2021-10-04 [facility] (PTT) 17:23:00 PROTHROMBIN TIME WITH INR 2021-10-04 [facility] 17:23:00 CBC WITH PLATELET AND 2021-10-04 [facility] DIFFERENTIAL 17:23:00 PARATHYROID HORMONE 2021-10-04 [facility] 17:23:00 HEMOGLOBIN A1C 2021-10-04 [facility] ospital 17:23:00 THYROID STIMULATING HORMONE 2021-10-04 [facility] 17:23:00 T4, FREE 2021-10-04 [facility] ospital 17:23:00 TOTAL IRON BINDING CAPACITY 2021-10-04 [facility] 17:23:00 LIPID PANEL 2021-10-04 [facility] ospital 17:23:00 COMPREHENSIVE METABOLIC 2021-10-04 [facility] PANEL 17:23:00 FERRITIN LEVEL 2021-10-04 [facility] 17:23:00 ESTIMATED GFR 2021-10-04 [facility] 17:23:00 ECG PRE/POST OP 2021-10-04 [facility] 16:22:26 IP CONSULT TO CARDIOLOGY 2021-09-07 Provider, Historical [facility] 00:00:00 ASSIGNMENT OF BENEFITS 2021-08-27 Doctor Unassigned, No Uni versity of 00:39:30 Name [facility] CONSENT/REFUSAL FOR 2021-08-27 Doctor Unassigned, No Univer sity of DIAGNOSIS AND TREATMENT 00:39:19 Name [facility] MRI BRAIN WO CONTRAST 2021-08-25 [facility] 18:05:00 MRI CERVICAL SPINE WO 2021-08-25 [facility] CONTRAST 17:45:00 IP CONSULT TO CARDIOLOGY 2021-08-17 Provider, Historical [facility] 00:00:00 CT ABDOMEN PELVIS WO 2021-05-[facility] CONTRAST 06:11:00 [facility] LIPASE 2021-05-26 [facility] of 05:38:00 [facility] COMP. METABOLIC PANEL 2021-05-26 [facility] ([id number]) 05:38:00 [facility] CBC WITH DIFF 2021-05-26 [facility] 05:38:00 [facility] URINALYSIS 2021-05-26 [facility] 05:38:00 [facility] POCT TEST 2021-05-26 [facility] o f 05:38:00 [facility] CONSENT/REFUSAL FOR 2021-05-26 Doctor Unassigned, No Univer sity of DIAGNOSIS AND TREATMENT 04:45:09 Name [facility] Adenoidectomy 2003-07-15 [facility] 00:00:00 Ankle joint operations 2003-07-15 [facility] 00:00:00 Tonsillectomy 2003-07-15 [facility] 00:00:00 Eustachian tuboplasty 2001-07-15 [facility] 00:00:00 Plan of Care Planned Activity Planned Date Details Comments Source Future Scheduled 2023-01-11 [facility] 14:40:34 VACCINES (1 of 3 - 3-dose series) [code = HEPATITIS B VACCINES (1 of 3 - 3-dose series)] Future Scheduled 2023-01-11 COVID-19 VACCINE [facility] Test 14:40:34 (#1) [code = COVID-19 VACCINE (#1)] Future Scheduled 2023-01-11 [facility] 14:40:34 [code = INFLUENZA VACCINE] Future Scheduled 2023-01-11 [facility] 14:40:34 malignant neoplasm of cervix (procedure) [code = 720168430] Future Scheduled 2022-12-28 [facility] 19:47:06 VACCINES (1 of 3 - 3-dose series) [code = HEPATITIS B VACCINES (1 of 3 - 3-dose series)] Future Scheduled 2022-12-28 COVID-19 VACCINE [facility] Test 19:47:06 (#1) [code = COVID-19 VACCINE (#1)] Future Scheduled 2022-12-28 [facility] 19:47:06 [code = INFLUENZA VACCINE] Future Scheduled 2022-12-28 [facility] Test 19:47:06 malignant neoplasm of cervix (procedure) [code = 982869363] Future Scheduled 2022-07-29 [facility] 16:17:57 VACCINES (1 of 3 - 3-dose series) [code = HEPATITIS B VACCINES (1 of 3 - 3-dose series)] Future Scheduled 2022-07-29 COVID-19 VACCINE [facility] Test 16:17:57 (#1) [code = COVID-19 VACCINE (#1)] Future Scheduled 2022-07-29 INFLUENZA VACCINE [facility] 16:17:57 [code = INFLUENZA VACCINE] Future Scheduled 2022-07-29 [facility] Test 16:17:57 malignant neoplasm of cervix (procedure) [code = 579433748] Encounters Start End Encounter Admission Attending Care Care Encounter Source Date/Time Date/Time Type Type Clinicians Facility Department ID 2021-08-10 Outpatient 3 [id number] [facility] REF [id number] [facility] 12:01:52 0428 [facility] 2021-08-10 Outpatient 3 [id number] ENCPL REF [id number] [facility] 12:01:37 0427 [facility] 2019-09-27 Inpatient HCACL CORNELL [id number] [facility] 16:02:00 60 [facility] 2022-11-21 2022-11-21 Refill Mcfarland, 1.2.840.1 [id number] 8160 Methodi 00:00:00 00:00:[address] Josh 3.430.2.7 Hospit a .3.452994 l .8 2022-11-21 2022-11-21 Refill Mcfarland, 1.2.840.1 [id number] 352712 2878 Methodi 00:00:00 00:00:[address] Josh 3.430.2.7 Hospit a .3.837098 l .8 2022-11-16 2022-11-16 Office Langsjoen, 1.2.840.1 [id number] 067 [id number] Methodi 09:45:00 10:09:09 Visit Gloria 79189.1.[address] Earlene 3.430.2.7 Hospit a .3.076622 l .8 2022-11-16 2022-11-16 Office Langsjoen, 1.2.840.1 [id number] 385 [id number] Methodi 09:45:00 10:09:09 Visit Gloria 73851.1.[address] Earlene 3.430.2.7 Hospit a .3.118532 l .8 2022-11-16 2022-11-16 Ancillary Langsjoen, 1.2.840.1 [id number] 2 [id number] Methodi 09:00:00 09:31:35 Procedure Gloria 83329.1.[address] Earlene 3.430.2.7 Hospit a .3.440044 l .8 2022-11-16 2022-11-16 Ancillary Mikeysefraín, 1.2.840.1 [id number] 2 [id number] Methodi 09:00:00 09:31:35 Procedure Gloria 64256.1.[address] Earlene 3.430.2.7 Hospit a .3.217632 l .8 2022-11-16 2022-11-16 Anna Bazan, 1.2.840.1 Methodi 00:00:00 00:00:00 Only [place] [address]16.1.[address] 3.430.2.7 Hospit a .3.755448 l .8 2022-11-16 2022-11-16 Travel 1.2.840.1 1.2.746.075 7903 549049 Methodi 00:00:00 00:00:[address] 3.430.2.7 0.2.7.3.698 Ho spita .3.443386 084.8 l .8 2022-11-16 2022-11-16 Anna Bazan 1.2.840.1 Methodi 00:00:00 00:00:00 Only [place] [address]36.1.[address] 3.430.2.7 Hospit a .3.826649 l .8 2022-11-16 2022-11-16 Travel 1.2.840.1 1.2.188.418 1283 856343 Methodi 00:00:00 00:00:[address] 3.430.2.7 0.2.7.3.698 Ho spita .3.981467 084.8 l .8 2022-10-29 2022-10-29 Anna Newton 1.2.840.1 [id number] 199457 7614 Methodi 00:00:00 00:00:00 Only Rodquel 56720.1.[address] 3.430.2.7 Hospit a .3.522102 l .8 2022-10-29 2022-10-29 Anna Newton 1.2.840.1 [id number] 5723 Methodi 00:00:00 00:00:00 Only Rodquel 40588.1.[address] 3.430.2.7 Hospit a .3.044217 l .8 2022-10-18 2022-10-18 Emergency [facility] [id number] Univers 19:30:00 23:59:00 BROOKE neshanae of [facility] 2022-10-18 2022-10-18 Emergency [facility] 1.2.730.128 6348 20932 Univers 19:30:00 23:59:00 Brooke WICKETT 350.1.13.10 i ty [facility] 4.2.7.2.686 [facility] [phone] [place] [address] [place] 2022-10-18 2022-10-18 Refill Arita, 1.2.840.7 [id number] 82929 52411 Methodi 00:00:00 00:00:[address] Lee 3.430.2.7 Hospit a .3.986772 l .8 2022-10-18 2022-10-18 Refill Arita, 1.2.840.5 [id number] 75162 27359 Methodi 00:00:00 00:00:[address] Lee 3.430.2.7 Hospit a .3.534428 l .8 2022-10-16 2022-10-16 Orders Arita, 1.2.840.4 [id number] 56508 20726 Methodi 00:00:00 00:00:00 Only Pentecostal 34065.1.[address] Lee 3.430.2.7 Hospit a .3.879431 l .8 2022-10-16 2022-10-16 Orders Arita, 1.2.840.9 [id number] 93826 61324 Methodi 00:00:00 00:00:00 Only Pentecostal 05999.1.[address] Lee 3.430.2.7 Hospit a .3.093033 l .8 2022-10-04 2022-10-04 Telephone Newton, 1.2.840.1 [id number] 2100 569895 Methodi 00:00:00 00:00:[address] 3.430.2.7 Hospit a .3.444594 l .8 2022-10-04 2022-10-04 Telephone Newton, 1.2.840.1 704265430 2100 029074 Methodi 00:00:00 00:00:[address] 3.430.2.7 Hospit a .3.777851 l .8 2022-10-03 2022-10-03 Lab Mcfarland, 1.2.840.1 [id number] 693674 7047 Methodi 09:00:00 09:05:[address] Josh 3.430.2.7 Hospit a .3.837899 l .8 2022-10-03 2022-10-03 Lab Mcfarland, 1.2.840.1 127622953 619328 5692 Methodi 09:00:00 09:05:[address] Josh 3.430.2.7 Hospit a .3.766719 l .8 2022-10-03 2022-10-03 Telephone Sergio, 1.2.840.1 [id number] 2099 963592 Methodi 00:00:00 00:00:[address] 3.430.2.7 Hospit a .3.623471 l .8 2022-10-03 2022-10-03 Orders Lewis, 1.2.840.4 [id number] 58933 23616 Methodi 00:00:00 00:00:00 Only Josh 57589.1.[address] 3.430.2.7 Hospit a .3.872370 l .8 2022-10-03 2022-10-03 Telephone Sergio, 1.2.840.1 040120427 2099 288663 Methodi 00:00:00 00:00:[address] 3.430.2.7 Hospit a .3.709184 l .8 2022-10-03 2022-10-03 Orders Lewis, 1.2.840.4 1793607866 35154 Methodi 00:00:00 00:00:00 Only Josh 01740.1.[address] 3.430.2.7 Hospit a .3.749681 l .8 2022-09-28 2022-09-28 Office Mcfarland, 1.2.840.1 613391883 333344 4502 Methodi 11:45:00 14:26:56 Visit Best 42587.1.[address] Josh 3.430.2.7 Hospit a .3.264457 l .8 2022-09-28 2022-09-28 Office Mcfarland, 1.2.840.1 [id number] 906450 2463 Methodi 11:45:00 14:26:56 Visit Best 41207.1.[address] Josh 3.430.2.7 Hospit a .3.215630 l .8 2022-09-27 2022-09-27 Office [facility], 1.2.840.1 [id number] 328 5870450 Methodi 09:00:00 11:44:49 Visit Gloria 76258.1.[address] Earlene 3.430.2.7 Hospit a .3.879542 l .8 2022-09-27 2022-09-27 Office [facility], 1.2.840.1 096932167 768 7474977 Methodi 09:00:00 11:44:49 Visit Gloria 16305.1.[address] Earlene 3.430.2.7 Hospit a .3.776728 l .8 2022-09-27 2022-09-27 Travel 1.2.840.1 1.2.271.573 4351 867640 Methodi 00:00:00 00:00:[address] 3.430.2.7 0.2.7.3.698 Ho spita .3.670182 084.8 l .8 2022-09-27 2022-09-27 Travel 1.2.840.1 1.2.383.327 5827 129457 Methodi 00:00:00 00:00:[address] 3.430.2.7 0.2.7.3.698 Ho spita .3.641528 084.8 l .8 2022-08-31 2022-08-31 Orders Saint 1.2.840.1 [id number] 752530 4679 Methodi 00:00:00 00:00:00 Only Gaurav 43577.1.[address] Radha B. 3.430.2.7 Hospi ta .3.611157 l .8 2022-08-31 2022-08-31 Orders Saint 1.2.840.1 [id number] 481057 2277 Methodi 00:00:00 00:00:00 Only Gaurav 92875.1.[address] Radha B. 3.430.2.7 Hospi ta .3.352719 l .8 2022-08-13 2022-08-15 Outpatient X [facility]RISTIE [facility] [id number] Univers 23:33:00 15:25:00 FLAVIO grijalva [facility] 2022-08-13 2022-08-15 Emergency Brooke Hawthorne [facility] 1.2.840. 114 [id number] Univers 23:33:00 15:25:00 Flavio Ernst 350.1.13.10 [facility] [place] TanyaBelinda 4.2.7.2.686 [facility] [phone] [address] 2022-08-08 2022-08-08 Lab Bruna, 1.2.840.1 [id number] 365998 7763 Methodi 08:35:00 08:40:[address] Josh 3.430.2.7 Hospit a .3.015342 l .8 2022-08-08 2022-08-08 Lab Bruna, 1.2.840.1 360001322 425300 8139 Methodi 08:35:00 08:40:[address] Josh 3.430.2.7 Hospit a .3.381662 l .8 2022-08-08 2022-08-08 Transcribe Mcfarland, 1.2.840.1 354680081 391 3301922 Methodi 00:00:00 00:00:00 Orders Best 69567.1.[address] Josh 3.430.2.7 Hospit a .3.280185 l .8 2022-08-08 2022-08-08 Transcribe Mcfarland, 1.2.840.1 493105088 555 2513030 Methodi 00:00:00 00:00:00 Orders Best 88636.1.[address] Josh 3.430.2.7 Hospit a .3.766500 l .8 2022-08-06 2022-08-06 Telemedici Mcfarland, 1.2.840.0 [id number] 21 [id number] Methodi 11:30:00 11:46:45 ne Best 66261.1.[address] Josh 3.430.2.7 Hospit a .3.446673 l .8 2022-08-06 2022-08-06 Telemedici Mcfarland, 1.2.840.8 [id number] 21 [id number] Methodi 11:30:00 11:46:45 ne Best 01564.1.[address] Josh 3.430.2.7 Hospit a .3.494789 l .8 2022-08-06 2022-08-06 Orders Beni, 1.2.840.1 371385829 29193 Methodi 00:00:00 00:00:00 Only [place] [address]251.1.[address] 3.430.2.7 Hospit a .3.175121 l .8 2022-08-06 2022-08-06 Orders Beni, 1.2.840.1 336348718 44972 Methodi 00:00:00 00:00:00 Only [place] [address]953.1.[address] 3.430.2.7 Hospit a .3.251797 l .8 2022-08-01 2022-08-03 Emergency Ronen Red 1.2.840.1 8164558 63 [id number] Methodi 14:58:00 12:49:00 Andi Moses 90361.1.[address] Posani, Erica 3.430.2.7 Hospita .3.073188 l .8 2022-08-01 2022-08-03 Emergency Ronen Red 1.2.840.1 5399305 63 [id number] Methodi 14:58:00 12:49:00 Andi Moses [address]990.1.[address] Posani, Erica 3.430.2.7 Hospita .3.817128 l .8 2022-08-03 2022-08-03 Telephone Lewis, 1.2.840.9 [id number] 085 2314588 Methodi 00:00:00 00:00:[address] 3.430.2.7 Hospit a .3.616049 l .8 2022-08-03 2022-08-03 Telephone Lewis, 1.2.840.8 6700312508 934 0663825 Methodi 00:00:00 00:00:[address] 3.430.2.7 Hospit a .3.846144 l .8 2022-08-01 2022-08-01 Office Landry Mann 1.2.840.1 [id number] 21 [id number] Methodi 13:00:00 14:14:12 Visit Ritika 69769.1.[address] 3.430.2.7 Hospit a .3.849749 l .8 2022-08-01 2022-08-01 Office Landry Mann 1.2.840.1 366884430 20174704 Methodi 13:00:00 14:14:12 Visit Ritika 79886.1.[address] 3.430.2.7 Hospit a .3.023028 l .8 2022-08-01 2022-08-01 Travel 1.2.840.1 1.2.032.090 6685 997789 Methodi 00:00:00 00:00:[address] 3.430.2.7 0.2.7.3.698 Ho spita .3.553901 084.8 l .8 2022-08-01 2022-08-01 Transcribe Sellin, 1.2.840.1 634468528 390 2813821 Methodi 00:00:00 00:00:00 Orders Tim 25199.1.[address] Jared 3.430.2.7 Hospi ta .3.664093 l .8 2022-08-01 2022-08-01 Travel 1.2.840.1 1.2.322.544 6273 776442 Methodi 00:00:00 00:00:[address] 3.430.2.7 0.2.7.3.698 Ho spita .3.169703 084.8 l .8 2022-08-01 2022-08-01 Transcribe Sellin, 1.2.840.1 462348961 433 4273120 Methodi 00:00:00 00:00:00 Orders Tim 50531.1.[address] Jared 3.430.2.7 Hospi ta .3.515096 l .8 2022-07-29 2022-07-29 Emergency EM Kota Salmon [facility] [id number] [facility] 15:27:00 18:34:00 78 [facility] 2022-07-05 2022-07-05 Outpatient R [facility] [id number] Univers 10:00:00 11:24:58 JOSHUA grijalva [facility] 2022-07-05 2022-07-05 Urgent Joshua Jasmine [facility] 1.2.840.114 [id number] Univers 10:00:00 11:24:58 Care Unknown, Attending HEALTH 350.1.13.10 ity of [place] 4.2.7.2.686 Tommie as OSWALDO?BLEA [phone] [address] MEDICAL OFFICE BUILDING 2022-07-05 2022-07-05 Letter Joshua Jasmine [facility] 1.2.840.114 99 [id number] Univers 00:00:00 00:00:00 (Out) HEALTH 350.1.13.10 it y [facility] 4.2.7.2.686 Tommie as OSWALDO?BLEA [phone] [facility] [address] MEDICAL OFFICE BUILDING 2022-07-04 2022-07-04 Outpatient Guadalupe MARTINEZ [facility] [id number] Univers 14:00:00 14:00:00 SAM rudi [facility] 2022-04-02 2022-04-02 Orders Dolphus, 1.2.840.1 [id number] 06084 29571 Methodi 00:00:00 00:00:00 Only Raquel 68036.1.[address] 3.430.2.7 Hospit a .3.761546 l .8 2022-04-02 2022-04-02 Orders Dolphus, 1.2.840.1 [id number] 53435 Methodi 00:00:00 00:00:00 Only Raquel 52658.1.[address] 3.430.2.7 Hospit a .3.536417 l .8 2022-03-22 2022-03-22 Office Gloria Daly 1.2.840.1 [id number] Methodi 08:45:00 10:20:24 Visit Tamra Recio 09995.1.[address] 3.430.2.7 Hospit a .3.913442 l .8 2022-03-22 2022-03-22 Office Gloria Daly 1.2.840.1 [id number] Methodi 08:45:00 10:20:24 Visit Tamra Recio 97387.1.[address] 3.430.2.7 Hospit a .3.242199 l .8 2022-03-22 2022-03-22 Travel 1.2.840.1 1.2.937.076 8046 499770 Methodi 00:00:00 00:00:[address] 3.430.2.7 0.2.7.3.698 Ho spita .3.360240 084.8 l .8 2022-03-22 2022-03-22 Travel 1.2.840.1 1.2.918.294 6086 880590 Methodi 00:00:00 00:00:[address] 3.430.2.7 0.2.7.3.698 Ho spita .3.646543 084.8 l .8 2022-03-15 2022-03-15 [facility] BRUNA, [facility] [id number] [address] [place] 00:00:00 00:00:[address] BEST [address] 2022-03-14 2022-03-14 [facility], 1.2.840.1 [id number] 212 [id number] Methodi 00:00:00 00:00:00 Only Gloria 92258.1.[address] Earlene 3.430.2.7 Hospit a .3.457825 l .8 2022-03-14 2022-03-14 [facility], 1.2.840.1 [id number] 024 7959063 Methodi 00:00:00 00:00:00 Only Gloria 24206.1.[address] Earlene 3.430.2.7 Hospit a .3.191364 l .8 2022-03-12 2022-03-12 Telemedici [place], 1.2.840.0 [id number] 21 [id number] Methodi 08:30:00 08:47:45 ne Best 26873.1.[address] Josh 3.430.2.7 Hospit a .3.098528 l .8 2022-03-12 2022-03-12 Telemedici [place], 1.2.840.9 [id number] 21 [id number] Methodi 08:30:00 08:47:45 ne Best 89569.1.[address] Josh 3.430.2.7 Hospit a .3.756277 l .8 2022-03-09 2022-03-09 [facility], 1.2.840.1 [id number] 21 [id number] Methodi 10:37:00 15:28:00 Encounter Gloria 60696.1.[address] Earlene 3.430.2.7 Hospit a .3.329317 l .8 2022-03-09 2022-03-09 [facility], 1.2.840.1 [id number] 21 [id number] Methodi 10:37:00 15:28:00 Encounter Gloria 45488.1.[address] Earlene 3.430.2.7 Hospit a .3.703723 l .8 2022-03-09 2022-03-09 Surgery [facility], 1.2.840.1 [id number] 373 [id number] Methodi 12:15:00 13:26:[address] [place]ene 3.430.2.7 Hospit a .3.919087 l .8 2022-03-09 2022-03-09 [facility], 1.2.840.1 [id number] 913 [id number] Methodi 12:15:00 13:26:[address] Earlene 3.430.2.7 Hospit a .3.667822 l .8 2022-03-09 2022-03-09 Anesthesia Mackenzie Ramirez 1.2.84 0.1 [id number] [id number] Methodi 12:19:00 12:55:00 Event Isabelle [place] 37315.1.[address] 3.430.2.7 Hospit a .3.682384 l .8 2022-03-09 2022-03-09 Anesthesia Mackenzie Ramirez 1.2.84 0.1 [id number] Methodi 12:19:00 12:55:00 Event Isabelle [place] [address]28.1.[address] 3.430.2.7 Hospit a .3.929147 l .8 2022-03-09 2022-03-09 Travel 1.2.840.1 1.2.393.215 7654 112762 Methodi 00:00:00 00:00:[address] 3.430.2.7 0.2.7.3.698 Ho spita .3.990362 084.8 l .8 2022-03-09 2022-03-09 Travel 1.2.840.1 1.2.288.471 2003 381434 Methodi 00:00:00 00:00:[address] 3.430.2.7 0.2.7.3.698 Ho spita .3.992240 084.8 l .8 2022-03-05 2022-03-05 Orders Beni, 1.2.840.3 [id number] 2099765 Methodi 00:00:00 00:00:00 Only [place] [address]30.1.[address] 3.430.2.7 Hospit a .3.541005 l .8 2022-03-05 2022-03-05 Orders Beni, 1.2.840.0 [id number] 2099765 Methodi 00:00:00 00:00:00 Only [place] [address].1.[address] 3.430.2.7 Hospit a .3.261042 l .8 2022-02-21 2022-02-21 Office Mcfarland, 1.2.840.6 [id number] 13 Methodi 10:45:00 11:24:30 Visit Best 50495.1.[address] Josh 3.430.2.7 Hospit a .3.927549 l .8 2022-02-21 2022-02-21 Office Mcfarland, 1.2.840.1 [id number] Methodi 10:45:00 11:24:30 Visit Best 46542.1.[address] Josh 3.430.2.7 Hospit a .3.906067 l .8 2022-02-19 2022-02-19 Telemedici Saint 1.2.840.1 [id number] 030 [id number] Methodi 11:40:00 11:54:03 yaya Gaurav, 20505.1.[address] Radha B. 3.430.2.7 Hospi ta .3.382047 l .8 2022-02-19 2022-02-19 Telemedici Saint 1.2.840.1 [id number] 529 [id number] Methodi 11:40:00 11:54:03 ne Gaurav, 36001.1.[address] Radha B. 3.430.2.7 Hospi ta .3.113663 l .8 2022-02-14 2022-02-14 Orders Sahra Ospina 1.2.840.1 [id number] 21 [id number] Methodi 00:00:00 00:00:[address] 3.430.2.7 Hospit a .3.064770 l .8 2022-02-14 2022-02-14 Orders Sahra Ospina 1.2.840.1 [id number] Methodi 00:00:00 00:00:[address] 3.430.2.7 Hospit a .3.876980 l .8 2022-02-13 2022-02-13 Pre-Admiss Giorgi, 1.2.840.1 [id number] Methodi 09:00:00 09:06:33 ion Gloria 20073.1.[address] Testing Earlene 3.430.2.7 Hospit a .3.536241 l .8 2022-02-13 2022-02-13 Pre-Admiss Giorgi, 1.2.840.1 [id number] Methodi 09:00:00 09:06:33 ion Gloria 00291.1.[address] Testing Earlene 3.430.2.7 Hospit a .3.984885 l .8 2022-02-09 2022-02-09 Dara Silva, 1.2.840.1 [id number] 2099 355574 Methodi 00:00:00 00:00:00 Esperanza Y 72966.1.1 681 s t 3.430.2.7 Hospit a .3.096772 l .8 2022-02-09 2022-02-09 Travel 1.2.840.1 1.2.900.255 4073 204526 Methodi 00:00:00 00:00:[address] 3.430.2.7 0.2.7.3.698 Ho spita .3.505619 084.8 l .8 2022-02-09 2022-02-09 Telephone Silva, 1.2.840.1 [id number] 2099 [id number] Methodi 00:00:00 00:00:00 Espearnza Y 64564.1.1 681 s t 3.430.2.7 Hospit a .3.495925 l .8 2022-02-09 2022-02-09 Travel 1.2.840.1 1.2.238.804 8763 060229 Methodi 00:00:00 00:00:[address] 3.430.2.7 0.2.7.3.698 Ho spita .3.486917 084.8 l .8 2022-02-07 2022-02-07 Travel 1.2.840.1 1.2.505.973 4486 768600 Methodi 00:00:00 00:00:[address] 3.430.2.7 0.2.7.3.698 Ho spita .3.592556 084.8 l .8 2022-02-07 2022-02-07 Travel 1.2.840.1 1.2.691.283 7807 802434 Methodi 00:00:00 00:00:[address] 3.430.2.7 0.2.7.3.698 Ho spita .3.325284 084.8 l .8 2022-02-06 2022-02-06 Prep for Marullo, 1.2.840.1 [id number] 2099 722740 Methodi 00:00:00 00:00:00 Surgery Tamra 19069.1.[address] [place] 3.430.2.7 Hospit a .3.363857 l .8 2022-02-06 2022-02-06 Prep for Marullo, 1.2.840.1 [id number] 2099 657642 Methodi 00:00:00 00:00:00 Surgery Tamra 32123.1.[address] [place] 3.430.2.7 Hospit a .3.566605 l .8 2022-02-02 2022-02-02 Telephone Saint 1.2.840.1 [id number] 2099 431865 Methodi 00:00:00 00:00:00 Gaurav, 33366.1.[address] Radha B. 3.430.2.7 Hospi ta .3.111480 l .8 2022-02-02 2022-02-02 Telephone Saint 1.2.840.1 [id number] 2099 124288 Methodi 00:00:00 00:00:00 Gaurav, 64602.1.[address] Radha B. 3.430.2.7 Hospi ta .3.798900 l .8 2022-01-31 2022-01-31 Telephone Langsjoen, 1.2.840.1 [id number] 2 [id number] Methodi 00:00:00 00:00:[address] Earlene 3.430.2.7 Hospit a .3.479180 l .8 2022-01-31 2022-01-31 Telephone Langsjo, 1.2.840.1 [id number] 2 [id number] Methodi 00:00:00 00:00:[address] Earlene 3.430.2.7 Hospit a .3.203581 l .8 2022-01-30 2022-01-30 Telephone Langsjo, 1.2.840.1 [id number] 2 [id number] Methodi 00:00:00 00:00:[address] Earlene 3.430.2.7 Hospit a .3.129422 l .8 2022-01-30 2022-01-30 Telephone Langsjoen, 1.2.840.1 [id number] 2 [id number] Methodi 00:00:00 00:00:[address] Earlene 3.430.2.7 Hospit a .3.652344 l .8 2022-01-28 2022-01-28 Orders Delmar, 1.2.840.1 [id number] Methodi 00:00:00 00:00:00 Only Mahogany 50710.1.[address] 3.430.2.7 Hospit a .3.309334 l .8 2022-01-28 2022-01-28 Orders Delmar, 1.2.840.1 [id number] Methodi 00:00:00 00:00:00 Only Mahogany 12622.1.[address] 3.430.2.7 Hospit a .3.185364 l .8 2022-01-26 2022-01-26 Telemedici Saint 1.2.840.1 [id number] 991 [id number] Methodi 11:40:00 11:45:34 ne Gaurav, 61041.1.[address] Radha B. 3.430.2.7 Hospi ta .3.304446 l .8 2022-01-26 2022-01-26 Telemedici Saint 1.2.840.1 [id number] 584 0713914 Methodi 11:40:00 11:45:34 ne Gaurav, 15341.1.[address] Radha B. 3.430.2.7 Hospi ta .3.137614 l .8 2022-01-25 2022-01-25 Telephone Bruna, 1.2.840.1 2099238 Methodi 00:00:00 00:00:[address] Josh 3.430.2.7 Hospit a .3.887872 l .8 2022-01-25 2022-01-25 Telephone Bruna, 1.2.840.1 2099237 Methodi 00:00:00 00:00:[address] Josh 3.430.2.7 Hospit a .3.653061 l .8 2022-01-25 2022-01-25 Telephone Bruna 1.2.840.1 2099 925915 Methodi 00:00:00 00:00:[address] Josh 3.430.2.7 Hospit a .3.733648 l .8 2022-01-25 2022-01-25 Telephone Mcfarland, 1.2.840.1 [id number] 2100 190218 Methodi 00:00:00 00:00:[address] Josh 3.430.2.7 Hospit a .3.662877 l .8 2022-01-19 2022-01-20 Emergency EM [facility], [facility] AERS [id number] 04104 [facility] 22:21:00 00:50:00 Oluwadolapo 50 [facility] 2022-01-19 2022-01-20 Emergency EM [facility], [facility] HCACL G5850 74-20 [facility] 22:21:00 00:50:00 Oluwadolapo 888128 [facility] 2022-01-19 2022-01-19 Orders Provider, 1.2.840.1 [id number] 2100 408762 Methodi 00:00:00 00:00:00 Only Not In 03901.1.[address] System 3.430.2.7 Hospit a .3.818236 l .8 2022-01-19 2022-01-19 Orders Provider, 1.2.840.1 [id number] 2099 419453 Methodi 00:00:00 00:00:00 Only Not In 11161.1.[address] System 3.430.2.7 Hospit a .3.886827 l .8 2022-01-18 2022-01-18 Procedure Langsveronikaen, 1.2.840.1 [id number] 2 [id number] Methodi 11:00:00 11:49:39 visit Gloria 92108.1.[address] Earlene 3.430.2.7 Hospit a .3.785863 l .8 2022-01-18 2022-01-18 Procedure Langsjoen, 1.2.840.1 [id number] 2 [id number] Methodi 11:00:00 11:49:39 visit Gloria 79366.1.[address] Earlene 3.430.2.7 Hospit a .3.113070 l .8 2021-12-25 2021-12-25 Telephone Giorgi, 1.2.840.1 [id number] 2 [id number] Methodi 00:00:00 00:00:[address] Earlene 3.430.2.7 Hospit a .3.643588 l .8 2021-12-21 2021-12-21 Outpatient R [facility] [id number] [facility] 20:00:00 20:35:01 GISSELLE grijalva [facility] 2021-12-21 2021-12-21 Urgent Gisselle Moncada 1.2.840.11 4 [id number] Univers 20:00:00 20:15:00 Care Unknown, Attending PEDIATRIC 350.1.13. 10 ney [facility] [place] 4.2.7.[place].686 [place] 955.0830852 60 [address] 2021-12-15 2021-12-15 Office Giorgi 1.2.840.1 [id number] Methodi 09:30:00 11:07:51 Visit Gloria 13063.1.[address] Earlene 3.430.2.7 Hospit a .3.521625 l .8 2021-12-05 2021-12-05 Orders Mane 1.2.840.1 [id number] 158 [id number] Methodi 00:00:00 00:00:00 Only Renee 30123.1.1 163 s t 3.430.2.7 Hospit a .3.132966 l .8 2021-12-04 2021-12-04 Orders Izabella, 1.2.840.1 [id number] 2100 056065 Methodi 00:00:00 00:00:00 Only Not In 01015.1.[address] System 3.430.2.7 Hospit a .3.127051 l .8 2021-11-29 2021-11-29 Office Mcfarland, 1.2.840.7 [id number] 54343 24642 Methodi 10:45:00 16:17:40 Visit Best 82471.1.[address] Josh 3.430.2.7 Hospit a .3.800612 l .8 2021-11-29 2021-11-29 Travel 1.2.840.1 1.2.717.590 5167 104388 Methodi 00:00:00 00:00:[address] 3.430.2.7 0.2.7.3.698 Ho spita .3.729488 084.8 l .8 2021-11-17 2021-11-17 Telephone Mcfarland, 1.2.840.1 [id number] Methodi 00:00:00 00:00:[address] Josh 3.430.2.7 Hospit a .3.572795 l .8 2021-11-17 2021-11-17 Telephone Mcfarland, 1.2.840.1 [id number] Methodi 00:00:00 00:00:[address] Josh 3.430.2.7 Hospit a .3.606004 l .8 2021-11-14 2021-11-14 Telephone Mcfarland, 1.2.840.4 [id number] 227 8006274 Methodi 00:00:00 00:00:[address] Josh 3.430.2.7 Hospit a .3.974189 l .8 2021-11-13 2021-11-13 Refill Mcfarland, 1.2.840.6 [id number] 50256 43065 Methodi 00:00:00 00:00:[address] Josh 3.430.2.7 Hospit a .3.134967 l .8 2021-11-11 2021-11-11 Patient [place], 1.2.840.1 [id number] 019255 6190 Methodi 00:00:00 00:00:[address] Vel[address] 08045.1.[address] 3.430.2.7 Hospit a .3.597622 l .8 2021-11-10 2021-11-10 Patient Mane, 1.2.840.1 [id number] 965 [id number] Methodi 00:00:00 00:00:00 Outreach Eugenie 41908.1.[address] 3.430.2.7 Hospit a .3.754280 l .8 2021-11-10 2021-11-10 Telephone Mcfarland, 1.2.840.2 [id number] 962 [id number] Methodi 00:00:00 00:00:[address] Josh 3.430.2.7 Hospit a .3.425534 l .8 2021-11-10 2021-11-10 Telephone Mcfarland, 1.2.840.8 [id number] 548 [id number] Methodi 00:00:00 00:00:[address] Josh 3.430.2.7 Hospit a .3.719534 l .8 2021-11-08 2021-11-09 Emergency Rehrer, Walter Álvarezin 1.2.840.1 10 [id number] Methodi 15:30:00 16:55:00 Best Mcfarland 67743.1.[address] 3.430.2.7 Hospit a .3.217406 l .8 2021-11-08 2021-11-08 Travel 1.2.840.1 1.2.887.799 4113 896582 Methodi 00:00:00 00:00:[address] 3.430.2.7 0.2.7.3.698 Ho spita .3.177369 084.8 l .8 2021-11-08 2021-11-08 Telephone Delmar, 1.2.840.1 [id number] 2099 723094 Methodi 00:00:00 00:00:[address] 3.430.2.7 Hospit a .3.927151 l .8 2021-11-08 2021-11-08 Telephone Mcfarland, 1.2.840.0 [id number] 833 [id number] Methodi 00:00:00 00:00:[address] Josh 3.430.2.7 Hospit a .3.414172 l .8 2021-11-07 2021-11-07 Telephone Mcfarland, 1.2.840.1 [id number] 2100 [id number] Methodi 00:00:00 00:00:[address] Josh 3.430.2.7 Hospit a .3.623091 l .8 2021-11-04 2021-11-04 Telephone Mcfarland, 1.2.840.1 [id number] 2100 446189 Methodi 00:00:00 00:00:[address] Josh 3.430.2.7 Hospit a .3.534524 l .8 2021-11-02 2021-11-02 Refill Mcfarland, 1.2.840.0 [id number] 82088 80794 Methodi 00:00:00 00:00:[address] Josh 3.430.2.7 Hospit a .3.781781 l .8 2021-11-01 2021-11-01 Office Mcfarland, 1.2.840.1 [id number] 21216 88738 Methodi 10:45:00 13:32:15 Visit Best 53077.1.[address] Josh 3.430.2.7 Hospit a .3.971361 l .8 2021-10-31 2021-10-31 Outpatient R UNKNOWN, [facility] [id number] 7681 Univers 20:30:00 20:30:00 ATTENDING ity [facility] 2021-10-30 2021-10-30 Telephone Bruna, 1.2.840.1 [id number] 2099 [id number] Methodi 00:00:00 00:00:[address] Josh 3.430.2.7 Hospit a .3.460896 l .8 2021-10-30 2021-10-30 Telephone Delmar, 1.2.840.3 [id number] 383 [id number] Methodi 00:00:00 00:00:[address] 3.430.2.7 Hospit a .3.437188 l .8 2021-10-30 2021-10-30 Telephone Mcfarland, 1.2.840.3 [id number] 063 [id number] Methodi 00:00:00 00:00:[address] Josh 3.430.2.7 Hospit a .3.599341 l .8 2021-10-24 2021-10-27 [facility], 1.2.840.1 [id number] 26262 63599 Methodi 09:05:00 10:59:00 Encounter Best 63418.1.[address] Josh 3.430.2.7 Hospit a .3.850583 l .8 2021-10-24 2021-10-24 Surgery [place], 1.2.840.1 [id number] 027329 3698 Methodi 11:00:00 14:35:[address] Josh 3.430.2.7 Hospit a .3.941598 l .8 2021-10-24 2021-10-24 Anesthesia Glenn Multani L. 1.2.840 .1 [id number] Methodi 11:25:00 14:29:00 Event Sonali Kelly 60848.1.[address] 3.430.2.7 Hospit a .3.925227 l .8 2021-10-23 2021-10-23 Telephone [place], 1.2.840.5 [id number] Methodi 00:00:00 00:00:[address] 3.430.2.7 Hospit a .3.344895 l .8 2021-10-23 2021-10-23 Telephone [place], 1.2.840.9 [id number] 992 [id number] Methodi 00:00:00 00:00:[address] Josh 3.430.2.7 Hospit a .3.778211 l .8 2021-10-19 2021-10-19 Outpatient BRUNA [facility] [id number] 692 [place] 00:00:00 00:00:00 BEST [address] 2021-10-19 2021-10-19 Travel 1.2.840.1 1.2.195.463 3847 601119 Methodi 00:00:00 00:00:[address] 3.430.2.7 0.2.7.3.698 Ho spita .3.754736 084.8 l .8 2021-10-19 2021-10-19 Telephone Bruna, 1.2.840.1 [id number] 307 [id number] Methodi 00:00:00 00:00:[address] Josh 3.430.2.7 Hospit a .3.019883 l .8 2021-10-18 2021-10-18 Office Bruna, 1.2.840.2 [id number] 98160 16864 Methodi 11:00:00 14:30:04 Visit Best 07565.1.[address] Josh 3.430.2.7 Hospit a .3.695537 l .8 2021-10-18 2021-10-18 Pre-Admiss Best Mcfarland 1.2.840.1 [id number] Methodi 13:00:00 14:00:00 Cadence Robin 22476.1.[address] Testing 3.430.2.7 Hospit a .3.037186 l .8 2021-10-18 2021-10-18 Travel 1.2.840.1 1.2.213.130 1930 892991 Methodi 00:00:00 00:00:[address] 3.430.2.7 0.2.7.3.698 Ho spita .3.728009 084.8 l .8 2021-10-18 2021-10-18 Orders Sonia, Cesilia 1.2.840.2 [id number] 2 [id number] Methodi 00:00:00 00:00:[address] 3.430.2.7 Hospit a .3.250110 l .8 2021-10-04 2021-10-04 Lab Bruna, 1.2.840.1 [id number] 150825 1556 Methodi 12:20:00 12:25:[address] Josh 3.430.2.7 Hospit a .3.781311 l .8 2021-10-04 2021-10-04 Pre-Admiss Best Mcfarland 1.2.840.1 [id number] Methodi 11:20:00 12:20:00 Sonali Onofre 33453.1.[address] Testing 3.430.2.7 Hospit a .3.576422 l .8 2021-10-04 2021-10-04 Orders Sonia, Cesilia 1.2.840.4 [id number] 2 [id number] Methodi 00:00:00 00:00:[address] 3.430.2.7 Hospit a .3.551544 l .8 2021-10-04 2021-10-04 Orders [place], 1.2.840.3 [id number] 2 [id number] Methodi 00:00:00 00:00:00 Only Chimira 85915.1.[address] 3.430.2.7 Hospit a .3.662580 l .8 2021-10-04 2021-10-04 Travel 1.2.840.1 1.2.594.804 3981 417814 Methodi 00:00:00 00:00:[address] 3.430.2.7 0.2.7.3.698 Ho spita .3.971656 084.8 l .8 2021-09-08 2021-09-08 Office Giorgi, 1.2.840.1 [id number] 803 [id number] Methodi 08:45:00 12:10:45 Visit Gloria 26359.1.[address] Earlene 3.430.2.7 Hospit a .3.949571 l .8 2021-09-07 2021-09-07 Orders Provider, 1.2.840.1 [id number] 2100 210820 Methodi 00:00:00 00:00:00 Only Historical 86412.1.1 819 s t 3.430.2.7 Hospit a .3.428356 l .8 2021-09-05 2021-09-05 Telephone Ricardo, 1.2.840.1 [id number] 2100 319182 Methodi 00:00:00 00:00:[address] 3.430.2.7 Hospit a .3.843103 l .8 2021-08-30 2021-08-30 Telephone Henrry, 1.2.840.1 [id number] 2099 225004 Methodi 00:00:00 00:00:[address] 3.430.2.7 Hospit a .3.537985 l .8 2021-08-29 2021-08-29 Documentat Provider, 1.2.840.1 [id number] 2 [id number] Methodi 00:00:00 00:00:00 ion Unknown 34382.1.[address] 3.430.2.7 Hospit a .3.552662 l .8 2021-08-29 2021-08-29 Travel 1.2.840.1 1.2.318.457 3220 028803 Methodi 00:00:00 00:00:[address] 3.430.2.7 0.2.7.3.698 Ho spita .3.800366 084.8 l .8 2021-08-26 2021-08-26 Outpatient Guadalupe NERI [facility] [id number] 691 Univers 19:15:00 19:35:16 ARLETH ity of [facility] 2021-08-26 2021-08-26 Urgent Arleth Neri 1.2.840.114 [id number] [facility] 19:15:00 19:35:16 Care Unknown, Attending PEDIATRIC 350.1.13. 10 ity [id number] [address] [facility] 2021-08-26 2021-08-26 Orders Doctor ELENI 1.2.840.114 [id number] Univers 00:00:00 00:00:00 Only Unassigned, HIGINIO 350.1.13.10 ity of [place] [facility] 4.2.7.2.686 Tommie as [id number] [place] [address] [place] 2021-08-25 2021-08-25 Outpatient KERRIE CARMONA [facility] 55407 42011 [place] 00:00:00 00:00:[address] 2021-08-25 2021-08-25 Outpatient KERRIE CARMONA [facility] 06397 99105 [place] 00:00:00 00:00:[address] 2021-08-17 2021-08-17 Orders Izabella, 1.2.840.1 [id number] 2100 [id number] Methodi 00:00:00 00:00:00 Only Historical 14970.1.1 107 s t 3.430.2.7 Hospit a .3.846232 l .8 2021-08-16 2021-08-16 Orders Sahra Ospina 1.2.840.1 [id number] 21 [id number] Methodi 00:00:00 00:00:[address] 3.430.2.7 Hospit a .3.499956 l .8 2021-08-03 2021-08-03 Telephone Bernadette Mcfarland.2.840.2 [id number] 440 [id number] Methodi 00:00:00 00:00:[address] Josh 3.430.2.7 Hospit a .3.806257 l .8 2021-07-10 2021-07-10 Outpatient [facility] [id number] 066 [place] 00:00:00 00:00:00 472 Method i 2021-07-05 2021-07-05 Outpatient MCFARLAND, [facility] [id number] 066 [place] 00:00:00 00:00:00 BEST 372 Method i 2021-06-29 2021-06-29 Outpatient LANGSJOEN, [facility] 2100 [id number] [place] 00:00:00 00:00:00 GLORIA 973 Method i 2021-06-29 2021-06-29 Outpatient LANGSJOEN, [facility] 2100 978151 [place] 00:00:00 00:00:00 GLORIA 975 Method i 2021-06-21 2021-06-21 Outpatient MCFARLAND, [facility] [id number] 365 [place] 00:00:00 00:00:00 BEST 310 Method i 2021-06-19 2021-06-19 Outpatient JUANYTA, [facility] 77120 17196 [place] 00:00:00 00:00:00 NEEHARIKA 700 Meth domonique 2021-06-14 2021-06-14 Outpatient MCFARLAND, [facility] [id number] 755 [place] 00:00:00 00:00:00 BEST 706 Method i 2021-05-10 2021-06-09 OP Therapy nullFlavo SMR Amy 041 [id number] Memoria 17:39:00 05:59:00 Patients r [facility] l Tor 2021-05-29 2021-05-29 Outpatient JUANYTA, [facility] [id number] [place] 00:00:00 00:00:00 NEEHARIKA 795 Meth domonique 2021-05-25 2021-05-26 Emergency X YUE GARNER [facility] ERT 1 [id number] [facility] 23:02:00 03:20:00 YUE GARNER [facility] 2021-05-25 2021-05-26 Emergency CIELO Garner 1.2.292.326 2108 7090 [facility] 23:02:00 03:20:00 Yeu [facility] 350.1.13.10 it y of [place] 4.2.7.2.686 [facility] [id number] [address] ([facility]) 2021-05-23 2021-05-23 Outpatient WILLIAM, [facility] 691 [id number] 804 [place] 00:00:00 00:00:00 GULCHIN [address] 2021-05-22 2021-05-22 Outpatient TIA [facility] [id number] 0492 [place] 00:00:00 00:00:00 ANTOINE [address] 2021-04-27 2021-04-27 Outpatient MELODIE [facility] [id number] 11489 [place] 00:00:00 00:00:00 NEEHARIKA 556 Meth domonique 2021-04-19 2021-04-19 Outpatient MELODIE [facility] [id number] 44935 [place] 00:00:00 00:00:00 NEEHARIKA 706 Meth domonique 2021-04-04 2021-04-05 Outpt Diag nullFlavo [facility] 87183 30013 [place] 14:15:00 04:59:00 Services r Outpatient 00 l [facility] 2021-02-21 2021-02-21 Outpatient TIA [facility] [id number] 1462 [place] 00:00:00 00:00:00 ANTOINE 568 Method i 2021-02-21 2021-02-21 Outpatient TIA [facility] [id number] [place] 00:00:00 00:00:00 ANTOINE [address] 2021-02-12 2021-02-12 Emergency X [facility] ERT [id number] Univers 20:19:00 [facility] 2020-12-29 2020-12-29 Outpatient KERRIE CARMONA [facility] [id number] [place] 00:00:00 00:00:[address] 2020-12-08 2020-12-08 Outpatient SAHRA OSPINA [facility] 012 [id number] [place] 00:00:00 00:00:[address] 2020-12-08 2020-12-08 Outpatient KERRIE CARMONA [facility] 13408 [id number] [place] 00:00:00 00:00:[address] 2020-11-23 2020-11-23 Outpatient TIA [facility] [id number] 8218 [place] 00:00:00 00:00:00 ANTOINE [address] 2020-11-03 2020-11-09 Inpatient KERRIE CARMONA [facility] [id number] [id number] 7643 [place] 00:00:00 00:00:[address] 2020-10-31 2020-10-31 Outpatient KERRIE CARMONA [facility] 71998 04334 [place] 00:00:00 00:00:[address] 2020-10-31 2020-10-31 Outpatient KERRIE CARMONA [facility] 14500 [id number] [place] 00:00:00 00:00:[address] 2020-10-05 2020-10-05 Outpatient LANGLAINE, [facility] 2100 [id number] [place] 00:00:00 00:00:00 GLORIA [address] 2020-09-19 2020-09-19 Outpatient TIA [facility] [id number] 5429 [place] 00:00:00 00:00:00 ANTOINE [address] 2020-09-19 2020-09-19 Outpatient [facility] [id number] 709 [place] 00:00:00 00:00:[address] 2020-09-14 2020-09-14 Outpatient KERRIE CARMONA [facility] [id number] [place] 00:00:00 00:00:[address] 2020-09-07 2020-09-07 Outpatient TIA [facility] [id number] 5175 [place] 00:00:00 00:00:00 ANTOINE [address] 2020-08-16 2020-08-16 Outpatient TIA [facility] [id number] 6372 [place] 00:00:00 00:00:00 ANTOINE [address] 2020-08-16 2020-08-16 Outpatient ITA [facility] [id number] 1250 [place] 00:00:00 00:00:00 ANTOINE [address] 2020-08-10 2020-08-11 Outpatient ERICA [facility] 064 [id number] 53993 [place] 00:00:00 00:00:00 SAM [address] 2020-06-11 2020-06-11 Emergency X SIFUENTES, [facility] ERT [id number] [facility] 16:28:00 16:28:00 BARBARA [facility] 2020-03-20 2020-03-20 Emergency 1 Sachin Potts [facility] R[place] 12:19:00 20:22:00 Sachin Potts [facility] 2016-11-13 2016-11-13 Outpatient MHIE MHIE [id number] [place] 10:00:00 10:00:00 01 [facility] 2016-10-19 2016-10-19 Outpatient MHIE IE [id number] 265 [place] 10:30:00 10:30:00 00 l [place] 2016-04-18 2016-04-18 Emergency nullFlavo [facility] 58377 46308 [place] 09:23:00 13:02:00 r [place] 03 [facility] 2015-10-18 2015-10-20 Inpatient nullFlavo [facility] [id number] 65149 [place] 15:30:00 19:44:00 r [place] 02 [facility] 2015-10-05 2015-10-05 EC nullFlavo [facility] [id number] [place] 03:22:00 03:50:00 Emergency r [place] 01 [facility] 2015-09-22 2015-09-22 EC nullFlavo [facility] [id number] 275 [place] 12:31:00 15:15:00 Emergency r [place] 00 [facility] Results Test Description Test Time Test Comments Results Result Comments Source POCT TEST 2022-10-19 01:00:00 Test Item Value Reference Range Interpretation Comme nts POCT PREG (test code = 1605) negative On board controls acceptable with C Line (test code = 3574) present POCT PREG LOT # (test code = 3575) [id number] POCT PREG TEST DATE (test code = 3576) Lab Interpretation (test code = 53788-8) Normal [facility] HSV TYPE 1/2 DNA, REAL TIME PCR 2022-10-04 11:32:00 Test Item Value Reference Range Interpretation Comments HSV 1 DNA (test code = NOT DETECTED NOT DETECTED 69344-2) HSV 2 DNA (test code = DETECTED NOT DETECTED A 54753-3) RAC (test code = RAC) Performing Organization Information: Site ID: IG Name: [facility] Address: [address] [place] [address] Director: Dr. Humberto Bautista Lab Interpretation (test Abnormal code = 66830-8) [facility] HSV TYPE 1/2 DNA, REAL TIME [id number] 11:32:00 Test Item Value Reference Range Interpretation Comments HSV 1 DNA (test code = NOT DETECTED NOT DETECTED 68682-1) HSV 2 DNA (test code = DETECTED NOT DETECTED A 01329-2) RAC (test code = RAC) Performing Organization Information: Site ID: IG Name: [facility] Address: [address] [place] [address] Director: Dr. Humberto Bautista Lab Interpretation (test Abnormal code = 80015-6) [facility] W/AGE BASED SCREENING [id number] 21:02:00 Test Item Value Reference Interpretation Comments Range Comment (test code This orde r for age-based = 8251-1) cervical cancer and STI screening follo ws ACOG guidelines(PB 1 68, 140,TAU697). Se e individual assa ys for performing site location. Clinical S/P LEEP 2 information (test code = 32050-2) Date of last NONE GIVEN menstrual period (test code = 8665-2) Prev. pap: (test ASCUS,HPV+ code = 28834-5) Prev. bx: (test CIN2 code = 86404-9) Source (test code = ECVX 01694-7) Statement of Satisfactory fo r adequacy (test code evaluati on.Endocervical/tr = 31412-2) ansformation zo ne componentpresen t.Age and/or menstrua l status not provided General A EPITHELIAL CELL categorization ABNORMALITY (test code = 95888-6) Interpretation/resu A Atypical Squamous Cells of lt: (test code = Undetermine dSignificance 31431-5) (ASC-US)Rare at ypical squamous cells Comment (test code This Pap test has been = ) evaluated with [employer] technology.Sugg est clinical correl ation and follow-up ascli nically appropriate Production Bow Maker YL, CT(ASCP )CT screening (test code = location: [facility] ) [facility] [place] [id number] [place] Pathologist (test Josefina Currie M.D. code = 50641-5) Board Certif ied in Anatomic Pathology,Clini jhon Pathology and Hematopathology (electronic sig nature) Comment (test code EXPLANATO RY NOTE: The Pap = 2535299) is a screening test for cervical cancer [...] Detected Not Methodology: (test code = Detected Preservationist-M ediated 14731-4) Amplification T his assay detects E6/E7 v [...] For additional info rmation, please refer tohttp://educat ion.[employer].Zooomr/f aq/PEV143y2 (This link if p rovided for information/edu cational purposes only.) RAC (test code = Performing RAC) Organization Information: Site ID: IG Name: [facility] Address: [address] [place] [address] Director: Dr. Humberto Bautista Site ID: [id number] Name: [facility] Address: [address] [place] [address], [address] [place] [address] Director: Damian Ahuja Lab Interpretation Abnormal (test code = 02605-8) [facility] W/AGE BASED SCREENING [id number] 21:02:00 Test Item Value Reference Interpretation Comments Range Comment (test code This orde r for age-based = 8251-1) cervical cancer and STI screening follo ws ACOG guidelines(PB 1 68, 140,BKZ497). Se e individual zoran villalpando for performing site location. Clinical S/P LEEP 2 information (test code = 98540-2) Date of last NONE GIVEN menstrual period (test code = 8665-2) Prev. pap: (test ASCUS,HPV+ code = 29281-0) Prev. bx: (test CIN2 code = 27559-2) Source (test code = ECVX ) Statement of Satisfactory fo r adequacy (test code evaluati on.Endocervical/tr = ) ansformation zo ne componentpresen t.Age and/or menstrua l status not provided General A EPITHELIAL CELL categorization ABNORMALITY (test code = ) Interpretation/resu A Atypical Squamous Cells of lt: (test code = Undetermine dSignificance 34374-2) (ASC-US)Rare at ypical squamous cells Comment (test code This Pap test has been = ) evaluated with Mobile[employer] d technology.Sugg est clinical correl ation and follow-up ascli nically appropriate Production Bow Maker YL, CT(ASCP )CT screening (test code = location: [facility] ) [facility] [place] [address] Pathologist (test Josefina Currie M.D. code = ) Board Certif ied in Anatomic Pathology,Clini jhon Pathology and Hematopathology (electronic sig nature) Comment (test code EXPLANATO RY NOTE: The Pap = 6011646) is a screening test for cervical cancer [...] Detected Not Methodology: (test code = Detected Preservationist-M ediated 66406-1) Amplification T his assay detects E6/E7 v [...] For additional info rmation, please refer tohttp://educat ion.[employer]/f aq/UXH940o0 (This link if p rovided for information/edu cational purposes only.) RAC (test code = Performing RAC) Organization Information: Site ID: IG Name: [facility] Address: [address] [place] [address], [place] [address] Director: Dr. Humberto Bautista Site ID: [id number] Name: [facility] Address: [address] [place] [address], [address] [place] [address] Director: Damian Ahuja Lab Interpretation Abnormal (test code = 23230-1) [facility] GLUCOSE (AUTOMATED)2022-08-15 18:21:41 Test Item Value Reference Range Interpretation Comments POCT GLU (test code = 5151677817) 112 mg/dL 70-110 H Lab Interpretation (test code = Abnormal 54019-5) [facility], [id number] 09:11:07 Test Item Value Reference Range Interpretation Comments VIT D 25OH (test code = 34 ng/mL 25-80 16973-4) ZACKARY (test code = ZACKARY) Deficiency: <20 ng/mLInsufficiency : 20-24 ng/mLOptimal: 25-80 ng/mL Lab Interpretation (test Normal code = 02404-3) [facility] GLUCOSE (AUTOMATED)2022-08-15 06:09:51 Test Item Value Reference Range Interpretation Comments POCT GLU (test code = 8658322481) 95 mg/dL 70-110 Lab Interpretation (test code = Normal 80762-9) [facility] GLUCOSE (AUTOMATED)2022-08-14 22:49:30 Test Item Value Reference Range Interpretation Comments POCT GLU (test code = 7575041138) 79 mg/dL 70-110 Lab Interpretation (test code = Normal 61261-2) [facility] GLUCOSE (AUTOMATED)2022-08-14 18:08:19 Test Item Value Reference Range Interpretation Comments POCT GLU (test code = 5944303348) 87 mg/dL 70-110 Lab Interpretation (test code = Normal 88859-2) [facility] [id number] 13:45:51 Test Item Value Reference Range Interpretation Comments TSH (test code = 3.34 See_Comment [Automated message] [id number]) The system [facility] generated this result transmitted ref erence range: 0.45 - 4 .70 mIU/L. The refe rence range was not u sed to interpret this result as normal/abnor mal. Lab Interpretation (test Normal code = 22622-8) [facility] GLUCOSE (AUTOMATED)2022-08-14 12:00:53 Test Item Value Reference Range Interpretation Comments POCT GLU (test code = 8270070254) 89 mg/dL 70-110 Lab Interpretation (test code = Normal 38835-7) [facility] [id number] 07:04:18 Test Item Value Reference Interpretation Comments Range TROPONIN I (test 0.003 ng/mL See_Comment [Automated code = 3992433302) message] The system which generated this result transmitted reference range : <=0.034. The reference range was not used to interpret this result as normal/abnormal . ZACKARY (test code = Reference (Normal) ZACKARY) Range (defined by the 99th percentile reference [...] biotin. Lab Interpretation Normal (test code = 74021-1) [id number] 07:01:16 Test Item Value Reference Range Interpretation Comments NT-proBNP (test code 101 pg/mL See_Comment [Autom ated = [id number]) message] The system which generated this result transmitted reference range : <=125. The reference range was not used to interpret this result as normal/abnormal . ZACKARY (test code = ZACKARY) Biotin has been reported to cause a negative bias, interpret results relative to patient's use of biotin. Lab Interpretation Normal (test code = 29271-0) [facility] 06:53:54 ALCOHOL<10mg/dL08/14/2022 12:53 AM [facility]<10 Oawiovfg37-033 Toxic>100 Depression of BOTTOMING MACHINE OPERATOR>400 Fatalities ReportedUnHCA Houston Healthcare MainlandCOMP. METABOLIC PANEL (39066) 2022-08-14 06:52:18 Test Item Value Reference Range Interpretation Comments NA (test code = 138 mmol/L 135-145 6521320828) K (test code = 4.0 mmol/L 3.5-5.0 6725897881) CL (test code = 105 mmol/L 98-108 3834665364) CO2 TOTAL (test code 27 mmol/L -31 = 5033955176) AGAP (test code = 6 2-16 4071216240) BUN (test code = 14 mg/dL 7-23 3910285891) GLUCOSE (test code = 97 mg/dL 70-110 9293585834) CREATININE (test code 0.75 mg/dL 0.50-1.04 = 6302987289) TOTAL BILI (test code 0.4 mg/dL 0.1-1.1 = 3070984734) CALCIUM (test code = 8.6 mg/dL 8.6-10.6 6835619308) T PROTEIN (test code 6.8 g/dL 6.3-8.2 = 4737443828) ALBUMIN (test code = 4.0 g/dL 3.5-5.0 9938773982) ALK PHOS (test code = 71 U/L 34-122 4557339842) ALTv (test code = 22 U/L 5-35 1742-6) AST(SGOT) (test code 28 U/L 13-40 = 0612000592) eGFR (test code = 88.5 mL/min/1.73m2 9906621999) ZACKARY (test code = ZACKARY) Association of [...] or urine or abnormalities in imaging tests). [facility] WITH [id number] 06:21:34 Test Item Value Reference Range Interpretation Comments WBC (test code = 9.89 See_Comment [Automated 0546-2) message] The sy stem which generated this result transmitted reference range : 4.30 - 11.10 10*3/?L. The reference range was not used to interpret this result as normal/abnormal . RBC (test code = 4.97 See_Comment [Automated 701-7) message] The sy stem which generated this [...] RDW-SD (test code = 47.4 fL 39.0-49.9 87891-6) RDW-CV (test code = 14.7 % 12.0-15.5 788-0) PLT (test code = 253 See_Comment [Automated 777-3) message] The sy stem which generated this result transmitted reference range : 166 - 358 10*3/ ?L. The reference r jaya was not used to interpret this result as normal/abnormal . MPV (test code = 12.9 fL 9.5-12.9 70967-1) NRBC/100 WBC (test 0.0 See_Comment [Automat ed code = 0819709445) message] The system which generated this result transmitted reference range : 0.0 - 10.0 /100 WBCs. The refer ence range was not u sed to interpret th is result as normal/abnormal . NRBC x10^3 (test code See_Comment [Auto mated = 6390752317) message] The s ystem which generated this result transmitted reference range : 10*3/?L. The reference range was not used to interpret this result as normal/abnormal . GRAN MAT (NEUT) % 57.0 % (test code = 770-8) IMM GRAN % (test code 0.30 % = 7310966294) LYMPH % (test code = 32.5 % 736-9) MONO % (test code = 8.3 % 5905-5) EOS % (test code = 1.1 % 713-8) BASO % (test code = 0.8 % 706-2) GRAN MAT x10^3(ANC) 5.64 10*3/uL 1.88-7.09 (test code = 1404583565) IMM GRAN x10^3 (test 0.03 10*3/uL 0.00-0.06 code = 1730526235) LYMPH x10^3 (test code 3.21 10*3/uL 1.32-3.29 = 731-0) MONO x10^3 (test code 0.82 10*3/uL 0.33-0.92 = 742-7) EOS x10^3 (test code = 0.11 10*3/uL 0.03-0.39 711-2) BASO x10^3 (test code 0.08 10*3/uL 0.01-0.07 H = 704-7) Lab Interpretation Abnormal (test code = 68053-5) [facility] [id number] 06:14:00 Test Item Value Reference Range Interpretation Comments POCT PREG (test code = 1605) Negative On board controls acceptable with Positive C Line (test code = 3574) POCT PREG LOT # (test code = 3575) [id number] POCT PREG TEST DATE (test 10/13/2023 code = 3576) Lab Interpretation (test code = Normal 43900-4) [facility] crejggu7733-12-80 11:16:00 Test Item Value Reference Interpretation Comments Range Urine culture Lactobacillus A Specimen isolate (test jenseniiLawrence Medical CenterSpdana-[facility] code = 77020-9) performance Source: Urin eSpecimen characteristics of Site: Giovani an catch this assay on this isolatewere validated by the Microbiology Laboratory at [facility]. This source has not been approved by the U.S. Food and Drug Administration. The results are not intended to be used as the sole means for clinical diagnosis or patient management. The Microbiology Laboratory is authorized under the clinical Laboratory Improvement Amendments of 1988 (CLIA-88) to perform high complexity testing. Lab Abnormal Interpretation (test code = 25694-8) [facility] kgyascu9741-44-19 11:16:00 Test Item Value Reference Interpretation Comments Range Urine culture Lactobacillus A Specimen isolate (test jenseniiThe InformationSpe [facility] code = 99260-0) performance Source: Urin eSpecimen characteristics of Site: Giovani an catch this assay on this isolatewere validated by the Microbiology Laboratory at [facility]. This source has not been approved by the U.S. Food and Drug Administration. The results are not intended to be used as the sole means for clinical diagnosis or patient management. The Microbiology Laboratory is authorized under the clinical Laboratory Improvement Amendments of 1988 (CLIA-88) to perform high complexity testing. Lab Abnormal Interpretation (test code = 88636-8) [address]2023-01-20 04:18:57 Test Item Value Reference Range Interpretation Comments Ventricular rate (test 82 code = 253) Atrial rate (test code 82 = 255) CO interval (test code 116 = 266) QRSD [...] replaced inverted T waves in Anterior leads- [address]2023-01-20 04:18:57 Test Item Value Reference Range Interpretation Comments Ventricular rate (test 82 code = 253) Atrial rate (test code 82 = 255) CO interval (test code 116 = 266) QRSD [...] replaced inverted T waves in Anterior leads- [facility] pifiacc4277-15-21 01:59:00 Test Item Value Reference Range Interpretation Comments POC glucose (test 95 mg/dL 65-99 Lye Bath Operator N mirtha Dao code = 44835-2) Damaris flaherty ID: [id number] able: [facility] Notified RN [facility] akefhnz1319-47-44 01:59:00 Test Item Value Reference Range Interpretation Comments POC glucose (test 95 mg/dL 65-99 Lye Bath Operator N mirtha Dao code = 79261-3) Damaris ce ID: [id number] able: [facility] Notified MG [facility]pper AcucwpcdDSHT-TmY-5 (COVID-19) RNA [Presence] in Respiratory specimen by RADHA with probe cuhthgdjh0033-49-35 00:11:33 Test Item Value Reference Range Interpretation Comments SARS-CoV-2 (COVID-19) RNA Not detected [Presence] in Respiratory specimen by RADHA with probe detection (test code = 96210-3) Whether patient is employed in a Unknown healthcare setting (test code = 01593-3) Whether the patient has symptoms Unknown related to condition of interest (test code = 44197-9) Whether the patient was Unknown hospitalized for condition of interest (test code = 27582-4) Whether the patient was admitted Unknown to intensive care unit (ICU) for condition of interest (test code = 40701-2) Whether patient resides in a Unknown congregate care setting (test code = 81378-1) status (test code = Unknown 16773-1) Date and time of symptom onset Unknown (test code = 74093-3) [facility] HCG TRI[facility] (ER ONLY)2022-07-30 05:54:00 Test Item Value Reference Range Interpretation Comments URINE HCG TRIAGE (ER ONLY) (test NEGATIVE Negative code = HCGTRIAGE) Urine Test Result: NEGATIVEAre internal controls (presence of a control line & clear background) OK? YesLot # of HCG Test Kit: [id number] Date of Kit: 09/12/23Test Performed by:CADENCE Pond [...] MX#) 0.4 k/mm3 0.1-0.8 N UA DIPSTICK [id number] 16:30:00 Test Item Value Reference Range Interpretation Comments UA GLUCOSE DIPSTIC POC NEGATIVE NEGATIVE (test code = GLUUP) UA BILIRUBIN DIPSTICK NEGATIVE NEGATIVE (test code = BILU) UA KETONE DIPSTICK POC 2+ NEGATIVE A (test code = KETUP) UA SPECIFIC GRAVITY (test 1.015 1.005-1.030 N code = SGU) UA BLOOD DIPSTIC POC NEGATIVE NEGATIVE Perform ed by (test code = BLUP) certified rotary slicing machine operator at [facility] UA PH DIPSTIC POC (test 7 5.0-7.0 N code = PHUP) UA PROTEIN DIPSTICK POC NEGATIVE NEGATIVE (test code = DPROUP) UA UROBILINIOGEN QUAL NORMAL 0.2-1.0 (test code = UROQL) UA NITRITE DIPSTICK POC NEGATIVE Negative (test code = NITUP) UA LEUKOCYTE ESTERASE W Negative NEGATIVE REFLEX (test code = LEUUR) BASIC METABOLIC [id number] 16:25:00 Test Item Value Reference Range Interpretation [...] 86 MG/DL 70-110 N - CT C-SPINE W/CJVSDMNL6899-05-97 00:00:00 [facility] 1990 Sex: F Name: ISMA KELSEY FSED : 1990 Age/S: 31 / F [address] [facility] Unit #: [id number] Loc: Amaris Hayward [address] Phys: Kota Salmon MD Acct: [id number] Dis Date: Status: REG ER PHONE #: Exam Date: 07/29/2022 1650 FAX #: Reason: thoracolumbar pain, bilateral leg weak/numb, hx EXAMS: CPT CODE: [id number] CT C- SPINE W/CONTRAST 10001 PROCEDURE INFORMATION: Exam: CT Cervical Spine With Contrast Exam date and time: 07/29/2022 4:26 PM Age: 31 years old Clinical indication: Weakness and other: Thoracolumbar pain, bilateral leg weak/numb, HX i7wubszlq TECHNIQUE: Imaging protocol: Computed tomography of the [...] dose is matched to clinical indication); or it erative reconstruction. Contrast material: 300; Contrast volume: 100 ml; Contrast route: INTRAVENOUS(IV); COMPARISON: CT C-SPINE W/O CONT 04/05/2016 7:12 PM FINDINGS: Bones/joints: Previous suboccipital craniectomy. Previous resection of posterior arch of C1. No acute fracture. Alignment is preserved.No significant spinal canal stenosis at any cervical level. Lungs: Lung apices are normal. Soft tissues: Unremarkable. PROCEDURE INFORMATION: Exam: CT Thoracic Spine With Contrast Exam date and time: 07/29/2022 4:26 PM Age: 31 years old Clinical indication: Weakness and other:Thoracolumbar pain, bilateral leg weak/numb, HX y2oezkamv TECHNIQUE: Imaging protocol: Computed tomography of the [...] : 1990 Age/S: 31 / F [address] [facility] Unit #: [id number] Loc: Amaris [place]ward [address] Phys: Kota Salmon MD Acct: [id number] Dis Date: Status: REG ER PHONE #: Exam Date: 07/29/2022 1652 FAX #: Reason: thoracolumbar pain, bilateral leg weak/numb, hx EXAMS: CPT CODE: [id number] CT C-SPINE W/CONTRAST 69402 (Continued) COMPARISON: CT C-SPINE W/O CONT 04/05/2016 7:12 PM FINDINGS: Bones/joints: No acute fracture. Normal ali gnment. No significant disc protrusion. No significant spinal canal stenosis. Soft tissues: Unremarkable. No abnormal enhancement. PROCEDURE INFORMATION: Exam: CT Lumbar Spine With Contrast Exam date and time: 07/29/2022 4:26 PM Age: 31 years old Clinical indication: Weaknessand other: Thoracolumbar pain, bilateral leg weak/numb, HX c7euolqvo TECHNIQUE: Imaging protocol: Computed tomography of the [...] : 1990 Age/S: 31 / F [address] [facility] Unit #: [id number] Loc: Amaris [place]ward [address] Phys: Kota Salmon MD Acct: [id number] Dis Date: Status: REG ER PHONE #: Exam Date: 07/29/2022 1284 FAX #: Reason: thoracolumbar pain, bilateral leg weak/numb, hx EXAMS: CPT CODE: [id number] CT C-SPINE W/CONTRAST 06929 (Continued) 1. No acute fracture or malalignment. 2. No abnormal enhancement. 3. No spinal canal stenosis or neural foraminal narrowing at any lumbar level. ElectronicallySigned by Vladimir Beth on 07/29/2022 at 1746 Reported and signed by: Kota Lewis M.D. CC: Kota Salmon MD Technologist:Romy Morris, RT(R)(CT) CTDI: DLP: Trnscb Date/Time: 07/29/2022 (524) [email or web address] Orig Print D/T: S: 07/29/2022 (2896) PAGE 3 Signed Report- CT T-SPINE W/[id number] 00:00:00 [facility] : 1990 Sex: F Name: ISMA KELSEY FSED : 1990 Age/S: 31 / F [address] [facility] Unit #: [id number] Loc: Amaris [place]ward [address] Phys: Kota Salmon MD Acct: [id number] Dis Date: Status: REG ER PHONE #: Exam Date: 07/29/2022 1640 FAX #: Reason: thoracolumbar pain, bilateral leg weak/numb, hx EXAMS: CPT CODE: [id number] CT T- SPINE W/CONTRAST 39838 PROCEDURE INFORMATION: Exam: CT Cervical Spine With Contrast Exam date and time: 07/29/2022 4:26 PM Age: 31 years old Clinical indication: Weakness and other: Thoracolumbar pain, bilateral leg weak/numb, HX m9zsoxtjj TECHNIQUE: Imaging protocol: Computed tomography of the [...] other: Thoracolumbar pain, bilateral leg weak/numb, HX w1negyfho TECHNIQUE: Imaging protocol: Computed tomography of the thoracic spine with contrast. 3D rendering (Not supervised by radiologist): MIP and/or 3D reconstructed images were created by the technologist. Radiation optimization: All CT scans at [facility] use at least one of these dose optimization techniques: automated exposure control; mA and/or kV adjustment per patient size (includes targeted exams where dose is matched to clinical indication); or iterative reconstruction. Contrast material: 300; Contrast volume: 100 ml; Contrast route: INTRAVENOUS (IV); PAGE 1 Signed Report (CONTINUED) Name: ISMA KELSEY FSED : 1990 Age/S: 31 / F [address] [facility] Unit #: [id number] Loc: Amaris [place]ward [address] Phys: Kota Salmon MD Acct: [id number] Dis Date: Status: REG ER PHONE #: Exam Date: 07/29/2022 1640 FAX #: Reason: thoracolumbar pain, bilateral leg weak/numb, hx EXAMS: CPT CODE: [id number] CT T-SPINE W/CONTRAST 13906 (Continued) COMPARISON: CT C-SPINE W/O CONT 04/05/2016 7:12 PM FINDINGS: Bones/joints: No acute fracture. Normal align ment. No significant disc protrusion. No significant spinal canal stenosis. Soft tissues: Unremarkable. No abnormal enhancement. PROCEDURE INFORMATION: Exam: CT Lumbar Spine With Contrast Exam date and time: 07/29/2022 4:26 PM Age: 31 years old Clinical indication: Weakness and other: Thoracolumbar pain, bilateral leg weak/numb, HX c5uccfycj TECHNIQUE: Imaging protocol: Computed tomography of the [...] significant disc protrusion. No significant spinal canal stenosis.Soft tissues: Unremarkable. IMPRESSION: CT Cervical Spine With Contrast 1.Previous suboccipital craniectomy and C1 posterior arch resection. [...] : 1990 Age/S: 31 / F [address] [facility] Unit #: [id number] Loc: Amaris Hayward [address] Phys: Kota Salmon MD Acct: [id number] Dis Date: Status: REG ER PHONE #: Exam Date: 31640 FAX #: Reason: thoracolumbar pain, bilateral leg weak/numb, hx EXAMS: CPT CODE: [id number] CT T-SPINE W/CONTRAST 15158 (Continued) 1. No acute fracture or malalignment. 2. No abnormal enhancement. 3. No spinal canal stenosis or neural foraminal narrowing at any lumbar level. at 1746 Reported and signed by: Kota Beth M.D. CC: Kota Salmon MD Technologist:Romy Morris, RT(R)(CT) CTDI: DLP: Trnscb Date/Time: 07/29/2022 (1 74) [email or web address] Orig Print D/T: S: 07/29/2022 (6513) PAGE 3 Signed Report- CT L- SPINE W/[id number] 00:00:00 [facility] : 1990 Sex: F Name: ISMA KELSEY FSED : 1990 Age/S: 31 / F [address] [facility] Unit #: [id number] Loc: Amaris [place] [address] Phys: Kota Salmon MD Acct: [id number] Dis Date: Status: REG ER PHONE #: Exam Date: 07/29/2022 1645 FAX #: Reason: thoracolumbar pain, bilateral leg weak/numb, hx EXAMS: CPT CODE: [id number] CT L-SPINE W/CONTRAST 75205 PROCEDURE INFORMATION: Exam: CT Cervical Spine With Contrast Exam date and time: 07/29/2022 4:26 PM Age: 31 years old Clinical indication: Weakness and other: Thoracolumbar pain, bilateral leg weak/numb, HX g1rikrlgf TECHNIQUE: Imaging protocol: Computed tomography of the [...] dose is matched to clinical indication); or ite rative reconstruction. Contrast material: 300; Contrast volume: 100 ml; Contrast route: INTRAVENOUS(IV); COMPARISON: CT C-SPINE W/O CONT 04/05/2016 7:12 PM FINDINGS: Bones/joints: Previous suboccipital craniectomy. Previous resection of posterior arch of C1. No acute fracture. Alignment is preserved.No significant spinal canal stenosis at any cervical level. Lungs: Lung apices are normal. Soft tissues: Unremarkable. PROCEDURE INFORMATION: Exam: CT Thoracic Spine With Contrast Exam date and time: 07/29/2022 4:26 PM Age: 31 years old Clinical indication: Weakness and other:Thoracolumbar pain, bilateral leg weak/numb, HX l9kgzjtmj TECHNIQUE: Imaging protocol: Computed tomography of the [...] : 1990 Age/S: 31 / F [address] [facility] Unit #: [id number] Loc: Amaris [place]ward [address] Phys: Kota Salmon MD Acct: [id number] Dis Date: Status: REG ER PHONE #: Exam Date: 07/29/2022 5882 FAX #: Reason: thoracolumbar pain, bilateral leg weak/numb, hx EXAMS: CPT CODE: [id number] CT L-SPINE W/CONTRAST 96431 (Continued) COMPARISON: CT C-SPINE W/O CONT 04/05/2016 7:12 PM FINDINGS: Bones/joints: No acute fracture. Normal alig nment. No significant disc protrusion. No significant spinal canal stenosis. Soft tissues: Unremarkable. No abnormal enhancement. PROCEDURE INFORMATION: Exam: CT Lumbar Spine With Contrast Exam date and time: 07/29/2022 4:26 PM Age: 31 years old Clinical indication: Weakness and other: Thoracolumbar pain, bilateral leg weak/numb, HX i9ztqrpqf TECHNIQUE: Imaging protocol: Computed tomography of the [...] : 1990 Age/S: 31 / F [address] [facility] Unit #: [id number] Loc: Amaris Hayward [address] Phys: Kota Salmon MD Acct: [id number] Dis Date: Status: REG ER PHONE #: Exam Date: 07/29/2022 1640 FAX #: Reason: thoracolumbar pain, bilateral leg weak/numb, hx EXAMS: CPT CODE: [id number] CT L-SPINE W/CONTRAST 69176 (Continued) 1. No acute fracture or malalignment. 2. No abnormal enhancement. 3. No spinal canal stenosis or neural foraminal narrowing at any lumbar level. at 1746 Reported and signed by: Kota Beth M.D. CC: Kota Salmon MD Technologist:Romy Morris RT(R)(CT) CTDI: DLP: Trnscb Date/Time: 07/29/2022 (1745) [email or web address] Orig Print D/T: S: 07/29/2022 (8277) PAGE 3 Signed ReportPOCT MOLECULAR [id number] 17:16:29 Test Item Value Reference Range Interpretation Comments POCT Molecular FluA (test code = Positive Negative A 97270-3) Lab Interpretation (test code = Abnormal 89407-7) [facility] [id number] 21:36:15 Test Item Value Reference Range Interpretation Comments Case number (test code = [id number]) Surgical pathology See link below for report (test code = PDF Lab Report 2255) Result status (test code This is Final Report = [id number]) for [id number] [facility] [id number] 21:36:15 Test Item Value Reference Range Interpretation Comments Case number (test code = [id number]) Surgical pathology See link below for report (test code = PDF Lab Report 2255) Result status (test code This is Final Report = [id number]) for [id number] [facility] pathology [id number] 21:36:15 Test Item Value Reference Range Interpretation Comments Case number (test code = [id number]) Surgical pathology See link below for report (test code = PDF Lab Report 2255) Result status (test code This is Final Report = [id number]) for [id number] [facility] HospitalAdrenocorticotropic xgeheer3933-50-03 18:42:00 Test Item Value Reference Interpretation Comments Range Adrenocorticotropic 25 pg/mL 6-50 Referen ce range hormone (test code = applies only to the ) specimens collectedbetwee n 7am-10am. ZACKARY (test code = ZACKARY) FASTING:YESCOLLE CTION REQUIREMENTS NOT MET. PATIENT ADVISED TO RETURN. FASTING: YES RAC (test code = RAC) Performing Organization Information: Site ID: EZ Name: [facility], Address: [address] [place] [phone] Director: Nicky Heck MD,PhD,JAI [facility] TylerRmvizzubK-msungck6544-51-10 18:42:00 Test Item Value Reference Range Interpretation Comments C-peptide (test 1.38 ng/mL 0.80-3.85 code = 1985-9) ZACKARY (test code = FASTING:YESCOLLECTION ZACKARY) REQUIREMENTS NOT MET. PATIENT ADVISED TO RETURN. FASTING: YES RAC (test code = Performing Organization RAC) Information: Site ID: RGA Name: [facility] Address: [address] [place] [address] Director: Humberto Bautista [facility] HospitalProinsulin [id number] 18:42:00 Test Item Value Reference Interpretation Comments Range Proinsulin 4.6 pmol/L See_Comment This test was performed (test code = using a laborat [employer] developed 44106-7) ELISAmethod. Va lues obtained from different assay methods cannotbe used interchangeably . Proinsulin levels, regardl ess ofvalue, should not be i nterpreted as absolute eviden ce of thepresence or absence of disease. This t est was developed and i ts analytical performancechar acteristics have been deter mined by [facility]. It has not beencleared or approved by [...] RAC) Organization Information: Site ID: EZ Name: [facility], Address: [address] [place] [address] Director: Nicky Heck MD,PhD,JAI [facility] HospitalBeta fvxrhjonlhqwgzn0185-16-80 18:42:00 Test Item Value Reference Range Interpretation Comments Beta hydroxybutyrate 1.49 mmol/L H Refer ence (test code = 6873-4) Range: ADULT: 0.28 OR LESS ZACKARY (test code = ZACKARY) FASTING:YESCOLLECT ION REQUIREMENTS NOT MET. PATIENT ADVISED TO RETURN. FASTING: YES RAC (test code = RAC) Performing Organization Information: Site ID: EZ Name: [facility], Address: [address] [place] [address] Director: Nicky Heck MD,PhD,JAI Lab Interpretation Abnormal (test code = 94926-4) [facility] HospitalInsulin-like growth factor I level (IGF-1)2022-02-21 18:42:00 Test Item Value Reference Interpretation Comments Range IGF-1 72 ng/mL 53-331 (test code = 2484-4) Z score See_Comment This test was developed and (female) its analytical (test code performancechar acteristics = 81832-1) have been deter mined by [facility]. It has not beencleared or approved by [...] Organization RAC) Information: Site ID: EZ Name: [facility], Address: [address] [place] [phone] Director: Nicky Heck MD,PhD,JAI [facility] HospitalInsulin-like growth factor II level (IGF-2)2022-02-21 18:42:00 Test Item Value Reference Interpretation Comments Range IGF-2 546 ng/mL 267-616 This test was developed and (test its analytical code = performancechar acteriBuildDirect 2485-1) have been deter mined by [facility]. It has not beencleared or approved by FDA. This assay has been validatedpursua nt to the CLIA regulations and is used for clinicalpurpose s. ZACKARY (test FASTING:YESCOLLEC code = TION REQUIREMENTS ZACKARY) NOT MET. PATIENT ADVISED TO RETURN. FASTING: YES RAC (test Performing code = Organization RAC) Information: Site ID: EZ Name: [facility], Address: [address] [place] [phone] Director: Nicky Heck MD,PhD,JAI [facility], Serum/Mlsopj7780-64-59 18:42:00 Test Item Value Reference Interpretation Comments [...] mcg/mL Synony m(s): Orinase(R)Peak plasma concentrations of gnqmcbxufabwd94 -100 mcg/mL were ach ieved 35 hours [...] ng/mL Reporting L imit: 40 code = 43559-8) ng/mL Synony m(s): Glynase; Glucot rol(R); GlibenesePeak p lasma concentrations of ywwmsmltidyzy47 0-610 ng/mL were achi eved after administr [...] Actos(R ); Oseni(R)Peak pl asma concentrations of nccugnrqbenoz73 0-2600 ng/mL were achi eved 1-4 hour after administration of 45 mg of pioglitazone.An alysis by High Perform ance Liquid Chromato graphy/ Tandem Mass Spectrometry (LC-MS/MS) Glyburide (test None Detected ng/mL Reporting L imit: 40 code = 42581-1) ng/mL Synony m(s): PresTab(R); Micronase(R); Glibenclamide; Glynase(R)Peak plasma concentrations of oezncxnkdjrnv15 0-200 ng/mL following a single 5 mg dos e have been reported. A group of ten diabetic patients givend aily oral 2.5 mg dos es for 6 weeks attaine d peak plasma glyburid e concentrations averaging 140 n g/mL at 3 hours after t he first dose and 240 ng/mL at 2.4 ho urs after the last dose.Analysis b y [employer] [facility] Chromatography/ Tandem Mass Spectromet ry (LC-MS/MS) Glimepiride (test None Detected ng/mL Reporting Limit: 25 code = 17169-0) ng/mL Synony m(s): Duetact(R); Avandaryl(R); Amaryl(R)Peak p lasma concentrations of blaiygwbihldl33 -340 ng/mL were achi eved 2-3 hoursafter administration of 4 mg of glimepiride. The blood to plasma ratio of Glimepiridei s not known.Analysis by [employer] uid Chromatography/ Tandem Mass Spectromet ry (LC-MS/MS) Nateglinide (test None Detected mcg/mL Reporting Limit: 0.10 code = 02145-1) mcg/mL Synon ym(s): Starlix(R)Peak plasma concentrations of approximately1. 3-7.5 mcg/mL were ach ieved 0.5 hours follo wing a single 60 mg dose.Analysis b y [employer] [facility] uid Chromatography/ Tandem Mass Spectromet ry (LC-MS/MS) Repaglinide (test None Detected ng/mL Reporting Limit: 10 code = 20310-9) ng/mL Synony m(s): Prandin(R); PrandiMet(R)Pea k plasma [...] RAC) Organization Information: Site ID: [id number] Name: [facility] Address: [address] [place] [address] KIARA Mora [address] Director: Humberto Art PH.D, [facility] CenterAdrenocorticotropic [id number] 18:42:00 Test Item Value Reference Interpretation Comments Range Adrenocorticotropic 25 pg/mL 6-50 Referen ce range hormone (test code = applies only to the ) specimens collectedbetwee n 7am-10am. ZACKARY (test code = ZACKARY) FASTING:YESCOLLE CTION REQUIREMENTS NOT MET. PATIENT ADVISED TO RETURN. FASTING: YES RAC (test code = RAC) Performing Organization Information: Site ID: EZ Name: [facility], Address: [address] [place] [address] Director: Nicky Heck MD,PhD,[facility] HospitalJuyldszhS-lanhpwg8415-19-10 18:42:00 Test Item Value Reference Range Interpretation Comments C-peptide (test 1.38 ng/mL 0.80-3.85 code = 1985-) ZACKARY (test code = FASTING:YESCOLLECTION ZACKARY) REQUIREMENTS NOT MET. PATIENT ADVISED TO RETURN. FASTING: YES RAC (test code = Performing Organization RAC) Information: Site ID: RGA Name: [facility] Address: [address] [place] [address] Director: Humberto Bautista [facility] HospitalProinsulin [id number] 18:42:00 Test Item Value Reference Interpretation Comments Range Proinsulin 4.6 pmol/L See_Comment This test was performed (test code = using a laborat ory developed 73847-4) ELISAmethod. Va lues obtained from different assay methods cannotbe used interchangeably . Proinsulin levels, regardl ess ofvalue, should not be i nterpreted as absolute eviden ce of thepresence or absence of disease. This t est was developed and i ts analytical performancechar acteristics have been deter [facility]ined by [facility]. It has not beencleared or approved by [...] RAC) Organization Information: Site ID: EZ Name: [facility], Address: [address] [place] [address] Director: Nicky Heck MD,PhD,[facility] HospitalBeta [id number] 18:42:00 Test Item Value Reference Range Interpretation Comments Beta hydroxybutyrate 1.49 mmol/L H Refere nce (test code = 6873-4) Range: ADULT: 0.28 OR LESS ZACKARY (test code = ZACKARY) FASTING:YESCOLLECT ION REQUIREMENTS NOT MET. PATIENT ADVISED TO RETURN. FASTING: YES RAC (test code = RAC) Performing Organization Information: Site ID: EZ Name: [facility], Address: [address] [place], [place] [address] Director: Nicky Heck MD,PhD,[facility] Lab Interpretation Abnormal (test code = 44024-8) [facility] HospitalInsulin-like growth factor I level (IGF-1)2022-02-21 18:42:00 Test Item Value Reference Interpretation Comments Range IGF-1 72 ng/mL 53-331 (test code = 2484-4) Z score -1.4 See_Comment This test was developed and (female) its analytical (test code performancechar acteristics = 74368-0) have been deter [facility]ined by [facility]. It has not beencleared or approved by [...] Organization RAC) Information: Site ID: EZ Name: [facility], Address: [address] [place] [address] Director: Nicky Heck MD,PhD,JAI [facility] HospitalInsulin-like growth factor II level (IGF-2)2022-02-21 18:42:00 Test Item Value Reference Interpretation Comments Range IGF-2 546 ng/mL 267-616 This test was developed and (test its analytical code = performancechar acteristInternet Marketing Academy [place] 2485-1) have been deter mined by [facility]. It has not beencleared or approved by FDA. This assay has been validatedpursua nt to the CLIA regulations and is used for clinicalpurpose s. ZACKARY (test FASTING:YESCOLLEC code = TION REQUIREMENTS ZACKARY) NOT MET. PATIENT ADVISED TO RETURN. FASTING: YES RAC (test Performing code = Organization RAC) Information: Site ID: EZ Name: [facility]awn gib[facility], Address: [address] [place] [address] Director: Nicky Heck MD,PhD,[facility]pogly[facility] Panel, Serum/[id number] 18:42:00 Test Item Value Reference Interpretation Comments [...] Chlorpropamidei s not known.Analysis by [employer] uid Chromatography/ Tandem Mass Spectromet ry (LC-MS/MS) Tolbutamide (test None Detected mcg/mL Reporting Limit: 0.10 code = 4061-8) mcg/mL Synony m(s): Orinase(R)Peak plasma concentrations of gdrwzhnclrzhu00 -100 mcg/mL were ach ieved 35 hours follow ing chronic daily doses.Analysis by [facility] Partnersq uid Chromatography/ Tandem Mass Spectromet ry (LC-MS/MS) Tolazamide (test None Detected mcg/mL Reporting Limit: 0.10 code = 9629-7) mcg/mL Synony m(s): Tolinase(R)No p lasma concentrations have beenreported in the literatureAnaly sis by High Performanc e Liquid Chromato graphy/ Tandem Mass Spectrometry (LC-MS/MS) Glipizide (test None Detected ng/mL Reporting L imit: 40 code = 28626-2) ng/mL Synony m(s): Glynase; Glucot rol(R); GlibenesePeak p lasma concentrations of gsvifbcabhcaa00 0-610 ng/mL were achi eved after administr [...] Actos(R ); Oseni(R)Peak pl asma concentrations of skxxxbskvpuiw97 0-2600 ng/mL were achi eved 1-4 hour after administration of 45 mg of pioglitazone.An alysis by High Perform ance Liquid Chromato graphy/ Tandem Mass Spectrometry (LC-MS/MS) Glyburide (test None Detected ng/mL Reporting L imit: 40 code = 34905-4) ng/mL Synony m(s): PresTab(R); Micronase(R); Glibenclamide; Glynase(R)Peak plasma concentrations of txwvflhxjohxx16 0-200 ng/mL following a single 5 mg [...] Detected ng/mL Reporting Limit: 25 code = 62624-6) ng/mL Synony m(s): Duetact(R); Avandaryl(R); Amaryl(R)Peak p lasma concentrations of hkhnpzploulbg21 -340 ng/mL were achi eved 2-3 hoursafter administration of 4 mg of glimepiride. The blood to plasma ratio of Glimepiridei s not known.Analysis by [employer] uid Chromatography/ Tandem Mass Spectromet ry (LC-MS/MS) Nateglinide (test None Detected mcg/mL Reporting Limit: 0.10 code = 47843-5) mcg/mL Synon ym(s): Starlix(R)Peak plasma concentrations of approximately1. 3-7.5 mcg/mL were ach ieved 0.5 hours follo wing a single 60 mg dose.Analysis b y [employer] uid Chromatography/ Tandem Mass Spectromet ry (LC-MS/MS) Repaglinide (test None Detected ng/mL Reporting Limit: 10 code = 96331-6) ng/mL Synony m(s): Prandin(R); PrandiMet(R)Pea k plasma concentr ations of approximatel y <10-180 ng/mL w ere achieved 1 hour after administration of 4 mg of repaglinide.Yohana lysis by High Perform ance Liquid Chromato graphy/ Tandem Mass Spectrometry (LC-MS/MS)This test was developed a nd its performance characteristics determined by [facility]. It has no t been cleared or appr stiven by the [place] Food and Drug Administration. ZACKARY (test code = FASTING:YESCOLLE ZACKARY) CTION REQUIREMENTS NOT MET. PATIENT ADVISED TO RETURN. FASTING: YES RAC (test code = Performing RAC) Organization Information: Site ID: [id number] Name: [facility] Address: [address] [place] [address] Yoav KIARA Mora [address] Director: Humberto Art PH.D, [facility] CenterAdrenocorticotropic [id number] 18:42:00 Test Item Value Reference Interpretation Comments Range Adrenocorticotropic 25 pg/mL 6-50 Referen ce range hormone (test code = applies only to the 2140-0) specimens collectedbetwee n 7am-10am. ZACKARY (test code = ZACKARY) FASTING:YESCOLLE CTION REQUIREMENTS NOT MET. PATIENT ADVISED TO RETURN. FASTING: YES RAC (test code = RAC) Performing Organization Information: Site ID: EZ Name: [facility], Address: [address] [place] [address] Director: Nicky Heck MD,PhD,[facility] HospitalAjmvjbypC-xlvnaaf8848-09-10 18:42:00 Test Item Value Reference Range Interpretation Comments C-peptide (test 1.38 ng/mL 0.80-3.85 code = 1985-) ZACKARY (test code = FASTING:YESCOLLECTION ZACKARY) REQUIREMENTS NOT MET. PATIENT ADVISED TO RETURN. FASTING: YES RAC (test code = Performing Organization RAC) Information: Site ID: RGA Name: [facility] Address: [address] [place] [address] Director: Humberto Bautista [facility] HospitalProinsulin [id number] 18:42:00 Test Item Value Reference Interpretation Comments Range Proinsulin 4.6 pmol/L See_Comment This test was performed (test code = using a laborat ory developed 81805-3) ELISAmethod. Va lues obtained from different assay methods cannotbe used interchangeably . Proinsulin levels, regardl ess ofvalue, should not be i nterpreted as absolute eviden ce of thepresence or absence of disease. This t est was developed and i ts analytical performancechar acteristics have been deter mined by [facility]. It has not beencleared or approved by [...] RAC) Organization Information: Site ID: EZ Name: [facility], Address: [address] [place] [address] Director: Nicky Heck MD,PhD,JAI [facility] HospitalBeta [id number] 18:42:00 Test Item Value Reference Range Interpretation Comments Beta hydroxybutyrate 1.49 mmol/L H Refere nce (test code = 6873-4) Range: ADULT: 0.28 OR LESS ZACKARY (test code = ZACKARY) FASTING:YESCOLLECT ION REQUIREMENTS NOT MET. PATIENT ADVISED TO RETURN. FASTING: YES RAC (test code = RAC) Performing Organization Information: Site ID: EZ Name: [facility], Address: [address] [place], [place] [address] Director: Nicky Heck MD,PhD,[facility] Lab Interpretation Abnormal (test code = 34810-6) [facility] HospitalInsulin-like growth factor I level (IGF-1)2022-02-21 18:42:00 Test Item Value Reference Interpretation Comments Range IGF-1 72 ng/mL 53-331 (test code = 2484-4) Z score -1.4 See_Comment This test was developed and (female) its analytical (test code performancechar acteristics = 43260-5) have been deter [facility]ined by [facility]. It has not beencleared or approved by [...] Organization RAC) Information: Site ID: EZ Name: [facility], Address: [address] [place], [place] [address] Director: Nicky Heck MD,PhD,JAI [facility] HospitalInsulin-like growth factor II level (IGF-2)2022-02-21 18:42:00 Test Item Value Reference Interpretation Comments Range IGF-2 546 ng/mL 267-616 This test was developed and (test its analytical code = performancechar acteristics 2485-1) have been deter mined by [facility]. It has not beencleared or approved by FDA. This assay has been validatedpursua nt to the CLIA regulations and is used for clinicalpurpose s. ZACKARY (test FASTING:YESCOLLEC code = TION REQUIREMENTS ZACKARY) NOT MET. PATIENT ADVISED TO RETURN. FASTING: YES RAC (test Performing code = Organization RAC) Information: Site ID: EZ Name: [facility], Address: [address] [place] [address] Director: Nicky Heck MD,PhD,JAI [facility] HospitalHypoglycemic Panel, Serum/[id number] 18:42:00 Test Item Value Reference Interpretation Comments [...] mcg/mL Synony m(s): Orinase(R)Peak plasma concentrations of gnyhbcsylhvgq17 -100 mcg/mL were ach ieved 35 hours follow ing chronic daily doses.Analysis by [facility] [employer] High [facility] Partnersq uid Chromatography/ Tandem Mass Spectromet ry (LC-MS/MS) Tolazamide (test None Detected mcg/mL Reporting Limit: 0.10 code = 9629-7) mcg/mL Synony m(s): Tolinase(R)No p lasma concentrations have beenreported in the literatureAnaly sis by High Performanc e Liquid Chromato graphy/ Tandem Mass Spectrometry (LC-MS/MS) Glipizide (test None Detected ng/mL Reporting L imit: 40 code = 94774-8) ng/mL Synony m(s): Glynase; Glucot rol(R); GlibenesePeak p lasma concentrations of erghvdfqwcfbg00 0-610 ng/mL were achi eved after administr [...] Actos(R ); Oseni(R)Peak pl asma concentrations of stwwptmontfkv55 0-2600 ng/mL were achi eved 1-4 hour after administration of 45 mg of pioglitazone.An alysis by High Perform ance Liquid Chromato graphy/ Tandem Mass Spectrometry (LC-MS/MS) Glyburide (test None Detected ng/mL Reporting L imit: 40 code = 49497-5) ng/mL Synony m(s): PresTab(R); Micronase(R); Glibenclamide; Glynase(R)Peak plasma concentrations of pfgxcatvdabqd26 0-200 ng/mL following a single 5 mg [...] Detected ng/mL Reporting Limit: 25 code = 29477-5) ng/mL Synony m(s): Duetact(R); Avandaryl(R); Amaryl(R)Peak p lasma concentrations of dxiemrnyewtvt63 -340 ng/mL were achi eved 2-3 hoursafter administration of 4 mg of glimepiride. The blood to plasma ratio of Glimepiridei s not known.Analysis by [employer] Liq uid Chromatography/ Tandem Mass Spectromet ry (LC-MS/MS) Nateglinide (test None Detected mcg/mL Reporting Limit: 0.10 code = 09077-7) mcg/mL Synon ym(s): Starlix(R)Peak plasma concentrations of approximately1. 3-7.5 mcg/mL were ach ieved 0.5 hours follo wing a single 60 mg dose.Analysis b y [employer] Li[employer] uid Chromatography/ Tandem Mass Spectromet ry (LC-MS/MS) Repaglinide (test None Detected ng/mL Reporting Limit: 10 code = 36046-4) ng/mL Synony m(s): Prandin(R); PrandiMet(R)Pea k plasma [...] RAC) Organization Information: Site ID: T7A Name: [facility] Address: [address] [place] [address] KIARA Maots [address] Director: Humberto Art PH.D, F-ABFT [facility] HospitalCortisol level, [id number] 11:42:00 Test Item Value Reference Range Interpretation Comments Cortisol, AM mcg/dL Reference Range 8 (test code = a.m. (7-9 a.m.) 9813-7) Specimen: 4.0-2 2.0 ZACKARY (test code SPLIT 02/09/2022 FROM = ZACKARY) [id number] RAC (test code Performing = RAC) Organization Information: Site ID: A Name: [facility] Address: [address] [place], [place] [id number] Director: Humberto Bautista [facility] Centerrtisol level, [id number] 11:42:00 Test Item Value Reference Range Interpretation Comments Cortisol, AM 13.7 mcg/dL Reference Range 8 (test code = a.m. (7-9 a.m.) 9813-7) Specimen: 4.0-2 2.0 ZACKARY (test code SPLIT 02/09/2022 FROM = ZACKARY) [id number] RAC (test code Performing = RAC) Organization Information: Site ID: A Name: [facility] Address: [address] [place] [address] Director: Humberto Bautista [facility] Centerrtisol level, [id number] 11:42:00 Test Item Value Reference Range Interpretation Comments Cortisol, AM 13.7 mcg/dL Reference Range 8 (test code = a.m. (7-9 a.m.) 9813-7) Specimen: 4.0-2 2.0 ZACKARY (test code SPLIT 02/09/2022 FROM = ZACKARY) [id number] RAC (test code Performing = RAC) Organization Information: Site ID: A Name: [facility] Address: [address] [place], [place] [address] Director: Humberto Bautista [facility] W/AUTO [id number] 00:08:00 Test Item Value Reference Range Interpretation [...] MX#) 0.8 k/mm3 0.1-0.8 N BASIC METABOLIC [id number] 22:41:00 Test Item Value Reference Range Interpretation [...] POCGLU) 109 MG/DL 70-110 N POC , [id number] 16:49:00 Test Item Value Reference Range Interpretation Comments test urine, POC (test Negative code = 5560980) Internal QC (test code = 257) QC acceptable [facility] , [id number] 16:49:00 Test Item Value Reference Range Interpretation Comments test urine, POC (test Negative code = 9579573) Internal QC (test code = 257) QC acceptable [facility] , [id number] 16:49:00 Test Item Value Reference Range Interpretation Comments test urine, POC (test Negative code = 2813052) Internal QC (test code = 257) QC acceptable [facility] BASED SCREENING PLUS [id number] 21:58:00 Test Item Value Reference Interpretation Comments Range Comment (test code This orde r for age-based = 8251-1) cervical cancer and STI screening follo ws ACOG guidelines(PB 1 68, 140,VWT070). Se e individual assa ys for performing site location. Clinical None given information (test code = 33317-5) Date of last NONE GIVEN menstrual period (test code = 8665-2) Prev. pap: (test NONE GIVEN code = 96914-8) Prev. bx: (test NONE GIVEN code = 75638-7) Source (test code = None giv en 08302-6) Statement of Satisfactory fo r adequacy (test code evaluati on.Endocervical/tr = 08634-9) ansformation zo ne componentpresen t.Age and/or menstrua l status not provided General A EPITHELIAL CELL categorization ABNORMALITY (test code = 90353-4) Interpretation/resu A Atypical Squamous Cells of lt: (test code = Undetermine dSignificance 22693-5) (ASC-US) Comment (test code This Pap test has been = ) evaluated with [employer] technology.Sugg est clinical correl ation and follow-up ascli nically appropriate Production [employer] DJL, CT ( CP)CT screening (test code = location: [facility] ) [address], [facility] [address] Pathologist (test Mady graves MD, Board code = ) Certified in Clinical andAnatomic Pat hology. [phone](electroni c signature) Comment (test code EXPLANATO RY NOTE: The Pap = 3193029) is a screening test for cervical cancer [...] Not A Methodology: (test code = Detected Preservationist-M ediated 55120-7) Amplification T his assay detects E6/E7 v [...] For additional info rmation, please refer tohttp://educat ion.[employer]/f aq/ESQ626q6 (This link if p rovided for information/edu cational purposes only.) Chlamydia NOT DETECTED NOT trachomatis, TMA DETECTED result (test code = 31818-6) Neisseria NOT DETECTED NOT gonorrhoeae, TMA DETECTED result (test code = 52942-9) (Always message) The analyti jhon performance (test code = 2647) character istics of thisassay, when used to test SurePath(T M) specimens have beendetermined by [facility]. Th e modifications h avenot been cleared or appr stiven by the FDA. This assay hasbeen validated pursu ant to the CLIA regulation s and isused for clin ical purposes. For a dditional information, pl ease refer tohttps://educa tion.[employer]/ faq/UFU769( This link is be ing provided for information/edu cational purposes only.) RAC (test code = Performing RAC) Organization Information: Site ID: IG Name: [facility] Address: [address] [place] [address] Director: Dr. Humberto Bautista Site ID: RGA Name: [facility] Address: [address] [place] [address] Director: Humberto Bautista Lab Interpretation Abnormal (test code = 01138-3) [facility] 12 [id number] 11:35:15 Test Item Value Reference Range Interpretation Comments Ventricular rate (test code = 253) Atrial rate (test code = 255) CO interval (test code = 266) QRSD interval [...] Bravo MD ([id number]) on 11/09/2021 6:35:11 AM [facility] RNA [Presence] in Respiratory specimen by RADHA with probe [id number] 01:33:17 Test Item Value Reference Range Interpretation Comments SARS-CoV-2 (COVID-19) RNA Not detected [Presence] in Respiratory specimen by RADHA with probe detection (test code = 31667-9) Whether patient is employed in a Unknown healthcare setting (test code = 47301-1) Whether the patient has symptoms Unknown related to condition of interest (test code = 28697-9) Whether the patient was Unknown hospitalized for condition of interest (test code = 46017-5) Whether the patient was admitted Unknown to intensive care unit (ICU) for condition of interest (test code = 99295-0) Whether patient resides in a Unknown congregate care setting (test code = 37028-8) status (test code = Unknown 54295-7) Date and time of symptom onset Unknown (test code = 85873-5) [facility] Pre/Post [id number] 03:21:33 Test Item Value Reference Range Interpretation Comments Ventricular rate (test code = 253) Atrial rate (test code = 255) CO interval (test code = 266) QRSD interval [...] of 08-NOV-2020 07:33,-No significant change was found- [facility] HospitalUrinalysis, automated with [id number] 18:57:00 Test Item Value Reference Range Interpretation Comments Color, UA (test code = Straw 5778-6) Appearance, UA (test Hazy code = 5767-9) Specific gravity, UA 1.001-1.035 (test code = 5811-5) pH, UA (test code = 5.0-8.5 5803-2) Protein, UA (test code Negative Negative = 48395-0) Glucose, UA (test code Negative Negative = 17798-4) Ketones, UA (test code Negative Negative = 2514-8) Bilirubin, UA (test Negative Negative code = 5770-3) Blood, UA (test code = Negative Negative 5794-3) Nitrite, UA (test code Negative Negative = 5802-4) Urobilinogen, UA (test <2.0 See_Comment [Aut omated message] code = 04724-7) The system [facility] generated this result transmitted ref erence range: <=2.0. T he reference range was not used to int erpret this result as normal/abnormal . Leukocyte esterase, UA Negative Negative (test code = 5799-2) Epithelial cells, UA See_Comment [Autom ated message] (test code = 5787-7) The s tem which generated this result transmitted ref erence range: /HPF. Th e reference range was not used to int erpret this result as normal/abnormal . WBC, UA (test code = See_Comment [Autom ated message] 5821-4) The system [facility] generated this result transmitted ref erence range: 0 - 4 /H PF. The reference range was not used to int erpret this result as normal/abnormal . RBC, UA (test code = See_Comment [Autom ated message] 93718-0) The system [facility] generated this result transmitted ref erence range: 0 - 5 /H PF. The reference range was not used to int erpret this result as normal/abnormal . Bacteria, UA (test None seen None seen code = 99639-4) Yeast, UA (test code = None seen 65399-2) Yeast with None seen pseudohyphae, UA (test code = 23470-1) [facility] Metabolic [id number] 06:06:44 Test Item Value Reference Range Interpretation Comments NA (test code = 137 mmol/L 135-145 2264946550) K (test code = 4.0 mmol/L 3.5-5.0 5167890491) CL (test code = 107 mmol/L 98-108 7356860241) CO2 TOTAL (test code = 22 mmol/L 23-31 L 2771054179) AGAP (test code = 2-16 8648169126) BUN (test code = 13 mg/dL 7-23 2922268332) GLUCOSE (test code = 111 mg/dL 70-110 H 8590650775) CREATININE (test code = 0.62 mg/dL 0.50-1.04 2780743313) TOTAL BILI (test code = 0.3 mg/dL 0.1-1.2 1605676406) CALCIUM (test code = 8.9 mg/dL 8.6-10.6 6052214780) T PROTEIN (test code = 7.2 g/dL 6.3-8.2 4139919454) ALBUMIN (test code = 3.7 g/dL 3.5-5.0 7569544435) ALK PHOS (test code = 78 U/L 34-122 8771507754) ALTv (test code = 18 U/L 5-35 1742-6) AST(SGOT) (test code = 26 U/L 13-40 0609382651) eGFR (test code = mL/min/1.73m2 5955270599) ZACKARY (test code = ZACKARY) Association of [...] tests). Lab Interpretation Abnormal (test code = 71295-6) [facility] CenterLip[facility], Kvbss3911-05-89 06:06:44 Test Item Value Reference Range Interpretation Comments LIPASE (test code = 5190297389) 62 U/L 0-220 Lab Interpretation (test code = Normal 51914-9) [facility] with Wdezznxntsew4887-67-24 05:46:03 Test Item Value Reference Range Interpretation Comments WBC (test code = See_Comment H [Automated 4651-2) message] The sy stem which generated this result transmitted reference range : 4.30 - 11.10 10*3/?L. The reference range was not used to interpret this result as normal/abnormal . RBC (test code = See_Comment [Automated 437-8) message] The sy stem which generated this [...] RDW-SD (test code = 45.8 fL 39.0-49.9 92870-3) RDW-CV (test code = 15.1 % 12.0-15.5 788-0) PLT (test code = See_Comment [Automated 777-3) message] The sy stem which generated this result transmitted reference range : 166 - 358 10*3/ ?L. The reference r jaya was not used to interpret this result as normal/abnormal . MPV (test code = 11.9 fL 9.5-12.9 01627-4) NRBC/100 WBC (test See_Comment [Automat ed code = 6827553177) message] The system which generated this result transmitted reference range : 0.0 - 10.0 /100 WBCs. The refer ence range was not u sed to interpret th is result as normal/abnormal . NRBC x10^3 (test code <0.01 See_Comment [Auto mated = 0086026435) message] The s ystem which generated this result transmitted reference range : 10*3/?L. The reference range was not used to interpret this result as normal/abnormal . GRAN MAT (NEUT) % 58.7 % (test code = 770-8) IMM GRAN % (test code 0.10 % = 8874651761) LYMPH % (test code = 32.7 % 736-9) MONO % (test code = 6.6 % 5905-5) EOS % (test code = 1.3 % 713-8) BASO % (test code = 0.6 % 706-2) GRAN MAT x10^3(ANC) 6.73 10*3/uL 1.88-7.09 (test code = 1574697768) IMM GRAN x10^3 (test <0.03 0.00-0.06 code = 2477224151) LYMPH x10^3 (test code 3.74 10*3/uL 1.32-3.29 H = 731-0) MONO x10^3 (test code 0.75 10*3/uL 0.33-0.92 = 742-7) EOS x10^3 (test code = 0.15 10*3/uL 0.03-0.39 711-2) BASO x10^3 (test code 0.07 10*3/uL 0.01-0.07 = 704-7) Lab Interpretation Abnormal (test code = 33539-5) [id number] 05:38:00 Test Item Value Reference Range Interpretation Comments POCT PREG (test code = 1605) neg On board controls acceptable with pos C Line (test code = 3574) POCT PREG LOT # (test code = 3575) [id number] POCT PREG TEST DATE (test 08/14/2022 code = 3576) Lab Interpretation (test code = Normal 12903-6) [facility] RNA [Presence] in Respiratory specimen by RADHA with probe wfepxbueq5192-42-24 19:14:58 Test Item Value Reference Range Interpretation Comments SARS-CoV-2 (COVID-19) RNA Not detected Not-Detected [Presence] in Respiratory specimen by RADHA with probe detection (test code = 04454-5) [facility] Spine Cervical w/o Fralhjga4632-73-93 15:51:34Patient: ISMA KELSEY Date/Time03/20/2020 15:11 CDTReason for ExamRadiculopathyReportExam: CT of the Cervical spine without contrastLocation code: J87MZJVEPD: , Radiculopathy,COMPARISON: None availableTECHNIQUE: Axial images of [...] (Electronic Signature): 03/20/2020 3:51 pmCT Brain/Head w/o Yfrqjqxs7853-58-18 15:49:10Patient: ISMA KELSEY Date/Time03/20/2020 15:11 CDTReason for Examhx chiari malformation w/ SALAS;Other (please specify)ReportEXAM: CT Head without contrastLocation code: W21GFSQMKA: Other (please specify);hx chiari malformation w/ HACOMPARISON: [...] visualized intraorbital contents are within normal limits. The osseous structures are normal.IMPRESSION:1. No acute intracranial abnormality. No acute hemorrhage,mass lesion or infarct.2. Cerebellar tonsils protruding is measures 9 mm below the foramen magnum with crowding of structures at the craniovertebral junction. No hydrocephalus. Final Dictatedby: MD Grover Alan FDictated DT/TM: 03/20/2020 3:47 pmSigned by: MD Grover Alan FSigned (Electronic Signature): 03/20/2020 3:49 pmUrinalysis Lydffnqibha8415-28-49 15:04:44 Test Item Value Reference Range Interpretation Comments UA WBC (test code = UA WBC) 0-5 0-5 UA RBC (test code = UA RBC) None Seen 0-5 UA Bacteria (test code = UA None Seen Bacteria) UA Squam Epithelial (test code = UA 0-5 Squam Epithelial) Urinalysis with Culture, if xszhokirw9165-73-93 14:50:09 Test Item Value Reference Range Interpretation [...] Indicated Not Indicated A Ind?) Comprehensive Metabolic Ugksh9759-07-23 14:16:53 Test Item Value Reference Range Interpretation [...] = Lipemia) 0 g/dL 1-2 Comprehensive Metabolic Vxxxy4154-29-10 14:16:53 Test Item Value Reference Range Interpretation [...] = 0 g/dL 1-2 Lipemia) HCG Qualitative Zhpyz3325-15-99 14:16:53 Test Item Value Reference Range Interpretation Comments HCG, Serum Qual (test code = HCG, Negative Negative Serum Qual) Comprehensive Metabolic Xolrq6301-94-95 14:16:53 Test Item Value Reference Range Interpretation [...] ag e have not been validated by [facility] MDRD study and should be interpreted [...] ag e have not been validated by [facility] MDRD study and should be interpreted [...] g/dL 1-2 Lipemia) Complete Blood Count with Vakwpnfumiqd8326-85-81 13:42:33 Test Item Value Reference Range Interpretation [...] = 0.00 x10 N NRBC Abs) Automated Wtgeklpjpllc2849-66-04 13:42:33 Test Item Value Reference Range Interpretation Comments Neutro Auto (test code = Neutro 72.2 % 36.0-70.0 H Auto) Lymph Auto (test code = Lymph Auto) 21.2 % 12.0-44.0 Stanton Auto (test code = Stanton Auto) 4.9 % 0.0-11.0 Eos, Auto (test code = Eos, Auto) 0.8 % 0.0-7.0 Basophil Auto (test code = Basophil 0.6 % 0.0-2.0 Auto) Neutro Absolute (test code = Neutro 5.6 x10 1.6-7.4 Absolute) Lymph Absolute (test code = Lymph 1.65 x10 .50-4.60 Absolute) Stanton Absolute (test code = Stanton .38 x10 .00-1.20 Absolute) Eos Absolute (test code = Eos 0.06 x10 0.00-0.74 Absolute) Baso Absolute (test code = Baso 0.05 x10 0.00-0.21 Absolute) IG Mjzhc6962-89-94 13:42:33 Test Item Value Reference Range Interpretation Comments IG (test code = IG) 0.3 % 0.0-5.0 IG Abs (test code = IG Abs) 0 x10 N BASIC METABOLIC [id number] 18:05:00 Test Item Value Reference Range Interpretation [...] 7.9 mg/dL 8.0-10.5 L CA) HEPATIC FUNCTION [id number] 18:05:00 Test Item Value Reference Range Interpretation [...] 59 IUnit/L 20-125 N code = ALKP) [id number] 18:05:00 Test Item Value Reference Range Interpretation Comments LIPASE (test code = LIP) 49 IUnit/L 73-393 L HCG SERUM [id number] 18:05:00 Test Item Value Reference Range Interpretation Comments HCG SERUM QUAL (test code = SERUM NEGATIVE NEGATIVE HCGQL) BASIC METABOLIC [id number] 18:04:00 Test Item Value Reference Range Interpretation [...] 7.9 mg/dL 8.0-10.5 L CA) HEPATIC FUNCTION [id number] 18:04:00 Test Item Value Reference Range Interpretation [...] 59 IUnit/L 20-125 N code = ALKP) [id number] 18:04:00 Test Item Value Reference Range Interpretation Comments LIPASE (test code = LIP) 49 IUnit/L 73-393 L HCG SERUM [id number] 18:04:00 Test Item Value Reference Range Interpretation Comments HCG SERUM QUAL (test code = HCGQL) NEGATIVE CBC W/AUTO [id number] 18:00:00 Test Item Value Reference Range Interpretation [...] (test code NO = MDIFF) BASIC METABOLIC [id number] 17:59:00 Test Item Value Reference Range Interpretation [...] CA) 7.9 mg/dL 8.0-10.5 L HEPATIC FUNCTION [id number] 17:59:00 Test Item Value Reference Range Interpretation Comments TOTAL PROTEIN (test code = PROT) g/dL 6.4-8.2 ALBUMIN (test code = ALB) g/dL 3.4-5.0 BILIRUBIN TOTAL (test code = BILT) MG/DL <1.5 BILIRUBIN DIRECT (test code = BILD) MG/DL 0.0-0.30 SGOT/AST (test code = AST) IUnit/L 15-37 SGPT/ALT (test code = ALT) IUnit/L 15-65 ALKALINE PHOSPHATASE TOTAL (test IUnit/L 20-125 code = ALKP) [id number] 17:59:00 Test Item Value Reference Range Interpretation Comments LIPASE (test code = LIP) IUnit/L 73-393 HCG SERUM [id number] 17:59:00 Test Item Value Reference Range Interpretation Comments HCG SERUM QUAL (test code = HCGQL) NEGATIVE - CT ABD PELVIS W/[id number] 17:45:00 Name: ISMA KELSEY [facility] : 1990 Age/S: 29 / F [address] [place] [address] Unit #: [id number] Loc: [place] [address] Phys: Parish Magana MD Acct: [id number] Dis Date: Status: REG ERPHONE #: [phone] Exam Date: 09/27/2019 1722 FAX #: [phone] Reason: RLQ pain EXAMS: CPT CODE: [id number] CT ABD PELVIS W/CONT 95504 CT abdomen and pelvis with contrast dated 09/27/2019 INDICATION: Acute right lower quadrant abdominal pain. COMPARISON: Pelvic ultrasound dated 09/27/2019. TECHNIQ UE: A CT of the abdomen pelvis was [...] No acute CT abnormalities of the liver, spleen, pancreas, adrenal glands or kidneys are detected. There is no CT evidence of acute renal collecting system obstruction or calcified renal collecting system stone. BILIARY: The gallbladder is normallydistended. No significant biliary ductal dilatation is identified. [...] no evidence of retroperitoneal mass or adenopathy. PELVIS:The right ovary appears to contain a partially collapsed cystic structure with a diameter of 3 cm. No abnormalities of the left ovary/adnexa are identified. The bladder has an unremarkable PAGE 1 Signed Report (CONTINUED) Name: ISMA KELSEY [facility] : 1990 Age/S: 29 / F [address] [place] [address] Unit #: [id number] Loc: [place] [address] Phys: Parish Magana MD Acct: [id number] Dis Date: Status: REG ER PHONE #: [phone] Exam Date: 09/27/2019 1722 FAX #: [phone] Reason: RLQ pain EXAMS: CPT CODE: [id number] CT ABD PELVIS W/CONT 97154 (Continued) appearance. LOWER CHEST: The lung bases appear clear of acute disease. ADDITIONAL FINDINGS: None. IMPRESSION: 1. No CT evidenceof acute appendicitis. 2. Radiodense fluid, likely representing hemorrhage, is identified in the pelvis. Given no history of trauma and assuming a negative test, the most likely origin is recent rupture of the partially collapsed right ovarian cyst. No contrast extravasation is identified toindicate active bleeding at the time of CT image acquisition. SL: 131 at 1745 Reported and signed by: Rashel Buchanan M.D. CC: Parish Magana MD Technologist:Mahogany Valentino, RT(R)(CT) CTDI: DLP: Trnscb Date/Time: 09/27/2019 (174) [email or web address].[email or web address] Orig Print D/T: S: 09/27/2019 (7191) PAGE 2 Signed Report- DUP AB/PEL/SC/[id number] 17:24:00 Name: ISMA KELSEY [facility] : 1990 Age/S: 29 / F [address] [place] [address] Unit #: [id number] Loc: [place] [address] Phys: Parish Magana MD Acct: [id number] Dis Date: Status: REG ERPHONE #: [phone] Exam Date: 09/27/2019 1700 FAX #: [phone] Reason: see US Pelvic Non OB Complete EXAMS: CPT CODE: [id number] DUP AB/PEL/SC/LTD 61540 Procedure: Pelvic Ultrasound. Clinical Indic ation: Pelvic pain for one day. Comparison: None. PROCEDURE: PELVIC ULTRASOUND TRANSABDOMINAL SCAN:The uterus measures 9.9 x 4.3 x 4.7. [...] free fluid in the cul-de-sac. SL: OCO-H Electronically Sign ed by Vladimir Tee on 09/27/2019 at 1724 Reported and signed by: Nino Tee M.D. CC: Parish Magana MD Technologist: Alicia Yost RDMS(AB)(OB) Trnscb Date/Time: 09/27/2019 (1723) [email or web address] Orig Print D/T: S: 09/27/2019 (1727) Probe: PAGE 1 Signed Report- US TRANSVAGINAL NON [id number] 17:24:00 Name: ISMA KELSEY [facility] : 1990 Age/S: 29 / F [address] [place] [address] Blvd Unit #: [id number] Loc: [place] [address] Phys: Parish Magana MD Acct: [id number] Dis Date: Status: REG ER PHONE #: [phone] Exam Date: 09/27/2019 170 FAX #: [phone] Reason: see US Pelvic Non OB Complete EXAMS: CPT CODE: [id number] [place] [address] Procedure: Pelvic Ultrasound. Clinical Indication: Pelvic pain for one day. Comparison: None. PROCEDURE: PELVIC ULTRASOUND TRANSABDOMINALSCAN: The uterus measures 9.9 x 4.3 x 4.7. The visualized adnexa are maintained. TRANSVAGINAL SCAN: An endovaginal ultrasound was performed to try to better visualize the endometrial stripe and adnexalregions. There is an 8 mm endometrial stripe. [...] MD Technologist: Alicia Yost RDMS(AB)(OB) Trnscb Date/Time: 09/27/2019(1723) t.[email or web address].TDO Orig Print D/T: S: 09/27/2019 (1727) Probe: [id number] PAGE 1 Signed Report- US PELVIS [id number] 17:24:00 Name: ISMA KELSEY [facility] : 1990 Age/S: 29 / F [address] [place] [address] Unit #: [id number] Loc: [place] [address] Phys: Parish Magana MD Acct: [id number] Dis Date: Status: REG ERPHONE #: [phone] Exam Date: 09/27/2019 1700 FAX #: [phone] Reason: Pelvic Pain EXAMS: CPT CODE: [id number] US PELVIS COMPLETE 44063 Procedure: Pelvic Ultrasound. Clinical Indication: Pelvic pain [...] 3.5 cm and demonstrates a 2.9 cm simpleappearing cyst. The left ovary measures 2.3 x 1.7 x 1.5 cm and is unremarkable. Blood flow is observed within the ovaries. There is minimal free fluid in the cul-de-sac. IMPRESSION: 1. Right ovarian simple cyst. 2. Minimal free fluid in the cul-de-sac. SL: OCO-H at 1724 Reported and signed by: Nino Tee M.D. CC: Asaf GREENWOOD Technologist: Alicia Yost RDMS(AB)(OB) Trnscb Date/Time: 09/27/2019 (172) NathanTDO OrigPrint D/T: S: 09/27/2019 (1728) Probe: PAGE 1 Signed ReportUA RFLX MICR CULT IF [id number] 16:48:00 Test Item Value Reference Range Interpretation [...] culture: Flank PainSpecimen Description: CLEAN CATCHURINE AND [id number] 10:28:00 Test Item Value Reference Range Interpretation Comments UA Leuk Est (test Negative (04/18/16 5:28 code = UA Leuk Est) AM) [facility] [id number] 10:28:00 Test Item Value Reference Range Interpretation Comments UA Ketones (test code Negative *NA*(10/5/16 = UA Ketones) 5:28 AM) [facility] [id number] 10:28:00 Test Item Value Reference Range Interpretation Comments UA Protein (test code Negative (04/18/16 5:28 = UA Protein) AM) [facility] [id number] 10:28:00 Test Item Value Reference Range Interpretation Comments UA Bili (test code = Negative *NA*(04/18/16 UA Bili) 5:28 AM) [facility] [id number] 10:28:00 Test Item Value Reference Range Interpretation Comments UA Glucose (test code Negative (04/18/16 5:28 = UA Glucose) AM) [facility] [id number] 10:28:00 Test Item Value Reference Range Interpretation Comments UA pH (test code = UA pH) 6.0 1 5.0-8.0 [facility] [id number] 10:28:00 Test Item Value Reference Range Interpretation Comments UA Spec Grav (test >=1.030 *ABN*(04/18/16 code = UA Spec Grav) 5:28 AM) [facility] AND [id number] 10:28:00 Test Item Value Reference Range Interpretation Comments UA Color (test code = Yellow *NA*(04/18/16 UA Color) 5:28 AM) [facility] [id number] 10:28:00 Test Item Value Reference Range Interpretation Comments UA Turbidity (test code = Clear (04/18/16 5:28 UA Turbidity) AM) [facility] [id number] 10:28:00 Test Item Value Reference Range Interpretation Comments UA RBC (test None Seen See_Comment [Automated mes perry] code = UA RBC) (04/18/16 5:28 The system w hich AM) generated this result transmitted ref erence range: <=2. The reference range was not used to int erpret this result as normal/abnormal . [facility] [id number] 10:28:00 Test Item Value Reference Range Interpretation Comments UA Urobilinogen (test code = UA 0.2 0.1-1.0 Urobilinogen) [facility] AND [id number] 10:28:00 Test Item Value Reference Range Interpretation Comments UA Bacteria (test code = UA Few /HPF Bacteria) [facility] AND [id number] 10:28:00 Test Item Value Reference Range Interpretation Comments UA WBC (test code = UA WBC) 3-5 /HPF [facility] AND [id number] 10:28:00 Test Item Value Reference Range Interpretation Comments UA Mucus (test code = UA Mucus) Few /LPF [facility] AND [id number] 10:28:00 Test Item Value Reference Range Interpretation Comments UA Sq Epi (test code = UA Sq Epi) Few /LPF [facility] AND [id number] 10:28:00 Test Item Value Reference Range Interpretation Comments UA Nitrite (test code Negative (04/18/16 5:28 = UA Nitrite) AM) [facility] AND [id number] 10:28:00 Test Item Value Reference Range Interpretation Comments UA Blood (test code = Negative (04/18/16 5:28 UA Blood) AM) [facility]2016-10-05 10:09:00 Test Item Value Reference Range Interpretation Comments eGFR (test code = eGFR) [address] [facility]2016-10-05 10:09:00 Test Item Value Reference Range Interpretation Comments ALANINE AMINOTRANSFERASE 28 See_Comment [A utomated message] (test code = ALANINE The sys tem which AMINOTRANSFERASE) generated this result transmitted ref erence range: <=65. Th e reference range was not used to int erpret this result as normal/abnormal . [facility]2016-10-05 10:09:00 Test Item Value Reference Range Interpretation Comments Albumin Lvl (test code = Albumin Lvl) 3.3 3.5-5.[address] [facility]2016-10-05 10:09:00 Test Item Value Reference Range Interpretation Comments ASPARTATE TRANSAMINASE 18 See_Comment [Aut omated message] (test code = ASPARTATE The s ystem which TRANSAMINASE) generated this result transmitted ref erence range: <=37. Th e reference range was not used to interpr et this result as normal/abnormal . [facility]2016-10-05 10:09:00 Test Item Value Reference Range Interpretation Comments Total Protein (test code = Total 7.5 6.4-8.4 Protein) [facility]2016-10-05 10:09:00 Test Item Value Reference Range Interpretation Comments CO2 (test code = CO2) 29 24-[address] [facility]2016-10-05 10:09:00 Test Item Value Reference Range Interpretation Comments Chloride Lvl (test code = Chloride Lvl) 107 95-[address] [facility]2016-10-05 10:09:00 Test Item Value Reference Range Interpretation Comments Bili Total (test code = Bili Total) 0.2 0.2-1.[address] [facility]2016-10-05 10:09:00 Test Item Value Reference Range Interpretation Comments Calcium Lvl (test code = Calcium Lvl) 8.9 8.5-10.[address] [facility]2016-10-05 10:09:00 Test Item Value Reference Range Interpretation Comments Potassium Lvl (test code = Potassium 4.2 3.5-5.1 Lvl) [facility]2016-10-05 10:09:00 Test Item Value Reference Range Interpretation Comments Sodium Lvl (test code = Sodium Lvl) 141 135-[address] [facility]2016-10-05 10:09:00 Test Item Value Reference Range Interpretation Comments Glucose Lvl (test code = Glucose Lvl) 91 70-[address] [facility]2016-10-05 10:09:00 Test Item Value Reference Range Interpretation Comments Alk Phos (test code = Alk Phos) 111 39-[address] [facility]2016-10-05 10:09:00 Test Item Value Reference Range Interpretation Comments Creatinine Lvl (test code = Creatinine 0.71 0.50-1.40 Lvl) [facility]2016-10-05 10:09:00 Test Item Value Reference Range Interpretation Comments BUN (test code = BUN) 18 7-[address] [facility]2016-10-05 10:09:00 Test Item Value Reference Range Interpretation Comments A/G Ratio (test code = A/G Ratio) 0.8 0.7-1.[address] [facility]2016-10-05 10:09:00 Test Item Value Reference Range Interpretation Comments B/C Ratio (test code = B/C Ratio) 25 6-[address] [facility]2016-10-05 10:09:00 Test Item Value Reference Range Interpretation Comments Globulin (test code = Globulin) 4.2 2.7-4.2 [facility] [id number] 10:09:00 Test Item Value Reference Range Interpretation Comments AGAP (test code = AGAP) 9.2 10.0-20.0 [facility] CenterGriieyrERADNKXELITOH1103-43-78 10:09:00 Test Item Value Reference Range Interpretation Comments S Preg (test code = S Negative *NA*(04/18/16 Preg) 5:09 AM) [facility]tcakfrJCXGOXRIUL3389-94-85 10:09:00 Test Item Value Reference Range Interpretation Comments WBC X 10x3 (test code = WBC X 10x3) 9.9 3.7-10.4 [facility] HospitalXdthepaYFBIDORGNY3325-38-10 10:09:00 Test Item Value Reference Range Interpretation Comments RBC X 10x6 (test code = RBC X 10x6) 4.97 4.20-5.40 [facility] HospitalLahjkilDTEGTGINVO4277-91-05 10:09:00 Test Item Value Reference Range Interpretation Comments Hgb (test code = Hgb) 14.2 12.0-16.0 [facility] HospitalPhjwxzwZHMNGVIUZZ6086-60-44 10:09:00 Test Item Value Reference Range Interpretation Comments Hct (test code = Hct) 42.1 36.0-48.0 [facility] HospitalNuyttwzMOIVDYFPGQ8255-94-93 10:09:00 Test Item Value Reference Range Interpretation Comments MCV (test code = MCV) 84.7 80.0-98.0 [facility] HospitalGyprzvqSZOGDVCGDI2248-37-46 10:09:00 Test Item Value Reference Range Interpretation Comments MCH (test code = MCH) 28.6 pg 27.0-31.0 [facility] HospitalVhurvzdHSGRTKIYRO7369-59-98 10:09:00 Test Item Value Reference Range Interpretation Comments MCHC (test code = MCHC) 33.8 32.0-36.0 [facility] HospitalOjirrtoPNEGGOFKYV1076-64-92 10:09:00 Test Item Value Reference Range Interpretation Comments RDW (test code = RDW) 13.2 11.5-14.5 [facility] HospitalCjxfampDBKADVHBZF8643-95-11 10:09:00 Test Item Value Reference Range Interpretation Comments Platelet (test code = Platelet) 213 133-[address] [facility] HospitalIgplpczDUUIGIILTL6175-42-63 10:09:00 Test Item Value Reference Range Interpretation Comments MPV (test code = MPV) 10.3 7.4-10.4 [facility] HospitalGluqdjgCGOURSOETT1496-34-12 10:09:00 Test Item Value Reference Range Interpretation Comments Segs-Bands # (test code = Segs-Bands #) 5.7 1.5-8.1 [facility] HospitalSulvgbcKNNCPLURMJ7290-00-36 10:09:00 Test Item Value Reference Range Interpretation Comments Lymphocytes # (test code = Lymphocytes 3.2 1.0-5.5 #) [facility] HospitalRobutvaZAFAHERWZW3952-81-55 10:09:00 Test Item Value Reference Range Interpretation Comments Monocytes # (test code 0.8 See_Comment [Aut omated message] The = Monocytes #) system which generated this result tra nsmitted reference range : <=0.8. The reference r jaya was not used to int erpret this result as normal/abnormal . [facility] HospitalFvyekwgLMNVICNJOJ9805-57-74 10:09:00 Test Item Value Reference Range Interpretation Comments Basophils (test code = 0.7 See_Comment [Aut omated message] The Basophils) system which ge nerated this result tra nsmitted reference range : <=1.0. The reference r jaya was not used to int erpret this result as normal/abnormal . [facility] HospitalNzcptspTLRJGTLBMY9327-03-88 10:09:00 Test Item Value Reference Range Interpretation Comments Eosinophils # (test code 0.2 See_Comment [A utomated message] The = Eosinophils #) system [facility] h generated this result tra nsmitted reference range : <=0.5. The reference r jaya was not used to int erpret this result as normal/abnormal . [facility] HospitalAtiptndYQWEJRPWDH7460-10-16 10:09:00 Test Item Value Reference Range Interpretation Comments Basophils # (test code 0.1 See_Comment [Aut omated message] The = Basophils #) system which generated this result tra nsmitted reference range : <=0.2. The reference r jaya was not used to int erpret this result as normal/abnormal . [facility] HospitalIfmedifIGHZIVAIFH6584-00-52 10:09:00 Test Item Value Reference Range Interpretation Comments Segs (test code = Segs) 57.3 45.0-75.0 [facility] HospitalObxodxeGZSHRMRCSC8712-04-98 10:09:00 Test Item Value Reference Range Interpretation Comments Eosinophils (test code = 1.7 See_Comment [A utomated message] The Eosinophils) system which ge nerated this result tra nsmitted reference range : <=4.0. The reference r jaya was not used to int erpret this result as normal/abnormal . [id number] 10:09:00 Test Item Value Reference Range Interpretation Comments Lymphocytes (test code = Lymphocytes) 32.5 20.0-40.0 [facility]MctrgfwNCHNXTJWGG2488-41-85 10:09:00 Test Item Value Reference Range Interpretation Comments Monocytes (test code = Monocytes) 7.8 2.0-12.0 [id number] 09:15:00 Test Item Value Reference Range Interpretation Comments Hct (test code = Hct) 36.9 36.0-48.0 [facility] HospitalUevazfqLOSDAHYUZM9938-20-57 09:15:00 Test Item Value Reference Range Interpretation Comments Hgb (test code = Hgb) 11.9 12.0-16.0 [facility] [id number] 16:18:00 Test Item Value Reference Range Interpretation Comments Rhig Reqd (test code = See Note 1(10/18/15 11:18 Rhig Reqd) AM) [facility] [id number] 16:18:00 Test Item Value Reference Range Interpretation Comments ABO/Rh (test code = ABO/Rh) O POS [facility] [id number] 16:18:00 Test Item Value Reference Range Interpretation Comments Antibody Scrn (test Negative (10/18/15 11:18 code = Antibody Scrn) AM) [facility] Hospit[id number] 16:18:00 Test Item Value Reference Range Interpretation Comments Segs-Bands # (test code = Segs-Bands #) 9.5 1.5-8.1 [facility] Hospit[id number] 16:18:00 Test Item Value Reference Range Interpretation Comments Basophils (test code = 0.5 See_Comment [Aut omated message] The Basophils) system which ge nerated this result tra nsmitted reference range : <=1.0. The reference r jaya was not used to int erpret this result as normal/abnormal . [facility] HospitalRdihscnVQQMEFMEUY5710-83-49 16:18:00 Test Item Value Reference Range Interpretation Comments Eosinophils (test code = 0.8 See_Comment [A utomated message] The Eosinophils) system which ge nerated this result tra nsmitted reference range : <=4.0. The reference r jaya was not used to int erpret this result as normal/abnormal . [facility] HospitalSltmbnyPZMNVGWADR5896-66-23 16:18:00 Test Item Value Reference Range Interpretation Comments Monocytes (test code = Monocytes) 5.5 2.0-12.0 [facility] HospitalQiibwxoACDJPVCYUZ6473-90-73 16:18:00 Test Item Value Reference Range Interpretation Comments Lymphocytes (test code = Lymphocytes) 13.4 20.0-40.0 [facility] HospitalP[id number] 16:18:00 Test Item Value Reference Range Interpretation Comments Segs (test code = Segs) 79.8 45.0-75.0 [facility] HospitalDsgybtzDNREEFEAFO2128-74-16 16:18:00 Test Item Value Reference Range Interpretation Comments Eosinophils # (test code 0.1 See_Comment [A utomated message] The = Eosinophils #) system whic h generated this result tra nsmitted reference range : <=0.5. The reference r jaya was not used to int erpret this result as normal/abnormal . [facility] Hospit[id number] 16:18:00 Test Item Value Reference Range Interpretation Comments Basophils # (test code 0.1 See_Comment [Aut omated message] The = Basophils #) system which generated this result tra nsmitted reference range : <=0.2. The reference r jaya was not used to int erpret this result as normal/abnormal . [facility] HospitalGvowaxdXLIVNIBKTQ3951-43-66 16:18:00 Test Item Value Reference Range Interpretation Comments Lymphocytes # (test code = Lymphocytes 1.6 1.0-5.5 #) [facility] HospitalUddjcvcVSIZHMMEHA1524-47-29 16:18:00 Test Item Value Reference Range Interpretation Comments Monocytes # (test code 0.7 See_Comment [Aut omated message] The = Monocytes #) system which generated this result tra nsmitted reference range : <=0.8. The reference r jaya was not used to int erpret this result as normal/abnormal . [facility] Hospit[id number] 16:18:00 Test Item Value Reference Range Interpretation Comments Platelet (test code = Platelet) 155 133-450 [facility] HospitalEjjtnbjEQTKYHYMBH6593-24-79 16:18:00 Test Item Value Reference Range Interpretation Comments RDW (test code = RDW) 14.8 11.5-14.5 [facility] HospitalKyeqghuSZDHSADTEN8478-35-37 16:18:00 Test Item Value Reference Range Interpretation Comments MPV (test code = MPV) 10.5 7.4-10.4 [facility] HospitalGdfjdwzNZYEWDHMWT0478-69-51 16:18:00 Test Item Value Reference Range Interpretation Comments Hgb (test code = Hgb) 13.3 12.0-16.0 [facility] HospitalBsimaqwVKKVSLAEMZ9696-94-88 16:18:00 Test Item Value Reference Range Interpretation Comments MCV (test code = MCV) 87.8 80.0-98.0 [facility] HospitalEaewkkjJCSYGSIHCW6249-28-91 16:18:00 Test Item Value Reference Range Interpretation Comments Hct (test code = Hct) 40.7 36.0-48.0 [facility] HospitalHzuhvevQVPKXQJEUP7987-86-99 16:18:00 Test Item Value Reference Range Interpretation Comments MCH (test code = MCH) 28.7 pg 27.0-31.0 [facility] HospitalOlyrxutDYHXHWUXQV9394-31-27 16:18:00 Test Item Value Reference Range Interpretation Comments MCHC (test code = MCHC) 32.7 32.0-36.0 [facility] HospitalRqmyczzQAZVYTMLML7192-43-79 16:18:00 Test Item Value Reference Range Interpretation Comments RBC (test code = RBC) 4.64 4.20-5.40 [facility] HospitalPgidpfaLAVNYOPNHQ9042-11-16 16:18:00 Test Item Value Reference Range Interpretation Comments WBC (test code = WBC) 11.8 3.7-10.4 [facility]ut[facility]fehQKHTFURDAY0293-11-09 16:18:00 Test Item Value Reference Range Interpretation Comments Hep Bs Ag (test code Negative *NA*(10/18/15 = Hep Bs Ag) 11:18 AM) [facility]IqpdhvcRXYQQHUQRB5797-07-17 16:18:00 Test Item Value Reference Range Interpretation Comments HIV. (test code = Negative *NA*(10/18/15 HIV.) 11:18 AM) [facility]wlbIOUHFBZHPR5101-31-87 16:18:00 Test Item Value Reference Range Interpretation Comments Treponemal Scr (test Non Reactive code = Treponemal Scr) *NA*(10/18/15 11:18 AM) [facility] [id number] 03:44:00 Test Item Value Reference Range Interpretation Comments Amnisure ROM (test code Negative 1(10/04/15 = Amnisure ROM) 10:44 PM) [facility] [id number] 13:22:00 Test Item Value Reference Range Interpretation Comments UA Urobilinogen (test code = UA <=1.0 mg/dL 0.1-1.0 Urobilinogen) [facility] [id number] 13:22:00 Test Item Value Reference Range Interpretation Comments UA Color (test code = UA Color) Ltyellow [facility] [id number] 13:22:00 Test Item Value Reference Range Interpretation Comments UA Blood (test code = Negative (09/22/15 7:22 UA Blood) AM) [facility] [id number] 13:22:00 Test Item Value Reference Range Interpretation Comments UA Bili (test code = Negative *NA*(09/22/15 UA Bili) 7:22 AM) [facility] [id number] 13:22:00 Test Item Value Reference Range Interpretation Comments UA Nitrite (test code Negative (09/22/15 7:22 = UA Nitrite) AM) [facility] [id number] 13:22:00 Test Item Value Reference Range Interpretation Comments UA Leuk Est (test code Large *ABN*(09/22/15 = UA Leuk Est) 7:22 AM) [facility] [id number] 13:22:00 Test Item Value Reference Range Interpretation Comments UA Ketones (test code = UA Negative mg/dL Ketones) [facility] [id number] 13:22:00 Test Item Value Reference Range Interpretation Comments UA Protein (test code = UA Negative mg/dL Protein) [facility] [id number] 13:22:00 Test Item Value Reference Range Interpretation Comments UA Glucose (test code = UA Negative mg/dL Glucose) [facility] [id number] 13:22:00 Test Item Value Reference Range Interpretation Comments UA pH (test code = UA pH) 6.0 5.0-8.0 [facility] AND [id number] 13:22:00 Test Item Value Reference Range Interpretation Comments UA Turbidity (test code Slight *ABN*(09/22/15 = UA Turbidity) 7:22 AM) [facility] AND [id number] 13:22:00 Test Item Value Reference Range Interpretation Comments UA Spec Grav (test code = UA Spec Grav) 1.011 [facility] AND [id number] 13:22:00 Test Item Value Reference Range Interpretation Comments UA RBC (test code = 1 See_Comment [Automa vargas message] The UA RBC) system which ge nerated this result transmit vargas reference range : <=2. The reference range was not used to interpr et this result as charlotte l/abnormal. [facility] AND [id number] 13:22:00 Test Item Value Reference Range Interpretation Comments UA Sq Epi (test code = UA Sq Epi) Many /LPF [facility] AND [id number] 13:22:00 Test Item Value Reference Range Interpretation Comments UA WBC (test code = 18 See_Comment [Automa vargas message] The UA WBC) system which ge nerated this result transmit vargas reference range : <=5. The reference range was not used to interpr et this result as charlotte l/abnormal. [facility] AND [id number] 13:22:00 Test Item Value Reference Range Interpretation Comments UA Mucus (test code = UA Mucus) Few /LPF [facility] AND [id number] 13:22:00 Test Item Value Reference Range Interpretation Comments UA Bacteria (test code = UA Occasional /HPF Bacteria) [facility] Notes Date/Time Note Provider Source 2022-07-29 18:12:00-00:00 [facility] ([facility]) EMERGENCY PROVIDER REPORT REPORT#:[id number] REPORT STATUS: Signed DATE:07/29/22 TIME: 1811 PATIENT: ISMA KELSEY UNIT #: [id number] ROOM/BED: AGE: 31 SEX: F PCP PHYS: No Primary or Family Ph ysician SERVICE AUTHOR: Kota Salmon MD * ALL edits or amendments must be made on the [employer]/computer document * HPI-General Illness Free Text HPI [...] 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 She de nies any bowel or bladder incontinence or retention or additional genitourinary complai nts. General Initial Greet Date/Time 07/29/22 152 Presentation Chief Complaint __ (low back pain [...] 07/29 1530 Pulse 86 07/29 1530 Resp 07/29 1530 Pulse Ox 98 07/29 1635 Last Documented: Result Date Time Pulse Ox 98 07/29 1635 O2 Delivery Room air 07/29 1635 B/P 114/71 07/29 1530 B/P Mean 85 07/29 1530 Temp 36.4 07/29 1530 Pulse 86 07/29 1530 Resp 07/29 1530 Review of Vital Signs Reviewed Basic Physical [...] Lab Results Interpretation Results Laboratory Tests: 07/29 07/29 1627 1622 Blood Gas Sodium (134 - 147 mmol/L) 139 Potassium (3.4 - 5.0 mmol/L) 4.1 Chloride (100 - 108 mmol/L) 103 Ionized Calcium (1.12 - 1.32 MMOL/L) 1.17 Chemistry POC Creatinine (0.6 - 1.0 mg/dL) 0.6 POC Glucose (mg/dL) (70 - 110 MG/DL) 86 Urines POC Urine pH (5.0 - 7.0) 7 Ur Specific [place] (1.005 - 1.030) 1.015 POC Urine Protein [...] Report Impression - Status: SIGNED Entered: 07/29/2022 1872 IMPRESSION: CT Cervical Spine With Contrast 1. [...] aortic aneurysm, complication of gastric bypass surgery. Abdomin al CT considered, patient without any examination find ings to warrant abdominal CT at this time. CT scans of the cervical thoracic and lumbar spines were performed showing no acute findings. Advised patient that given her present ation we can transport her [facility] for MRI ev aluation of her spine. Patient declined stating she must return home to take care of her daughter, willem hat she has been in communication with her neurosurgery clin ic, and that she will return to the ER if her symptoms worsen. She appears clinically sober and decisional in choosing to decline further medical screening exam kal [place]. Patient has been precautioned to return anytime [...] 07/29 1530 Pulse 86 07/29 1530 Resp 07/29 1530 Pulse Ox 98 07/29 1635 [...] Patient Instructions ED Back Pain (Acute or Manager Statistical cassius) Additional Instructions Please follow-up with your neurosurgery clinic w ithin 24 hours. Return to ER immediately for worsening pain, weakness, numbne ss, incontinence or any other concerns. Referrals Provider Referral: Paulo Maloney MD Address: [address] [place] [address] [address] [place] [id number] Provider Referral: Areli Newby DO Address: [address] [facility] [address] [place] [address] Provider Referral: Irene Henao DO Address: [address] [place] [address] [facility] [address] [place] [address] Provider Referral: Hong Ayers MD Address: [address] [facility] [address] [place] [address] Departure Forms AMY FREE OR LOW COST [...] symptoms should prompt an immediate return to [facility] or the closest emergency department or a call to 911. at 1823 RPT #:[id number] END OF REPORT 2022-01-19 23:26:00-00:00 [facility] ([facility]) EMERGENCY PROVIDER REPORT REPORT#:[id number] REPORT STATUS: Signed DATE:01/19/22 TIME: 2325 PATIENT: ISAM KELSEY UNIT #: [id number] ROOM/BED: AGE: 31 SEX: F PCP PHYS: No Primary or Family Ph ysician SERVICE AUTHOR: Analia Mendez MD * ALL edits or amendments must be made on the [employer]/computer document * HPI-Palpit/Arrhyth Free Text HPI Notes Free Text HPI Notes 31-year-old female history of asthma, HTN, gastr ic bypass presents with palpitations. Patient reports at 0 she starte d feeling palpitations. She reports [...] Documented: Result Date Time Pulse Ox 98 01/20 0050 B/P 111/60 01/20 0050 B/P Mean 77 01/20 0050 Temp 36.4 01/20 0050 Pulse 72 01/20 0050 Resp 16 01/20 0050 O2 Delivery Room air 01/19 2225 [...] Diagnostics Lab Results Interpretation Results Laboratory Tests 01/19/222224: [Embedded Image Not Available] Laboratory Tests: 01/19 Blood Gas Sodium (134 - 147 MEQ/L) [...] 0.8 ECG #1 Interpretation Date 01/19/22 Time 221 Interpreted by and reviewed by me NL ECG Interpretation Normal rate, Normal sinus rhythm, No acute ischemic changes, No STEMI Rate 63 ECG Q-T-ST - RI Non-specific ST changes Re-Evaluation MDM Free Text [...] precautions, PCP follow-up, recommendati on to call rehabilitation engineer the morning to discuss possible adjustment of blood pressure me dication. Re-Eval Status Improved ED Course Medication(s) Ordered Medication(s) Ordered: Electrolytic, Caloric, And Jeffry Sig/Jenni Start time Last Medication Dose Route Stop Time Status Admin Sodium Chloride 1,000 ML X1ED STA 01/199 DC 01/19 IV 01/20 Patient Discharge Departure Vital Signs/Condition Vital Signs First Documented: Result Date Time Pulse Ox 99 01/19 2225 B/P 130/75 01/19 2225 B/P Mean 93 01/19 2225 O2 Delivery Room air 01/19 2225 Temp 36.2 01/19 2225 Pulse 69 01/19 222 Resp 18 01/19 2225 Last Documented: Result Date Time Pulse Ox 98 01/20 0050 B/P 111/60 01/20 0050 B/P Mean 77 01/200 Temp 36.4 01/20 0050 Pulse 72 01/20 0050 Resp 16 01/200 O2 Delivery Room air 01/19 2225 All [...] ED Palpitations Additional Instructions Please call your rehabilitation engineer in the morning to discuss your blood [...] symptoms should prompt an immediate return to [facility] or the closest emergency department or a call to 911. at 0631 RPT #:[id number] END OF REPORT 2019-09-27 16:14:00-00:00 [facility] ([facility]) EMERGENCY PROVIDER REPORT REPORT#:[id number] REPORT STATUS: Signed DATE:09/27/19 TIME: 1614 PATIENT: ISMA KELSEY UNIT #: [id number] ROOM/BED: AGE: 29 SEX: F PCP PHYS: No Primary or Family Ph ysician SERVICE AUTHOR: Parish Magana MD * ALL edits or amendments must be made on the [employer]/computer document * HPI-Abd Pain F Under 40 [...] PE General/Const General/Const Awake, Alert, Well developed, Co operative MS Head Head Atraumatic, Normocephalic Eyes Eyes [...] % (Auto) (14.0 - 32.0 %) 21.6 Stanton % (Auto) (4.8 - 9.0 %) 8.0 Eos % (Auto) (0.3 - 3.7 %) 1.6 Baso % (Auto) (0.0 - 2.0 %) 0.5 Neut # (Auto) (2.0 - 7.6 x10 3/uL) 5.94 Lymph # (Auto) (1.0 - 3.8 x10 3/uL) 1.88 Stanton # (Auto) (0.1 - 0.8 x10 3/uL) 0.70 Eos # (Auto) (0.0 - 0.2 x10 3/uL) 0.14 Baso # (Auto) (0.0 - 0.2 x10 3/uL) 0.04 Abs Immat Gran (auto) (0.00 - 0.03 x10 3/uL) 0. 02 Add Manual Diff NO Immature Gran % (0.0 - 2.0 %) 0.2 Nucleated RBC % (0 - 0 %) 0.0 Nucleated RBCs # (Man) (0.0 - 0.1 x10 3/uL) 0.0 0 Urines Urine Color (YEL/STRAW) YELLOW Urine Appearance (CLEAR) CLEAR Urine pH (5.0 - 7.0) 8.0 H Ur Specific [place] (1.005 - 1.030) 1.016 Urine Protein (NEGATIVE) [...] Report Impression - Status: SIGNED Entered: 09/27/2019 1553 IMPRESSION: 1. Right ovarian simple cyst. 2. Minimal free fluid in the cul-de-sac. SL: OCO-H Impression By: Yuly Banks ULTRASOUND - US TRANSVAGINAL NON OB 09/27 1619 Report Impression - Status: SIGNED Entered: 09/27/2019 1728 IMPRESSION: 1. Right ovarian simple cyst. 2. Minimal free fluid in the cul-de-sac. SL: OCO-H Impression By: Yuly Banks ULTRASOUND - US PELVIS COMPLETE 09/26 1620 Report Impression - Status: SIGNED Entered: 09/27/2019 [...] SCAN - CT ABD PELVIS W/CONT 09/26 172 Interpreted by radiologist Reviewed by ED physician [...] 500 ML .STK-MED ONE 09/26 1723 DC 09/26 PO 09/26 1724 1723 Iopamidol 100 ML [...] 09/26 161 O2 Delivery Room air 09/26 1614 Temp 37.3 09/26 161 Pulse 84 09/26 161 Resp 16 09/26 1615 Last Documented: Result Date Time Pulse Ox 98 09/26 185 B/P 133/86 09/26 185 B/P Mean 101 09/26 185 O2 Delivery Room air 09/26 1852 Temp 36.7 09/26 185 Pulse 77 09/26 185 Resp 17 09/26 1852 All vital signs available at the time [...] it accurately records my words and actions. Breezy Magana, 09/30/19 Portions of this section were scribed by Beth Ospina on 09/27/19 at 1848 Electronically Signed by Parish Magana MD on at 0940 RPT #:[id number] END OF REPORT
[2023-01-11 21:26] LABS: Specific Gravity 1.025 (1.005-1.030); Urine Bilirubin NEGATIVE (Negative); Urine Blood Negative (Negative); Urine Clarity Clear (Clear); Urine Color Light-Yellow (Yellow); Urine Glucose NEGATIVE (Negative); Urine Protein NEGATIVE (Negative); Urine Urobilinogen Normal (Normal)
[2023-01-11 21:29] LABS: Specific Gravity 1.025 (1.005-1.030)
[2023-01-11 21:39] LABS: Albumin 3.5 g/dL (3.4-5.0); Bilirubin Total 0.4 mg/dL (0.2-1.0); Magnesium 2.2 mg/dL (1.6-2.4); Protein, Total 7.5 g/dL (6.4-8.2); Troponin High Sensitivity 8.8 pg/mL (<58.9)
[2023-01-11 21:47] LABS: Hematocrit 45.3 % (36.0-45.0); Lymphocytes % 32.4 % (15.3-44.8); MCV 88.5 fL (80-100); MPV 9.7 fL (7.6-11.3); RBC Red Blood Cell Count 5.12 M/uL (3.86-4.86)
[2023-01-11 21:53] LABS: Protime INR 0.92
[2023-01-11] MEDS ORDERED: NA CHLORIDE 0.9% 1,000 ML ONE (22:00)
[2023-01-11] MEDS ORDERED: DIPHENHYDRAMINE 50 MG/ML VIAL ONE (23:11)
[2023-01-11] MEDS ORDERED: FENTANYL CITR 100 MCG/2 ML ONE (23:11)
[2023-01-11] MEDS ORDERED: METOCLOPRAMIDE 10 MG/2mL INJ ONE (23:11)
--- NOTE | 2023-01-11 23:35 | EDPHYS ---
Physician Documentation [facility] Name: Kelly Nava Age: 32 yrs Sex: Female : 1990 Arrival Date: 01/11/2023 Time: 20:04 Bed 11 Private MD: ED Physician Sergio Lawton HPI: 01/12 00:28 This 32 yrs old Female presents to ER via Ambulatory with complaints of Headache, kb Dizziness. 00:28 The patient complains of pain to the top of head. The patient describes the headache as kb throbbing. Onset: The symptoms/episode began/occurred 5 day(s) ago. Associated signs and symptoms: Pertinent positives: nausea, Photophobia. Severity of symptoms: At its worst the pain was moderate, in the emergency department the pain is unchanged. Headache History: The patient has had previous headaches and this one is similar to previous episodes, and this one is more severe than previous episodes. The symptoms are alleviated by nothing. the symptoms are aggravated by lights, movement. The patient has experienced similar episodes in the past. The patient has been recently seen by a physician:. Pt reports headache that started 5 days ago. States she was seen at a stand alone ER in [place] [address] with IV contrast of brain that was normal. States she has had similar headaches in the past, but this one has been worse. States she has had 2 MRIs this year and multiple studies done by her neurologist, but nothing has been found so far. States she is awaiting insurance approval for further testing. . Historical: - Allergies: 01/11 20:33 Ciprofloxacin; kl - PMHx: 20:33 Asthma; kl - PSHx: 20:33 Chiari malformation; Chiari malformation correction; [facility] procedure; Gastric Bypass; R kl knee repair; - Immunization history:: Adult Immunizations not immunized. - Social history:: Smoking status: Patient/guardian denies using tobacco, the patient reports quitting approximately 4 years ago. ROS: 01/12 00:27 Constitutional: Negative for fever, chills, and weight loss. kb Neuro: Positive for headache. All other systems are negative. Exam: 00:27 Constitutional: This is a well developed, well nourished patient who is awake, alert, kb and in no acute distress. Head/Face: Normocephalic, atraumatic. Eyes: Pupils equal round and reactive to light, extra-ocular motions intact. Lids and lashes normal. Conjunctiva and sclera are non-icteric and not injected. Cornea within normal limits. Periorbital areas with no swelling, redness, or edema. ENT: Moist Mucous membranes Cardiovascular: Regular rate and rhythm with a normal S1 and S2. No gallops, murmurs, or rubs. No pulse deficits. Respiratory: Respirations even and unlabored. No increased work of breathing. Talking in full sentences Abdomen/GI: Soft, non-tender. No distention Skin: Warm, dry with normal turgor. Normal color. MS/ Extremity: Pulses equal, no cyanosis. Neurovascular intact. Full, normal range of motion. Neuro: Awake and alert, GCS 15, oriented to person, place, time, and situation. Moves all extremities. Normal gait. Vital Signs: 01/11 20:28 BP 109 / 81; Pulse 78; Resp 18; Temp 98.5; Pulse Ox 99% on R/A; Weight 64 kg; Height 5 kl ft. 3 in. ; Pain 8/10; 22:30 BP 116 / 75; Pulse 70; Resp 17; Pulse Ox 100% on R/A; rv 23:42 BP 110 / 76; Pulse 71; Resp 17; Pulse Ox 100% ; rv 20:28 Body Mass Index 24.99 (64.00 kg, 160.02 cm) kl 20:28 Pain Scale: Adult Erik Coma Score: 23:42 Eye Response: spontaneous(4). Motor Response: obeys commands(6). Verbal Response: rv oriented(5). Total: 15. 01/12 00:28 Eye Response: spontaneous(4). Motor Response: obeys commands(6). Verbal Response: kb oriented(5). Total: 15. MDM: 01/11 20:27 Patient medically screened. carmine 01/12 00:28 Differential diagnosis: intracerebral hemorrhage, migraine, tension headache. Data kb reviewed: vital signs, nurses notes. Counseling: I had a detailed discussion with the patient and/or guardian regarding: the historical points, exam findings, and any diagnostic results supporting the discharge/admit diagnosis, lab results, radiology results, the need for outpatient follow up, a neurologist, to return to the emergency department if symptoms worsen or persist or if there are any questions or concerns that arise at home. 01/11 20:50 Order name: CBC with Diff; Complete Time: 21:50 kb 01/11 20:50 Order name: Magnesium; Complete Time: 21:45 kb 01/11 20:50 Order name: Protime (+inr); Complete Time: 22:09 kb 01/11 20:50 Order name: Ptt, Activated; Complete Time: 22:09 kb 01/11 20:50 Order name: Troponin High Sensitivity; Complete Time: 21:45 kb 01/11 20:50 Order name: CMP; Complete Time: 21:45 kb 01/11 20:50 Order name: CPK; Complete Time: 21:45 kb 01/11 20:50 Order name: Test, Urine; Complete Time: 21:45 kb 01/11 20:50 Order name: Urinalysis w/ reflexes; Complete Time: 21:30 kb 01/11 22:31 Order name: [place] Screen Profile; Complete Time: 23:06 kl 01/11 21:54 Order name: CT Head C Spine kb 01/11 20:50 Order name: EKG; Complete Time: 20:50 kb 01/11 20:50 Order name: Cardiac monitoring; Complete Time: 21:10 kb 01/11 20:50 Order name: EKG - Nurse/Tech; Complete Time: 21:20 kb 01/11 20:50 Order name: IV Saline Lock; Complete Time: 21:10 kb 01/11 20:50 Order name: Labs collected and sent; Complete Time: 21:10 kb 01/11 20:50 Order name: NPO; Complete Time: 21:10 kb 01/11 20:50 Order name: O2 Per Protocol; Complete Time: 21:10 kb 01/11 20:50 Order name: O2 Sat Monitoring; Complete Time: 21:10 kb Administered Medications: 01/11 21:55 Drug: NS 0.9% IV 1000 ml Route: IV; Rate: 1000 ml; Site: right antecubital; rv 23:07 Follow up: IV Status: Completed infusion; IV Intake: 1000ml rv 23:07 Drug: fentaNYL (PF) IVP 25 mcg Route: IVP; Site: right antecubital; rv 23:41 Follow up: Response: No adverse reaction rv 23:07 Drug: metoCLOPramide IVP 10 mg Route: IVP; Site: right antecubital; rv 23:41 Follow up: Response: No adverse reaction rv 23:07 Drug: diphenhydrAMINE IVP 12.5 mg Route: IVP; Site: right antecubital; rv 23:41 Follow up: Response: No adverse reaction rv 23:41 Drug: traMADol PO 50 mg Route: PO; rv 23:41 Follow up: Response: Medication administered at discharge. rv 23:41 Drug: Acetaminophen PO 1000 mg Route: PO; rv 23:41 Follow up: Response: Medication administered at discharge. rv Disposition: 01/12 02:48 Co-signature as Attending Physician, Sergio Lawton MD I agree with the assessment sp4 and plan of care. I reviewed the patient's care provided by the Advanced Practice Provider and agree with the diagnosis and treatment plan. Disposition Summary: 01/11/23 23:34 Discharge Ordered Location: Home kb Condition: Stable kb Diagnosis - Headache kb Followup: kb - With: Emergency Department - When: As needed - Reason: Worsening of condition Followup: kb - With: Private Physician - When: 2 - 3 days - Reason: Recheck today's complaints, Continuance of care, Re-evaluation by your physician Discharge Instructions: - Discharge Summary Sheet kb - General Headache Without Cause, [id number] kb Forms: - Medication Reconciliation Form kb - Thank You Letter kb - Antibiotic Education kb - Prescription Opioid Use kb - [email or web address] kb Signatures: Dispatcher [employer] Gloria Ramey FNP-C FNP-Dipti Costello, RN Pankaj Vernon RN RN rv Potepalov, Sergey, MD MD sp4
--- NOTE | 2023-01-11 23:35 | ER ---
Nurse's Notes [facility] Name: Kelly Nava Age: 32 yrs Sex: Female : 1990 Arrival Date: 01/11/2023 Time: 20:04 Bed 11 Private MD: Diagnosis: Headache Presentation: 01/11 20:28 Chief complaint: Patient states: headache x 1 week seen here 4 days prior for rhabdo kl went on vacation began having headache went to ER in [place] and refused transfer to [facility] pt reports incontinent of urine x 3 episodes. Coronavirus screen: Vaccine status: Patient reports being unvaccinated. Ebola Screen: Patient negative for fever greater than or equal to 101.5 degrees Fahrenheit, and additional compatible Ebola Virus Disease symptoms. Initial Sepsis Screen: Does the patient meet any 2 criteria? No. Patient's initial sepsis screen is negative. Does the patient have a suspected source of infection? No. Patient's initial sepsis screen is negative. Risk Assessment: Do you want to hurt yourself or someone else? Patient reports no desire to harm self or others. 20:28 Method Of Arrival: Ambulatory 20:28 Acuity: KHADIJAH 3 kl 21:11 Onset of symptoms was January 11, 2023. Triage Assessment: 20:33 Headache History: Denies prior headaches. General: Appears uncomfortable, ill, Behavior kl is cooperative. Pain: Complains of pain in top of head, forehead and right gnosticism Pain currently is 8 out of 10 on a pain scale. Pain began gradually, 2-3 days ago. Also complains of nausea, inability to concentrate. Neuro: Adve Agitation-Sedation Scale (RASS): Level of Consciousness is awake, alert, obeys commands, Oriented to person, place, time, situation, Speech is normal, Facial symmetry appears normal, Pupils are PERRLA. Historical: - Allergies: 20:33 Ciprofloxacin; kl - PMHx: 20:33 Asthma; kl - PSHx: 20:33 Chiari malformation; Chiari malformation correction; [facility] procedure; Gastric Bypass; R kl knee repair; - Immunization history:: Adult Immunizations not immunized. - Social history:: Smoking status: Patient/guardian denies using tobacco, the patient reports quitting approximately 4 years ago. Screenin:40 [facility] ED Fall Risk Assessment (Adult) History of falling in the last 3 months, kl including since admission No falls in past 3 months (0 pts) Confusion or Disorientation No (0 pts) Intoxicated or Sedated No (0 pts) Impaired Gait No (0 pts) Mobility Assist Device Used No (0 pt) Altered Elimination No (0 pt) Score/Fall Risk Level 0 - 2 = Low Risk Oriented to surroundings, Maintained a safe environment. Abuse screen: Denies threats or abuse. Nutritional screening: No deficits noted. Tuberculosis screening: No symptoms or risk factors identified. Assessment: 20:40 Reassessment: see triage. Vital Signs: 20:28 BP 109 / 81; Pulse 78; Resp 18; Temp 98.5; Pulse Ox 99% on R/A; Weight 64 kg; Height 5 kl ft. 3 in. ; Pain 8/10; 22:30 BP 116 / 75; Pulse 70; Resp 17; Pulse Ox 100% on R/A; rv 23:42 BP 110 / 76; Pulse 71; Resp 17; Pulse Ox 100% ; rv 20:28 Body Mass Index 24.99 (64.00 kg, 160.02 cm) kl 20:28 Pain Scale: Adult [place] Coma Score: 23:42 Eye Response: spontaneous(4). Motor Response: obeys commands(6). Verbal Response: rv oriented(5). Total: 15. 01 00:28 Eye Response: spontaneous(4). Motor Response: obeys commands(6). Verbal Response: kb oriented(5). Total: 15. ED Course: 01/11 20:05 Patient arrived in ED. ag3 20:27 [facility]anda [facility]C [facility] kb 20:27 Sergio Lawton MD is Attending Physician. kb 20:33 Triage completed. kl 20:40 Patient has correct armband on for positive identification. Bed in low position. Call kl light in reach. Side rails up X2. 21:05 Inserted saline lock: 20 gauge in right antecubital area, using aseptic technique. rv Blood collected. 21:10 Arm band placed on right wrist. rv 21:10 Test, Urine Sent. rv 21:10 Urinalysis w/ reflexes Sent. rv 21:10 CPK Sent. rv 21:10 CMP Sent. rv 21:10 CBC with Diff Sent. rv 21:10 Magnesium Sent. rv 21:10 Protime (+inr) Sent. rv 21:10 Ptt, Activated Sent. rv 21:10 Troponin High Sensitivity Sent. rv 21:10 No provider procedures requiring assistance completed. rv 22:51 CT Head C Spine In Process Unspecified. EDMS 23:43 IV discontinued, intact, bleeding controlled, No redness/swelling at site. Pressure rv dressing applied. Administered Medications: 21:55 Drug: NS 0.9% IV 1000 ml Route: IV; Rate: 1000 ml; Site: right antecubital; rv 23:07 Follow up: IV Status: Completed infusion; IV Intake: 1000ml rv 23:07 Drug: fentaNYL (PF) IVP 25 mcg Route: IVP; Site: right antecubital; rv 23:41 Follow up: Response: No adverse reaction rv 23:07 Drug: metoCLOPramide IVP 10 mg Route: IVP; Site: right antecubital; rv 23:41 Follow up: Response: No adverse reaction rv 23:07 Drug: diphenhydrAMINE IVP 12.5 mg Route: IVP; Site: right antecubital; rv 23:41 Follow up: Response: No adverse reaction rv 23:41 Drug: traMADol PO 50 mg Route: PO; rv 23:41 Follow up: Response: Medication administered at discharge. rv 23:41 Drug: Acetaminophen PO 1000 mg Route: PO; rv 23:41 Follow up: Response: Medication administered at discharge. rv Medication: 21:10 VIS not applicable for this client. rv Intake: 23:07 IV: 1000ml; Total: 1000ml. rv Outcome: 23:34 Discharge ordered by . kb 23:42 Discharged to home ambulatory, with family. rv 23:42 Condition: improved 23:42 Discharge instructions given to patient, Instructed on discharge instructions, follow up and referral plans. Demonstrated understanding of instructions, follow-up care. 23:43 Patient left the ED. rv Signatures: Dispatcher [employer] Gloria Ramey, EMBROIDERY DESIGNER-C SHIRIN-Dipti Costello, RN Pankaj Vernon RN RN Eda Kim ag3
[2023-01-11] MEDS ORDERED: TRAMADOL HCL 50 MG TAB ONE (23:44)
[2023-01-11] MEDS ORDERED: ACETAMINOPHEN 500 MG TAB ONE (23:44)
[2023-01-12 00:42] VITALS: TEMP 98.5
[2023-01-12 00:43] VITALS: O2SAT 100
[2023-01-12 00:44] VITALS: BP 110/76
--- NOTE | 2023-01-13 19:16 | RAD REPORT ---
EXAM DESCRIPTION: CT - Head C Spine Mpr Wo Con - 01/12/2023 6:38 am CLINICAL HISTORY: The patient is 32 years old and is Female; HEADACHE TECHNIQUE: Axial computed tomography images of the head/brain and cervical spine without intravenous contrast. Sagittal and coronal reformatted images were created and reviewed. This CT exam was pe rformed using one or more of the following dose reduction techniques: automated exposure control, a djustment of the mA and/or kV according to patient size, and/or use of iterative reconstruction techn ique. COMPARISON: No relevant prior studies available. FINDINGS: BRAIN: Fullness of the foramen magnum with evidence of Chiari malformation is noted. The escobar-white differentiation is maintained. There is no intracranial hemorrhage, mass effect, or midli ne shift. There are no extra-axial fluid collections. There is no cerebral edema. VENTRICLES: Unremarkable. No ventriculomegaly. SKULL: Evidence of occipital craniectomy is present. No acute fracture. SINUSES: Unremarkable as visualized. No acute sinusitis. MASTOID AIR CELLS: Unremarkable as visualized. No mastoid effusion. VERTEBRAE: Straightening of the normal cervical curvature is present. The vertebral body height s and alignment are maintained. There is no acute fracture. DISCS/SPINAL CANAL/NEURAL FORAMINA: The intervertebral disc spaces are maintained. A mild disc bu lge at C4-C5 is present causing minimal canal narrowing. No significant neural foraminal narrowing is present. SOFT TISSUES: The soft tissues are normal. LUNG APICES: Unremarkable as visualized. IMPRESSION: 1. No acute intracranial findings. 2. Straightening of the normal cervical curvature is present. Findings may be secondary to patien t position versus muscle spasm. Electronically signed by: Sailaja Dixon MD 01/11/2023 11:28 PM CDT Due to temporary technical issues with the PACS/Fluency reporting system, reports are being signed by the in house radiologists without review as a courtesy to insure prompt reporting. The interpreting radiologist is fully responsible for the content of the report.
--- NOTE | 2023-01-14 19:34 | EKG ---
Test Date: 2023-01-11 Test Time: 21:17:50 Auto Striper: JAYASHREE MEASUREMENT RESULTS: Intervals: Rate: 62 MT: 120 QRSD: 82 QT: 414 QTc: 420 Rembert: P: 16 MT: 120 QRS: 53 T: 39 INTERPRETIVE STATEMENTS: Normal sinus rhythm Normal ECG No previous ECG available for comparison Electronically Signed On 01-14-23 19:29:36 CDT by Deangelo Boss
== END 2023-01-11 23:43 | disposition home or self-care (01) ==
LOC: ER 20:04
DX: R51.9 Headache, unspecified (principal); Z88.1 Allergy status to other antibiotic agents
CPT/HCPCS: 96361; 85025; 36415; 83735; 82550; 86308; 81025; 85610; 85730; 81003; 84484; 80053; 70450; 72125; 96375; 96374; 99284; J2765; J1200; J3010; J7030; 93005